=== PATIENT | male | born 1940 | race African-American/Black ===

== ENCOUNTER 2020-09-22 16:24 | Observation (INO) | payer OTHER, SELFPAY ==
--- NOTE | ~2020-09-22 | CT_ITS ---
EXAMINATION: CT HEAD WITHOUT CONTRAST CLINICAL INFORMATION: Weakness. COMPARISON: CT head from 05/29/2016. TECHNIQUE: Contiguous axial imaging was performed from the skull base to vertex without intravenous administration of contrast. This CT examination was performed using dose optimization techniques as appropriate, variously including the following: *Automated exposure control. *Adjustment of mA and/or kV according to patient size (this includes techniques or standardized protocols for targeted exams where dose is matched to indication/reason for exam; i.e. extremities or head). *Use of iterative reconstruction technique. DLP: 639 mGy-cm FINDINGS: There is no evidence of acute intracranial hemorrhage or edematous territorial infarction. Scattered hypoattenuation in the periventricular and deep white matter are consistent with mild to moderate microangiopathy. Chronic encephalomalacia of the medial left cerebellar hemisphere. Otherwise, the weiner-white matter differentiation is preserved. Proportional prominence of the ventricles and sulcal spaces. The third ventricle measures 0.9 cm in diameter, unchanged. No evidence for obstructive hydrocephalus. There is a 0.6 cm hyperattenuating nodular focus at the foramen magnum consistent with a colloid cyst, unchanged. No abnormal mass effect or midline shift. No extra-axial fluid collections. No acute soft tissue or osseous abnormalities. Chronic depression of the right lamina papyracea. Mild mucosal thickening of the paranasal sinuses. The mastoid air cells and middle ear cavities are clear. Bilateral lens extractions. CT/CT head/brain wo con IMPRESSION: 1. No evidence of acute intracranial hemorrhage or edematous territorial infarction. 2. Chronic encephalomalacia of the left cerebellar hemisphere. Mild to moderate underlying microangiopathy. 3. 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 No evidence of obstructive hydrocephalus.
--- NOTE | ~2020-09-22 | MR_ITS ---
MRI OF THE BRAIN WITHOUT IV CONTRAST INDICATION: Rule out CVA. COMPARISON: Head and neck CTA 09/22/2020 TECHNIQUE: Multiplanar multisequence MR imaging of the brain was obtained without IV contrast. FINDINGS: There is no hydrocephalus, extra-axial surface collection, or herniation. The major flow voids at the skull base are preserved. There is no acute infarct on diffusion-weighted imaging. There is no intracranial hemorrhage on the gradient recalled echo acquisition. The midline structures are normal. The cerebellar tonsils are normally positioned. Asymmetric right temporal lobe volume loss. There is a chronic infarct within the inferomedial left cerebellum. Chronic gliosis and encephalomalacia within the left dorsal cervicomedullary junction as well. There is moderate chronic microangiopathy. The craniocervical junction is normal. Osseous marrow signal intensity is homogenous. Chronic traumatic deformity of the right lamina papyracea with herniation of extraconal fat into the fracture defect. MR/MR head/brain wo con IMPRESSION: - No acute intracranial findings. No acute infarcts. - There is a chronic infarct within the inferomedial left cerebellum. Chronic gliosis and encephalomalacia within the left dorsal cervicomedullary junction as well. There is moderate chronic microangiopathy. - Asymmetric right temporal lobe volume loss. - Chronic traumatic deformity of the right lamina papyracea with herniation of extraconal fat into the fracture defect.
--- NOTE | ~2020-09-22 | XR_ITS ---
EXAMINATION: XR CHEST CLINICAL INFORMATION: Weakness COMPARISON: Chest x-ray 05/28/2016, 04/06/2015. TECHNIQUE: Frontal portable view of the chest was obtained. 4:33 PM FINDINGS: Diffuse chronic increased interstitial lung markings similar prior exam. No acute airspace disease. No focal consolidation. Cardiac and mediastinal contours are normal. No central pulmonary vascular congestion. XR/XR chest 1V IMPRESSION: Chronic interstitial lung disease. No acute abnormality of the chest.
--- NOTE | ~2020-09-22 | XR_ITS ---
EXAMINATION: XR ABDOMEN KUB CLINICAL INDICATION: Constipation COMPARISON: Multiple prior examinations including CT abdomen pelvis May 2016. TECHNIQUE: AP view of the abdomen. FINDINGS: There is a prominent amount of feces within the large bowel. However the bowel is not appear abnormally dilated. Gas pattern overall unremarkable. Postsurgical changes in the spine. Surgical clips and stent overlying the right inguinal proximal femoral region. XR/XR KUB IMPRESSION: Prominent feces within the large bowel but no bowel dilatation.
--- NOTE | ~2020-09-22 | CT_ITS ---
EXAMINATION: CTA OF THE HEAD/NECK CLINICAL INFORMATION: Slurred speech. Worsening lower extremity weakness. COMPARISON: Head CT from today. TECHNIQUE: A routine non contrast head CT was performed earlier in the evening. A 70 mL bolus of Omnipaque 350 was administered. Subsequent multidetector helical imaging was performed of the head and neck. Delayed post contrast imaging was also performed through the head. Multiplanar reformats and MIP were also obtained. Internal carotid artery stenoses are assessed in accordance with NASCET criteria unless otherwise indicated. This CT examination was performed using dose optimization techniques as appropriate, variously including the following: *Automated exposure control *Adjustment of mA and/or kV according to patient size (this includes techniques or standardized protocols for targeted exams where dose is matched to indication/reason for exam; i.e. extremities or head) *Use of iterative reconstruction technique DLP: 1477 mGy-cm. FINDINGS: CT HEAD: There is no evidence of acute intracranial hemorrhage or territorial infarction. No abnormal mass effect or midline shift is seen. Chronic encephalomalacia of the left cerebellar hemisphere. Thomas to white matter differentiation is otherwise well preserved. No extra-axial fluid collections are identified. No suspicious leptomeningeal or parenchymal enhancement on the post-contrast images. No hydrocephalus. Proportional prominence of the ventricles and sulcal spaces is consistent with mild volume loss. Patchy periventricular and deep white matter hypoattenuation is consistent with mild small vessel ischemic changes. Redemonstration of the colloid cyst. Chronic appearing depression of the right lamina papyracea. No acute osseous abnormality. Small mucus retention cyst in the left maxillary sinus. Mild opacification of the ethmoid air cells. The mastoid air cells are well aerated. CTA NECK: The aortic arch is of normal caliber and the origins of the great vessels are patent without evidence of significant stenosis. The cervical portion of the vertebral arteries are patent bilaterally. Calcification at the origin of the right vertebral artery does not result in flow-limiting stenosis. No luminal irregularities in the common carotid arteries and the carotid bifurcations are patent bilaterally. The cervical portion of the internal carotid arteries are of normal caliber. Atherosclerotic calcification at the origin of both internal carotid arteries without associated flow-limiting stenosis. The laryngeal structures and pharyngeal mucosal spaces are unremarkable. The oral cavity appears normal. The parotid and submandibular glands are normal. No pathologically enlarged lymph nodes. The thyroid gland is unremarkable. Moderate emphysema the lung apices. No pneumothorax. Spinal alignment is maintained. Mild cervical spondylosis is noted. CTA HEAD: The intradural portion of the vertebral arteries are of normal caliber. The basilar, superior cerebellar, and posterior communicating arteries are patent. The posterior, middle, and anterior cerebral arteries are of normal caliber without evidence of significant luminal irregularity. No definite intracranial aneurysms. CT/CT angio head neck IMPRESSION: 1. No acute vascular abnormality. No large vessel occlusion. Scattered areas of atherosclerotic calcification without flow-limiting stenosis. 2. No acute intracranial findings.
[2020-09-22 16:34] VITALS: BP 138/84; PULSE 62; RESP 18; TEMP 36.5; O2SAT 94; BMI 20.5
--- NOTE | 2020-09-22 16:34 | ED_ITS ---
HPI - Weakness General Chief complaint: Weakness Stated complaint: STROKE ALERT,GENERAL WEAKNESS,?SPEECH CHANGES Time Seen by Provider: 09/22/20 16:34 Source: patient and EMS Mode of arrival: EMS Limitations: other (poor historian) History of Present Illness HPI Narrative: 79 yo male with hx of cerebellar stroke, HTN, PVD, COPD, HTN, HPL here with onset of slurred speech and diff ambulating at 8am, no trauma, states he will fall over if he stands MD Complaint: generalized weakness Onset (ago): hour(s) (9 hours) Duration: constant Location: LLE and RLE Migration: none Severity: moderate Quality: dull Relieving factors: rest Exacerbating factors: movement Context: history of similar Associated symptoms: loss of appetite Related Data Home Medications Medication Instructions Recorded Confirmed amlodipine 1 tab PO QAM 09/22/20 09/22/20 aspirin 1 tab PO BEDTIME 09/22/20 09/22/20 atorvastatin 1 tab PO BEDTIME 09/22/20 09/22/20 azithromycin 250 mg PO DAILY 09/22/20 09/22/20 carbidopa-levodopa 1 tab PO TID 09/22/20 09/22/20 ferrous sulfate 325 mg PO TID 09/22/20 09/22/20 gabapentin 600 mg PO BID 09/22/20 09/22/20 latanoprost 1 drp OPHTHALMIC (EYE) BEDTIME 09/22/20 09/22/20 melatonin 3 mg PO BEDTIME 09/22/20 09/22/20 methotrexate sodium 6 tab PO TH@1000 09/22/20 09/22/20 omeprazole 20 mg PO DAILY 09/22/20 09/22/20 oxycodone-acetaminophen 1 tab PO BID PRN 09/22/20 09/22/20 primidone 50 mg PO BID@0900,1700 09/22/20 09/22/20 primidone 100 mg PO BEDTIME 09/22/20 09/22/20 tamsulosin 0.4 mg PO DAILY 09/22/20 09/22/20 trazodone 300 mg PO BEDTIME 09/22/20 09/22/20 Allergies Allergy/AdvReac Type Severity Reaction Status Date / Time No Known Allergies Allergy Unverified 02/20/20 15:11 [No Known Allergies*] Review of Systems Review of Systems: Constitutional : No Weight loss, No Fever, pos Chills, pos Fatigue, pos Malaise ENT/Mouth : No sore throat, No Rhinorrhea Eyes: No Eye Pain, No Swelling, No Redness Cardiovascular : No Chest Pain, No SOB, No Dyspnea on Exertion, No Orthopnea, No Edema, No Palpitations Respiratory : No Cough, No Sputum, No Wheezing Gastrointestinal : No Nausea, No Vomiting, No Diarrhea, No Constipation, No abdominal Pain, No Hematochezia, No Melena Genitourinary : No Dysuria, No Urinary Frequency, No Hematuria, Musculoskeletal : No joint pain, No Myalgias, No Joint Swelling Skin : No Skin Lesions, No rash Neuro : pos Weakness, No Numbness, No Dizziness, No Headache Psych : No Anxiety/Panic, No Depression Heme/Lymph: No Bruising, No Bleeding,No Lymphadenopathy Endocrine : No Polyuria, No Polydipsia All other systems reviewed and are negative FORMERLY [facility] Past Medical History Medical History CAD (coronary artery disease) Chronic anemia Chronic back pain Chronic hepatitis B Chronic low back pain COPD (chronic obstructive pulmonary disease) Elevated rheumatoid factor Elevated sed rate HTN (hypertension) Hyperlipemia Obstructive sleep apnea PVD (peripheral vascular disease) Renal lithiasis Tubular adenoma Vitamin B12 deficiency Social History Social History (Updated 09/22/20 @ 16:37 by Lidia Ferro DO) Smoking Status: Former smoker Use of substances other than those prescribed or required for medical reasons: No Advance Directives: No Advance Directives Information Provided: No Physical Exam Vital Signs: Vital Signs: Last Vital Signs Temp 97.7 F 09/22/20 16:34 Pulse 62 09/22/20 16:34 Resp 18 09/22/20 16:34 BP 138/84 09/22/20 16:34 Pulse Ox 94 09/22/20 16:34 Body Mass Index 20.5 Appearance: Alert. Oriented X3. No acute distress. Very soft speech Eyes: Pupils equal, round and reactive to light. ENT: Pharynx dry MM Neck: Normal inspection. Neck supple. CVS: Normal heart rate and rhythm. Pulses normal. Respiratory: No respiratory distress. Breath sounds normal. Abdomen: Soft and nontender. Skin: Skin warm and dry. Normal skin color. poor skin turgor. Extremities: No lower extremity edema. No calf ttp Neuro: Oriented X 3. No motor deficit. No sensory deficit. FLat affect, unable to ambulate, but no drift, denies visual loss, + slurred speech NIH Stroke Scale Internal: Initial- Upon Arrival Level of Consciousness: Alert Level of Consciousness Questions: Answers both questions correctly Level of Consciousness Commands: Performs both tasks correctly Best Gaze: Normal Visual: No visual loss Facial Palsy: Normal Motor Arm (Right): No drift Motor Arm (Left): No drift Motor Leg (Right): Drift Motor Leg (Left): Drift Limb Ataxia: Absent Sensory: Normal Best Language: No aphasia Dysarthia: Mild to moderate dysarthria Extinction and Inattention: No abnormality Score: 3 Course Course Course Narrative: + weakness, unknown source of lactic acidosis but suspect dehydration and not infection or severe sepsis given new dysarthria will workup for possible stroke and admit MDM - Weakness MDM Narrative Medical decision making narrative: 79 yo male with COPD, HTN, HPL, prior stroke not on AC therapy here with weakness slurred speech since 8am out of tPa window at this time will need labs, EKG, CT head, ambulation trial r/o infectious and metabolic workup vs stroke Lab Data Result diagrams: 09/22/20 17:41 09/22/20 17:41 Labs: Lab Results 09/22/20 09/22/20 09/22/20 Range/Units 16:36 17:41 17:41 WBC 5.5 (4.8-10.8) X10*3/uL RBC 4.02 L (4.60-5.80) X10*6/uL Hgb 11.9 L (14.0-18.0) g/dl Hct 36.8 L (42-52) % MCV 91.5 (80-98) fL MCH 29.6 (27.0-33.0) pg MCHC 32.3 (31.0-36.0) g/dl RDW 17.4 H (11.0-16.0) % Plt Count 256 (160-400) X10*3/uL MPV 9.6 (9.4-12.4) fL Immature Gran % (Auto) 0.2 (0.0-0.4) % Neut % (Auto) 71.4 (45-73) % Lymph % (Auto) 24.5 (20-40) % Davis % (Auto) 3.3 (2-11) % Eos % (Auto) 0.4 (0-4) % Baso % (Auto) 0.2 (0-2) % Lymph # (Auto) 1.4 (1.2-4.9) X10*3/uL Davis # (Auto) 0.2 (0.1-1.2) X10*3/uL Eos # (Auto) 0.0 (0.0-0.4) X10*3/uL Baso # (Auto) 0.0 (0.0-0.2) X10*3/uL Abs Immat Gran (auto) 0.01 (0.00-0.03) X10*3/uL Absolute Neuts (auto) 4.0 (2.0-8.3) X10*3/uL Absolute Nucleated RBC 0.000 (0.0-0.012) X10*3/uL Nucleated RBC % (auto) 0.0 (0.0-0.2) /100WBC PT (10.8-13.0) SEC INR (0.9-1.1) APTT (24.1-38.0) SEC VBG pH (7.32-7.43) VBG pCO2 mmHg VBG pO2 mmHg VBG HCO3 (22-26) mmol/L VBG O2 Saturation % VBG Base Excess mmol/L Sodium 139 (135-145) mmol/L Potassium 4.3 (3.3-5.1) mmol/L Chloride 102 (96-108) mmol/L Carbon Dioxide 29 (22-29) mmol/L Anion Gap 12 (12-20) BUN 21 H (9-16) mg/dL Creatinine 0.80 (0.5-1.4) mg/dL Estim Creat Clear Calc 76.8 Estimated GFR > 60 POC Glucose 129 H (60-115) mg/dL Random Glucose 114 (60-115) mg/dL Lactic Acid (0.5-2.0) mmol/L Calcium 9.4 (8.4-10.2) mg/dL Magnesium (1.6-2.6) mg/dL Total Bilirubin (0.0-1.0) mg/dL Direct Bilirubin (0.0-0.5) mg/dL AST (5-37) U/L ALT (0-40) U/L Alkaline Phosphatase (39-117) U/L Total Creatine Kinase 28 L (38-174) U/L Troponin I High Sens (<3.5-35.0) ng/L Total Protein (6.5-8.0) g/dL Albumin (3.5-5.0) g/dL Lipase 10 (8-78) U/L Urine Color Urine Appearance Urine pH (5.0-8.0) Ur Specific [place] (1.005-1.025) Urine Protein (NEG-TRACE) MG/DL Urine Glucose (UA) (NEG) MG/DL Urine Ketones (NEG) MG/DL Urine Blood (NEG) Urine Nitrite (NEG) Ur Leukocyte Esterase (NEG) Urine RBC (0) /HPF Urine WBC (0-4) /HPF Ur Squamous Epith Cells /LPF Ur Renal Epithelial Cell /LPF Urine Bacteria /LPF Urine Mucus /LPF Ethyl Alcohol mg/dL COVID-19 (ARGELIA) (Negative) COVID-19 Clin Com 09/22/20 09/22/20 09/22/20 Range/Units 17:41 17:41 17:41 WBC (4.8-10.8) X10*3/uL RBC (4.60-5.80) X10*6/uL Hgb (14.0-18.0) g/dl Hct (42-52) % MCV (80-98) fL MCH (27.0-33.0) pg MCHC (31.0-36.0) g/dl RDW (11.0-16.0) % Plt Count (160-400) X10*3/uL MPV (9.4-12.4) fL Immature Gran % (Auto) (0.0-0.4) % Neut % (Auto) (45-73) % Lymph % (Auto) (20-40) % Davis % (Auto) (2-11) % Eos % (Auto) (0-4) % Baso % (Auto) (0-2) % Lymph # (Auto) (1.2-4.9) X10*3/uL Davis # (Auto) (0.1-1.2) X10*3/uL Eos # (Auto) (0.0-0.4) X10*3/uL Baso # (Auto) (0.0-0.2) X10*3/uL Abs Immat Gran (auto) (0.00-0.03) X10*3/uL Absolute Neuts (auto) (2.0-8.3) X10*3/uL Absolute Nucleated RBC (0.0-0.012) X10*3/uL Nucleated RBC % (auto) (0.0-0.2) /100WBC PT 13.4 H (10.8-13.0) SEC INR 1.1 (0.9-1.1) APTT 32.3 (24.1-38.0) SEC VBG pH (7.32-7.43) VBG pCO2 mmHg VBG pO2 mmHg VBG HCO3 (22-26) mmol/L VBG O2 Saturation % VBG Base Excess mmol/L Sodium (135-145) mmol/L Potassium (3.3-5.1) mmol/L Chloride (96-108) mmol/L Carbon Dioxide (22-29) mmol/L Anion Gap (12-20) BUN (9-16) mg/dL Creatinine (0.5-1.4) mg/dL Estim Creat Clear Calc Estimated GFR POC Glucose (60-115) mg/dL Random Glucose (60-115) mg/dL Lactic Acid 2.2 H* (0.5-2.0) mmol/L Calcium (8.4-10.2) mg/dL Magnesium (1.6-2.6) mg/dL Total Bilirubin (0.0-1.0) mg/dL Direct Bilirubin (0.0-0.5) mg/dL AST (5-37) U/L ALT (0-40) U/L Alkaline Phosphatase (39-117) U/L Total Creatine Kinase (38-174) U/L Troponin I High Sens (<3.5-35.0) ng/L Total Protein (6.5-8.0) g/dL Albumin (3.5-5.0) g/dL Lipase (8-78) U/L Urine Color Urine Appearance Urine pH (5.0-8.0) Ur Specific [place] (1.005-1.025) Urine Protein (NEG-TRACE) MG/DL Urine Glucose (UA) (NEG) MG/DL Urine Ketones (NEG) MG/DL Urine Blood (NEG) Urine Nitrite (NEG) Ur Leukocyte Esterase (NEG) Urine RBC (0) /HPF Urine WBC (0-4) /HPF Ur Squamous Epith Cells /LPF Ur Renal Epithelial Cell /LPF Urine Bacteria /LPF Urine Mucus /LPF Ethyl Alcohol < 10 mg/dL COVID-19 (ARGELIA) (Negative) COVID-19 Clin Com 09/22/20 09/22/20 09/22/20 Range/Units 17:41 17:41 17:47 WBC (4.8-10.8) X10*3/uL RBC (4.60-5.80) X10*6/uL Hgb (14.0-18.0) g/dl Hct (42-52) % MCV (80-98) fL MCH (27.0-33.0) pg MCHC (31.0-36.0) g/dl RDW (11.0-16.0) % Plt Count (160-400) X10*3/uL MPV (9.4-12.4) fL Immature Gran % (Auto) (0.0-0.4) % Neut % (Auto) (45-73) % Lymph % (Auto) (20-40) % Davis % (Auto) (2-11) % Eos % (Auto) (0-4) % Baso % (Auto) (0-2) % Lymph # (Auto) (1.2-4.9) X10*3/uL Davis # (Auto) (0.1-1.2) X10*3/uL Eos # (Auto) (0.0-0.4) X10*3/uL Baso # (Auto) (0.0-0.2) X10*3/uL Abs Immat Gran (auto) (0.00-0.03) X10*3/uL Absolute Neuts (auto) (2.0-8.3) X10*3/uL Absolute Nucleated RBC (0.0-0.012) X10*3/uL Nucleated RBC % (auto) (0.0-0.2) /100WBC PT (10.8-13.0) SEC INR (0.9-1.1) APTT (24.1-38.0) SEC VBG pH 7.35 (7.32-7.43) VBG pCO2 52 mmHg VBG pO2 48 mmHg VBG HCO3 29 H (22-26) mmol/L VBG O2 Saturation 75.0 % VBG Base Excess 2.6 mmol/L Sodium (135-145) mmol/L Potassium (3.3-5.1) mmol/L Chloride (96-108) mmol/L Carbon Dioxide (22-29) mmol/L Anion Gap (12-20) BUN (9-16) mg/dL Creatinine (0.5-1.4) mg/dL Estim Creat Clear Calc Estimated GFR POC Glucose (60-115) mg/dL Random Glucose (60-115) mg/dL Lactic Acid (0.5-2.0) mmol/L Calcium (8.4-10.2) mg/dL Magnesium 2.2 (1.6-2.6) mg/dL Total Bilirubin 0.5 (0.0-1.0) mg/dL Direct Bilirubin 0.2 (0.0-0.5) mg/dL AST 14 (5-37) U/L ALT < 6 (0-40) U/L Alkaline Phosphatase 121 H (39-117) U/L Total Creatine Kinase (38-174) U/L Troponin I High Sens < 3.5 (<3.5-35.0) ng/L Total Protein 9.0 H (6.5-8.0) g/dL Albumin 3.9 (3.5-5.0) g/dL Lipase (8-78) U/L Urine Color Urine Appearance Urine pH (5.0-8.0) Ur Specific [place] (1.005-1.025) Urine Protein (NEG-TRACE) MG/DL Urine Glucose (UA) (NEG) MG/DL Urine Ketones (NEG) MG/DL Urine Blood (NEG) Urine Nitrite (NEG) Ur Leukocyte Esterase (NEG) Urine RBC (0) /HPF Urine WBC (0-4) /HPF Ur Squamous Epith Cells /LPF Ur Renal Epithelial Cell /LPF Urine Bacteria /LPF Urine Mucus /LPF Ethyl Alcohol mg/dL COVID-19 (ARGELIA) (Negative) COVID-19 Clin Com 09/22/20 09/22/20 Range/Units 17:53 20:51 WBC (4.8-10.8) X10*3/uL RBC (4.60-5.80) X10*6/uL Hgb (14.0-18.0) g/dl Hct (42-52) % MCV (80-98) fL MCH (27.0-33.0) pg MCHC (31.0-36.0) g/dl RDW (11.0-16.0) % Plt Count (160-400) X10*3/uL MPV (9.4-12.4) fL Immature Gran % (Auto) (0.0-0.4) % Neut % (Auto) (45-73) % Lymph % (Auto) (20-40) % Davis % (Auto) (2-11) % Eos % (Auto) (0-4) % Baso % (Auto) (0-2) % Lymph # (Auto) (1.2-4.9) X10*3/uL Davis # (Auto) (0.1-1.2) X10*3/uL Eos # (Auto) (0.0-0.4) X10*3/uL Baso # (Auto) (0.0-0.2) X10*3/uL Abs Immat Gran (auto) (0.00-0.03) X10*3/uL Absolute Neuts (auto) (2.0-8.3) X10*3/uL Absolute Nucleated RBC (0.0-0.012) X10*3/uL Nucleated RBC % (auto) (0.0-0.2) /100WBC PT (10.8-13.0) SEC INR (0.9-1.1) APTT (24.1-38.0) SEC VBG pH (7.32-7.43) VBG pCO2 mmHg VBG pO2 mmHg VBG HCO3 (22-26) mmol/L VBG O2 Saturation % VBG Base Excess mmol/L Sodium (135-145) mmol/L Potassium (3.3-5.1) mmol/L Chloride (96-108) mmol/L Carbon Dioxide (22-29) mmol/L Anion Gap (12-20) BUN (9-16) mg/dL Creatinine (0.5-1.4) mg/dL Estim Creat Clear Calc Estimated GFR POC Glucose (60-115) mg/dL Random Glucose (60-115) mg/dL Lactic Acid (0.5-2.0) mmol/L Calcium (8.4-10.2) mg/dL Magnesium (1.6-2.6) mg/dL Total Bilirubin (0.0-1.0) mg/dL Direct Bilirubin (0.0-0.5) mg/dL AST (5-37) U/L ALT (0-40) U/L Alkaline Phosphatase (39-117) U/L Total Creatine Kinase (38-174) U/L Troponin I High Sens (<3.5-35.0) ng/L Total Protein (6.5-8.0) g/dL Albumin (3.5-5.0) g/dL Lipase (8-78) U/L Urine Color YELLOW Urine Appearance HAZY Urine pH 5.5 (5.0-8.0) Ur Specific [place] >= 1.030 H (1.005-1.025) Urine Protein 1+ H (NEG-TRACE) MG/DL Urine Glucose (UA) NEG (NEG) MG/DL Urine Ketones NEG (NEG) MG/DL Urine Blood 2+ H (NEG) Urine Nitrite NEG (NEG) Ur Leukocyte Esterase NEG (NEG) Urine RBC 15-29 H (0) /HPF Urine WBC 0-2 (0-4) /HPF Ur Squamous Epith Cells TRACE /LPF Ur Renal Epithelial Cell TRACE /LPF Urine Bacteria 1+ /LPF Urine Mucus 3+ /LPF Ethyl Alcohol mg/dL COVID-19 (ARGELIA) Negative (Negative) COVID-19 Clin Com See Note ECG Data Attestation: I personally reviewed and interpreted this ECG as follows: ECG interpretation date: 09/22/20 ECG interpretation time: 17:12 Interpretation: Rate: 61 Rhythm: NSR with 1st degree AVB [place]: left Normal P waves. Normal LUPILLO. Normal QRS complex. ST T wave : inverted aVL, no DARIN inverted V4 qTC: normal prior studies: no acute ischemia The study has been interpreted contemporaneously by me. . Discharge Plan Discharge Clinical Impression: Weakness, Dysarthria, Acidosis, lactic Patient Disposition: Admitted As Inpatient Prescriptions: No Action latanoprost 0.005 % drops 1 drp ophthalmic (eye) BEDTIME RF: 0 atorvastatin 40 mg tablet 1 tab PO BEDTIME RF: 0 primidone 50 mg tablet 100 mg PO BEDTIME RF: 0 primidone 50 mg tablet 50 mg PO BID@0900,1700 RF: 0 gabapentin 600 mg tablet 600 mg PO BID RF: 0 azithromycin 250 mg tablet 250 mg PO DAILY RF: 0 melatonin 3 mg tablet 3 mg PO BEDTIME RF: 0 amlodipine 5 mg tablet 1 tab PO QAM RF: 0 aspirin 81 mg tablet,delayed release (DR/EC) 1 tab PO BEDTIME RF: 0 oxycodone-acetaminophen 5-325 mg tablet 1 tab PO BID PRN (Reason: Pain) RF: 0 methotrexate sodium 2.5 mg tablet 6 tab PO TH@1000 RF: 0 tamsulosin 0.4 mg capsule 0.4 mg PO DAILY RF: 0 trazodone 150 mg tablet 300 mg PO BEDTIME RF: 0 ferrous sulfate 325 mg (65 mg iron) tablet 325 mg PO TID RF: 0 omeprazole 20 mg capsule,delayed release(DR/EC) 20 mg PO DAILY RF: 0 carbidopa-levodopa 25-100 mg tablet 1 tab PO TID RF: 0
[2020-09-22 16:39] LABS: Glucose, Whole Blood 129 mg/dL (60-115)
--- NOTE | 2020-09-22 16:39 | ECG_ITS ---
Test Reason : WEAKNESS Blood Pressure : / mmHG Vent. Rate : 061 BPM Atrial Rate : 061 BPM P-R Int : 224 ms QRS Dur : 082 ms QT Int : 426 ms P-R-T Axes : 057 -40 072 degrees QTc Int : 428 ms Sinus rhythm with 1st degree A-V block Left axis deviation Nonspecific ST and T wave abnormality Abnormal ECG When compared with ECG of 28-MAY-2016 19:08, MD interval has increased Vent. rate has decreased BY [address] no longer depressed in Lateral leads Nonspecific T wave abnormality, worse in Lateral leads Referred By: Lidia Ferro Electronically Signed By:Jae Hurtado
[2020-09-22 17:56] LABS: MANUAL DIFF FLAG NO
[2020-09-22 17:57] LABS: Venous Blood Gas Refer to POC result
[2020-09-22 17:58] LABS: VBG Base Excess 2.6 mmol/L; VBG HCO3 29 mmol/L (22-26); VBG pCO2 52 mmHg; VBG pH 7.35 (7.32-7.43); VBG pO2 48 mmHg
[2020-09-22 18:06] LABS: INTERNATIONAL NORM RATIO 1.1 (0.9-1.1); Prothrombin Time 13.4 SEC (10.8-13.0)
[2020-09-22 18:09] LABS: Partial Thromboplastin Time 32.3 SEC (24.1-38.0)
[2020-09-22 18:15] LABS: Basophils Percent Auto 0.2 % (0-2); Eosinophils Percent Auto 0.4 % (0-4); Hematocrit 36.8 % (42-52); Hemoglobin 11.9 g/dl (14.0-18.0); Imm Gran Abs Auto 0.01 X10*3/uL (0.00-0.03); Imm Gran Pct Auto 0.2 % (0.0-0.4); Lymphocytes Absolute Auto 1.4 X10*3/uL (1.2-4.9); Lymphocytes Percent Auto 24.5 % (20-40); Mean Corpuscular HGB Conc 32.3 g/dl (31.0-36.0); Mean Corpuscular Hemoglobin 29.6 pg (27.0-33.0); Mean Corpuscular Volume 91.5 fL (80-98); Mean Platelet Volume 9.6 fL (9.4-12.4); Monocytes Absolute Auto 0.2 X10*3/uL (0.1-1.2); Monocytes Percent Auto 3.3 % (2-11); Neutrophils Percent Auto 71.4 % (45-73); Platelet Count 256 X10*3/uL (160-400); Red Blood Count 4.02 X10*6/uL (4.60-5.80); Red Cell Distribution Width 17.4 % (11.0-16.0); White Blood Count 5.5 X10*3/uL (4.8-10.8)
[2020-09-22 18:20] LABS: COVID-19 Test Negative (Negative); IDNOW Serial# 08D9AD1C
[2020-09-22 18:36] LABS: Ethanol < 10 mg/dL
[2020-09-22 18:40] LABS: Anion Gap 12 (12-20); Blood Urea Nitrogen 21 mg/dL (9-16); Calcium 9.4 mg/dL (8.4-10.2); Carbon Dioxide 29 mmol/L (22-29); Chloride 102 mmol/L (96-108); Creatinine Clr Calc Pharmacy 76.8; Estimated Glomerular Filt Rate > 60; Glucose Random 114 mg/dL (60-115); Lipase 10 U/L (8-78); Potassium 4.3 mmol/L (3.3-5.1); Sodium 139 mmol/L (135-145)
[2020-09-22 18:44] LABS: Troponin-I High Sensitivity < 3.5 ng/L (<3.5-35.0)
[2020-09-22 18:56] LABS: Alanine Aminotransferase < 6 U/L (0-40); Albumin Level 3.9 g/dL (3.5-5.0); Alkaline Phosphatase 121 U/L (39-117); Aspartate Amino Transferase 14 U/L (5-37); Bilirubin Direct 0.2 mg/dL (0.0-0.5); Bilirubin Total 0.5 mg/dL (0.0-1.0); Magnesium 2.2 mg/dL (1.6-2.6)
[2020-09-22 19:12] LABS: Lactic Acid 2.2 mmol/L (0.5-2.0)
[2020-09-22] MEDS: 0.9 % Sodium Chloride 500 ML IV (19:39)
[2020-09-22 19:54] LABS: Reflex Lactate? Lactic Acid Added
[2020-09-22 21:01] LABS: Glucose Urine UA NEG (NEG); Leukocyte Esterase Urine NEG (NEG); Nitrite Urine NEG (NEG); PH 5.5 (5.0-8.0); Specific Gravity - Urine >= 1.030 (1.005-1.025); Urine Blood 2+ (NEG); Urine Ketones NEG (NEG); Urine Protein 1+ MG/DL (NEG-TRACE)
[2020-09-22 21:06] LABS: Appearance Urine HAZY; Color Urine YELLOW
[2020-09-22 21:14] LABS: Bacteria Urine 1+ /LPF; Squamous Epithelial Cell Urine TRACE /LPF; WBC Urine 0-2 /HPF (0-4)
[2020-09-22 21:15] LABS: Mucus Urine 3+ /LPF; Renal Epithelial Cells Urine TRACE /LPF
[2020-09-22] MEDS: Aspirin Enteric Coated 81 MG TABLET.DR 162 MG PO (21:59)
[2020-09-22 22:01] VITALS: BP 140/83; PULSE 79; RESP 14; O2SAT 96
[2020-09-22 22:11] LABS: ~Lactic Acid-LAB USE ONLY 1.8 mmol/L (0.5-2.0)
[2020-09-22] MEDS: iohexoL 350 MG/ML 100 ML INFUS..BTL IV (22:41)
--- NOTE | 2020-09-22 23:03 | PM.IMHP ---
History of Present Illness Date of Service: 09/22/20 Chief Complaint: slurred speech, weakness Of CVA, CAD, chronic anemia, chronic hepatitis-B, COPD, HTN, HLD, YEIMY, PVD, who presents to the hospital with complaints of weakness, and slurred speech. Patient is a poor historian, he is not able to give me a straight answer, reports that he has weakness in his arms and has been having difficulty gripping anything. When asked emesis worse than his usual weakness given his history of CVA is unable to tell me, he gets frustrated when asked him this questions, I asked him if he has any other complaints denies, he denies any chest pain, no shortness of breath, numbness or tingling, no facial drooping, he reports that he does not feel like his tongue is heavy, he has no fever chills, no abdominal pain nausea or vomiting, no diarrhea constipation, no urinary symptoms and no lower extremity edema. Patient was noted to have slurred speech by ED physician, on my interview patient has no dysarthria. On arrival to the ED hemodynamically stable with no significant abnormal vitals Labs are significant for hemoglobin of WBC count of 5, hemoglobin of 10.5, hematocrit 33, PT of 13.4, sitting with a 4 in sodium of 137, potassium 4.2, BUN of 20, lactic acid of 2.2 that normalized after fluids, alk-phos of 121, CPK of 28, UA that is positive for blood as well as RBC, CT angio head and neck shows no acute vascular abnormality, no large vessel occlusion, scattered areas of atherosclerotic calcification without flow-limiting stenosis KUB shows prominent feces within the large bowel but no bowel dilatation CXR shows chronic interstitial lung disease Review of Systems Review of Systems: Yes all other systems are reviewed and are negative COUNT INCLUDES THE [facility] Medical History CAD (coronary artery disease) Chronic anemia Chronic back pain Chronic hepatitis B Chronic low back pain COPD (chronic obstructive pulmonary disease) Elevated rheumatoid factor Elevated sed rate HTN (hypertension) Hyperlipemia Obstructive sleep apnea PVD (peripheral vascular disease) Renal lithiasis Tubular adenoma Vitamin B12 deficiency Social History Smoking Status: Former smoker Use of substances other than those prescribed or required for medical reasons: No Advance Directives: No Advance Directives Information Provided: No Meds Allergies Allergy/AdvReac Type Severity Reaction Status Date / Time No Known Allergies Allergy Unverified 02/20/20 15:11 [No Known Allergies*] Active Medications: Current Medications Generic Name Dose Route Start Last Admin Trade Name Freq PRN Reason Stop Dose Admin Pharmacy Consult 1 each 09/22/20 16:37 Consult Rx Perform Med Rec MISCELLANE ONCE PRN Consult order Home Medications Medication Instructions Recorded Confirmed Last Taken Type amlodipine 1 tab PO QAM 09/22/20 09/22/20 Unknown History aspirin 1 tab PO BEDTIME 09/22/20 09/22/20 Unknown History atorvastatin 1 tab PO BEDTIME 09/22/20 09/22/20 Unknown History azithromycin 250 mg PO DAILY 09/22/20 09/22/20 Unknown History carbidopa-levodopa 1 tab PO TID 09/22/20 09/22/20 Unknown History ferrous sulfate 325 mg PO TID 09/22/20 09/22/20 Unknown History gabapentin 600 mg PO BID 09/22/20 09/22/20 Unknown History latanoprost 1 drp OPHTHALMIC (EYE) BEDTIME 09/22/20 09/22/20 Unknown History melatonin 3 mg PO BEDTIME 09/22/20 09/22/20 Unknown History methotrexate sodium 6 tab PO TH@1000 09/22/20 09/22/20 Unknown History omeprazole 20 mg PO DAILY 09/22/20 09/22/20 Unknown History oxycodone-acetaminophen 1 tab PO BID PRN 09/22/20 09/22/20 Unknown History primidone 50 mg PO BID@0900,1700 09/22/20 09/22/20 Unknown History primidone 100 mg PO BEDTIME 09/22/20 09/22/20 Unknown History tamsulosin 0.4 mg PO DAILY 09/22/20 09/22/20 Unknown History trazodone 300 mg PO BEDTIME 09/22/20 09/22/20 Unknown History Physical Exam Vital Signs and Narrative: Vital Signs: Last Vital Signs Temp 97.7 F 09/22/20 16:34 Pulse 79 09/22/20 22:01 Resp 14 09/22/20 22:01 BP 140/83 H 09/22/20 22:01 Pulse Ox 96 09/22/20 22:01 Body Mass Index 20.5 Const: General: cooperative and no acute distress Orientation/consciousness: patient oriented x3 Eyes: Other: nystagmus to the right when tracking General: appearance normal, both eyes and all related structures Resp: Effort & Inspection: normal respiratory effort and able to speak in complete sentences Cardio: Rate: regular rate Rhythm: regular rhythm GI: Palpation (GI): Soft to palpation Auscultation: normal bowel sounds Skin: General skin exam: no rashes or lesions noted Neuro: Other: strength is 5/5 in all extremity, has nystagmus to the right General: patient oriented x3 Cognition (Neuro): normal cognition Extrem: General: Yes normal to inspection and Yes no pedal edema Results Labs CBC and Chem 7: 09/23/20 04:28 09/23/20 04:27 Labs: Laboratory Results - last 24 hr 09/22/20 09/22/20 09/22/20 16:36 17:41 17:41 MCV 91.5 MCH 29.6 MCHC 32.3 RDW 17.4 H Plt Count 256 MPV 9.6 Immature Gran % (Auto) 0.2 Neut % (Auto) 71.4 Lymph % (Auto) 24.5 [place] % (Auto) 3.3 Eos % (Auto) 0.4 Baso % (Auto) 0.2 Lymph # (Auto) 1.4 [place] # (Auto) 0.2 Eos # (Auto) 0.0 Baso # (Auto) 0.0 Abs Immat Gran (auto) 0.01 Absolute Neuts (auto) 4.0 Absolute Nucleated RBC 0.000 Nucleated RBC % (auto) 0.0 PT INR APTT VBG pH VBG pCO2 VBG pO2 VBG HCO3 VBG O2 Saturation VBG Base Excess Anion Gap 12 Estim Creat Clear Calc 76.8 Estimated GFR > 60 POC Glucose 129 H Random Glucose 114 Lactic Acid Lactic Acid Fup @ 2Hr Calcium 9.4 Magnesium Total Bilirubin Direct Bilirubin AST ALT Alkaline Phosphatase Total Creatine Kinase 28 L Troponin I High Sens Total Protein Albumin Lipase 10 Urine Color Urine Appearance Urine pH Ur Specific [place] Urine Protein Urine Glucose (UA) Urine Ketones Urine Blood Urine Nitrite Ur Leukocyte Esterase Urine RBC Urine WBC Ur Squamous Epith Cells Ur Renal Epithelial Cell Urine Bacteria Urine Mucus Ethyl Alcohol COVID-19 (ARGELIA) COVID-19 Clin Com 09/22/20 09/22/20 09/22/20 17:41 17:41 17:41 MCV MCH MCHC RDW Plt Count MPV Immature Gran % (Auto) Neut % (Auto) Lymph % (Auto) [place] % (Auto) Eos % (Auto) Baso % (Auto) Lymph # (Auto) [place] # (Auto) Eos # (Auto) Baso # (Auto) Abs Immat Gran (auto) Absolute Neuts (auto) Absolute Nucleated RBC Nucleated RBC % (auto) PT 13.4 H INR 1.1 APTT 32.3 VBG pH VBG pCO2 VBG pO2 VBG HCO3 VBG O2 Saturation VBG Base Excess Anion Gap Estim Creat Clear Calc Estimated GFR POC Glucose Random Glucose Lactic Acid 2.2 H* Lactic Acid Fup @ 2Hr Calcium Magnesium Total Bilirubin Direct Bilirubin AST ALT Alkaline Phosphatase Total Creatine Kinase Troponin I High Sens Total Protein Albumin Lipase Urine Color Urine Appearance Urine pH Ur Specific [place] Urine Protein Urine Glucose (UA) Urine Ketones Urine Blood Urine Nitrite Ur Leukocyte Esterase Urine RBC Urine WBC Ur Squamous Epith Cells Ur Renal Epithelial Cell Urine Bacteria Urine Mucus Ethyl Alcohol < 10 COVID-19 (ARGELIA) COVID-19 SHAPE 09/22/20 09/22/20 09/22/20 17:41 17:41 17:47 MCV MCH MCHC RDW Plt Count MPV Immature Gran % (Auto) Neut % (Auto) Lymph % (Auto) [place] % (Auto) Eos % (Auto) Baso % (Auto) Lymph # (Auto) [place] # (Auto) Eos # (Auto) Baso # (Auto) Abs Immat Gran (auto) Absolute Neuts (auto) Absolute Nucleated RBC Nucleated RBC % (auto) PT INR APTT VBG pH 7.35 VBG pCO2 52 VBG pO2 48 VBG HCO3 29 H VBG O2 Saturation 75.0 VBG Base Excess 2.6 Anion Gap Estim Creat Clear Calc Estimated GFR POC Glucose Random Glucose Lactic Acid Lactic Acid Fup @ 2Hr Calcium Magnesium 2.2 Total Bilirubin 0.5 Direct Bilirubin 0.2 AST 14 ALT < 6 Alkaline Phosphatase 121 H Total Creatine Kinase Troponin I High Sens < 3.5 Total Protein 9.0 H Albumin 3.9 Lipase Urine Color Urine Appearance Urine pH Ur Specific [place] Urine Protein Urine Glucose (UA) Urine Ketones Urine Blood Urine Nitrite Ur Leukocyte Esterase Urine RBC Urine WBC Ur Squamous Epith Cells Ur Renal Epithelial Cell Urine Bacteria Urine Mucus Ethyl Alcohol COVID-19 (ARGELIA) COVID-[employer] 09/22/20 09/22/20 09/22/20 17:53 20:51 21:14 MCV MCH MCHC RDW Plt Count MPV Immature Gran % (Auto) Neut % (Auto) Lymph % (Auto) [place] % (Auto) Eos % (Auto) Baso % (Auto) Lymph # (Auto) [place] # (Auto) Eos # (Auto) Baso # (Auto) Abs Immat Gran (auto) Absolute Neuts (auto) Absolute Nucleated RBC Nucleated RBC % (auto) PT INR APTT VBG pH VBG pCO2 VBG pO2 VBG HCO3 VBG O2 Saturation VBG Base Excess Anion Gap Estim Creat Clear Calc Estimated GFR POC Glucose Random Glucose Lactic Acid Lactic Acid Fup @ 2Hr 1.8 Calcium Magnesium Total Bilirubin Direct Bilirubin AST ALT Alkaline Phosphatase Total Creatine Kinase Troponin I High Sens Total Protein Albumin Lipase Urine Color YELLOW Urine Appearance HAZY Urine pH 5.5 Ur Specific [place] >= 1.030 H Urine Protein 1+ H Urine Glucose (UA) NEG Urine Ketones NEG Urine Blood 2+ H Urine Nitrite NEG Ur Leukocyte Esterase NEG Urine RBC 15-29 H Urine WBC 0-2 Ur Squamous Epith Cells TRACE Ur Renal Epithelial Cell TRACE Urine Bacteria 1+ Urine Mucus 3+ Ethyl Alcohol COVID-19 (ARGELIA) Negative COVID-19 Clin Com See Note Imaging Radiologist's Impressions: Impressions Head CT 09/22/20 16:39 IMPRESSION: 1. No evidence of acute intracranial hemorrhage or edematous territorial infarction. 2. Chronic encephalomalacia of the left cerebellar hemisphere. Mild to moderate underlying microangiopathy. 3. 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 No evidence of obstructive hydrocephalus. Chest X-Ray 09/22/20 16:40 IMPRESSION: Chronic interstitial lung disease. No acute abnormality of the chest. KUB X-Ray 09/22/20 19:44 IMPRESSION: Prominent feces within the large bowel but no bowel dilatation. Assessment and Plan (1) Dysarthria: Status: Acute (2) Acidosis, lactic: Status: Acute (3) Hematuria: Status: Acute 79-year-old male with past medical history of CVA who presents to the hospital with weakness, noted to be dysarthric by ED physician, # dysarthria - CT angiogram negative for any new findings - with history of CVA, will admit for observation to rule out new stroke - will order MRI - continue statin - neurology consult # hematuria - no UTI - unclear etiology - consult Urology # lactic acidosis - unclear etiology - resolved with IV fluids # CAD - no chest pain - will hold aspirin in the setting of hematuria - continue metoprolol # GERD - continue PPI DVT ppx: SCDs
[2020-09-23] MEDS: 0.9 % Sodium Chloride Flush 3 ML SYRINGE IVFLUSH ×4 (02:03→23:20)
[2020-09-23] MEDS: Heparin Sodium,Porcine 5,000 UNIT/ML VIAL 5000 UNIT SUBCUT (02:14)
[2020-09-23 04:02] VITALS: BP 141/88; PULSE 77; RESP 14
--- NOTE | 2020-09-23 04:12 | PC.NURSE ---
pt is alert and oriented x3. eye contact and verbal response appropriate for setting. pt does not have slurred speech at this time, speaks in full sentences and is able to make needs known. PERRLA. neuro assessment intact, pt able to open and close both eyes and stick out tongue, able to squeeze nurses fingers bilaterally and move upper extremities bilaterally. lung sounds clear bilaterally, respirations even and unlabored. heart rate within normal limits. lower extremities have bilateral weakness but pt able to move both legs and use legs to lift up hips on bed. pt initially needed straight cath to collect urine sample but is now able to use bedside urinal without assistance. pt passed swallow eval and was able to swallow medications without issue. pt aware of plan of care for admission, no questions or concerns at this time. call hunt in reach.
--- NOTE | 2020-09-23 04:28 | PC.NURSE ---
phlebotomy at bedside drawing morning labs
[2020-09-23 05:01] LABS: MANUAL DIFF FLAG NO
[2020-09-23 05:09] LABS: Basophils Percent Auto 0.4 % (0-2); Eosinophils Absolute Auto 0.1 X10*3/uL (0.0-0.4); Hemoglobin 10.5 g/dl (14.0-18.0); Imm Gran Abs Auto 0.01 X10*3/uL (0.00-0.03); Imm Gran Pct Auto 0.2 % (0.0-0.4); Lymphocytes Absolute Auto 1.7 X10*3/uL (1.2-4.9); Lymphocytes Percent Auto 33.6 % (20-40); Mean Corpuscular HGB Conc 31.8 g/dl (31.0-36.0); Mean Corpuscular Hemoglobin 28.9 pg (27.0-33.0); Mean Corpuscular Volume 90.9 fL (80-98); Mean Platelet Volume 9.7 fL (9.4-12.4); Monocytes Absolute Auto 0.3 X10*3/uL (0.1-1.2); Monocytes Percent Auto 6.6 % (2-11); Neutrophils Absolute Auto 2.9 X10*3/uL (2.0-8.3); Neutrophils Percent Auto 58.2 % (45-73); Platelet Count 238 X10*3/uL (160-400); Red Blood Count 3.63 X10*6/uL (4.60-5.80); Red Cell Distribution Width 17.2 % (11.0-16.0)
[2020-09-23 05:49] LABS: Anion Gap 13 (12-20); Blood Urea Nitrogen 20 mg/dL (9-16); Calcium 8.6 mg/dL (8.4-10.2); Carbon Dioxide 24 mmol/L (22-29); Chloride 104 mmol/L (96-108); Creatinine Clr Calc Pharmacy 91.7; Estimated Glomerular Filt Rate > 60; Glucose Random 82 mg/dL (60-115); Potassium 4.2 mmol/L (3.3-5.1); Sodium 137 mmol/L (135-145)
[2020-09-23 07:14] VITALS: BP 140/77; PULSE 63; RESP 13; O2SAT 96
--- NOTE | 2020-09-23 09:28 | PC.NURSE ---
MRI screening form done, Patient currently in MRI
--- NOTE | 2020-09-23 10:14 | PC.NURSE ---
pt currently getting ct scan
--- NOTE | 2020-09-23 11:09 | MHC.CM.PN ---
Attempted to meet with patient in regards to discharge planning. Patient is currently sleeping. Spoke with patient's DIRECTOR [employer]ES/HCP, Jyotsna via telephone at [phone]. Patient lives alone, uses a walker/electric scooter for mobility and has [employer]OR [employer] hours through [employer]. PCP verified. HCP verified to be on file. Per Jyotsna, patient has been weak for a while . Will need physical therapy eval for home safety when medically stable. Patient has been to [facility] in the past. Jyotsna agreeble to referral to [facility], [place]. Jyotsna states patient will be resitent to go to rehab. But Lisbeth feel will be necessary in order for patient to be able to safely return home. Continue to monitor for d/c needs.
[2020-09-23] MEDS: Lactulose 20 GM/30 ML SOLUTION 10 GM PO (11:21)
[2020-09-23 11:22] VITALS: BP 152/80; PULSE 67
[2020-09-23] MEDS: Gabapentin 600 MG TABLET PO ×2 (11:22→21:09)
[2020-09-23] MEDS: amLODIPine Besylate 5 MG TABLET PO (11:22)
[2020-09-23] MEDS: Milk of Magnesia 30 ML ORAL.SUSP 15 ML PO ×2 (11:22→21:13)
[2020-09-23] MEDS: Azithromycin 250 MG TABLET PO (11:22)
[2020-09-23] MEDS: polyethylene glycoL 3350 17 GM POWD.PACK PO (11:23)
[2020-09-23] MEDS: Tamsulosin HCL 0.4 MG CAPSULE PO (11:23)
[2020-09-23] MEDS: Carbidopa/Levodopa 25/100 TABLET 1 TAB PO ×3 (11:23→21:11)
[2020-09-23] MEDS: Omeprazole 20 MG CAPSULE.DR PO (11:23)
[2020-09-23] MEDS: Primidone 50 MG TABLET PO ×2 (11:34→18:23)
--- NOTE | 2020-09-23 12:11 | PC.NURSE ---
PT ALERT AND ORENT AMB WITH PT LOST BALANCE A FEW TIMES PRE PT AND RECOMEND REHAB. PT DID TURN AND PIVOT TO WHEEL CHAIR WITH ASSIST. TOLERATING PO MRI RESULT PENDING. NEEDS BEING MET WAITING FOR BED ASSIGNMENT
--- NOTE | 2020-09-23 12:59 | P.CNNE_ITS ---
History of Present Illness Data of Consult Service Date: 09/23/20 Primary Care Provider: Will Smart MD 79 years old man with underlying coronary artery disease COPD and many missing teeth who was brought to hospital with lethargy and slurred speech. He said that his PC has sent him over and he was not sure why. He said that he has been unsteady and using a walker for years. He felt better and wanted to go back home. There was no clear witnessing of any convulsion or focal weakness. Review of Systems Review of Systems: No recent cold or flu-like illness trauma or seizure-like episode no breathing or swallowing difficulty other than difficulty with chewing because of lack of teeth. [facility] Past Medical History Medical History CAD (coronary artery disease) Chronic anemia Chronic back pain Chronic hepatitis B Chronic low back pain COPD (chronic obstructive pulmonary disease) Elevated rheumatoid factor Elevated sed rate HTN (hypertension) Hyperlipemia Obstructive sleep apnea PVD (peripheral vascular disease) Renal lithiasis Tubular adenoma Vitamin B12 deficiency Social History Social History Smoking Status: Former smoker service: No Current occupational status: retired Meds Allergies Allergy/AdvReac Type Severity Reaction Status Date / Time No Known Allergies Allergy Unverified 02/20/20 15:11 [No Known Allergies*] Active Medications: Current Medications Generic Name Dose Route Start Last Admin Trade Name Freq PRN Reason Stop Dose Admin Acetaminophen 650 mg 09/23/20 01:46 Acetaminophen 325 Mg Tablet PO Q6H PRN Pain, Mild (Pain Scale 1-3) Amlodipine Besylate 5 mg 09/23/20 09:00 09/23/20 11:22 Amlodipine Besylate 5 Mg Tablet PO 5 mg DAILY GADIEL Administration Protocol Aspirin 81 mg 09/23/20 21:00 Aspirin Enteric Coated 81 Mg Tablet. PO BEDTIME GADIEL Atorvastatin Calcium 40 mg 09/23/20 21:00 Atorvastatin Calcium 40 Mg Tablet PO BEDTIME GADIEL Azithromycin 250 mg 09/23/20 09:00 09/23/20 11:22 Azithromycin 250 Mg Tablet PO 250 mg DAILY GADIEL Administration Carbidopa/Levodopa 1 tab 09/23/20 09:00 09/23/20 11:23 Carbidopa/Levodopa 25/100 Tablet PO 1 tab TID GADIEL Administration Docusate Sodium 100 mg 09/23/20 01:46 Docusate Sodium 100 Mg Capsule PO DAILY PRN Constipation Gabapentin 600 mg 09/23/20 09:00 09/23/20 11:22 Gabapentin 600 Mg Tablet PO 600 mg BID GADIEL Administration Latanoprost 1 drop 09/23/20 21:00 Latanoprost 0.005 % Ophth Madeleine 2.5 Ml Drops EYE-BOTH BEDTIME GADIEL Magnesium Hydroxide 15 ml 09/23/20 09:00 09/23/20 11:22 Milk Of Magnesia 30 Ml Oral.Susp PO 15 ml BID GADIEL Administration Melatonin 3 mg 09/23/20 21:00 Melatonin 3 Mg Tablet PO BEDTIME GADIEL Methotrexate 15 mg 09/24/20 10:00 Methotrexate Sodium 2.5 Mg Tablet PO TH@1000 GADIEL Omeprazole 20 mg 09/23/20 09:00 09/23/20 11:23 Omeprazole 20 Mg Capsule.Dr PO 20 mg DAILY GADIEL Administration Ondansetron HCl 4 mg 09/23/20 01:46 Ondansetron Hcl 4 Mg/2 Ml Vial IVPUSH Q8H PRN Nausea and Vomiting Oxycodone HCl 5 mg 09/23/20 02:45 Oxycodone Hcl Immed Release 5 Mg Tablet PO BID PRN Pain, Moderate (Pain Scale 4-6 Pharmacy Consult 1 each 09/22/20 16:37 Consult Rx Perform Med Rec MISCELLANE ONCE PRN Consult order Polyethylene Glycol 17 gm 09/23/20 09:00 09/23/20 11:23 Polyethylene Glycol 3350 17 Gm Powd.Pack PO 17 gm DAILY GADIEL Administration Primidone 50 mg 09/23/20 09:00 09/23/20 11:34 Primidone 50 Mg Tablet PO 50 mg BID@0900,1700 GADIEL Administration Primidone 100 mg 09/23/20 21:00 Primidone 50 Mg Tablet PO BEDTIME GADIEL Sodium Chloride 3 ml 09/23/20 01:46 09/23/20 02:03 0.9 % Sodium Chloride Flush 3 Ml Syringe IVFLUSH 3 ml QSHIFT GADIEL Administration Tamsulosin HCl 0.4 mg 09/23/20 09:00 09/23/20 11:23 Tamsulosin Hcl 0.4 Mg Capsule PO 0.4 mg DAILY GADIEL Administration Trazodone HCl 300 mg 09/23/20 21:00 Trazodone Hcl 50 Mg Tablet PO BEDTIME GADIEL Home Medications Medication Instructions Recorded Confirmed Last Taken Type amlodipine 1 tab PO QAM 09/22/20 09/22/20 Unknown History aspirin 1 tab PO BEDTIME 09/22/20 09/22/20 Unknown History atorvastatin 1 tab PO BEDTIME 09/22/20 09/22/20 Unknown History azithromycin 250 mg PO DAILY 09/22/20 09/22/20 Unknown History carbidopa-levodopa 1 tab PO TID 09/22/20 09/22/20 Unknown History ferrous sulfate 325 mg PO TID 09/22/20 09/22/20 Unknown History gabapentin 600 mg PO BID 09/22/20 09/22/20 Unknown History latanoprost 1 drp OPHTHALMIC (EYE) BEDTIME 09/22/20 09/22/20 Unknown History melatonin 3 mg PO BEDTIME 09/22/20 09/22/20 Unknown History methotrexate sodium 6 tab PO TH@1000 09/22/20 09/22/20 Unknown History omeprazole 20 mg PO DAILY 09/22/20 09/22/20 Unknown History oxycodone-acetaminophen 1 tab PO BID PRN 09/22/20 09/22/20 Unknown History primidone 50 mg PO BID@0900,1700 09/22/20 09/22/20 Unknown History primidone 100 mg PO BEDTIME 09/22/20 09/22/20 Unknown History tamsulosin 0.4 mg PO DAILY 09/22/20 09/22/20 Unknown History trazodone 300 mg PO BEDTIME 09/22/20 09/22/20 Unknown History Physical Exam Vital Signs: Vital Signs: Last Vital Signs Temp 97.7 F 09/22/20 16:34 Pulse 67 09/23/20 11:22 Resp 13 09/23/20 07:14 BP 152/80 H 09/23/20 11:22 Pulse Ox 96 09/23/20 07:14 Body Mass Index 20.5 He was alert and awake with normal spontaneity of speech fluency comprehension and affect. Many teeth were missing. Visual cast are full to threat. Face was symmetrical. Hwifbl-[id number] testing was normal. Deep tendon reflexes were absent with flexor plantars. Moderate diffuse muscle atrophy was noted. Results Labs CBC & Chem 7: 09/23/20 04:28 09/23/20 04:27 Labs: Short CBC 09/22/20 09/23/20 Range/Units 17:41 04:28 WBC 5.5 5.0 (4.8-10.8) X10*3/uL Hgb 11.9 L 10.5 L (14.0-18.0) g/dl Hct 36.8 L 33.0 L (42-52) % Plt Count 256 238 (160-400) X10*3/uL BMP 09/22/20 09/23/20 17:41 04:27 Sodium 139 137 Potassium 4.3 4.2 Chloride 102 104 Carbon Dioxide 29 24 BUN 21 H 20 H Creatinine 0.80 0.67 Calcium 9.4 8.6 D Cardiac Enzymes 09/22/20 Range/Units 17:41 Total Creatine Kinase 28 L (38-174) U/L Liver Function 09/22/20 Range/Units 17:41 Total Bilirubin 0.5 (0.0-1.0) mg/dL Direct Bilirubin 0.2 (0.0-0.5) mg/dL AST 14 (5-37) U/L ALT < 6 (0-40) U/L Alkaline Phosphatase 121 H (39-117) U/L Albumin 3.9 (3.5-5.0) g/dL Urine 09/22/20 Range/Units 20:51 Urine Color YELLOW Urine Appearance HAZY Urine pH 5.5 (5.0-8.0) Ur Specific [place] >= 1.030 H (1.005-1.025) Urine Protein 1+ H (NEG-TRACE) MG/DL Urine Glucose (UA) NEG (NEG) MG/DL His CTA of brain and neck and MRI of brain were reviewed. No acute pathology was noted. [id number] chronic microvascular ischemic changes were noted. There was also an arachnoid cyst in posterior fossa. Assessment and Plan (1) Multifactorial gait disorder: Problem details: 79 years old man with difficulty walking for many years likely from combination of peripheral neuropathy and microvascular disease. There was no indication of any acute illness. As far as his speech was concerned it was okay other than slight dysphagia due to missing teeth. Mainstay of management is continue to use a walker and control vascular risk factors. Status: Acute (2) Cerebral microvascular disease: Status: Acute (3) Intracranial arachnoid cyst: Status: Acute (4) Peripheral neuropathy: Status: Acute
[2020-09-23] MEDS: Furosemide 20 MG/2 ML VIAL 10 MG IVPUSH (13:10)
--- NOTE | 2020-09-23 13:10 | MHC.CM.PN ---
Physical therapy eval completed. Short term rehab is recommended. Met with patient in regards to discharge planning. Patient was hoping to return home but understands Lorena and Jose feel it's safer for patient to go to [facility]. Waiting to hear from [facility] to see if they are able to offer a bed today. Continue to monitor for d/c needs.
--- NOTE | 2020-09-23 13:36 | PM.DS ---
DS: Providers Provider Date of Service: 10/04/20 <Charlene Uriarte MD - Last Filed: 10/04/20 16:45> 09/24/20 <Zachary Mann MD - Last Filed: 09/24/20 11:29> Date of admission: 09/23/20 01:35 <Charlene Uriarte MD - Last Filed: 10/04/20 16:45> Primary care physician: Will Smart MD <Charlene Uriarte MD - Last Filed: 10/04/20 16:45> Consults: 09/23/20 01:46 Consult to Neurology Routine Consulting Provider: [facility] Reason for consultation: slurred speech Has provider been notified: No <Charlene Uriarte MD - Last Filed: 10/04/20 16:45> DS: Diagnosis Discharge Diagnosis (1) Multifactorial gait disorder: (2) Cerebral microvascular disease: (3) Intracranial arachnoid cyst: (4) Peripheral neuropathy: DS: Medications Discharge Medications Home Medications: Home Medications Medication Instructions Recorded Confirmed amlodipine 1 tab PO QAM 09/22/20 09/22/20 aspirin 1 tab PO BEDTIME 09/22/20 09/22/20 atorvastatin 1 tab PO BEDTIME 09/22/20 09/22/20 azithromycin 250 mg PO DAILY 09/22/20 09/22/20 carbidopa-levodopa 1 tab PO TID 09/22/20 09/22/20 ferrous sulfate 325 mg PO TID 09/22/20 09/22/20 gabapentin 600 mg PO BID 09/22/20 09/22/20 latanoprost 1 drp OPHTHALMIC (EYE) BEDTIME 09/22/20 09/22/20 melatonin 3 mg PO BEDTIME 09/22/20 09/22/20 methotrexate sodium 6 tab PO TH@1000 09/22/20 09/22/20 omeprazole 20 mg PO DAILY 09/22/20 09/22/20 oxycodone-acetaminophen 1 tab PO BID PRN 09/22/20 09/22/20 primidone 50 mg PO BID@0900,1700 09/22/20 09/22/20 primidone 100 mg PO BEDTIME 09/22/20 09/22/20 tamsulosin 0.4 mg PO DAILY 09/22/20 09/22/20 trazodone 300 mg PO BEDTIME 09/22/20 09/22/20 <Charlene Uriarte MD - Last Filed: 10/04/20 16:45> DS: Summary Hospital Course Hospital Course: History of presenting illness 79-year-old gentleman with by this medical history of coronary artery disease, COPD of prior left cerebellar infarction was sent to [facility] as he was noted to have slurred speech, unsteady gait and lethargy by his [employer], in the emergency room all workup came back negative including a head CT scan, head and neck CTA showed no stenosis patient was admitted to [facility] for further treatment and evaluation. Patient was also noted to have lactic acidosis of 2.2 that improved with hydration, his urinalysis was positive for 2+ blood Past medical history CAD (coronary artery disease) Chronic anemia Chronic back pain Chronic hepatitis B Chronic low back pain COPD (chronic obstructive pulmonary disease) Elevated rheumatoid factor Elevated sed rate HTN (hypertension) Hyperlipemia Obstructive sleep apnea PVD (peripheral vascular disease) Renal lithiasis Tubular adenoma Vitamin B12 deficiency Hospital course Patient was admitted under observation, patient was noted to have normal speech , he had no new weakness or neuro deficit,brain MRI showed no acute intracranial finding, no acute infarct,it showed chronic infarction within the inferior medial left cerebellum, patient was evaluated by neurologist and felt that his symptoms of unsteady gait is due to neuropathy and microvascular disease he recommended better blood pressure and cholesterol control, patient evaluated by Physical therapy and they are recommending short-term rehab therefore patient will be discharged to rehab facility. Will continue patient on all of his home medication. Lactic acidosis resolved no source of infection or cause of lactic acidosis found Microscopic hematuria recommend outpatient follow-up with urology. <Charlene Uriarte MD - Last Filed: 10/04/20 16:45> Time Spent with Patient Time attestation: Total time spent providing and/or coordinating discharge services: <Charlene Uriarte MD - Last Filed: 10/04/20 16:45> Discharge coordination time: Greater than 30 minutes <Zachary Mann MD - Last Filed: 09/24/20 11:29> Quality: Stroke Pt Provided Written Stroke Discharge Instructions: Patient given written information <Charlene Uriarte MD - Last Filed: 10/04/20 16:45> Physical Exam Vital Signs: Vital Signs: Last Vital Signs Temp 97.7 F 09/22/20 16:34 Pulse 67 09/23/20 11:22 Resp 13 09/23/20 07:14 BP 152/80 H 09/23/20 11:22 Pulse Ox 96 09/23/20 07:14 Body Mass Index 20.5 <Charlene Uriarte MD - Last Filed: 10/04/20 16:45> General resting comfortably in no acute distress. Neck no JVD. CVS regular rate rhythm, Respiratory lungs clear to auscultation, no respiratory distress, Gastrointestinal abdomen soft, nontender, bowel sounds audible, nondistended Extremities no edema. Neuro nonfocal, patient moving all 4 extremity , speech clear. Skin no rash <Charlene Uriarte MD - Last Filed: 10/04/20 16:45> DS: Data Data Completed and Pending Labs on day of discharge: Laboratory Results - last 24 hr 09/22/20 09/22/20 09/22/20 16:36 17:41 17:41 WBC 5.5 RBC 4.02 L Hgb 11.9 L Hct 36.8 L MCV 91.5 MCH 29.6 MCHC 32.3 RDW 17.4 H Plt Count 256 MPV 9.6 Immature Gran % (Auto) 0.2 Neut % (Auto) 71.4 Lymph % (Auto) 24.5 [place] % (Auto) 3.3 Eos % (Auto) 0.4 Baso % (Auto) 0.2 Lymph # (Auto) 1.4 [place] # (Auto) 0.2 Eos # (Auto) 0.0 Baso # (Auto) 0.0 Abs Immat Gran (auto) 0.01 Absolute Neuts (auto) 4.0 Absolute Nucleated RBC 0.000 Nucleated RBC % (auto) 0.0 PT INR APTT VBG pH VBG pCO2 VBG pO2 VBG HCO3 VBG O2 Saturation VBG Base Excess Sodium 139 Potassium 4.3 Chloride 102 Carbon Dioxide 29 Anion Gap 12 BUN 21 H Creatinine 0.80 Estim Creat Clear Calc 76.8 Estimated GFR > 60 POC Glucose 129 H Random Glucose 114 Lactic Acid Lactic Acid Fup @ 2Hr Calcium 9.4 Magnesium Total Bilirubin Direct Bilirubin AST ALT Alkaline Phosphatase Total Creatine Kinase 28 L Troponin I High Sens Total Protein Albumin Lipase 10 Urine Color Urine Appearance Urine pH Ur Specific [place] Urine Protein Urine Glucose (UA) Urine Ketones Urine Blood Urine Nitrite Ur Leukocyte Esterase Urine RBC Urine WBC Ur Squamous Epith Cells Ur Renal Epithelial Cell Urine Bacteria Urine Mucus Ethyl Alcohol COVID-19 (ARGELIA) COVID-19 [employer] 09/22/20 09/22/20 09/22/20 17:41 17:41 17:41 WBC RBC Hgb Hct MCV MCH MCHC RDW Plt Count MPV Immature Gran % (Auto) Neut % (Auto) Lymph % (Auto) [place] % (Auto) Eos % (Auto) Baso % (Auto) Lymph # (Auto) [place] # (Auto) Eos # (Auto) Baso # (Auto) Abs Immat Gran (auto) Absolute Neuts (auto) Absolute Nucleated RBC Nucleated RBC % (auto) PT 13.4 H INR 1.1 APTT 32.3 VBG pH VBG pCO2 VBG pO2 VBG HCO3 VBG O2 Saturation VBG Base Excess Sodium Potassium Chloride Carbon Dioxide Anion Gap BUN Creatinine Estim Creat Clear Calc Estimated GFR POC Glucose Random Glucose Lactic Acid 2.2 H* Lactic Acid Fup @ 2Hr Calcium Magnesium Total Bilirubin Direct Bilirubin AST ALT Alkaline Phosphatase Total Creatine Kinase Troponin I High Sens Total Protein Albumin Lipase Urine Color Urine Appearance Urine pH Ur Specific [place] Urine Protein Urine Glucose (UA) Urine Ketones Urine Blood Urine Nitrite Ur Leukocyte Esterase Urine RBC Urine WBC Ur Squamous Epith Cells Ur Renal Epithelial Cell Urine Bacteria Urine Mucus Ethyl Alcohol < 10 COVID-19 (ARGELIA) COVID-19 [employer] 09/22/20 09/22/20 09/22/20 17:41 17:41 17:47 WBC RBC Hgb Hct MCV MCH MCHC RDW Plt Count MPV Immature Gran % (Auto) Neut % (Auto) Lymph % (Auto) [place] % (Auto) Eos % (Auto) Baso % (Auto) Lymph # (Auto) [place] # (Auto) Eos # (Auto) Baso # (Auto) Abs Immat Gran (auto) Absolute Neuts (auto) Absolute Nucleated RBC Nucleated RBC % (auto) PT INR APTT VBG pH 7.35 VBG pCO2 52 VBG pO2 48 VBG HCO3 29 H VBG O2 Saturation 75.0 VBG Base Excess 2.6 Sodium Potassium Chloride Carbon Dioxide Anion Gap BUN Creatinine Estim Creat Clear Calc Estimated GFR POC Glucose Random Glucose Lactic Acid Lactic Acid Fup @ 2Hr Calcium Magnesium 2.2 Total Bilirubin 0.5 Direct Bilirubin 0.2 AST 14 ALT < 6 Alkaline Phosphatase 121 H Total Creatine Kinase Troponin I High Sens < 3.5 Total Protein 9.0 H Albumin 3.9 Lipase Urine Color Urine Appearance Urine pH Ur Specific [place] Urine Protein Urine Glucose (UA) Urine Ketones Urine Blood Urine Nitrite Ur Leukocyte Esterase Urine RBC Urine WBC Ur Squamous Epith Cells Ur Renal Epithelial Cell Urine Bacteria Urine Mucus Ethyl Alcohol COVID-19 (ARGELIA) COVID-19 Clin Com 09/22/20 09/22/20 09/22/20 17:53 20:51 21:14 WBC RBC Hgb Hct MCV MCH MCHC RDW Plt Count MPV Immature Gran % (Auto) Neut % (Auto) Lymph % (Auto) [place] % (Auto) Eos % (Auto) Baso % (Auto) Lymph # (Auto) [place] # (Auto) Eos # (Auto) Baso # (Auto) Abs Immat Gran (auto) Absolute Neuts (auto) Absolute Nucleated RBC Nucleated RBC % (auto) PT INR APTT VBG pH VBG pCO2 VBG pO2 VBG HCO3 VBG O2 Saturation VBG Base Excess Sodium Potassium Chloride Carbon Dioxide Anion Gap BUN Creatinine Estim Creat Clear Calc Estimated GFR POC Glucose Random Glucose Lactic Acid Lactic Acid Fup @ 2Hr 1.8 Calcium Magnesium Total Bilirubin Direct Bilirubin AST ALT Alkaline Phosphatase Total Creatine Kinase Troponin I High Sens Total Protein Albumin Lipase Urine Color YELLOW Urine Appearance HAZY Urine pH 5.5 Ur Specific [place] >= 1.030 H Urine Protein 1+ H Urine Glucose (UA) NEG Urine Ketones NEG Urine Blood 2+ H Urine Nitrite NEG Ur Leukocyte Esterase NEG Urine RBC 15-29 H Urine WBC 0-2 Ur Squamous Epith Cells TRACE Ur Renal Epithelial Cell TRACE Urine Bacteria 1+ Urine Mucus 3+ Ethyl Alcohol COVID-19 (ARGELIA) Negative COVID-19 Clin Com See Note 09/23/20 09/23/20 04:27 04:28 WBC 5.0 RBC 3.63 L Hgb 10.5 L Hct 33.0 L MCV 90.9 MCH 28.9 MCHC 31.8 RDW 17.2 H Plt Count 238 MPV 9.7 Immature Gran % (Auto) 0.2 Neut % (Auto) 58.2 Lymph % (Auto) 33.6 [place] % (Auto) 6.6 Eos % (Auto) 1.0 Baso % (Auto) 0.4 Lymph # (Auto) 1.7 [place] # (Auto) 0.3 Eos # (Auto) 0.1 Baso # (Auto) 0.0 Abs Immat Gran (auto) 0.01 Absolute Neuts (auto) 2.9 Absolute Nucleated RBC 0.000 Nucleated RBC % (auto) 0.0 PT INR APTT VBG pH VBG pCO2 VBG pO2 VBG HCO3 VBG O2 Saturation VBG Base Excess Sodium 137 Potassium 4.2 Chloride 104 Carbon Dioxide 24 Anion Gap 13 BUN 20 H Creatinine 0.67 Estim Creat Clear Calc 91.7 Estimated GFR > 60 POC Glucose Random Glucose 82 Lactic Acid Lactic Acid Fup @ 2Hr Calcium 8.6 D Magnesium Total Bilirubin Direct Bilirubin AST ALT Alkaline Phosphatase Total Creatine Kinase Troponin I High Sens Total Protein Albumin Lipase Urine Color Urine Appearance Urine pH Ur Specific [place] Urine Protein Urine Glucose (UA) Urine Ketones Urine Blood Urine Nitrite Ur Leukocyte Esterase Urine RBC Urine WBC Ur Squamous Epith Cells Ur Renal Epithelial Cell Urine Bacteria Urine Mucus Ethyl Alcohol COVID-19 (ARGELIA) COVID-19 Clin Com <Charlene Uriarte MD - Last Filed: 10/04/20 16:45> Discharge Plan Discharge Patient Disposition: Xfer SNF <Charlene Uriarte MD - Last Filed: 10/04/20 16:45> Discharge Diagnosis: Unsteady gait Weakness Lactic acidosis Microscopic hematuria <Charlene Uriarte MD - Last Filed: 10/04/20 16:45> Unsteady gait Weakness Lactic acidosis Microscopic hematuria <Zachary Mann MD - Last Filed: 09/24/20 11:29> Referrals: [facility] [Outside] - 1 Week Will Smart MD [Primary Care Provider] - 1 Week <Charlene Uriarte MD - Last Filed: 10/04/20 16:45> Discharge Medications: New polyethylene glycol 3350 17 gram Powder In Packet 17 g PO DAILY Qty: 30 RF: 0 docusate sodium 100 mg Capsule 100 mg PO BIDWMEAL Qty: 60 RF: 0 Continued latanoprost 0.005 % drops 1 drp ophthalmic (eye) BEDTIME RF: 0 atorvastatin 40 mg tablet 1 tab PO BEDTIME RF: 0 primidone 50 mg tablet 100 mg PO BEDTIME RF: 0 primidone 50 mg tablet 50 mg PO BID@0900,1700 RF: 0 gabapentin 600 mg tablet 600 mg PO BID RF: 0 azithromycin 250 mg tablet 250 mg PO DAILY RF: 0 melatonin 3 mg tablet 3 mg PO BEDTIME RF: 0 amlodipine 5 mg tablet 1 tab PO QAM RF: 0 aspirin 81 mg tablet,delayed release (DR/EC) 1 tab PO BEDTIME RF: 0 oxycodone-acetaminophen 5-325 mg tablet 1 tab PO BID PRN (Reason: Pain) RF: 0 methotrexate sodium 2.5 mg tablet 6 tab PO TH@1000 RF: 0 tamsulosin 0.4 mg capsule 0.4 mg PO DAILY RF: 0 trazodone 150 mg tablet 300 mg PO BEDTIME RF: 0 ferrous sulfate 325 mg (65 mg iron) tablet 325 mg PO TID RF: 0 omeprazole 20 mg capsule,delayed release(DR/EC) 20 mg PO DAILY RF: 0 carbidopa-levodopa 25-100 mg tablet 1 tab PO TID RF: 0 <Charlene Uriarte MD - Last Filed: 10/04/20 16:45> Discharge Orders: Discharge Order (Routine); Ordered 09/24/20 Ordered By: Zachary Mann <Charlene Uriarte MD - Last Filed: 10/04/20 16:45> Diet: low fat, low cholesterol <Charlene Uriarte MD - Last Filed: 10/04/20 16:45> low fat, low cholesterol <Zachary Mann MD - Last Filed: 09/24/20 11:29> Activity on Discharge: As tolerated <Charlene Uriarte MD - Last Filed: 10/04/20 16:45> As tolerated <Zachary Mann MD - Last Filed: 09/24/20 11:29> Care Plan Goals: As above <Charlene Uriarte MD - Last Filed: 10/04/20 16:45> Health Concerns: Unsteady gait due to neuropathy and microvascular disease you are being transferred to rehab for gait training <Charlene Uriarte MD - Last Filed: 10/04/20 16:45> Plan of Treatment: Outpatient follow-up with primary care physician and Urology for microscopic hematuria. <hCarlene Uriarte MD - Last Filed: 10/04/20 16:45> Assessment: As per discharge summary. <Charlene Uriarte MD - Last Filed: 10/04/20 16:45> Discharge Date/Time: 09/24/20 14:34 <Charlene Uriarte MD - Last Filed: 10/04/20 16:45>
[2020-09-23 14:12] VITALS: BP 138/76; PULSE 71; RESP 16; O2SAT 97
--- NOTE | 2020-09-23 15:40 | HO.PM.IMPN ---
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 Respiratory no cough no sob. Gastrointestinal no nausea no vomiting, no abdominal pain,pos constipation Physical Exam Vital Signs: Vital Signs: Last Vital Signs Temp 97.7 F 09/22/20 16:34 Pulse 71 09/23/20 14:12 Resp 16 09/23/20 14:12 BP 138/76 09/23/20 14:12 Pulse Ox 97 09/23/20 14:12 Body Mass Index 20.5 General no acute distress. Neck is supple no JVD. CVS regular rate rhythm, Respiratory lungs clear to auscultation, no respiratory distress, no wheeze, no rhonchi. Gastrointestinal abdomen soft, nontender, bowel sounds audible, nondistended, no guarding , no rigidity. Extremities no edema. Neuro non focal, patient moving all 4 extremity speech clear. Skin no rash Objective Data Current Medications Generic Name Dose Route Start Last Admin Trade Name Freq PRN Reason Stop Dose Admin Acetaminophen 650 mg 09/23/20 01:46 Acetaminophen 325 Mg Tablet PO Q6H PRN Pain, Mild (Pain Scale 1-3) Amlodipine Besylate 5 mg 09/23/20 09:00 09/23/20 11:22 Amlodipine Besylate 5 Mg Tablet PO 5 mg DAILY GADIEL Administration Protocol Aspirin 81 mg 09/23/20 21:00 Aspirin Enteric Coated 81 Mg Tablet. PO BEDTIME GADIEL Atorvastatin Calcium 40 mg 09/23/20 21:00 Atorvastatin Calcium 40 Mg Tablet PO BEDTIME GADIEL Azithromycin 250 mg 09/23/20 09:00 09/23/20 11:22 Azithromycin 250 Mg Tablet PO 250 mg DAILY GADIEL Administration Carbidopa/Levodopa 1 tab 09/23/20 09:00 09/23/20 11:23 Carbidopa/Levodopa 25/100 Tablet PO 1 tab TID GADIEL Administration Docusate Sodium 100 mg 09/23/20 01:46 Docusate Sodium 100 Mg Capsule PO DAILY PRN Constipation Gabapentin 600 mg 09/23/20 09:00 09/23/20 11:22 Gabapentin 600 Mg Tablet PO 600 mg BID [facility] Administration Latanoprost 1 drop 09/23/20 21:00 Latanoprost 0.005 % Ophth Madeleine 2.5 Ml Drops EYE-BOTH BEDTIME [facility] Magnesium Hydroxide 15 ml 09/23/20 09:00 09/23/20 11:22 Milk Of Magnesia 30 Ml Oral.Susp PO 15 ml BID GADIEL Administration Melatonin 3 mg 09/23/20 21:00 Melatonin 3 Mg Tablet PO BEDTIME [facility] Methotrexate 15 mg 09/24/20 10:00 Methotrexate Sodium 2.5 Mg Tablet PO TH@1000 [facility] Omeprazole 20 mg 09/23/20 09:00 09/23/20 11:23 Omeprazole 20 Mg Capsule.Dr PO 20 mg DAILY GADIEL Administration Ondansetron HCl 4 mg 09/23/20 01:46 Ondansetron Hcl 4 Mg/2 Ml Vial IVPUSH Q8H PRN Nausea and Vomiting Oxycodone HCl 5 mg 09/23/20 02:45 Oxycodone Hcl Immed Release 5 Mg Tablet PO BID PRN Pain, Moderate (Pain Scale 4-6 Pharmacy Consult 1 each 09/22/20 16:37 Consult Rx Perform Med Rec MISCELLANE ONCE PRN Consult order Polyethylene Glycol 17 gm 09/23/20 09:00 09/23/20 11:23 Polyethylene Glycol 3350 17 Gm Powd.Pack PO 17 gm DAILY GADIEL Administration Primidone 50 mg 09/23/20 09:00 09/23/20 11:34 Primidone 50 Mg Tablet PO 50 mg BID@0900,1700 [facility] Administration Primidone 100 mg 09/23/20 21:00 Primidone 50 Mg Tablet PO BEDTIME [facility] Sodium Chloride 3 ml 09/23/20 01:46 09/23/20 02:03 0.9 % Sodium Chloride Flush 3 Ml Syringe IVFLUSH 3 ml QSHIFT [facility] Administration Tamsulosin HCl 0.4 mg 09/23/20 09:00 09/23/20 11:23 Tamsulosin Hcl 0.4 Mg Capsule PO 0.4 mg DAILY [facility] Administration Trazodone HCl 300 mg 09/23/20 21:00 Trazodone Hcl 50 Mg Tablet PO BEDTIME [facility] Labs CBC & Chem 7: 09/23/20 04:28 09/23/20 04:27 Assessment and Plan (1) Dysarthria: Status: Acute (2) Weakness: Status: Acute (3) Peripheral neuropathy: Status: Acute (4) Intracranial arachnoid cyst: Status: Acute (5) Cerebral microvascular disease: Status: Acute (6) Multifactorial gait disorder: Status: Acute (7) Hematuria: Status: Acute (8) Acidosis, lactic: Status: Acute Assessment and Plan: Weakness/slurred speech Patient was admitted under observation, patient was noted to have normal speech , he had no new weakness or neuro deficit,brain MRI showed no acute intracranial finding, no acute infarct, which showed chronic infarction within the inferior medial left cerebellum, patient was evaluated by neurologist Dr. Roberts, he felt that his symptoms of unsteady gait a due to neuropathy and microvascular disease he recommended better blood pressure and cholesterol control, obtained Physical therapy consult and they are recommending short-term rehab. Will recommend to take aspirin and Neurontin for peripheral neuropathy. Lactic acidosis resolved no source of infection or cause of lactic acidosis found Microscopic hematuria recommend outpatient follow-up with urology. Hyperlipidemia continue Lipitor Disposition to short-term rehab, perinatal social worker arranging for bed, patient is agreeable to go to rehab. DVT Prophylaxis compression therapy
--- NOTE | 2020-09-23 16:12 | MHC.CM.PN ---
[facility] will be able to offer a bed tomorrow, , 09/24. Dr Uriarte aware. Continue to monitor for d/c needs.
--- NOTE | 2020-09-23 19:12 | PC.NURSE ---
Report received. PT is sleeping bed. Respirations even and unlabored. Waiting for transport to rehab facility.
[2020-09-23] MEDS: Aspirin Enteric Coated 81 MG TABLET.DR PO (21:08)
[2020-09-23] MEDS: Atorvastatin Calcium 40 MG TABLET PO (21:09)
[2020-09-23] MEDS: Primidone 50 MG TABLET 100 MG PO (21:10)
[2020-09-23] MEDS: Melatonin 3 MG TABLET PO (21:10)
[2020-09-23] MEDS: traZODone HCL 50 MG TABLET 300 MG PO (21:11)
[2020-09-23 23:18] VITALS: BP 120/70; PULSE 54; RESP 18; TEMP 36.3; O2SAT 97
[2020-09-23 23:20] VITALS: BP 132/74; PULSE 62; RESP 18; TEMP 35.9; O2SAT 93
[2020-09-23] MEDS: Latanoprost 0.005 % Ophth Sol 2.5 ML DROPS 1 DROP EYE-BOTH (23:20)
[2020-09-24 04:00] VITALS: BP 121/69; PULSE 70; RESP 18; TEMP 36.4; O2SAT 99
[2020-09-24 07:17] VITALS: BP 143/55; PULSE 59; RESP 19; TEMP 36.9; O2SAT 94
[2020-09-24] MEDS: 0.9 % Sodium Chloride Flush 3 ML SYRINGE IVFLUSH (08:02)
[2020-09-24] MEDS: Omeprazole 20 MG CAPSULE.DR PO (08:02)
[2020-09-24] MEDS: Azithromycin 250 MG TABLET PO (08:02)
[2020-09-24] MEDS: Primidone 50 MG TABLET PO (08:02)
[2020-09-24] MEDS: amLODIPine Besylate 5 MG TABLET PO (08:02)
[2020-09-24] MEDS: Carbidopa/Levodopa 25/100 TABLET 1 TAB PO (08:02)
[2020-09-24] MEDS: Milk of Magnesia 30 ML ORAL.SUSP 15 ML PO (08:02)
[2020-09-24] MEDS: polyethylene glycoL 3350 17 GM POWD.PACK PO (08:02)
[2020-09-24] MEDS: Gabapentin 600 MG TABLET PO (08:02)
[2020-09-24] MEDS: Tamsulosin HCL 0.4 MG CAPSULE PO (08:02)
[2020-09-24] MEDS: metHOTREXate sodium 2.5 MG TABLET 15 MG PO (11:10)
[2020-09-24 11:13] VITALS: BP 141/68; PULSE 70; RESP 19; TEMP 36.8; O2SAT 94
--- NOTE | 2020-09-24 13:04 | MHC.CM.PN ---
Patient has been medically cleared for dc to SNF/[facility] today.Patient will dc to his first choice SNF- [facility] today at 2:30 PM, via [facility]. Patient and /Jyotsna @ [phone] are aware of and in agreement with the dc plan.
== END 2020-09-24 14:34 | disposition skilled nursing facility (03) ==
LOC: HO.ED 21:17 → HO.EDOVER 09-23 01:40 → HO.IMC 09-23 17:21
PROVIDERS: Admitting Provider Internal Medicine; Emergency Provider Emergency Medicine; PCP Internal Medicine; Visit Provider Family Medicine
DX: R47.1 Dysarthria and anarthria (principal); R53.1 Weakness; G62.9 Polyneuropathy, unspecified; G93.0 Cerebral cysts; I67.89 Other cerebrovascular disease; R26.89 Other abnormalities of gait and mobility; R31.9 Hematuria, unspecified; E87.2 Acidosis; I63.542 Cerebral infarction due to unspecified occlusion or stenosis of left cerebellar artery; R47.81 Slurred speech; R53.83 Other fatigue; I25.10 Atherosclerotic heart disease of native coronary artery without angina pectoris; K00.0 Anodontia; I44.0 Atrioventricular block, first degree; R94.31 Abnormal electrocardiogram [ECG] [EKG]; I10 Essential (primary) hypertension; I73.9 Peripheral vascular disease, unspecified; J44.9 Chronic obstructive pulmonary disease, unspecified; E78.5 Hyperlipidemia, unspecified; K59.00 Constipation, unspecified; Z20.822 Contact with and (suspected) exposure to COVID-19; Z87.891 Personal history of nicotine dependence; Z79.82 Long term (current) use of aspirin; Z79.899 Other long term (current) drug therapy
CPT/HCPCS: 36415; 51701; 70450; 70496; 70498; 70551; 71045; 74018; 80048; 80076; 80320; 81001; 81003; 82550; 82947; 83605; 83690; 83735; 84484; 85025; 85610; 85730; 87040; 87635; 93005; 96360; 96374; 96375; 97162; 99219; 99285; J1940; Q9967

== ENCOUNTER → 2020-11-06 09:55 | Outpatient (BNVA) | payer OTHER, SELFPAY | PROVIDERS: PCP Internal Medicine; Visit Provider Urology | DX: N40.1 Benign prostatic hyperplasia with lower urinary tract symptoms (principal); R35.1 Nocturia; N13.8 Other obstructive and reflux uropathy; R31.9 Hematuria, unspecified | CPT/HCPCS: 99202 ==

== ENCOUNTER 2021-02-01 07:42 | Emergency (ER) | payer OTHER, SELFPAY ==
--- NOTE | ~2021-02-01 | CT_ITS ---
EXAMINATION: CT HEAD WITHOUT CONTRAST CT CERVICAL SPINE WITHOUT CONTRAST CLINICAL INFORMATION: Head injury, fall. COMPARISON: CT head 09/22/2020; CT angiogram at 09/23/2020, MRI 09/22/2020 TECHNIQUE: Axial imaging. Sagittal coronal reconstructions of the head. Axial imaging of the cervical spine, sagittal coronal reconstructions. DLP: 396 mGy-cm FINDINGS: CT HEAD: There is no evidence of acute intracranial hemorrhage or edematous territorial infarction. No abnormal mass effect or midline shift is seen. Thomas to white matter differentiation is well preserved. No extra-axial fluid collections are identified. Chronic mild encephalomalacia of the medial left cerebellar lobe. Mild cerebral volume loss of the right temporal lobe. No hydrocephalus. Mild periventricular and deep white matter hypodensities suggestive of chronic microangiopathic ischemic changes. Redemonstrated is a 0.6 cm hyperattenuated nodular focus at the foramen magnum, consistent with a colloid cyst. No acute calvarial fracture. Redemonstrated is chronic deformity of the right lamina papyracea. The mastoid air cells and visualized portions of the paranasal sinuses are well aerated. CT CERVICAL SPINE: Posterior alignment is maintained. Craniocervical, atlantoaxial articulations are maintained. Vertebral body heights are maintained without evidence of acute fracture. No prevertebral soft tissue swelling. Multilevel moderate cervical spondylosis; this includes moderate C5-6 cervical spondylosis, with disc height loss, endplate osteophytes. No suspicious thyroid findings. No lymphadenopathy is identified in the cervical spine. Moderate emphysematous changes in the lung apices. CT/CT cervical spine wo con IMPRESSION: CT Head: 1. No CT evidence of acute intracranial pathology. 2. Chronic findings in the brain as detailed above. 3. 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 Cervical Spine: 1. No evidence of acute fracture or subluxation. 2. Moderate cervical spondylosis. Additional findings and details as above.
--- NOTE | ~2021-02-01 | XR_ITS ---
EXAMINATION: XR THORACIC SPINE XR LUMBAR SPINE CLINICAL INFORMATION: Fall, injury, pain. COMPARISON: X-ray lumbar spine 09/02/2008; CT abdomen and pelvis 04/08/2015 TECHNIQUE: Thoracic spine 3 views. Lumbar spine 3 views. FINDINGS: Thoracic Spine: Mild rightward curvature of the spine. The upper thoracic vertebral bodies/cervicothoracic junction is partially obscured by overlapping densities on the lateral projection. In the visualized thoracic spine, there is normal alignment. Mild kyphotic curvature. No acute compression deformities identified. There is multilevel moderate spondylosis in thoracic spine. Visualized lungs are clear. Lumbar Spine: Postsurgical changes and instrumented posterior spinal fusion hardware at L4-S1. There appear to be fractures of bilateral S1 pedicle screws. This is of indeterminate age. No acute vertebral body compression deformities seen. In the upper thoracic spine, the disc spaces are relatively maintained. SI joints are intact. No suspicious soft tissue calcification. XR/XR lumbar spine 2-3V IMPRESSION: Thoracic Spine: 1. Moderate thoracic spondylosis. 2. Upper thoracic vertebral bodies/cervicothoracic junction is partially obscured on the lateral projection limiting evaluation. 3. In the visualized thoracic spine, no acute osseous abnormality is seen. Lumbar Spine: Posterior spinal fusion hardware at L4-S1. There is a fracture of bilateral S1 pedicle screws, of indeterminate age, new from the prior CT 04/08/2015.
--- NOTE | ~2021-02-01 | XR_ITS ---
EXAMINATION: XR THORACIC SPINE XR LUMBAR SPINE CLINICAL INFORMATION: Fall, injury, pain. COMPARISON: X-ray lumbar spine 09/02/2008; CT abdomen and pelvis 04/08/2015 TECHNIQUE: Thoracic spine 3 views. Lumbar spine 3 views. FINDINGS: Thoracic Spine: Mild rightward curvature of the spine. The upper thoracic vertebral bodies/cervicothoracic junction is partially obscured by overlapping densities on the lateral projection. In the visualized thoracic spine, there is normal alignment. Mild kyphotic curvature. No acute compression deformities identified. There is multilevel moderate spondylosis in thoracic spine. Visualized lungs are clear. Lumbar Spine: Postsurgical changes and instrumented posterior spinal fusion hardware at L4-S1. There appear to be fractures of bilateral S1 pedicle screws. This is of indeterminate age. No acute vertebral body compression deformities seen. In the upper thoracic spine, the disc spaces are relatively maintained. SI joints are intact. No suspicious soft tissue calcification. XR/XR thoracic spine 3V IMPRESSION: Thoracic Spine: 1. Moderate thoracic spondylosis. 2. Upper thoracic vertebral bodies/cervicothoracic junction is partially obscured on the lateral projection limiting evaluation. 3. In the visualized thoracic spine, no acute osseous abnormality is seen. Lumbar Spine: Posterior spinal fusion hardware at L4-S1. There is a fracture of bilateral S1 pedicle screws, of indeterminate age, new from the prior CT 04/08/2015.
[2021-02-01 07:48] VITALS: BP 148/80; PULSE 66; RESP 16; TEMP 37.1; O2SAT 96; BMI 23.5
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
[2021-02-01] MEDS: oxyCODONE HCl Immed Release 5 MG TABLET PO (10:23)
--- NOTE | 2021-02-01 11:02 | PC.NURSE ---
Addendum entered by Soheila Portillo RN 02/01/21 14:27: [employer] name: Jyotsna Original Note: Pts [employer] phone number - Would like phone call when pt is ready to go home/on his way home
[2021-02-01 11:30] LABS: COVID-19 Test Negative (Negative); IDNOW Serial# 08D9AD1C
[2021-02-01 13:41] VITALS: BP 145/79; PULSE 56; RESP 16; O2SAT 97
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
== END 2021-02-01 15:09 | disposition home or self-care (01) ==
PROVIDERS: Emergency Provider Emergency Medicine; PCP Internal Medicine
DX: S32.10XA Unspecified fracture of sacrum, initial encounter for closed fracture (principal); S00.01XA Abrasion of scalp, initial encounter; G44.309 Post-traumatic headache, unspecified, not intractable; I25.10 Atherosclerotic heart disease of native coronary artery without angina pectoris; J44.9 Chronic obstructive pulmonary disease, unspecified; M54.5 Low back pain; M54.2 Cervicalgia; V03.19XA Pedestrian with other conveyance injured in collision with car, pick-up truck or van in traffic accident, initial encounter; Y93.9 Activity, unspecified; Y92.413 State road as the place of occurrence of the external cause; Y99.9 Unspecified external cause status; Z79.899 Other long term (current) drug therapy; Z79.811 Long term (current) use of aromatase inhibitors; F17.210 Nicotine dependence, cigarettes, uncomplicated; Z71.6 Tobacco abuse counseling; Z20.822 Contact with and (suspected) exposure to COVID-19
CPT/HCPCS: 36415; 70450; 72072; 72100; 72125; 87635; 97161; 99285

== ENCOUNTER 2021-03-03 11:05 | Outpatient (REF) | payer OTHER, SELFPAY ==
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
== END 2021-03-03 11:06 | disposition home or self-care (01) ==
LOC: HO.MRI 11:05
PROVIDERS: PCP Internal Medicine; Visit Provider Nurse Practitioner Family
DX: M54.5 Low back pain (principal); T84.498D Other mechanical complication of other internal orthopedic devices, implants and grafts, subsequent encounter
CPT/HCPCS: 72148

== ENCOUNTER 2021-05-24 12:38 | Outpatient (REF) | payer OTHER, SELFPAY ==
--- NOTE | ~2021-05-24 | US_ITS ---
EXAMINATION: US RETROPERITONEAL LIMITED (RENAL ONLY) CLINICAL INFORMATION: Hematuria, unspecified. COMPARISON: KUB dated 09/22/2020 and 01/22/2014. CT abdomen and pelvis without contrast dated 05/28/2016. Ultrasound abdomen limited dated 04/06/2015. Ultrasound abdomen complete dated 03/21/2015. TECHNIQUE: Real-time imaging of the kidneys. FINDINGS: RIGHT KIDNEY: 11.1 x 6.1 x 5.6 cm (SAG x AP x TRV). The kidney is normal in size and contour. Renal cortical thickness is normal. Renal cortical echogenicity may be increased. There is a 5 mm stone in the lower pole. No focal parenchymal lesions or hydronephrosis. LEFT KIDNEY: 10.7 x 5.3 x 5.1 cm (SAG x AP x TRV). The kidney is normal in size and contour. Renal cortical thickness is normal. Renal cortical echogenicity may be increased. There is question of a 7 mm stone in the lower pole. No focal parenchymal lesions or hydronephrosis. US/US renal BI IMPRESSION: Right renal stone and question left renal stone.
== END 2021-05-24 12:39 | disposition home or self-care (01) ==
LOC: HO.US 12:38
PROVIDERS: PCP Internal Medicine; Visit Provider Urology
DX: R31.9 Hematuria, unspecified (principal)
CPT/HCPCS: 76775

== ENCOUNTER → 2021-06-08 13:11 | Outpatient (BNVA) | payer OTHER, SELFPAY | PROVIDERS: PCP Internal Medicine; Visit Provider Urology | DX: N40.1 Benign prostatic hyperplasia with lower urinary tract symptoms (principal); N13.8 Other obstructive and reflux uropathy; R35.1 Nocturia | CPT/HCPCS: 99212 ==

== ENCOUNTER 2022-01-19 14:42 | Outpatient (REF) | payer OTHER, SELFPAY ==
--- NOTE | ~2022-01-19 | XR_ITS ---
EXAMINATION: XR RIBS, BILATERAL CLINICAL INFORMATION: Pleurodynia. COMPARISON: 09/22/2020 and studies dating back to 06/13/2014. TECHNIQUE: PA chest and 3 views of the bilateral ribs. FINDINGS: PA film of the chest again demonstrates chronic interstitial lung disease bilaterally. No pneumothorax or pleural effusion is seen. Heart normal size. No evidence of pulmonary edema. Overlying the left scapula on PA view there is a lucent region with peripheral sclerosis which may possibly represent a bone lesion of the left scapula however on oblique view it may lie within the lung and may represent a bulla. On a single view in the mid right chest there is the appearance of a 2.7 cm circumscribed density which could possibly be related to an old rib fracture however a lung lesion cannot be excluded. On a single view overlying the anterior aspect of the left 3rd rib and posterior aspects of the left 5th rib there is a 7 mm sclerotic density. There is a 5 mm calcific density seen overlying the region of the right kidney which may represent a renal calculus. XR/XR ribs BI min 4V w CXR1V IMPRESSION: Chronic interstitial lung disease. Question bone and lung lesions for which CT of the chest would be of help in further evaluation.
== END 2022-01-19 14:43 | disposition home or self-care (01) ==
LOC: HO.XRAY 14:42
PROVIDERS: Absent Provider Internal Medicine; PCP Internal Medicine; Visit Provider Nurse Practitioner Primary Care
DX: R07.81 Pleurodynia (principal)
CPT/HCPCS: 71111

== ENCOUNTER 2022-02-02 09:32 | Outpatient (REF) | payer OTHER, SELFPAY ==
--- NOTE | ~2022-02-02 | CT_ITS ---
EXAMINATION: CT CHEST WITHOUT CONTRAST CLINICAL INFORMATION: Bone and lung lesions on a chest x-ray. COMPARISON: Chest x-ray with right ribs 01/19/2022. CT chest 09/12/2014. TECHNIQUE: Multidetector volumetric CT imaging of the chest was done. Axial MIP volume rendering provided. Sagittal and coronal reformatted images were obtained. This CT examination was performed using dose optimization techniques as appropriate, variously including the following: *Automated exposure control *Adjustment of mA and/or kV according to patient size (this includes techniques or standardized protocols for targeted exams where dose is matched to indication/reason for exam; i.e. extremities or head) *Use of iterative reconstruction technique DLP: 115 mGy-cm FINDINGS: INTERNIST MEDICAL DOCTOR MD: The lungs are hyperinflated but clear. LUNGS: There is diffuse centrilobular and paraseptal emphysema with extensive reticular interstitial thickening throughout both lungs. There is a new parenchymal irregular opacity right upper lobe adjacent to major fissure measuring 1.7 x 1.6 cm on axial image 20/4 with punctate posterior calcification. On previous exam it measured 6 mm. There are several additional ill-defined opacities in both upper lobes: 4 mm nodule right middle lobe axial image 65/8 previously measured 2 mm on axial image 24/3, 6 mm opacity left upper lobe anteriorly image 29/4 not seen previously, a few punctate 1 mm nodules in the right middle lobe axial image 37/4, calcified subpleural nodule measuring 2 mm axial image 93/8. No consolidation noted. MEDIASTINUM: The thyroid lobes are symmetric and normal. The central trachea and the bronchi are widely patent. The heart size and the great vessels are normal caliber. There are small shotty lymph nodes in the pretracheal and precarinal space. There are trace coronary artery calcifications. No pericardial effusion seen. PLEURA: There is no pleural effusion. No pleural mass or thickening. AXILLA: No abnormal axillary lymph nodes or mass seen. UPPER ABDOMEN: Visualized liver, spleen, pancreas and bilateral adrenal glands unremarkable. OSSEOUS STRUCTURES: No aggressive lytic or sclerotic process seen. There is mild ventral spondylosis lower dorsal spine. CT/CT chest wo IV con IMPRESSION: Diffuse centrilobular and paraseptal emphysema with multiple ill-defined opacities with extensive reticular interstitial thickening and irregular opacities in both upper lobes. The largest opacity right upper lobe adjacent to major fissure is 1.7 cm. It has increased in size. Previously it measured 6 mm. There are other pulmonary nodules pleural-based right upper lobe which have slightly increased as well. I would recommend CT/PET exam for further evaluation. Reactive mediastinal lymph nodes.
== END 2022-02-02 09:33 | disposition home or self-care (01) ==
LOC: HO.CT 09:32
PROVIDERS: PCP Internal Medicine; Visit Provider Internal Medicine
DX: R93.89 Abnormal findings on diagnostic imaging of other specified body structures (principal); F17.200 Nicotine dependence, unspecified, uncomplicated
CPT/HCPCS: 71250

== ENCOUNTER → 2022-04-13 10:38 | Outpatient (BNVA) | payer OTHER, SELFPAY | PROVIDERS: PCP Internal Medicine; Visit Provider Hospitalist | DX: R91.1 Solitary pulmonary nodule (principal); J43.2 Centrilobular emphysema; F17.210 Nicotine dependence, cigarettes, uncomplicated | CPT/HCPCS: 99202 ==

== ENCOUNTER 2022-05-04 10:46 | Outpatient (REF) | payer OTHER, SELFPAY ==
--- NOTE | 2022-05-04 13:58 | PFT_ITS ---
FLOWS: FEV1 91% of predicted at 1.84 L. FVC 66% of predicted at 1.84 L. FEV1 to FVC ratio of 1.0. Positive bronchodilator response. LUNG VOLUMES: Total lung capacity 94% of predicted at 5.20 L. Residual volume 136% of predicted at 2.86 L. Slow vital capacity 58% of predicted at 2.34 L. Expiratory reserve volume 48% of predicted at 0.48 L. Diffusion capacity is moderately decreased, diffusion capacity corrects to normal after adjustment for alveolar ventilation. IMPRESSION: No obstructive or restrictive ventilatory defect. Positive bronchodilator response. Increased residual volume suggests air trapping. Decreased diffusion capacity suggests emphysema. MD AUTUMN Broderick/MODL / [id number]
== END 2022-05-04 10:47 | disposition home or self-care (01) ==
LOC: HO.RESP 10:46
PROVIDERS: PCP Internal Medicine; Visit Provider Hospitalist
DX: J43.2 Centrilobular emphysema (principal); F17.200 Nicotine dependence, unspecified, uncomplicated
CPT/HCPCS: 94060; 94727; 94729

== ENCOUNTER → 2022-06-16 11:02 | Outpatient (BNVA) | payer OTHER, SELFPAY | PROVIDERS: PCP Internal Medicine; Visit Provider Hospitalist | DX: Z01.811 Encounter for preprocedural respiratory examination (principal); J43.2 Centrilobular emphysema; R91.1 Solitary pulmonary nodule; F17.210 Nicotine dependence, cigarettes, uncomplicated | CPT/HCPCS: 99212 ==

== ENCOUNTER 2022-06-21 09:16 | Outpatient (REF) | payer OTHER, SELFPAY ==
--- NOTE | ~2022-06-21 | PE_ITS ---
EXAMINATION: NM FLUORINE-18 FDG PET/CT SCAN CLINICAL INDICATION: Initial treatment management. Evaluation of a dominant right upper lobe irregular opacity. PROCEDURE: 60 minutes following the intravenous administration of 13.9 mCi of fluorine 18 FDG, images from the base of the skull to the mid thighs were obtained using a combined PET/CT scanner with CT scan based attenuation correction. No intravenous contrast was administered. Transverse, coronal, sagittal, and volume reconstruction projections were obtained. The patient's blood glucose as determined by a finger stick was 86 mg/dL immediately prior to injection. This examination was performed using dose optimization techniques as appropriate, variously including the following: *Automated exposure control *Adjustment of mA and/or kV according to patient size (this includes techniques or standardized protocols for targeted exams where dose is matched to indication/reason for exam; i.e. extremities or head) *Use of iterative reconstruction technique DLP: 231 mGy-cm COMPARISON: CT chest 02/02/2022. FINDINGS: NECK AND VISUALIZED HEAD: Only part of the skull base was included within the field of view with significant misregistration limiting its evaluation. No FDG-avid cervical lymphadenopathy. Increase focal FDG uptake associated with periapical lucencies within right inferior premolars SUVmax 5.9 (). Otherwise, physiologic uptake in the soft tissues of the neck. THORAX: Lung: Evaluation of parenchymal details and pulmonary nodules is limited due to respiratory motion. Redemonstration of a 1.7 cm irregularly-shaped nodular-like opacity in the posteromedial right upper lobe with SUVmax 4.1. There is a background of extensive emphysematous changes with peripheral reticulation and traction bronchiectasis suggesting interstitial lung disease. There is mild fairly symmetric FDG uptake within the interstitial changes in the posterior lung bases. Several additional bilateral nodularities are too small to characterize by PET and should be followed with a chest CT, for instance a 4 mm nodule in the right upper lobe (102:532), a 5 mm nodule in the superior segments of the right lower lobe (102:518), 4 mm nodule in the right middle lobe (102:507) and a 6 mm nodule in the left upper lobe (102:518). Mediastinum: Normal heart size. No pericardial effusion. Coronary artery calcifications are present. No abnormal FDG uptake in the thyroid gland. There are several enlarged mediastinal lymph nodes with FDG uptake higher than the mediastinal blood pool, for instance a 1.2 cm short axis precarinal lymph node SUVmax 2.8 (66/267), a 0.8 cm short axis subcarinal lymph node SUVmax 2.6 (70/267) and a 1.1 cm short axis aortopulmonary window lymph node SUVmax 2.8 (62/267). There are focal areas of increased FDG activity in the hilar regions higher than the mediastinal blood pool, possibly representing hilar lymph nodes suboptimally defined in the absence of IV contrast, for instance SUVmax 2.7 on the left side (66/267). Pericardium/Pleura: No abnormal FDG uptake. Chest Wall/Axilla: No FDG-avid lymphadenopathy. No pleural effusion or pneumothorax. ABDOMEN AND PELVIS: Peritoneal Space: No abnormal FDG uptake. Liver, Gallbladder, Biliary Tree: No FDG-avid lesion. Normal appearance of the gallbladder. No biliary ductal dilatation. Pancreas: No abnormal FDG uptake. Spleen: No abnormal FDG activity. Adrenal Glands: No FDG-avid lesion. Kidneys and Ureters: Nonobstructive approximately 7 mm calculus in the mid right kidney. Nonobstructing 1 cm calculus in the left renal pelvis with additional couple of 3 mm calculi in the medial surface of the mid to lower left kidney. Evaluation of focal FDG-avid lesions is limited due to physiologic cortical uptake. Bladder: No intraluminal calculi or wall thickening. No perivesical fat stranding. Evaluation of focal FDG-avid lesions is limited due to physiologic excretory uptake. Gastrointestinal Tract: Varying degrees of physiologic activity throughout the GI tract. No suspicious focal FDG uptake. No findings to suspect acute colitis, diverticulitis or bowel obstruction. Abdominal Wall: No abnormal FDG uptake. Surgical clips noted in the right inguinal region. Lymphovascular Structures: No FDG-avid lymphadenopathy. Pelvic Viscera: Enlarged prostate. No abnormal FDG uptake. Bilateral hydroceles. MUSCULOSKELETAL: No aggressive appearing FDG-avid osseous lesions. Nonaggressive appearing fibroosseous lesion in the right posterior iliac bone (164/267), stable compared to prior CT from 2014. There are a few nonaggressive appearing sclerotic osseous lesions across the thoracolumbar spine favored to represent bone islands. Posterior fusion hardware at L4, L5 and S1 with interdisc spacer at L5-S1. No suspicious focal FDG uptake in the hardware to suspect failure. Asymmetric soft tissue uptake in the right antecubital fossa in keeping with injection site. Asymmetric uptake in the right wrist, SUVmax 5.4 (203:267), likely related with arthritis. VASCULAR: Abdominal aorta is of normal diameter. No abnormal FDG uptake. There scattered atherosclerotic disease. PET/PET CT fusion skull to thigh IMPRESSION: Redemonstration of a 1.7 cm irregularly-shaped nodular-like opacity in the posterior medial right upper lobe with SUVmax 4.1 suspicious for malignancy. Again noted, background of extensive interstitial lung disease and emphysema with several additional pulmonary nodules that are too small to characterize by PET, for which follow-up by diagnostic chest CTs is recommended. Mediastinal and hilar lymphadenopathy with SUV uptake above the mediastinum. No FDG-avid metastatic disease in the abdomen or pelvis. Focal FDG uptake associated with periapical lucencies in the right inferior mandible suggesting periodontal disease, recommend dental referral.
== END 2022-06-21 09:17 | disposition home or self-care (01) ==
LOC: HO.PET 09:16
PROVIDERS: PCP Internal Medicine; Visit Provider Internal Medicine
DX: Z13.89 Encounter for screening for other disorder (principal)

== ENCOUNTER → 2022-07-19 11:19 | Outpatient (BNVA) | payer OTHER, SELFPAY | PROVIDERS: PCP Internal Medicine; Visit Provider Hospitalist | DX: J43.2 Centrilobular emphysema (principal); R91.1 Solitary pulmonary nodule; F17.210 Nicotine dependence, cigarettes, uncomplicated; Z79.899 Other long term (current) drug therapy | CPT/HCPCS: 99212 ==

== ENCOUNTER 2022-07-26 07:09 | Day surgery (SDC) | payer OTHER, SELFPAY ==
[2022-07-26] VITALS (7 sets, daily range): BP systolic 114–131; BP diastolic 69–78; PULSE 65–80; RESP 16–18; TEMP 36.1–36.6; O2SAT 95–99; BMI 16.4
--- NOTE | 2022-07-26 07:23 | P.CONAN_ITS ---
HPI - Anesthesia Eval Consult details Narrative: EBUS PMFSH Active Problems Active Problems: All Active Problems (Updated 07/19/22 @ 20:16 by Jm Hernandez MD) Pre-op chest exam (Acute) Smoking (Acute) COPD (chronic obstructive pulmonary disease) (Acute) Pulmonary nodule 1 cm or greater in diameter (Acute) Nocturia more than twice per night (Acute) BPH w urinary obs/LUTS (Acute) Past Medical History Medical History (Updated 07/19/22 @ 20:16 by Jm Hernandez MD) CAD (coronary artery disease) Cerebral microvascular disease Chronic anemia Chronic back pain Chronic hepatitis B Chronic low back pain COPD (chronic obstructive pulmonary disease) COPD (chronic obstructive pulmonary disease) Dysarthria Elevated rheumatoid factor Elevated sed rate HTN (hypertension) Hyperlipemia Intracranial arachnoid cyst Multifactorial gait disorder Obstructive sleep apnea Peripheral neuropathy Pre-op chest exam Pulmonary nodule 1 cm or greater in diameter PVD (peripheral vascular disease) Renal lithiasis Smoking Tubular adenoma Vitamin B12 deficiency Weakness Family History Family history of problems with anesthesia: No Surgical History History of Problems with Anesthesia: No Social History Social History (Updated 04/13/22 @ 10:55 by LILIA Sterling) Household Members: None Housing: Apartment Do you presently have visiting nurse or other home services: Yes (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) Patient Tobacco Use Status: Current everyday Tobacco user Tobacco use type: Cigarette Cigarettes Per Day: 10 Years Smoked: 30+ Years Second Hand Smoke Exposure: No Advance Directives: No Advance Directives Information Provided: Yes Advance Directives Date on File: 09/23/20 service: No Current occupational status: retired Meds Allergies Allergy/AdvReac Type Severity Reaction Status Date / Time No Known Allergies Allergy Verified 07/19/22 11:28 [No Known Allergies*] Home Medications Medication Instructions Recorded Confirmed Last Taken Type amlodipine 5 mg tablet 1 tab PO QAM 09/22/20 09/22/20 Unknown History aspirin 81 mg tablet,delayed 1 tab PO BEDTIME 09/22/20 09/22/20 Unknown History release atorvastatin 40 mg tablet 1 tab PO BEDTIME 09/22/20 09/22/20 Unknown History ferrous sulfate 325 mg (65 mg 325 mg PO TID 09/22/20 09/22/20 Unknown History iron) tablet gabapentin 600 mg tablet 600 mg PO BID 09/22/20 09/22/20 Unknown History latanoprost 0.005 % eye drops 1 drp ophthalmic (eye) BEDTIME 09/22/20 09/22/20 Unknown History methotrexate sodium 2.5 mg tablet 6 tab PO TH@1000 09/22/20 09/22/20 Unknown History omeprazole 20 mg capsule,delayed 20 mg PO DAILY 09/22/20 09/22/20 Unknown History release oxycodone-acetaminophen 5 mg-325 1 tab PO BID PRN Pain 09/22/20 09/22/20 Unknown History mg tablet primidone 50 mg tablet 100 mg PO BEDTIME 09/22/20 09/22/20 Unknown History tamsulosin 0.4 mg capsule 0.4 mg PO DAILY 09/22/20 09/22/20 Unknown History clopidogrel 75 mg tablet 75 mg PO DAILY 11/06/20 Unknown History famotidine 20 mg tablet 20 mg PO BID 11/06/20 Unknown History lidocaine HCl 2 % mucosal solution ml PO 11/06/20 Unknown History amantadine HCl 100 mg tablet 100 mg PO 04/13/22 Unknown History bacitracin 500 unit/gram topical topical Q8H 04/13/22 Unknown History ointment benztropine 1 mg tablet 1 mg PO DAILY 04/13/22 Unknown History diphenhydramine HCl 25 mg capsule 25 mg PO BEDTIME 04/13/22 Unknown History (Banophen) folic acid 1 mg tablet 1 mg PO DAILY 04/13/22 Unknown History infliximab 100 mg intravenous IV 04/13/22 Unknown History solution (Remicade) lactulose 10 gram/15 mL oral ml PO 04/13/22 Unknown History solution multivitamin 1 tab PO QAM 04/13/22 Unknown History naloxone 4 mg/actuation nasal spray 0 spray intranasal 04/13/22 Unknown History tizanidine 2 mg tablet 2 mg PO Q8-12H PRN 04/13/22 Unknown History prednisone 10 mg tablet 10 mg PO DAILY 06/16/22 Unknown History trazodone 150 mg tablet 300 mg PO BEDTIME 06/16/22 Unknown History Exam Exam Date and Time: July 26, 2022722 Airway Mallampati Class: II TM Dist: <=3cm Neck ROM: Limited Heart: rrr Lungs: decreased bs Assessment and Plan Final Anesthetic Review Family History of Problems with Anesthesia: No History of Problems with Anesthesia: No NPO: Yes ASA Class: IV Patient Risk: High Procedure Risk: Intermediate Anesthetic Plan Anesthetic Plan: GA and Agree w/ Assess. and Plan Disposition: Standard PACU
--- NOTE | 2022-07-26 08:26 | MHC.SHP ---
Pre-Procedural Eval Section A Date of Service: 07/26/22 The patient is an INPATIENT: No Changes since office visit: No Cold of Flu in the past 2 weeks, No New Medical Problems, No Changes in Medication and No Patient answered all questions The History & Physical has been completed within 30 days and I have reviewed it.: Yes Section B Chief Complaint: Solitary pulmonary nodule Allergies: Allergies Allergy/AdvReac Type Severity Reaction Status Date / Time No Known Allergies Allergy Verified 07/19/22 11:28 [No Known Allergies*] Plan I have reviewed the history and physical and performed a pertinent physical examination on my patient. No changes have occurred unless specified. Time Spent With Patient Time: Total time managing care of this patient today ____ minutes.
--- NOTE | 2022-07-29 09:09 | P.BOP_ITS ---
Brief Operative Note Date of Service: 07/26/22 Pre-op diagnosis: Pulmonary nodules Post-op diagnosis: same Procedure: EBUS TBNA and bronchoscopy with transbronchial biopsies Surgeon: Jm Hernandez MD Anesthesia: GLMA Was an Drafter Electronic used for this Procedure?: No Estimated blood loss (mL): 0 Pathology: other (RUL transbronchial biopsies) Condition: stable Disposition: same day
--- NOTE | 2022-07-29 20:26 | OP_ITS ---
SURGEON: Jm Hernandez MD PREOPERATIVE DIAGNOSIS: Pulmonary nodule. POSTOPERATIVE DIAGNOSIS: Pulmonary nodule. PROCEDURE PERFORMED: Endobronchial ultrasound bronchoscopy with transbronchial needle aspiration to the mediastinum and hilum and bronchoscopy with transbronchial biopsies, washings and brushings. ESTIMATED BLOOD LOSS: COMPLICATIONS: ANESTHESIA: LMA. ASSISTANTS: SPECIMENS: MOLD CARRIER: None. DESCRIPTION OF PROCEDURE: After the patient was adequately sedated, the flexible digital bronchoscope and endobronchial ultrasound was inserted by LMA to level of the larynx. The vocal cords moved symmetrically to the midline. After instilling lidocaine, the bronchoscope was then passed to vocal cord to the level of the trachea. Using the ultrasound, small lymph nodes were appreciated, was appeared to be normal in appearance. Measuring between 5 to 8 mm in size could be appreciated in the left pretracheal, in addition to 5 to 8 mm lymph node. The patient did have some small lymph nodes also in the right hilum, still measuring 5 to 8 mm in size, but could not get them due to underlying vasculature. Using ultrasounds guidance, transbronchial needle aspirations were collected from 4R lymph node. Specimens were limited. Difficult to accessed. The ultrasound windows were small. Subsequent to that, samples were collected from station 7 and again samples were given to the on-site pathology, limited sampling. Awaiting for cell block. The endobronchial ultrasound was then replaced with regular bronchoscopy. The airways were evaluated up to the subsegmental level. The patient did have moderate mucous secretions throughout the suction. No endobronchial lesions or masses noted. The bronchoscope was navigated to the right upper lobe where a cytologic brushing was performed. Bronchial washings were also collected for cytology. Ultimately, using forceps transbronchial biopsies were collected from the right upper lobe apical segment and specimen sent in formalin to the pathologist. No significant chest pains or complications. The patient then was monitored closely for any bleeding. He did not need any epinephrine. Iced saline was used with good hemostasis. After no evidence of any active bleeding, the bronchoscope was then removed. Total endoscopic time was approximately 40 minutes. Patient tolerated the procedure well, vital signs were stable. He was able to go to the PACU. In the PACU, he dd not have the chest x-ray as ordered, although he did have it later on and it was without any acute disease. He felt well after the procedure. No apparent complications. INTERPRETATION: 1. EBUS with 2 transbronchial needle aspirations of station done. 2. Transbronchial biopsies of the right upper lobe. 3. Cytologic brushing of right upper lobe. 4. Bronchial washings from the right upper lobe. Jm Hernandez MD MR/MODL / [id number]
== END 2022-07-26 11:50 | disposition home or self-care (01) ==
PROVIDERS: PCP Internal Medicine; Visit Provider Hospitalist
PROC: (CPT 31628; principal; 2022-07-26 08:00)
DX: R91.1 Solitary pulmonary nodule (principal); J43.2 Centrilobular emphysema; F17.210 Nicotine dependence, cigarettes, uncomplicated; R63.4 Abnormal weight loss; R63.0 Anorexia; Z68.1 Body mass index [BMI] 19.9 or less, adult; R53.83 Other fatigue; R26.89 Other abnormalities of gait and mobility; Z91.81 History of falling; I73.9 Peripheral vascular disease, unspecified; I25.10 Atherosclerotic heart disease of native coronary artery without angina pectoris; I10 Essential (primary) hypertension; E78.5 Hyperlipidemia, unspecified; D64.89 Other specified anemias; G89.29 Other chronic pain; M54.50 Low back pain, unspecified; G47.33 Obstructive sleep apnea (adult) (pediatric); R70.0 Elevated erythrocyte sedimentation rate; Z79.899 Other long term (current) drug therapy
CPT/HCPCS: 31628; 31623; 31652; 88112; 88172; 88173; 88177; 88305; J0171; J1100; J2405

== ENCOUNTER 2022-07-28 15:18 | Outpatient (REF) | payer OTHER, SELFPAY ==
--- NOTE | ~2022-07-28 | XR_ITS ---
EXAMINATION: XR CHEST CLINICAL INFORMATION: Preprocedural examination. COMPARISON: CT chest dated 02/02/2022; chest radiograph dated 01/20/2022. TECHNIQUE: Frontal and lateral views of the chest were obtained. FINDINGS: The heart, great vessels, pulmonary vasculature mediastinum are stable. There is hyperinflation, with increased retrosternal lucency. There is stable mild bilateral increase in reticular markings. A large left upper lobe bleb is redemonstrated. No new infiltrate, effusion or pneumothorax is seen. There is no acute osseous abnormality. XR/XR chest 2V IMPRESSION: There are stable findings of chronic interstitial lung disease and emphysema. No superimposed infiltrate or congestive heart failure is seen.
[2022-07-28 15:34] VITALS: O2SAT 99
[2022-07-28 15:50] LABS: ABG Base Excess 0.3 mmol/L; ABG HCO3 23 mmol/L (22-26); ABG pCO2 32 mmHg (32-45); ABG pH 7.46 (7.35-7.45); ABG pO2 84 mmHg (83-108)
[2022-07-28 15:52] LABS: ABG Refer to POC result
== END 2022-07-28 15:19 | disposition home or self-care (01) ==
LOC: HO.XRAY 15:18
PROVIDERS: PCP Internal Medicine; Visit Provider Hospitalist
DX: Z01.811 Encounter for preprocedural respiratory examination (principal); R91.1 Solitary pulmonary nodule
CPT/HCPCS: 36600; 71046; 82803

== ENCOUNTER 2022-08-04 15:19 | Outpatient (REF) | payer OTHER, SELFPAY | END 2022-08-04 15:20 | disposition home or self-care (01) | LOC: HO.LNP 15:19 | PROVIDERS: PCP Internal Medicine; Referring Provider Emergency Medicine; Visit Provider Surgery | DX: L72.3 Sebaceous cyst (principal); Z79.899 Other long term (current) drug therapy | CPT/HCPCS: 10060; 87070; 87205; 99202 ==

== ENCOUNTER → 2022-08-05 10:53 | Outpatient (BNVA) | payer OTHER, SELFPAY | PROVIDERS: PCP Internal Medicine; Visit Provider Hospitalist | DX: Z48.01 Encounter for change or removal of surgical wound dressing (principal); L02.11 Cutaneous abscess of neck | CPT/HCPCS: 99202; 99211; 99212 ==

== ENCOUNTER 2022-09-30 13:17 | Outpatient (REF) | payer OTHER, SELFPAY ==
--- NOTE | ~2022-09-30 | US_ITS ---
EXAMINATION: US RETROPERITONEAL LIMITED (RENAL ONLY) CLINICAL INFORMATION: Persistent dysuria with history of renal stones. COMPARISON: Renal ultrasound 05/24/2021. TECHNIQUE: Real-time imaging of the kidneys. FINDINGS: RIGHT KIDNEY: 10.9 x 5.0 x 7.3 cm (SAG x AP x TRV). The kidney is normal in size, contour, and echogenicity. Renal cortical thickness is normal. No focal parenchymal lesions or hydronephrosis. 1.0 cm nonobstructing calculus in the lower pole. LEFT KIDNEY: 11.0 x 5.6 x 4.6 cm (SAG x AP x TRV). The kidney is normal in size, contour, and echogenicity. Renal cortical thickness is normal. No focal parenchymal lesions or hydronephrosis. 1.0 cm nonobstructing calculus in the lower pole. US/US renal BI IMPRESSION: Bilateral renal calculi without hydronephrosis.
== END 2022-09-30 13:18 | disposition home or self-care (01) ==
LOC: HO.US 13:17
PROVIDERS: PCP Internal Medicine; Visit Provider Registered Nurse
DX: R30.0 Dysuria (principal)
CPT/HCPCS: 76775

== ENCOUNTER → 2022-11-09 13:49 | Outpatient (BNVA) | payer OTHER, SELFPAY | PROVIDERS: PCP Internal Medicine; Visit Provider Urology | DX: R31.29 Other microscopic hematuria (principal); N40.1 Benign prostatic hyperplasia with lower urinary tract symptoms; R35.1 Nocturia | CPT/HCPCS: 51798; 99212 ==

== ENCOUNTER 2022-11-22 13:54 | Outpatient (REF) | payer OTHER, SELFPAY | END 2022-11-22 13:55 | disposition home or self-care (01) | LOC: HO.HHCX 13:54 | PROVIDERS: Visit Provider Internal Medicine | DX: R07.81 Pleurodynia (principal) | CPT/HCPCS: 71101 ==

== ENCOUNTER → 2022-11-30 12:37 | Outpatient (BNVA) | payer OTHER, SELFPAY | PROVIDERS: PCP Internal Medicine; Referring Provider Surgery; Visit Provider Surgery | DX: L72.3 Sebaceous cyst (principal) | CPT/HCPCS: 99212 ==

== ENCOUNTER 2022-12-16 11:00 | Outpatient (AMB) | payer OTHER, SELFPAY ==
[2022-12-16 11:27] VITALS: BP 146/74; PULSE 64; O2SAT 94; BMI 19.3
--- NOTE | 2022-12-16 11:27 | MHC.OFFVIS ---
Intake Vital Signs 12/16/22 11:27 Height 5 ft 7 in Weight 123 lb 7.342 oz BMI 19.3 BP 146/74 H Blood Pressure Location Lt brachial Position Sitting Pulse 64 Pulse Source Pulse Oximeter Pulse Oximetry (%) 94 Oxygen Delivery Method Room Air Intake Visit Reasons: Dr. Hernandez 12/21 eswl Intake Note: Patient here today for clearance for surgery scheduled on 12/21. Associate Account Executive Required: No Soccer Player: Soccer Player offered & declined Accompanied by: outreach nurse Allergies No Known Allergies [No Known Allergies*] Allergy (Verified 12/16/22 11:31) Medication List - Last Reconciled 12/16/22 by Sasha Suh LPN amantadine HCl 100 mg PO amlodipine 1 tab PO QAM aspirin 1 tab PO BEDTIME atorvastatin 1 tab PO BEDTIME bacitracin topical Q8H benztropine 1 mg PO DAILY carbidopa-levodopa 25-100 mg 1 tab PO TID clopidogrel 75 mg PO DAILY diphenhydramine HCl (Banophen) 25 mg PO BEDTIME docusate sodium 100 mg PO BIDWMEAL famotidine 20 mg PO BID ferrous sulfate 325 mg PO TID finasteride 5 mg PO DAILY 90 days [id number] 200-62.5-25 mcg (Trelegy Ellipta) 1 inh inhalation DAILY 30 days folic acid 1 mg PO DAILY gabapentin 600 mg PO BID infliximab (Remicade) IV latanoprost 0.005% 1 drp ophthalmic (eye) BEDTIME lidocaine HCl 2% mL PO melatonin 3 mg PO BEDTIME 30 days methotrexate sodium 6 tabs PO TH@1000 multivitamin 1 tab PO QAM nicotine 1 patch transdermal DAILY omeprazole 20 mg PO DAILY oxycodone-acetaminophen 5-325 mg 1 tab PO BID PRN prednisone 10 mg PO DAILY primidone 100 mg PO BEDTIME tamsulosin 0.4 mg PO DAILY trazodone [address] Hernandez 12/21 eswl HPI Details Jabari is a pleasant 82 year old male, current smoker with 30+ pack year history, with underlying history of COPD and emphysema. Today he presents for preoperative evaluation for lithrotripsy with Dr. Butterfield on 12/21. He reports good control of symptoms on Trelegy and has not had to use his albuterol. He reports some fatigue with moderate exertion but denies wheezing, cough or chest tightness. He denies any recent respiratory infections or hospitalizations. He last had a PFT in April 2022, report below. [facility] Medical History (Updated 12/16/22 @ 14:35 by Ivory Vincent NP) CAD (coronary artery disease) Cerebral microvascular disease Chronic anemia Chronic back pain Chronic hepatitis B COPD (chronic obstructive pulmonary disease) Dysarthria Elevated rheumatoid factor Elevated sed rate HTN (hypertension) Hyperlipemia Intracranial arachnoid cyst Multifactorial gait disorder Obstructive sleep apnea Peripheral neuropathy Pulmonary nodule 1 cm or greater in diameter PVD (peripheral vascular disease) Renal lithiasis Smoking Tubular adenoma Vitamin B12 deficiency Weakness Surgical History History of bronchoscopy History of cataract surgery History of colonoscopy History of cystoscopy History of endoscopy History of lithotripsy History of lumbar surgery History of repair of left rotator cuff Social History (Updated 12/16/22 @ 11:36 by Sasha Suh LPN) Household Members: None Housing: Apartment Do you presently have visiting nurse or other home services: Yes (pt has a outreach nurse) Patient Tobacco Use Status: Current everyday Tobacco user Tobacco use type: Cigarette Cigarettes Per Day: 2 Years Smoked: 30+ Years Second Hand Smoke Exposure: No Advance Directives Date on File: 09/23/20 service: No Current occupational status: retired Review of Systems Const Denies chills, Denies excessive sweating, Denies fever(s), Denies headache(s) and Denies night sweats Eyes Denies dry eyes, Denies irritation and Denies itchy eyes ENT Reports Normal hearing present, Denies headache(s), Denies nasal congestion, Denies nasal discharge, Denies post nasal drip and Denies sore throat Card Denies chest pain, Denies chest pain at rest, Denies chest pain with activity, Denies claudication, Denies leg edema, Denies orthopnea and Denies paroxysmal nocturnal dyspnea Resp Denies chest congestion, Denies cough, Denies excessive phlegm production, Denies pain on inspiration, Denies pain with cough, Denies stridor and Denies wheezing Musc Denies myalgias Neuro Reports Normal hearing present and Denies headache(s) Endo Denies excessive sweating Rolf/Lymph Denies lymphadenopathy Aller/Immun Denies itchy eyes, Denies seasonal rhinorrhea and Denies wheezing Physical Exam Vital Signs: Last Vital Signs Pulse 64 12/16/22 11:27 BP 146/74 H 12/16/22 11:27 Pulse Ox 94 12/16/22 11:27 Oxygen Delivery Method Room Air 12/16/22 11:27 BMI result Body Mass Index 19.3 Const General: cooperative, comfortable, no acute distress and alert Nutritional Appearance: thin Orientation/consciousness: patient oriented x3 Limitations: ambulation with walker HEENT Head: Yes normal to inspection, Yes normocephalic and Yes atraumatic Ears: hearing grossly normal bilaterally and external ears normal Eyes General: appearance normal, both eyes and all related structures Eyelids: Yes eyelids normal Sclerae: sclerae normal EOM: EOMs intact bilaterally Neck Neck: Yes normal visual inspection and Yes no lymphadenopathy Lymphatic: no lymphadenopathy noted Chest Chest palpation & inspection: normal inspection of the chest Resp Effort & Inspection: normal respiratory effort, able to speak in complete sentences, no audible wheezes, no cough, no stridor, not tachypneic, no tripod positioning and no use of accessory muscles Auscultation: clear to auscultation bilaterally Cardio Jugular venous distension: no JVD Rate: regular rate Rhythm: regular rhythm Skin Other: warm, dry General skin exam: no rashes or lesions noted Neuro General: patient oriented x3 Cranial nerves: Yes Normal hearing present Cognition (Neuro): normal cognition Gait exam (Neuro): Normal gait present Extrem Other: clubbing General: Yes normal to inspection and Yes no pedal edema Psych Appearance: grossly normal and well kempt Speech and movement: Normal speech and movement present and Clear speech present Affect: normal affect Attitude: cooperative Thought process: Normal thought process present Thought content: Normal thought content present Insight: Good insight present (Psych) Judgement: Good judgement present (Psych) Results Reviewed Results Reviewed: Assessment & Plan Assessment & Plan (1) COPD (chronic obstructive pulmonary disease): Code(s): J44.9 - Chronic obstructive pulmonary disease, unspecified Qualifiers: COPD type: emphysema Emphysema type: centrilobular Qualified Code(s): J43.2 - Centrilobular emphysema (2) Preop pulmonary/respiratory exam: Code(s): Z01.811 - Encounter for preprocedural respiratory examination Plan Jabari presents for preoperative pulmonary evaluation for proposed EWSL with Dr. Butterfield on 12/21/22. He is not on supplemental oxygen and reports optimal control of symptoms using Trelegy at baseline. He denies any recent respiratory infections and no wheezing appreciated on exam. Attempted 6MW but unable to perform as unable to get a consistent reading on pulse oximeter. Although FEV1/FEV 100%, flow volume loop more consistent with a restrictive pattern and has a decreased DLCO of 46. Secondary to patient's advanced COPD with moderate decrease in diffusion capacity he is at intermediate-risk for pulmonary perioperative complications. Coding Level of Care Code Est Pt Level 3 (76959) Diagnoses COPD (chronic obstructive pulmonary disease) J43.2 COPD type: emphysema Emphysema type: centrilobular Preop pulmonary/respiratory exam Z01.811
== END 2022-12-16 11:57 | disposition home or self-care (01) ==
PROVIDERS: PCP Internal Medicine; Visit Provider Nurse Practitioner Family
DX: J43.2 Centrilobular emphysema (principal); Z01.811 Encounter for preprocedural respiratory examination
CPT/HCPCS: 99213

== ENCOUNTER → 2022-12-16 11:00 | Outpatient (BNVA) | payer OTHER, SELFPAY | PROVIDERS: PCP Internal Medicine; Visit Provider Nurse Practitioner Family | DX: Z01.811 Encounter for preprocedural respiratory examination (principal); J43.2 Centrilobular emphysema | CPT/HCPCS: 99212 ==

== ENCOUNTER 2022-12-21 07:04 | Day surgery (SDC) | payer OTHER, SELFPAY ==
--- NOTE | 2022-12-20 10:17 | P.CONAN_ITS ---
HPI - Anesthesia Eval Consult details Narrative: 82yo M for Left ESWL Pulmo optimized: Secondary to patient's advanced COPD with moderate decrease in diffusion capacity and prior history of lung cancer status post XRT with recurrence he is at intermediate-risk for pulmonary perioperative complications. Plavix for PVD PMFSH Active Problems Active Problems: All Active Problems (Updated 12/16/22 @ 14:35 by Ivory Vincent NP) Preop pulmonary/respiratory exam (Acute) Renal lithiasis (Acute) Sebaceous cyst (Acute) Pre-op chest exam (Acute) Smoking (Acute) COPD (chronic obstructive pulmonary disease) (Acute) Pulmonary nodule 1 cm or greater in diameter (Acute) Nocturia more than twice per night (Acute) BPH w urinary obs/LUTS (Acute) Past Medical History Medical History (Updated 12/16/22 @ 14:35 by Ivory Vincent NP) CAD (coronary artery disease) Cerebral microvascular disease Chronic anemia Chronic back pain Chronic hepatitis B COPD (chronic obstructive pulmonary disease) Dysarthria Elevated rheumatoid factor Elevated sed rate HTN (hypertension) Hyperlipemia Intracranial arachnoid cyst Multifactorial gait disorder Obstructive sleep apnea Peripheral neuropathy Pulmonary nodule 1 cm or greater in diameter PVD (peripheral vascular disease) Renal lithiasis Smoking Tubular adenoma Vitamin B12 deficiency Weakness Family History Family history of problems with anesthesia: No Surgical History Surgical History History of bronchoscopy History of cataract surgery History of colonoscopy History of cystoscopy History of endoscopy History of lithotripsy History of lumbar surgery History of repair of left rotator cuff History of Problems with Anesthesia: No Social History Social History (Updated 12/16/22 @ 11:36 by Sasha Suh LPN) Household Members: None Housing: Apartment Do you presently have visiting nurse or other home services: Yes (pt has a manager document control) Patient Tobacco Use Status: Current everyday Tobacco user Tobacco use type: Cigarette Cigarettes Per Day: 2 Years Smoked: 30+ Years Second Hand Smoke Exposure: No Advance Directives Date on File: 09/23/20 service: No Current occupational status: retired Meds Allergies Allergy/AdvReac Type Severity Reaction Status Date / Time No Known Allergies Allergy Verified 12/16/22 11:31 [No Known Allergies*] Home Medications Medication Instructions Recorded Confirmed Last Taken Type amlodipine 5 mg tablet 1 tab PO QAM 09/22/20 12/16/22 Unknown History aspirin 81 mg tablet,delayed 1 tab PO BEDTIME 09/22/20 12/16/22 Unknown History release atorvastatin 40 mg tablet 1 tab PO BEDTIME 09/22/20 12/16/22 Unknown History ferrous sulfate 325 mg (65 mg 325 mg PO TID 09/22/20 12/19/22 Unknown History iron) tablet gabapentin 600 mg tablet 600 mg PO BID 09/22/20 12/19/22 Unknown History latanoprost 0.005 % eye drops 1 drp ophthalmic (eye) BEDTIME 09/22/20 12/19/22 Unknown History methotrexate sodium 2.5 mg tablet 6 tab PO TH@1000 09/22/20 12/19/22 Unknown History omeprazole 20 mg capsule,delayed 20 mg PO DAILY 09/22/20 12/19/22 Unknown History release oxycodone-acetaminophen 5 mg-325 1 tab PO BID PRN Pain 09/22/20 12/19/22 Unknown History mg tablet primidone 50 mg tablet 100 mg PO BEDTIME 09/22/20 12/19/22 Unknown History tamsulosin 0.4 mg capsule 0.4 mg PO DAILY 09/22/20 12/19/22 Unknown History clopidogrel 75 mg tablet 75 mg PO DAILY 11/06/20 12/19/22 Unknown History famotidine 20 mg tablet 20 mg PO BID 11/06/20 12/19/22 Unknown History lidocaine HCl 2 % mucosal solution ml PO 11/06/20 08/08/22 Unknown History amantadine HCl 100 mg tablet 100 mg PO 04/13/22 12/16/22 Unknown History bacitracin 500 unit/gram topical topical Q8H 04/13/22 12/16/22 Unknown History ointment benztropine 1 mg tablet 1 mg PO DAILY 04/13/22 12/19/22 Unknown History diphenhydramine HCl 25 mg capsule 25 mg PO BEDTIME 04/13/22 12/19/22 Unknown History (Banophen) folic acid 1 mg tablet 1 mg PO DAILY 04/13/22 12/16/22 Unknown History infliximab 100 mg intravenous IV 04/13/22 12/16/22 Unknown History solution (Remicade) multivitamin 1 tab PO QAM 04/13/22 12/19/22 Unknown History prednisone 10 mg tablet 10 mg PO DAILY 06/16/22 12/19/22 Unknown History trazodone 150 mg tablet 300 mg PO BEDTIME 06/16/22 12/19/22 Unknown History Exam Exam Date and Time: December 20, 2022 101 Assessment and Plan Assessment Anesthesia Assessment: Chart Reviewed Final Anesthetic Review Family History of Problems with Anesthesia: No History of Problems with Anesthesia: No
[2022-12-21] VITALS (7 sets, daily range): BP systolic 134–167; BP diastolic 67–94; PULSE 52–63; RESP 16–22; TEMP 36.1–36.6; O2SAT 96–100; BMI 19.1
--- NOTE | ~2022-12-21 | XR_ITS ---
EXAMINATION: XR ABDOMEN KUB CLINICAL INDICATION: Left kidney stone. COMPARISON: Renal ultrasound dated September 30, 2022. PET/CT dated June 21, 2022. The most recent prior available CT scan of the abdomen and pelvis is dated May 28, 2016. TECHNIQUE: AP view of the abdomen. XR/XR KUB FINDINGS/IMPRESSION: Overlying bowel contents limit evaluation for subtle urinary tract stone. A rounded left lower quadrant calcification may represent a phlebolith. No gross urinary tract stone is identified as such on this plain film examination. If more sensitive, specific, and reproducible evaluation for urinary tract stone is clinically desired, CT scan may be of use. Mild to moderate stool throughout the colon and rectal vault. There is no evidence of intestinal obstruction or free air. No soft tissue mass or organomegaly is seen. Bilateral transpedicular screws, rods, and laminectomy at L4-S1. Vascular calcification. Multiple right groin surgical clips. Partially imaged metallic vascular stent projecting over the proximal right thigh, possibly within the superficial femoral artery. Electronic device projects over the mid-upper abdomen. Incidentally visualized diffuse bilateral chronic interstitial prominence of the lungs. No effusion or focal infiltrate seen.
--- NOTE | 2022-12-21 07:54 | HO.ANESPROP2 ---
PENDING SALE TO [facility] Active Problems Active Problems: All Active Problems (Updated 12/16/22 @ 14:35 by Ivory Vincent NP) Preop pulmonary/respiratory exam (Acute) Renal lithiasis (Acute) Sebaceous cyst (Acute) Pre-op chest exam (Acute) Smoking (Acute) COPD (chronic obstructive pulmonary disease) (Acute) Pulmonary nodule 1 cm or greater in diameter (Acute) Nocturia more than twice per night (Acute) BPH w urinary obs/LUTS (Acute) Past Medical History Medical History CAD (coronary artery disease) Cerebral microvascular disease Chronic anemia Chronic back pain Chronic hepatitis B COPD (chronic obstructive pulmonary disease) Dysarthria Elevated rheumatoid factor Elevated sed rate HTN (hypertension) Hyperlipemia Intracranial arachnoid cyst Multifactorial gait disorder Obstructive sleep apnea Peripheral neuropathy Pulmonary nodule 1 cm or greater in diameter PVD (peripheral vascular disease) Renal lithiasis Smoking Tubular adenoma Vitamin B12 deficiency Weakness Functional capacity: independent ambulation Family History Family history of problems with anesthesia: No Surgical History Surgical History History of bronchoscopy History of cataract surgery History of colonoscopy History of cystoscopy History of endoscopy History of lithotripsy History of lumbar surgery History of repair of left rotator cuff History of Problems with Anesthesia: No Social History Social History Household Members: None Housing: Apartment Do you presently have visiting nurse or other home services: Yes (pt has a carpenter cradle and dolly) Patient Tobacco Use Status: Current everyday Tobacco user Tobacco use type: Cigarette Cigarettes Per Day: 2 Years Smoked: 30+ Years Second Hand Smoke Exposure: No Are you DNR?: No Advance Directives: No Advance Directives Information Provided: Yes Advance Directives Date on File: 09/23/20 service: No Current occupational status: retired Meds Allergies Allergy/AdvReac Type Severity Reaction Status Date / Time No Known Allergies Allergy Verified 12/16/22 11:31 [No Known Allergies*] Active Medications: Current Medications Albuterol Sulfate (Albuterol Sulfate (0.083%) 2.5 Mg/3 Ml Vial.Neb) 2.5 mg INHALE ONCE PRN PRN Reason: Shortness of Breath/Wheezing Lactated Ringer's (Lr) 1,000 mls @ 100 mls/hr IVCONT .Q10H GADIEL Lactated Ringer's (Lr) 1,000 mls @ 999 mls/hr IV .Q1H1M GADIEL Stop: 12/21/22 08:45 Home Medications Medication Instructions Recorded Confirmed Last Taken Type amlodipine 5 mg tablet 1 tab PO QAM 09/22/20 12/16/22 Unknown History aspirin 81 mg tablet,delayed 1 tab PO BEDTIME 09/22/20 12/16/22 12/12/22 History release atorvastatin 40 mg tablet 1 tab PO BEDTIME 09/22/20 12/16/22 Unknown History ferrous sulfate 325 mg (65 mg 325 mg PO TID 09/22/20 12/19/22 Unknown History iron) tablet gabapentin 600 mg tablet 600 mg PO BID 09/22/20 12/19/22 Unknown History latanoprost 0.005 % eye drops 1 drp ophthalmic (eye) BEDTIME 09/22/20 12/19/22 Unknown History methotrexate sodium 2.5 mg tablet 6 tab PO TH@1000 09/22/20 12/19/22 Unknown History omeprazole 20 mg capsule,delayed 20 mg PO DAILY 09/22/20 12/19/22 Unknown History release oxycodone-acetaminophen 5 mg-325 1 tab PO BID PRN Pain 09/22/20 12/19/22 Unknown History mg tablet primidone 50 mg tablet 100 mg PO BEDTIME 09/22/20 12/19/22 Unknown History tamsulosin 0.4 mg capsule 0.4 mg PO DAILY 09/22/20 12/19/22 Unknown History clopidogrel 75 mg tablet 75 mg PO DAILY 11/06/20 12/19/22 12/12/22 History famotidine 20 mg tablet 20 mg PO BID 11/06/20 12/19/22 Unknown History lidocaine HCl 2 % mucosal solution ml PO 11/06/20 08/08/22 Unknown History amantadine HCl 100 mg tablet 100 mg PO 04/13/22 12/16/22 Unknown History bacitracin 500 unit/gram topical topical Q8H 04/13/22 12/16/22 Unknown History ointment benztropine 1 mg tablet 1 mg PO DAILY 04/13/22 12/19/22 Unknown History diphenhydramine HCl 25 mg capsule 25 mg PO BEDTIME 04/13/22 12/19/22 Unknown History (Banophen) folic acid 1 mg tablet 1 mg PO DAILY 04/13/22 12/16/22 Unknown History infliximab 100 mg intravenous IV 04/13/22 12/16/22 Unknown History solution (Remicade) multivitamin 1 tab PO QAM 04/13/22 12/19/22 Unknown History prednisone 10 mg tablet 10 mg PO DAILY 06/16/22 12/19/22 Unknown History trazodone 150 mg tablet 300 mg PO BEDTIME 06/16/22 12/19/22 Unknown History Exam Exam Date and Time: December 21, 2022 0754 Height,Weight and Vital Signs: Height 5 ft 7 in Weight 55.338 kg Last Vital Signs Temp 97 F 12/21/22 07:31 Pulse 63 12/21/22 07:31 Resp 22 H 12/21/22 07:31 BP 142/67 H 12/21/22 07:31 Pulse Ox 96 12/21/22 07:31 O2 Del Method Room Air 12/21/22 07:31 Airway Mallampati Class: II TM Dist: >3cm Neck ROM: Full Denture: Upper and Lower Loose/Missing/Broken Teeth: Upper (pertials upper and lower) Heart: RRR Lungs: CTA Assessment and Plan Assessment Anesthesia Assessment: Anesthesia Plan Discussed Final Anesthetic Review Family History of Problems with Anesthesia: No History of Problems with Anesthesia: No NPO: Yes ASA Class: II and III Final Preanesthetic Review: Meds/Allgs Chart Reviewed and Consent Obtained/Reviewed Patient Risk: Intermediate Procedure Risk: Low Anesthetic Plan Anesthetic Plan: GA Disposition: Standard PACU
--- NOTE | 2022-12-21 08:28 | MHC.SHP ---
Pre-Procedural Eval Section A Date of Service: 12/21/22 The patient is an INPATIENT: No Changes since office visit: No Cold of Flu in the past 2 weeks, No New Medical Problems, No Changes in Medication and No Patient answered all questions The History & Physical has been completed within 30 days and I have reviewed it.: No Section B Chief Complaint: Calculus of kidney Details of Present Illness: left renal stone 10mm Relevant Social History: None Present Medications: see Short Stay Collaborative assessment Medical History: Significant History History of Previous Operations: No relevant previous surgery Allergies: Allergies Allergy/AdvReac Type Severity Reaction Status Date / Time No Known Allergies Allergy Verified 12/16/22 11:31 [No Known Allergies*] Review of Systems Sugical H&P ROS: Negative: Constitution, Cardiovascular, Respiratory, Neurological, Psychiatric, Hem-Onc, Allergic/Immunologic, Gastrointestinal, Genitourinary, Musculoskeletal, Integumentary, Endocrine and Eyes/Ears/Nose/Throat Exam Surgical H&P Exam: Normal: HEENT, Normal: Heart, Normal: Lungs, Normal: Extremities, Normal: Abdomen, Normal: Skin and Normal: Neurological Plan Diagnosis/Plan: Unchanged (left ESWL) I have reviewed the history and physical and performed a pertinent physical examination on my patient. No changes have occurred unless specified. Time Spent With Patient Time: Total time managing care of this patient today ____ minutes.
--- NOTE | 2022-12-21 10:28 | W.PM.OPN ---
Operative Note Operative Note Date of Service: 12/21/22 Narrative: PreOperative Diagnosis: Left Renal stones Post Operative Diagnosis: Left Renal stones Procedure: ESWL Surgeon: Dr Rey Hernandez Anesthesia: mac/sedation Indications for procedure: The patient understands ESWL may be a staged procedure and subsequent intervention may be required based on imaging after ESWL. Quoted stone clearance rates for a solitary procedure are in the 70-80% range based primarily on stone location. They also understand there is a risk of bleeding to the kidney, infection, damage to adjacent organs, and stone migration following the procedure. - Imaging left 10 mm Procedure: After informed consent was verified the patient was brought to the operating room and placed in a supine position. Anesthesia was performed per protocol. Safety pause time-out was performed. Imaging was displayed in the room and laterality confirmed. ESWL was performed. The 1st 500 shocks were performed at 60 hertz. These were performed with increasing power. Once maximum power was reached the rate was increased to 180 hertz. A total of 2500 shocks were given. Targeted imaging with ultrasound/fluoroscopy showed stone smudging suggestive of disintegration. The patient tolerated the procedure well and was transferred to the recovery area upon completion. Post procedure imaging will be organized. There was no evidence for flank discoloration.
[2022-12-21] MEDS: Phenazopyridine HCL 100 MG TABLET PO (11:25)
--- NOTE | 2022-12-21 14:00 | HO.POSTANES ---
Post Anesthesia Evaluation Post Anesthesia Evaluation Date of Service: 12/21/22 Vital Signs: Vital Signs Temp Pulse Resp BP Pulse Ox O2 Del Method O2 Flow Rate 12/21/22 11:32 52 16 154/86 H 100 Room Air 12/21/22 11:19 97.9 F 52 16 167/94 H 100 Room Air 12/21/22 11:05 56 16 159/84 H 100 Room Air 12/21/22 11:00 55 16 144/83 H 100 Room Air 12/21/22 10:55 58 16 134/82 100 Room Air 12/21/22 10:50 97 F 61 16 140/82 H 100 Simple Mask 6 12/21/22 07:31 97 F 63 22 H 142/67 H 96 Room Air Anesthesia: General LMA Mental Status: Awake Pain Control: Satisfactory Nausea/Vomiting: None Hydration: Adequate Anesthesia-Related Issues: No Anes. Related Issues
== END 2022-12-21 12:11 | disposition home or self-care (01) ==
PROVIDERS: PCP Internal Medicine; Visit Provider Urology
PROC: (CPT 50590; principal; 2022-12-21 08:50)
DX: N20.0 Calculus of kidney (principal); N40.1 Benign prostatic hyperplasia with lower urinary tract symptoms; N13.8 Other obstructive and reflux uropathy; R35.1 Nocturia; I10 Essential (primary) hypertension; J44.9 Chronic obstructive pulmonary disease, unspecified; Z79.82 Long term (current) use of aspirin; Z79.899 Other long term (current) drug therapy
CPT/HCPCS: 50590; 74018; J0131; J2250; J2370; J2371

== ENCOUNTER → 2022-12-21 07:04 | Outpatient (BNV) | payer OTHER, SELFPAY | PROVIDERS: PCP Internal Medicine; Visit Provider Urology | DX: N20.0 Calculus of kidney (principal) | CPT/HCPCS: 50590 ==

== ENCOUNTER 2022-12-28 13:42 | Outpatient (REF) | payer OTHER, SELFPAY ==
--- NOTE | ~2022-12-28 | CT_ITS ---
EXAMINATION: CT CHEST WITHOUT CONTRAST CLINICAL INFORMATION: Abnormal left scapula lesion. COMPARISON: CT chest 02/02/2022. TECHNIQUE: Multidetector volumetric CT imaging of the chest was done. Axial MIP volume rendering provided. Sagittal and coronal reformatted images were obtained. This CT examination was performed using dose optimization techniques as appropriate, variously including the following: *Automated exposure control *Adjustment of mA and/or kV according to patient size (this includes techniques or standardized protocols for targeted exams where dose is matched to indication/reason for exam; i.e. 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 LUNGS: There is paraseptal and centrilobular emphysema. There is a right upper lobe posterior segment fissural-based nodule measuring 1.6 x 1.5 cm axial image 16/4 and 17/4. It is unchanged in size from the previous exam. No additional nodule seen. There are prominent bilateral parenchyma subpleural interstitial thickening. Scattered small parenchymal opacities in both upper lobes are stable. There are 2 mm nodules right middle lobe better visualized on axial images 89/10. They are stable. No new nodule seen. Calcified nodule right lower lobe is stable. MEDIASTINUM: Thyroid lobes are symmetric and normal. The central trachea and the bronchi are widely patent. There are reactive mediastinal lymph nodes with the largest precarinal lymph node measuring 9 mm in short axis. It is similar to previous study from January 2022. CORONARY ARTERY CALCIFICATION: Moderate coronary artery calcification seen. PLEURA: There is no pleural effusion. No pleural mass or thickening. AXILLA: Small shotty lymph nodes are seen in bilateral axilla. UPPER ABDOMEN: Visualized liver, spleen, pancreas and bilateral adrenal glands unremarkable. 5 mm calculi seen in lower pole right kidney. OSSEOUS STRUCTURES: No aggressive lytic or sclerotic process seen. CT/CT chest wo IV con IMPRESSION: 1. Stable right upper lobe posterior segment fissural-based nodule. It measures 1.6 x 1.5 cm. 2. Centrilobular and paraseptal emphysema with chronic interstitial lung changes and scattered parenchymal opacities are stable. 3. Reactive mediastinal lymph nodes are stable. 4. Moderate coronary artery calcifications are stable. Fleischner guidelines were followed.
== END 2022-12-28 13:43 | disposition home or self-care (01) ==
LOC: HO.CT 13:42
PROVIDERS: PCP Internal Medicine; Visit Provider Internal Medicine
DX: R93.89 Abnormal findings on diagnostic imaging of other specified body structures (principal)
CPT/HCPCS: 71250

== ENCOUNTER 2023-01-27 13:45 | Outpatient (REF) | payer OTHER, SELFPAY ==
--- NOTE | ~2023-01-27 | US_ITS ---
EXAMINATION: US RETROPERITONEAL LIMITED (RENAL ONLY) CLINICAL INFORMATION: Benign prostatic hyperplasia with lower urinary tract symptoms. COMPARISON: X-ray [facility] 12/21/2022 and 09/22/2020. Renal ultrasound 09/30/2022 and 05/24/2021. CT abdomen and pelvis 05/28/2016. TECHNIQUE: Real-time imaging of the kidneys. FINDINGS: RIGHT KIDNEY: 10.9 x 4.3 x 5.7 cm (SAG x AP x TRV). The kidney is normal in size, contour, and echogenicity. Renal cortical thickness is normal. No focal parenchymal lesions or hydronephrosis. At the lower pole, a 7 mm shadowing, nonobstructing calculus is seen. LEFT KIDNEY: 10.0 x 5.8 x 5.1 cm (SAG x AP x TRV). The kidney is normal in size, contour, and echogenicity. Renal cortical thickness is normal. No focal parenchymal lesions or hydronephrosis. At the interpolar aspect, a 6 mm nonobstructing calculus is seen. At the lower pole, a 1.3 cm nonobstructing calculus is seen. US/US renal BI IMPRESSION: There are nonobstructing bilateral renal calculi. No hydronephrosis is seen.
== END 2023-01-27 13:46 | disposition home or self-care (01) ==
LOC: HO.US 13:45
PROVIDERS: Visit Provider Urology
DX: N40.1 Benign prostatic hyperplasia with lower urinary tract symptoms (principal); N13.8 Other obstructive and reflux uropathy
CPT/HCPCS: 76775

== ENCOUNTER 2023-02-01 11:28 | Outpatient (AMB) | payer MEDICARE, MEDICAID, SELFPAY ==
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
== END 2023-02-01 12:24 | disposition home or self-care (01) ==
PROVIDERS: PCP Internal Medicine; Visit Provider Urology
DX: N20.0 Calculus of kidney (principal)
CPT/HCPCS: 99024

== ENCOUNTER → 2023-02-01 11:28 | Outpatient (BNVA) | payer OTHER, SELFPAY | PROVIDERS: PCP Internal Medicine; Visit Provider Urology | DX: N20.0 Calculus of kidney (principal); N40.0 Benign prostatic hyperplasia without lower urinary tract symptoms; Z98.890 Other specified postprocedural states | CPT/HCPCS: 99212 ==

== ENCOUNTER 2023-06-26 17:43 | Outpatient (REF) | payer OTHER, SELFPAY | END 2023-06-26 17:44 | disposition home or self-care (01) | LOC: HO.HHCLNP 17:43 | PROVIDERS: Visit Provider Emergency Medicine | DX: R39.9 Unspecified symptoms and signs involving the genitourinary system (principal) | CPT/HCPCS: 87086; 87088; 87186 ==

== ENCOUNTER 2023-07-03 11:11 | Outpatient (REF) | payer MEDICAID, SELFPAY ==
[2023-07-03 13:10] LABS: MANUAL DIFF FLAG NO
[2023-07-03 13:17] LABS: Basophils Percent Auto 0.6 % (0-2); Eosinophils Absolute Auto 0.1 X10*3/uL (0.0-0.4); Eosinophils Percent Auto 1.5 % (0-4); Hematocrit 38.5 % (42.0-52.0); Hemoglobin 12.5 g/dl (14.0-18.0); Imm Gran Abs Auto 0.01 X10*3/uL (0.00-0.03); Imm Gran Pct Auto 0.1 % (0.0-0.4); Lymphocytes Absolute Auto 3.1 X10*3/uL (1.2-4.9); Lymphocytes Percent Auto 42.6 % (20-40); Mean Corpuscular HGB Conc 32.5 g/dl (31.0-36.0); Mean Corpuscular Hemoglobin 29.7 pg (27.0-33.0); Mean Corpuscular Volume 91.4 fL (80.0-98.0); Mean Platelet Volume 10.4 fL (9.4-12.4); Monocytes Absolute Auto 0.4 X10*3/uL (0.1-1.2); Monocytes Percent Auto 6.1 % (2-11); Neutrophils Absolute Auto 3.6 x10*3/uL (2.0-8.3); Neutrophils Percent Auto 49.1 % (45-73); Platelet Count 275 X10*3/uL (160-400); Red Blood Count 4.21 X10*6/uL (4.60-5.80); Red Cell Distribution Width 16.5 % (11.0-16.0); White Blood Count 7.3 X10*3/uL (4.8-10.8)
[2023-07-03 14:01] LABS: Anion Gap 15 (12-20); Blood Urea Nitrogen 11 mg/dL (9-16); Calcium 10.1 mg/dL (8.4-10.2); Carbon Dioxide 25 mmol/L (22-29); Chloride 103 mmol/L (96-108); Estimated Glomerular Filt Rate > 60; Glucose Random 92 mg/dL (60-115); Potassium 4.2 mmol/L (3.3-5.1); Sodium 139 mmol/L (135-145)
== END 2023-07-03 11:12 | disposition home or self-care (01) ==
LOC: HO.HHCL 11:11
PROVIDERS: Visit Provider Emergency Medicine
DX: N30.00 Acute cystitis without hematuria (principal)
CPT/HCPCS: 36415; 80048; 85025

== ENCOUNTER 2023-10-06 18:01 | Outpatient (REF) | payer OTHER, SELFPAY | END 2023-10-06 18:02 | disposition home or self-care (01) | LOC: HO.HHCLNP 18:01 | PROVIDERS: Visit Provider Internal Medicine | DX: R39.9 Unspecified symptoms and signs involving the genitourinary system (principal) | CPT/HCPCS: 87086; 87088; 87186 ==

== ENCOUNTER 2023-12-22 08:16 | Outpatient (REF) | payer OTHER, SELFPAY ==
[2023-12-22 16:52] LABS: Cholesterol 135 mg/dL (<200); HDL Cholesterol 33 mg/dL (>40); LDL Cholesterol Calculated 87 mg/dL (<100); Triglycerides 77 mg/dL (<150)
== END 2023-12-22 08:17 | disposition home or self-care (01) ==
LOC: HO.HHCL 08:16
PROVIDERS: Visit Provider Internal Medicine
DX: E78.2 Mixed hyperlipidemia (principal)
CPT/HCPCS: 36415; 80061

== ENCOUNTER 2023-12-26 16:12 | Outpatient (REF) | payer OTHER, SELFPAY | END 2023-12-26 16:13 | disposition home or self-care (01) | LOC: HO.HHCLNP 16:12 | PROVIDERS: Visit Provider General Practice | DX: R30.0 Dysuria (principal) | CPT/HCPCS: 87086; 87088; 87186 ==

== ENCOUNTER 2024-05-14 14:43 | Outpatient (REF) | payer OTHER, SELFPAY ==
[2024-05-15 08:09] LABS: HBS Num1 8.33 mIU/mL (0-7.99); Hepatitis B Surface Antigen Negative (Negative); ~HepC Num1 0.13 S/CO (0.00-0.79); ~Hepatitis C Antibody Nonreactive (Nonreactive)
[2024-05-15 09:47] LABS: HBS Num2 7.61 mIU/mL (0-7.99); HBS Num3 7.98 mIU/mL (0-7.99); ~Hepatitis B Surface Antibody NONREACTIVE (Nonreactive)
[2024-05-15 09:48] LABS: HBc Num2 7.32 S/CO; HBc Num3 7.87 S/CO; Hepatitis B Core Antibody Reactive (Nonreactive)
--- OUTSIDE RECORDS SUMMARY | 2024-05-15 22:11 | XMS_ITS | Data Portability ---
Author Organization [facility], Main Office Address [address] [facility], [address] [place] [address] Care Team Providers Care [facility] Assistant Name Role Phone JAZZ HASTINGS - 3RD FLOOR OTHER EVANS PERRIN Primary Care Provider Assessment Encounter Date Assessment Date Assessment LastModified by Organization Details LastModified Time 09/25/2020 09/25/2020 09/25/20 WBC 4.7, Hgb 11, Hct 33.9, Plt 211, Na 131, K 4.3, BUN 17, Hemmer Chainstitch 0.72, diane 8.3, tot prot 8.3, alb 2.9, tot bili 0.4, AST 19, ALT 16, alk phos 114 [email or web address] Not available 09/25/2020 12:31:57 09/28/2020 09/28/2020 09/25/20 WBC 4.7, Hgb 11, Hct 33.9, Plt 211, Na 131, K 4.3, BUN 17, Hemmer Chainstitch 0.72, diane 8.3, tot prot 8.3, alb 2.9, tot bili 0.4, AST 19, ALT 16, alk phos 114 [email or web address] Not available 09/28/2020 14:16:09 Plan of Treatment Reminders Order Date Submit Date Provider Last Modified By Organization Details Last Modified Time Details Appointments None record ed. Lab None record ed. Referral None record ed. Procedures None record ed. Surgeries None record ed. Imaging None record ed. Medication Orders None record ed. Patient Targets Encounter Date Encounter Id Patient Goals Patient Target Last Modified By Organization Details Last Modified Time patient is concerned about possible need to transition to LTCcontinue PT OT eval and treat [email or web address] Not available 06/08/2016 11:45:28 Patient InstructionsNo instructions recorded. Reason for Referral None Reported. Problems Name Problem SNOMED Code Status Onset Date Resolution Date Notes Provider Name and Address Organization Details Recorded Time Abnormal gait 64663571 Active 2020 SUSAN STEIN [address], [address], [place], [address], [facility] 13:43:55 History of cerebrovasc ular accident 078928377 Active 2020 SUSAN STEIN [address], [address], [place], [address], [facility] 18:30:18 Gastroesoph ageal reflux disease without esophagitis 160760388 Active 2020 SUSAN STEIN [address], [address], [place], [address], [facility] 18:32:34 Coronary arterioscle rosis 51637811 Active 2020 SUSAN STEIN [address], [address], [place], [address], [facility] 18:33:28 Anemia 009404181 Active 2020 SUSAN STEIN [address], [address], [place], [address], [facility] 18:33:43 Blood in urine 21718655 Active 2020 SUSAN STEIN [address], [address], [place], [address], [facility] 18:35:24 Constipatio n 79240937 Active 2020 SUSAN STEIN [address], [address], [place], [address], [facility] 18:37:06 Chronic insomnia 361005494 Active 2020 SUSAN STEIN [address], [address], [place], [address], [facility] 18:40:24 Benign prostatic hyperplasia 880079737 Active 2020 TORREY STEINP [address] [facility], [address], [place], [address], [facility] [place] [employer] [facility] 1 18:43:50 Rhabdomyoly sis 400278795 Active 2015 Daly solis, [facility] [employer] [facility] 6 10:11:43 Cerebrovasc ular accident 039824187 Active 2015 Daly Bui null, [facility] 6 10:11:48 Acute injury of kidney 9439053560006 4108 Active 2015 Daly Ames null, [facility] 6 10:12:01 Chronic obstructive pulmonary disease 61954558 Active 2015 Daly Ames null, [facility] 6 10:12:07 Mixed hyperlipide loco 548999623 Active 2015 Daly Bui null, [facility] [employer] [facility] 6 10:12:13 Essential hypertensio n 58135067 Active 2015 Daly Ames null, [facility] [employer] [facility] 6 10:12:19 Rheumatoid arthritis 87479284 Active 2015 Daly Bui null, [facility] 6 10:12:32 Chronic pain 62421055 Active 2015 Daly Bui null, [facility] [employer] [facility] 6 10:12:39 Neuropathy 651091369 Active 2015 Daly Bui null, [facility] [employer] [facility] 6 10:26:35 Tremor 32432917 Active 2016 Juana Mcdonough null, [facility] [employer] [facility] 7 12:23:32 Problem Notes None recorded. Medical Equipment None Reported. Allergies No known drug allergies Medications Not known to be on any medication Vitals Date Recorded Body temperature Heart rate Respiratory rate Oxygen saturation Oxygen saturation in Arterial blood by Pulse oximetry Systolic blood pressure Diastolic blood pressure Provider Name and Address Organization Details Last Updated DateTime 1 97.7 [degF] 67 /min 18 /min 96 % 96 % 134 mm[Hg] 68 mm[Hg] SUSAN STEIN [address] [facility], [address], [place], [address], [facility] 18:21:00 Date Recorded Body height Body mass index (BMI) Body weight Oxygen saturation Oxygen saturation in Arterial blood by Pulse oximetry Body temperature Heart rate Respiratory rate Systolic blood pressure Diastolic blood pressure Provider Name and Address Organization Details Last Updated DateTime 170.18 cm 19.3 kg/m2 02664.8 6 g 94 % 94 % 97.9 [degF] 78 /min 18 /min 124 mm[Hg] 68 mm[Hg] Stefanie Nelson MD [address] [facility], [address], [place], [address], [facility] 13:27:16 Date Recorded Body height Systolic blood pressure Diastolic blood pressure Provider Name and Address Organization Details Last Updated DateTime 09/29/2020 170.18 cm 124 mm[Hg] 68 mm[Hg] Markus Yi MD [address] [facility], [address], [place], [address], [facility] 09/29/2020 13:11:53 Social History Question Answer Notes LastModified by Organizat ion Details LastModified Time Tobacco Smoking Status Current Every Day Smoker just 1-2 cigs/day Stefanie Nelson MD [address] [facility], [address], [place], [address], [facility] 09/28/2020 15:00:49 Do You Have An Advance Directive? Yes FULL CODE-NO DIALYSIS-use Nutrition And Hydration Information not available 09/25/2020 What Is Your Level Of Alcohol Consumption? None Information not available 09/25/2020 How Much Tobacco Do You Chew? None Information not available 09/25/2020 Do You Or Have You Ever Used E-cigarettes Or Vape? Never Used Electronic Cigarettes Information not available 09/25/2020 Do You Have A Medical Power Of Community Relations Coordinator? Yes Hcp On File Information not available 09/25/2020 What Was The Date Of Your Most Recent Tobacco Screening? 09/28/2020 Information not available 09/28/2020 Do You Or Have You Ever Used Smokeless Tobacco? Never Used Smokeless Tobacco Information not available 09/25/2020 How Much Tobacco Do You Smoke? 1 PPW Information not available 09/28/2020 On What Date Was Tobacco Cessation Counseling Provided? 09/28/2020 Knows He Should Quit, But It's too Hard llevheim Information not available 09/28/2020 How Many Years Have You Smoked Tobacco? 40 Information not available 09/25/2020 Sex: Male Functional Status None recorded. Mental Status None recorded. Family History Nothing Reported Notes:n/c Medical History No medical history recorded. Past Encounters Encounter ID Performer Location Encounter Start Date Encounter Closed Date Diagnosis/Indication Diagnosis SNOMED-CT Code Diagnosis ICD10 Code [id number] [address]aly Bui [address] [address] 06/04/2016 10:00:35 06/10/2016 11:24:13 Rhabdomyolysis 046283491 M62.82 Cerebrovas cular accident 305472897 I63.342 Acute inju ry of kidney 0504451392 3151236 N17.8 Chronic ob structive pulmonary disease 68315497 J41.1 Mixed hyperlipidemia 267 724483 E78.2 Essential hypertension 45599733 I10 Chronic pain 55234921 G8 9.29 Vertigo 354583413 R42 Rheumatoid arthritis 698 06529 M06.89 [id number] Juana Zhengjanedionisio [address] [address] 06/06/2016 12:14:01 06/06/2016 12:43:57 Tremor 86922153 G25.2 Neuropathy 125798012 G65 .1 [id number] Markus Yi MD [address] [address] 06/08/2016 11:20:31 06/10/2016 11:51:58 Rhabdomyolysis 475663693 M62.82 Cerebrovas cular accident 521507955 I63.342 Acute inju ry of kidney 2684923026 5839212 N17.8 Chronic ob structive pulmonary disease 23390025 J41.1 Mixed hyperlipidemia 267 610450 E78.2 Essential hypertension 65203587 I10 Chronic pain 08855944 G8 9.29 Vertigo 708367346 R42 Rheumatoid arthritis 698 52033 M06.89 [id number] USSAN STEIN [facility] [address] [address] 09/25/2020 12:26:20 09/29/2020 08:22:25 Abnormal gait 30696377 R26.89 History of cerebrovascular accident 870402329 Z86.73 Neuropathy 749961937 G63 Rheumatoid arthritis 698 91341 M06.89 Mixed hyperlipidemia 267 668591 E78.2 Essential hypertension 16044999 I10 Chronic ob structive pulmonary disease 21881039 J41.8 Chronic pain 13857078 G8 9.29 Gastroesop hageal reflux disease without esophagitis 276088349 K21.9 Coronary arteriosclerosis 74897179 I25.10 Anemia 817121684 D50.8 Tremor 18907909 G25.2 Blood in urine 74920763 R31.29 Lactic acidosis 22324169 E87.2 Constipation 91841652 K5 9.09 Chronic insomnia 6650540 04 F51.04 Benign pro static hyperplasia 151898102 N40.0 [id number] Stefanie Nelson MD [facility] [address] [address] 09/28/2020 13:23:25 09/30/2020 13:29:25 Abnormal gait 47776811 R26.89 Blood in urine 92281265 R31.29 Constipation 16810213 K5 9.09 History of cerebrovascular accident 614173771 Z86.73 Rheumatoid arthritis 698 93311 M06.89 Mixed hyperlipidemia 267 536705 E78.2 Essential hypertension 47322802 I10 Chronic ob structive pulmonary disease 12063068 J41.8 Gastroesop hageal reflux disease without esophagitis 628506310 K21.9 Coronary arteriosclerosis 29487181 I25.10 Anemia 779284423 D50.8 Tremor 58199387 G25.2 Chronic insomnia 4110433 04 F51.04 Benign pro static hyperplasia 081130704 N40.0 Chronic back pain 951150 002 M54.5 [id number] Markus Yi MD [facility] [address] [address] 09/29/2020 13:06:18 10/01/2020 11:59:12 Abnormal gait 44863522 R26.89 Blood in urine 63553219 R31.29 History of cerebrovascular accident 765441768 Z86.73 Chronic back pain 830581 002 M54.5 Rheumatoid arthritis 698 85761 M06.89 Mixed hyperlipidemia 267 490714 E78.2 Essential hypertension 34001232 I10 Gastroesop hageal reflux disease without esophagitis 079122251 K21.9 Coronary arteriosclerosis 34953503 I25.10 Anemia 563134649 D50.8 Tremor 02819867 G25.2 Chronic insomnia 3662458 04 F51.04 Benign pro static hyperplasia 083974033 N40.0 Health Concerns Section Related Observation LastModified by Organization Detai ls LastModified Time None Recorded Concern Status LastModified by Organization Details LastModified Time None Recorded Advance Directives Directive Y: FULL CODE-NO DIALYSIS-use nutrition and hydration Payers Encounter Date Sequence Insurance Name Policy Number Policy Khanna Covered Member ID Khanna Member ID Guarantor Name 06/06/2016 1 [employer] - DOS PRIOR TO 2022 - DUAL ELIGIBLE (MEDICARE REPLACEMENT/ADV ANTAGE - HMO) Jabari Galloway [id number] Jabari Galloway 06/06/2016 2 [place] [facility] Jabari Galloway [id number] Jabari Galloway 06/08/2016 1 [employer] - DOS PRIOR TO 2022 - DUAL ELIGIBLE (MEDICARE REPLACEMENT/ADV ANTAGE - HMO) Jabari Galloway [id number] Jabari Galloway 06/08/2016 2 [place] [facility] Jabari Galloway [id number] Jabari Galloway 09/25/2020 1 [employer] - DOS PRIOR TO 2022 - DUAL ELIGIBLE (MEDICARE REPLACEMENT/ADV ANTAGE - HMO) Jabari Galloway [id number] Jabari Galloway 09/25/2020 2 [place] [facility] Jabari Galloway [id number] Jabari Galloway 09/28/2020 1 [employer] - DOS PRIOR TO 2022 - DUAL ELIGIBLE (MEDICARE REPLACEMENT/ADV ANTAGE - HMO) Jabari Galloway [id number] Jabari Galloway 09/28/2020 2 [place] [facility] Jabari Galloway [id number] Jabari Galloway 09/29/2020 1 [employer] - DOS PRIOR TO 2022 - DUAL ELIGIBLE (MEDICARE REPLACEMENT/ADV ANTAGE - HMO) Jabari Galloway [id number] Jabari Galloway 09/29/2020 2 [place] [facility] Jabari Galloway [id number] Jabari Galloway Notes Date Note Type Note Provider Name and Address Organization Details Recorded Time 06/06/2016 text/html 75-year-old male being seen for acute rounding visit at the request of nursing due to tremors of the left hand. Juana solis, [facility] 06/06/2016 12:39:38 06/08/2016 text/html Patient is a 75 yo admit from hospital after being found on floor having fallen out of wheelchair. 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 Patient was eval by nephrology and neurology during hospitalization. Patient was frequently c/o dizzyness in hospital started on meclizine. methotrexate was held on admit and restarted at [facility] d/c. PMH htn, RA, hld, and copd. Tremor since CVA Markus Yi MD [address] [place] [address], [address], [place], [address], [facility] 06/08/2016 11:46:35 09/25/2020 text/html A 79 year old ne le being seen for a initial intake note. Patient was sent to [facility] er when his ALTERATION WORKER noted slurred speech, unsteady gait and lethargy. Work up was negative such as CT of head/neck. He was found to have lactic acidosis of 2.2 that improved with hydration but no notable cause. He was noted to have microscopic hematuria that needs to be followed up by urology. Neurology was consulted for below exams and recommended better control of blood pressure and cholesterol. He was evaluated by therapy and sent here for short term rehab. 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 with no evidence of obstructive hydrocephalus.Chest x-ray revealed chronic interstitial lung disease with no acute abnormality of the chest.KUB revealed prominent feces within the large bowel but no bowel dilatation.Head/neck CTA revealed no acute vascular abnormality, no large vessel occlusion, scattered areas of atherosclerotic calcification without flow-limiting stenosis and no acute intracranial findings.Brain MRI revealed no acute intracranial findings, no acute infarcts, there is chronic infarct within the inferomedial left cerebellum, chronic gliosis and encephalomalacia within the left dorsal cervicomedullary junction as well, moderate chronic microangiopathy, asymmetric right temporal lobe volume loss and chronic traumatic deformity of the right lamina papyracea with herniation of extraconal fat into the fracture defect. Medical history of CVA, anemia, BPH, insomnia, COPD, chronic pain, constipation, HTN, GERD, hyperlipidemia, neuropathy, RA and tremor. PCP is SUSAN Regan MD [address] [facility], [address], [place], [address], [facility] 09/25/2020 19:13:22 09/28/2020 text/html This is a 79 yo man who is here for rehab after and acute hospitalization for slurred speech, unsteady gait and lethargy. He was sent to the [facility] ED on 09/23 after his ALTERATION WORKER noted the above sxs. Eval in hospital showed no acute changes. He did have some microscopic hematuria and needs uro f/u for this. His head CT and MRI showed multiple chronic changes, but nothing acute. Neuro recommended better BP control and monitoring of chol. Labs were at baseline. KUB showed moderate stool in colon, but no obstruction. STR was recommended and he was transferred here on 09/24.Since here he has been doing well with rehab, he has daily ALTERATION WORKER at home and hopes for d/c on 09/30. Of note he is on chronic oxycodone and gabapentin for back pain.Seen walking in the [place] with PT, walking well and quickly using walker, with no assist.He says he feels like he is back to baseline, remembers day he went to hospital, he could understand what ALTERATION WORKER was saying, but she said she couldn't understand him. He couldn't tell that speech was slurred.His PMH includes HTN, hx of CVA-inferomedial left cerebellum, anemia, BPH, insomnia, COPD, hx of tubular adenoma, chronic back pain, YEIMY, PVD, constipation, GERD, HLD, neuropathy, RA and tremor. Stefanie Nelson MD [address] [facility], [address], [place], [address], [facility] 09/28/2020 15:16:59 09/29/2020 text/html Patient is a 79 yo male seen in preparation for discharge initially admit from hospital after presenting with slurred speech, unsteady gait and lethargy. He was sent to the [facility] ED on 09/23 after his ALTERATION WORKER noted the above sxs. Eval in hospital showed no acute changes. He did have some microscopic hematuria and needs uro f/u for this. His head CT and MRI showed multiple chronic changes, but nothing acute. Neuro recommended better BP control and monitoring of chol. Labs were at baseline. KUB showed moderate stool in colon, but no obstruction. STR was recommended and he was transferred here on 09/24.Since here he has been doing well with rehab, he has daily ALTERATION WORKER at home and hopes for d/c on 09/30. Of note he is on chronic oxycodone and gabapentin for back pain.Now independent ambulation with walker, cleared for discharge with services in place to f/u with PCP Markus Yi MD [address] [place] [address], [address], [place], [address], [facility] 09/29/2020 13:19:01
--- OUTSIDE RECORDS SUMMARY | 2024-05-15 22:11 | XMS_ITS | Continuity of Care Document ---
Author Organization [facility] Address [address] [place] [id number] Care Team Providers Care Order Builder Loader Name Role Phone Berry SARAVIA, Will Banerjee Primary Care Physi [facility] [place] [facility] [place]/24 [facility] [address] [place] [id number] Attending Physician: Ayleen Arcos NP Admitting Physician: Josselyn BARRIENTOS, Ayleen Fontana Referring Physician: Will Smart MD Encounter Type: Office Visit Allergies, Adverse Reactions, Alerts No Known Allergies Immunizations Given and Recorded Vaccine Date Status Refusal Reason pneumococcal 23-valent vaccine 01/25/13 Given Medications aspirin 81 mg oral tablet 1 tablet = 81 mg, By Mouth, Daily, 0 Refills, Maintenance, 12/08/10 2:13:16 PM EDT Start Date: 12/08/10 Status: Ordered Repeat number: 1 carbidopa-levodopa 25 mg-100 mg oral tablet 1 tablet, By Mouth, 3 times a day, # 270 tablet, 0 Refills, Maintenance, 01/30/20 10:12:00 AM EDT, Tablet Start Date: 01/30/20 Status: Ordered Quantity: 270.0 Unit: tablet Repeat number: 1 CBC w/ diff CBC w/ diff, See Instructions, # 1 each, Refills 0, Tot. Refills 0, Maintenance, Please send to PCP: Will Smart MD, 02/26/20 1:57:00 PM EDT, Supply Start Date: 02/26/20 Status: Ordered Quantity: 1.0 Unit: each Repeat number: 1 cyanocobalamin (vit B-12) ER 1,000 mcg tablet,extended release TAKE 1 TABLET BY MOUTH EVERY MORNING Start Date: 02/25/20 Status: Ordered Repeat number: 1 ferrous sulfate 325 mg oral enteric coated tablet 325 mg, By Mouth, 3 times a day, # 90 tablet, Refills 0, Tot. Refills 0, Maintenance, 02/26/20 1:33:00 PM EDT, Route to Pharmacy Electronically, [facility], 170, cm, 02/26/20 11:15:00 EDT, Height, 68.5, kg, 02/24/20 20:39:00 EDT, Dry Weight Start Date: 02/26/20 Stop Date: 03/27/20 Status: Ordered Quantity: 90.0 Unit: tablet Repeat number: 1 flat bottomed post op surgical shoe flat bottomed post op surgical shoe, See Instructions, # 1 each, Refills 0, Tot. Refills 0, Maintenance, dx; recurrent L5 toe wound, 04/30/24 11:53:00 AM EST, Supply Start Date: 04/30/24 Status: Ordered Quantity: 1.0 Unit: each Repeat number: 1 Flovent Diskus Inhalation, 2 times a day, 0 Refills, Maintenance, 07/11/16 3:46:49 PM EST Start Date: 07/11/16 Status: Ordered Repeat number: 1 Folic Acid Daily, 0 Refills, Maintenance, 01/25/13 11:26:31 AM EDT Start Date: 01/25/13 Status: Ordered Repeat number: 1 gabapentin 300 mg oral capsule 600 mg, 2, capsule, By Mouth, 3 times a day, Refills 0, Maintenance, 03/10/16 8:56:15 AM EDT Start Date: 03/10/16 Status: Ordered Repeat number: 1 latanoprost 0.005% ophthalmic solution 1 drops, Eyes, Both, Daily at bedtime, # 3 mL, 0 Refills, Maintenance, 02/25/20 6:44:00 PM EDT, Ophth Solution Start Date: 02/25/20 Status: Ordered Quantity: 3.0 Unit: mL Repeat number: 1 Lipitor 20 mg oral tablet 1 tablet = 20 mg, By Mouth, Daily, # 30 tablet, 0 Refills, Maintenance, Tablet Start Date: 03/10/16 Status: Ordered Quantity: 30.0 Unit: tablet Repeat number: 1 Melatonin 3 mg oral tablet 1 tablet = 3 mg, By Mouth, Daily at bedtime, PRN for insomnia, # 60 tablet, 0 Refills, Maintenance,02/25/20 6:44:00 PM EDT, Tablet Start Date: 02/25/20 Status: Ordered Quantity: 60.0 Unit: tablet Repeat number: 1 methotrexate 2.5 mg oral tablet 1 tablet = 2.5 mg, By Mouth, Every week, # 8 tablet, 0 Refills, Maintenance, 03/10/16 8:53:42 AM EDT, Tablet Start Date: 03/10/16 Status: Ordered Quantity: 8.0 Unit: tablet Repeat number: 1 Nicotrol Inhaler 10 mg inhalation device 0 Refills, Maintenance, 06/23/22 12:21:00 PM EST, Partial fill upon patient request if the prescription is for a schedule II opioid drug. Start Date: 06/23/22 Status: Ordered Repeat number: 1 Norvasc 5 mg oral tablet 5 mg, 1, tablet, By Mouth, Daily, # 30 tablet, Refills 0, Maintenance, 03/10/16 8:54:30 AM EDT Start Date: 03/10/16 Status: Ordered Quantity: 30.0 Unit: tablet Repeat number: 1 omeprazole 20 mg oral enteric coated capsule 1 capsule = 20 mg, By Mouth, Daily, # 30 capsule, 0 Refills, Maintenance, 02/25/20 6:37:00 PM EDT, EC Capsule Start Date: 02/25/20 Status: Ordered Quantity: 30.0 Unit: capsule Repeat number: 1 oxyCODONE 5 mg oral tablet 5 mg, 1, tablet, By Mouth, Every 6 hours, PRN, Refills 0, Tot. Refills 0, Maintenance, for pain, 10/11/18 10:58:16 AM EDT Start Date: 10/11/18 Status: Ordered Repeat number: 1 Plavix 75 mg oral tablet 75 mg, 1, tablet, By Mouth, Daily, # 90 tablet, Refills 3, Tot. Refills 3, Maintenance, 02/14/24 4:50:00 PM EDT, Route to Pharmacy Electronically, [facility], Partial fill upon patient request if the prescription is for a schedule II opioid drug., 170, cm, 07/06/23 15:44:00 EST, Height Start Date: 02/14/24 Status: Ordered Quantity: 90.0 Unit: tablet Repeat number: 4 prednisone 5 mg oral tablet 1 tablet = 5 mg, By Mouth, Daily, 0 Refills, Maintenance, 09/04/13 2:28:31 PM EDT Start Date: 09/04/13 Status: Ordered Repeat number: 1 primidone 50 mg oral tablet 50 mg, 1, tablet, By Mouth, 2 times a day, Refills 0, Maintenance, 01/02/18 10:31:25 AM EDT Start Date: 01/02/18 Status: Ordered Repeat number: 1 Remicade IVPB See Instructions, Maintenance, every 3 months, 10/11/18 5:27:19 PM EDT Start Date: 10/11/18 Status: Ordered Repeat number: 1 Tamsulosin 0.4 mg, By Mouth, Daily, Refills 0, Maintenance, 01/30/20 10:13:00 AM EDT Start Date: 01/30/20 Status: Ordered Repeat number: 1 traZODone 150 mg oral tablet 1 tablet = 150 mg, By Mouth, Daily at bedtime, # 30 tablet, 0 Refills, Maintenance, 03/10/16 8:55:04AM EDT, Tablet Start Date: 03/10/16 Status: Ordered Quantity: 30.0 Unit: tablet Repeat number: 1 Trelegy Ellipta 200 mcg-62.5 mcg-25 mcg/inh inhalation powder 0 Refills, Maintenance, 06/23/22 12:21:00 PM EST, Partial fill upon patient request if the prescription is for a schedule II opioid drug. Start Date: 06/23/22 Status: Ordered Repeat number: 1 Problem List Condition Confirmation Course Effective Dates Status H ealth Status Informant CAD - Coronary artery disease Confirmed Active CVA (cerebral vascular accident) Confirmed Active COPD Confirmed Active Foot pain Confirmed Active Hypertension Confirmed Active Nephrolithiasis Confirmed Active PVD (peripheral vascular disease) Confirmed Active RA (rheumatoid arthritis) Confirmed Active Vital Signs Most recent to oldest [Reference Range]: 1 Height 170 cm (04/30/24 11:28 AM) Weight 57.61 kg (04/30/24 11:28 AM) Oxygen Saturation [94-100 %] 95 % (04/30/24 11:28 AM) Pulse Rate [55-90 bpm] 70 bpm (04/30/24 11:28 AM) Body Mass Index [18.5-24.99 kg/m2] 19.93 kg/m2 (04/30/24 11:28 AM) Blood Pressure [90-138/55-84 mm Hg] 108/ 60mm Hg (04/30/24 11:28 AM) Mode of Delivery (Oxygen) Room air (04/30/24 11:28 AM) Blood pressure sites Arm, left (04/30/24 11:28 AM) Weight Obtained Via Patient/family state d (04/30/24 11:28 AM) Social History Social History Type Response Smoking Status Former smoker entered on: 07/06/16 Sex Sex Representation Male (finding) Note * Ayleen Proctor: PERFORM Event Display: Patient Education/Instruction Authored Date: [id number] Ambulatory [place] [address] Name: LIBBY SANTOS : 1940?? Visit: 04/30/2024 11:12?? Ambulatory Visit Instructions ?? Your Care Team Primary Care Provider Berry SARAVIA, Will Banerjee? This Visit Provider Ayleen Arcos NP Your Diagnosis PAD (peripheral artery disease) Vitals Signs Pulse Rate: 70 bpm Height: 170 cm Systolic Blood Pressure: 108 mm Hg Weight: 57.61 kg Diastolic Blood Pressure: 60 mm Hg Body Mass Index: 19.93 kg/m2 Oxygen Saturation: 95 % Body surface area: 1.65 Medications The list below reflects the information in our records and provided by you today along with any changes made during this visit. Please continue your medications until treatment is completed or stopped by your provider. If this is different from the information you have or there are other questions,please contact the prescribing provider. What How Much When Instructions New Miscellaneous Rx (flat bottomed post op surgical shoe) See instructions dx; recurrent L5 toe wound ?? Printed Prescription Unchanged Amlodipine (Norvasc 5 mg oral tablet) 1 tab(s) Oral Daily Unchanged Aspirin (aspirin 81 mg oral tablet) 1 tab(s) Oral Daily Unchanged Atorvastatin (Lipitor 20 mg oral tablet) 1 tab(s) Oral Daily Unchanged Carbidopa-Levodopa (carbidopa-levodopa 25 mg-100 mg oral tablet) 1 tab(s) Oral 3 times a day Unchanged Clopidogrel (Plavix 75 mg oral tablet) 1 tab(s) Oral Daily Unchanged Ferrous Sulfate (ferrous sulfate 325 mg oral enteric coated tablet) 325 Milligram Oral 3 times a day Duration: 30 Days Unchanged Fluticasone (Flovent Diskus) Inhalation Twice a day Unchanged fluticasone/ umeclidinium/ vilanterol (Trelegy Ellipta 200 mcg-62.5 mcg-25 mcg/ inh inhalation powder) Unchanged Folic Acid Daily Unchanged Gabapentin (gabapentin 300 mg oral capsule) 2 capsule Oral 3 times a day Unchanged Infliximab (Remicade IVPB) See Instructions every 3 months ?? Unchanged Latanoprost Ophthalmic (latanoprost 0.005% ophthalmic solution) 1 Drops Both eyes Daily at Bedtime Unchanged Melatonin (Melatonin 3 mg oral tablet) 1 tab(s) Oral Daily at Bedtime as needed for for insomnia Unchanged Methotrexate (methotrexate 2.5 mg oral tablet) 1 tab(s) Oral Every week Unchanged Miscellaneous Rx (CBC w/ diff) See instructions Please send to PCP: Will Smart MD ?? Unchanged Miscellaneous Rx (cyanocobalamin (vit B-12) ER 1,000 mcg tablet,extended release) TAKE 1 TABLET BY MOUTH EVERY MORNING ?? Unchanged Nicotine (Nicotrol Inhaler 10 mg inhalation device) Unchanged Omeprazole (omeprazole 20 mg oral enteric coated capsule) 1 capsule Oral Daily Unchanged Oxycodone (oxyCODONE 5 mg oral tablet) 1 tab(s) Oral Every 6 hours as needed for for pain Unchanged PredniSONE (prednisone 5 mg oral tablet) 1 tab(s) Oral Daily Unchanged Primidone (primidone 50 mg oral tablet) 1 tab(s) Oral Twice a day Unchanged Tamsulosin 0.4 Milligram Oral Daily Unchanged Trazodone (traZODone 150 mg oral tablet) 1 tab(s) Oral Daily at Bedtime Medications and Immunizations Administered Medications Given During Visit No medications given during this visit.?? Allergies (NKA means No Known Allergies) NKA Common Emergency Awareness Tips IS IT A STROKE? Act FAST and Check for these signs: FACE Does the face look uneven? ARM Does one arm drift down? SPEECH Does their speech sound strange? TIME Call at any sign of stroke ?? Heart Attack Signs Chest discomfort: Most heart attacks involve discomfort in the center of the chest and lasts more than a few minutes, or goes away and comes back. It can feel like uncomfortable pressure, squeezing, fullness or pain. Discomfort in upper body: Symptoms can include pain or discomfort in one or both arms, back, neck, jaw or stomach. Shortness of breath: With or without discomfort. Other signs: Breaking out in a cold sweat, nausea, or lightheaded. Remember, MINUTES DO MATTER. If you experience any of these heart attack warning signs, call to get immediate medical attention! ?? Smoking can increase your chances of developing chronic health problems and can cause harmful effects to other family members in your house. If you smoke, you are strongly encouraged to quit. Please call [facility] at [phone] or [phone] ([phone]) or log in to [email or web address] for referrals to smoking cessation programs. ?? The National Suicide Prevention Hotline is available 26/12 if you or someone you know needs to find a reason to keep living. By calling 0-573-687-Matrimony.com (5666) you'll be connected to a skilled, trained counselor at a crisis center in your area. [facility] You can view and manage your care through the patient portal or by using a health care ramy of your choosing. [employer] is a website that allows you to securely view your medical information including your hospital discharge summary, office visit summaries, medications and follow-up visits. You can also request appointments, renew medications, and request access to your medical information using a health care ramy of your choosing, or just ask a question. You can enroll at [email or web address] or register during your next office visit. [facility], in keeping with [facility] guidance, no longer requires face masks for staff, patientsor visitors in most situations. Similiar to time spent indoors at other locations, there is the chance that you were exposed to repiratory viruses during your time with us (such as flu or COVID-19). If you develop symptoms concerning for a viral respiratory infection, please seek testing (and treatment if indicated) from your medical provider or home test kit. ?? Disclaimer: The information provided is of a general nature and is intended to be used in conjunction with the recommendations and advice of your health care practitioner. Every effort has been made to ensure that the information provided is accurate and complete at the time it is provided to you however, as your needs change, or, as new information becomes available, different or additional instructions may be required. ?? If you have questions, please consult with your primary care provider or pharmacist, as appropriate. This information is not intended to serve as substitution for assessment and evaluation by a qualified health care provider. If you do not have a primary care provider, you may find a [facility] provider by calling [facility] at [phone]. Patient Care team information Care Team Personnel Name: Berry SARAVIA, Will Banerjee Position: [facility] Outreach Member Role: PCP Address: [address] [place] [address] Telecom: Name: Shanel Díaz RN Position: [facility] RN Member Role: Primary Care Nurse Care Team Related Persons Name: OPAL MICHEL Insurance Providers Guarantor name: LIBBY GRAHAM Health Plan Information #: 2 Payer: MEDICARE PART B OUTPT Member Number: [id number] Policy Number: NA Group Number: NA Health Plan Information #: 1 Payer: ABRAHAN FRANCY ALO Member Number: [id number] Policy Number: NA Group Number: NA
[2024-05-22 02:19] LABS: Hepatitis B Core Antibody IgM BORDERLINE (NON-REACTIVE)
== END 2024-05-14 14:44 | disposition home or self-care (01) ==
LOC: HO.HHCL 14:43
PROVIDERS: Visit Provider Internal Medicine
DX: I10 Essential (primary) hypertension (principal)
CPT/HCPCS: 36415; 86704; 86705; 86706; 86803; 87340

== ENCOUNTER 2024-05-15 12:33 | Outpatient (REF) | payer OTHER, SELFPAY | END 2024-05-15 12:34 | disposition home or self-care (01) | LOC: HO.HHCLNP 12:33 | PROVIDERS: Visit Provider Internal Medicine | DX: Z13.89 Encounter for screening for other disorder (principal) | CPT/HCPCS: 87086 ==

== ENCOUNTER 2024-05-15 12:42 | Outpatient (REF) | payer OTHER, SELFPAY ==
[2024-05-15 13:36] LABS: Appearance Urine Cloudy; Color Urine Dark Yellow; Glucose Urine UA Negative (Negative); Leukocyte Esterase Urine Large (3+) (Negative); Nitrite Urine Negative (Negative); UMIC TRIGGER UACC YES; Urine Blood Large (3+) (Negative); Urine Ketones Trace mg/dL (Negative); Urine Protein 100 (2+) mg/dL (Neg-Trace)
[2024-05-15 13:39] LABS: Bacteria Urine 4+ (None Seen); Hyaline Casts Urine 0-2 /LPF (0-2); Squamous Epithelial Cell Urine 0-2 /HPF (0-2); UACC Culture Trigger YES; WBC Urine >50 /HPF (0-5)
== END 2024-05-15 12:43 | disposition home or self-care (01) ==
LOC: HO.HHCL 12:42
PROVIDERS: Visit Provider Internal Medicine
DX: R39.9 Unspecified symptoms and signs involving the genitourinary system (principal)
CPT/HCPCS: 81001; 87086; 87088; 87186

== ENCOUNTER 2024-06-21 14:03 | Outpatient (REF) | payer OTHER, SELFPAY ==
--- NOTE | ~2024-06-21 | CT_ITS ---
EXAMINATION: CT CHEST WITHOUT CONTRAST CLINICAL INFORMATION: Pulmonary nodule COMPARISON: None available. TECHNIQUE: Multidetector volumetric CT imaging of the chest was done. Axial MIP volume rendering provided. Sagittal and coronal reformatted images were obtained. This CT examination was performed using dose optimization techniques as appropriate, variously including the following: *Automated exposure control *Adjustment of mA and/or kV according to patient size (this includes techniques or standardized protocols for targeted exams where dose is matched to indication/reason for exam; i.e. extremities or head) *Use of iterative reconstruction technique DLP: 96 mGy centimeter. FINDINGS: Inadequate evaluation of the mediastinal structures due to lack of IV contrast. There is a 27 x 22 x 32 mm spiculated attenuation in the peripheral right upper lobe likely posterior segment abutting the pleura. There is extensive honeycombing in a circumferential fashion both upper and lower lung lobes. Multiple saccular bronchiectasis. Nodular attenuation center within the lumen of the airways extending from the trachea to the left and right mainstem bronchi. No pleural effusion. No pneumothorax. Lymphadenopathy, mediastinum. No gross pericardial effusion. No aneurysm in the thoracic aorta. Calcified plaques in the thoracic aorta wall and the coronary arteries. Multilevel spondylosis without acute fracture or listhesis. Osteopenia versus osteoporosis. No gross lytic or blastic lesions. Dystrophic calcification in the left renal pelvis. Calcified plaques in the abdominal aorta wall and the included mesenteric arteries. The superior mesenteric artery diameter is 1.[address]/CT chest wo IV con IMPRESSION: Slightly larger spiculated pulmonary nodule likely posterior segment right upper lung lobe with associated lymphadenopathy. Malignancy should be considered. Endobronchial nodules versus secretions in the upper airways. Coronary artery disease and atherosclerosis disease. Chronic interstitial lung disease. 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 Fleischner guidelines were followed. Electronically signed by: Celso Quiroz MD 06/21/2024 03:15 PM EST
== END 2024-06-21 14:04 | disposition home or self-care (01) ==
LOC: HO.CT 14:03
PROVIDERS: PCP General Practice; Visit Provider General Practice
DX: R07.81 Pleurodynia (principal); R91.1 Solitary pulmonary nodule
CPT/HCPCS: 71250

== ENCOUNTER → 2024-06-21 14:05 | Outpatient (BNV) | payer OTHER, SELFPAY | PROVIDERS: PCP General Practice; Visit Provider Radiology Diagnostic Radiology | DX: R07.81 Pleurodynia (principal) | CPT/HCPCS: 71250 ==

== ENCOUNTER 2024-07-11 17:19 | Emergency (ER) | payer OTHER, SELFPAY ==
--- NOTE | ~2024-07-11 | CT_ITS ---
CLINICAL HISTORY: left flank pain CT abdomen and pelvis without contrast Comparison: None Findings: Mild opacities concerning for pneumonitis in the lung bases superimposed on chronic lung disease. Mild cardiomegaly. Right-sided nephrolithiasis measure up to 8 mm. Left-sided nephrolithiasis measuring up to 7 mm in the lower pole of the left kidney. Index stone measures 9 mm in the left renal pelvis with mild left-sided hydronephrosis. Phleboliths are in the pelvis. Mild wall thickening of the urinary bladder is nonspecific. Prostate gland measures 4.7 cm transverse. Biliary ductal dilatation is left lobe predominant in this noncontrast study and nonspecific. Imaged CBD measures 9 mm diameter. No dense choledocholithiasis confirmed by CT. Cholelithiasis measures 1.1 cm in the distended gallbladder. Mild adrenal hyperplasia, left larger than right. Pancreas and spleen are unremarkable for noncontrast study. Calcified and noncalcified plaque including the aorta and its branches in this noncontrast study. Small mesenteric lymph nodes are likely reactive. No small bowel obstruction. Severe stool burden is present, including in the cecum and including distally. The appendix is not definitively seen. Vascular calcifications in mastoid stents with prior procedure changes partially imaged including right femoral region right groin. Bilateral pedicle screws in L4, L5, and S1. Intervertebral disc spacer of the lumbosacral junction. Mild vertebral height losses appear old chronic. 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 IMPRESSION: 1. 9 mm stone in the left renal pelvis with mild left-sided hydronephrosis. 2. Bilateral subcentimeter nephrolithiasis. 3. Cholelithiasis with nonspecific by biliary ductal dilatation. This document has been electronically signed by: Colby Patiño MD on 07/11/2024 19:55:29
[2024-07-11 17:24] VITALS: BP 135/76; PULSE 78; O2SAT 93
[2024-07-11 17:40] VITALS: BP 93/70; PULSE 85; RESP 20; TEMP 36.2; O2SAT 91; BMI 18.0
[2024-07-11 17:42] VITALS: BP 93/70; PULSE 85; RESP 20; TEMP 36.2; O2SAT 91
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
[2024-07-11] MEDS: oxyCODONE HCl Immed Release 5 MG TABLET PO (18:21)
[2024-07-11] MEDS: Ketorolac Tromethamine 30 MG/ML VIAL IVPUSH (19:38)
[2024-07-11 19:43] VITALS: BP 150/70; PULSE 71; RESP 18; TEMP 36.9; O2SAT 100
[2024-07-11 21:30] LABS: Appearance Urine Cloudy; Color Urine DK YELLOW; Glucose Urine UA Negative (Negative); Leukocyte Esterase Urine Large (3+) (Negative); Nitrite Urine Negative (Negative); Specific Gravity - Urine >= 1.030 (1.005-1.025); UMIC TRIGGER UACC YES; Urine Blood Large (3+) (Negative); Urine Ketones Negative (Negative); Urine Protein 100 (2+) mg/dL (Neg-Trace)
[2024-07-11 21:40] LABS: Squamous Epithelial Cell Urine 0-2 /HPF (0-2); UACC Culture Trigger YES; WBC Clumps Urine Present; WBC Urine >50 /HPF (0-5)
[2024-07-11 21:41] LABS: Bacteria Urine 4+ (None Seen); Calcium Oxalate Crystals Urine Present; Hyaline Casts Urine 0-2 /LPF (0-2)
[2024-07-11 22:05] VITALS: BP 169/89; PULSE 74; RESP 16; TEMP 36.3; O2SAT 98
[2024-07-11 22:24] LABS: MANUAL DIFF FLAG NO
[2024-07-11 22:30] LABS: Basophils Percent Auto 0.3 % (0-2); Eosinophils Percent Auto 0.2 % (0-4); Hemoglobin 13.8 g/dl (14.0-18.0); Imm Gran Abs Auto 0.03 X10*3/uL (0.00-0.03); Imm Gran Pct Auto 0.3 % (0.0-0.4); Lymphocytes Absolute Auto 2.5 X10*3/uL (1.2-4.9); Lymphocytes Percent Auto 23.4 % (20-40); Mean Corpuscular HGB Conc 33.7 g/dl (31.0-36.0); Mean Corpuscular Hemoglobin 30.8 pg (27.0-33.0); Mean Corpuscular Volume 91.5 fL (80.0-98.0); Mean Platelet Volume 10.2 fL (9.4-12.4); Monocytes Absolute Auto 0.4 X10*3/uL (0.1-1.2); Monocytes Percent Auto 3.7 % (2-11); Neutrophils Absolute Auto 7.7 x10*3/uL (2.0-8.3); Neutrophils Percent Auto 72.1 % (45-73); Platelet Count 266 X10*3/uL (160-400); Red Blood Count 4.48 X10*6/uL (4.60-5.80); Red Cell Distribution Width 15.2 % (11.0-16.0); White Blood Count 10.6 X10*3/uL (4.8-10.8)
[2024-07-12] MEDS: cefEPime HCl/D5W 2 GM/50 ML PIGGYBACK IV (01:05)
[2024-07-12 01:11] VITALS: BP 181/91; PULSE 85; RESP 16; TEMP 36.8; O2SAT 97
[2024-07-12 01:25] VITALS: BP 181/91; PULSE 85; RESP 16; TEMP 36.8; O2SAT 97
[2024-07-12 13:16] LABS: Anion Gap 17 (12-20); Carbon Dioxide 24 mmol/L (22-29); Chloride 101 mmol/L (96-108); Potassium 3.7 mmol/L (3.3-5.1)
[2024-07-12 13:17] LABS: Alanine Aminotransferase 35 U/L (0-40); Albumin Level 4.1 g/dL (3.5-5.0); Alkaline Phosphatase 139 U/L (39-117); Aspartate Amino Transferase 67 U/L (5-37); Bilirubin Direct 0.4 mg/dL (0.0-0.5); Bilirubin Total 0.6 mg/dL (0.0-1.0); Blood Urea Nitrogen 21 mg/dL (9-16); Estimated Glomerular Filt Rate > 60; Glucose Random 178 mg/dL (60-115); Total Protein 10.4 g/dL (6.5-8.0)
[2024-07-12 13:20] LABS: Sodium 138 mmol/L (135-145)
== END 2024-07-12 02:15 | disposition home or self-care (01) ==
PROVIDERS: Emergency Provider Emergency Medicine; PCP Internal Medicine
DX: N39.0 Urinary tract infection, site not specified (principal); R10.2 Pelvic and perineal pain; R11.0 Nausea; F17.210 Nicotine dependence, cigarettes, uncomplicated; Z79.899 Other long term (current) drug therapy
CPT/HCPCS: 36415; 74176; 80048; 80076; 81001; 85025; 87086; 87088; 87186; 96365; 96375; 99284; 99285; J0692; J1885

== ENCOUNTER → 2024-07-11 18:10 | Outpatient (BNV) | payer OTHER, SELFPAY | PROVIDERS: Emergency Provider Emergency Medicine; PCP Internal Medicine; Visit Provider Radiology Neuroradiology | DX: N13.2 Hydronephrosis with renal and ureteral calculous obstruction (principal); K80.50 Calculus of bile duct without cholangitis or cholecystitis without obstruction | CPT/HCPCS: 74176 ==

== ENCOUNTER 2024-07-18 14:32 | Outpatient (AMB) | payer OTHER, SELFPAY ==
--- NOTE | 2024-07-18 14:56 | A.OFFVIS_ITS ---
Vital Signs 07/18/24 14:57 Height 5 ft 7 in Weight 130 lb BMI 20.4 BP 127/67 Blood Pressure Location Rt brachial Position Sitting Pulse 65 Pulse Source Doppler Pulse Oximetry (%) 95 Oxygen Delivery Method Room Air Intake Visit Reasons: Abnormal CT scan Allergies No Known Allergies [No Known Allergies*] Allergy (Verified 07/11/24 17:41) HPI Comments Details: The patient is a 83-year-old gentleman who is an active smoker with known history of COPD and emphysema who apparently has been having decreased appetite and weight loss He has also been more fatigued and tired. He also suffers from difficulty with his balance at risk for falls. He had a CT scan of the chest sometime in January 2022 which demonstrated a concerning ill-defined nodular density in the right upper lobe area. When compared to a CT scan that he had several years back they appear to be a small entity that significantly increased in size. Based on the fact that there appears to be a progressive nodular density it is concerning that this is a malignant process. The patient also had extensive emphysematous changes and bullous disease on his CT scan. At this point the patient needs to have a PET scan done to further evaluate this concerning nodular density and see if there is any metastatic disease ordered involvement elsewhere for potential biopsy. The patient will be high risk for any biopsy of his lung in view of his extensive mphysema so therefore the PET scan be helpful an increase in the yield of any biopsy performed. 08/05/2022 the patient is here for a pulmonary follow-up visit. Since we last spoke the patient did undergo bronchoscopy. We did try sampling the lymph nodes of the mediastinum although very limited sampling available. His lymph node did appear to be normal in appearance. In addition to that transbronchial biopsies demonstrated abnormal lung tissue concerning for malignancy. Therefore, in view of the benign appearing mediastinum and a solitary PET avid nodule now with evidence tumor cells the best option will be to resect. He did undergo pulmonary function studies which are reassuring although a decreased DLCO. He did have an ABG demonstrating normal pCO2 and normal PO2. The patient is not on oxygen. He still smokes cigarettes. Explained to him that we need to quit smoking long to move for with any aggressive intervention. The patient is agreeable to this. They are also agreeable to see the thoracic surgeon. Therefore I will make a referral to the thoracic surgeon to see about considering some type of lung resection that he can tolerate. With the nodular densities located in area with significant emphysema so therefore lung resection were also provide lung volume reduction surgery and may actually help his breathing some. 07/18/2024 the patient is here for a pulmonary follow-up visit. The patient is here after prolonged.. Apparently we had seen him for pulmonary nodule concerning for cancer. Bronchoscopy demonstrated CellCept were concerning for malignancy. He was referred to thoracic surgery for a lung resection. However, the patient has 2nd thoughts and he never had the surgery. Patient now has a repeat CT scan more than a year later. It appears that the right upper lobe nodular densities growing. Denies any discomfort in that area he does have some discomfort to the left thorax which I do not believe is related. He does not have any disease of the ribs or of the pleura or the parenchyma. Appears to be more reproducible. He has had injuries in the past and this is likely residual from those injuries. We did talk about the different options. At this point will need a official diagnosis so therefore will going to request a CT-guided biopsy of that area of if he could be done safely. Also will need PFTs to see what his lung capacity is specially with his emphysema and pulmonary fibrosis. Once we have that information that we can give him options as far as treatments. 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 Weakness Obstructive sleep apnea PVD (peripheral vascular disease) Hyperlipemia Tubular adenoma Chronic hepatitis B Elevated rheumatoid factor Elevated sed rate Chronic anemia Renal lithiasis Chronic back pain Vitamin B12 deficiency HTN (hypertension) CAD (coronary artery disease) Surgical History History of bronchoscopy History of endoscopy History of lithotripsy History of cystoscopy History of colonoscopy History of repair of left rotator cuff History of lumbar surgery History of cataract surgery Social History Household Members: None Housing: Apartment Do you presently have visiting nurse or other home services: Yes (pt has a community support specialist) Patient Tobacco Use Status: Current everyday Tobacco user Tobacco use type: Cigarette Cigarettes Per Day: 2 Years Smoked: 30+ Years Second Hand Smoke Exposure: No Advance Directives Date on File: 09/23/20 service: No Current occupational status: retired Review of Systems Const Reports fatigue, Reports frequent falls, Denies night sweats, Reports poor appetite, Reports weakness and Reports weight loss Eyes Denies change in vision ENT Denies change in voice and Reports disequilibrium Card Denies chest pain and Reports dyspnea on exertion Resp Reports cough and Reports dyspnea on exertion GI Reports early satiety Musc Reports abnormal gait and Reports muscle weakness Skin/Breast Denies rash Neuro Reports abnormal gait, Reports frequent falls, Reports disequilibrium and Reports weakness Endo Reports fatigue Rolf/Lymph Denies easy bleeding, Denies easy bruising and Denies lymphadenopathy Physical Exam Vital Signs: Last Vital Signs Pulse 65 07/18/24 14:57 BP 127/67 07/18/24 14:57 Pulse Ox 95 07/18/24 14:57 Oxygen Delivery Method Room Air 07/18/24 14:57 BMI result Body Mass Index 20.4 Const General: comfortable Nutritional Appearance: thin HEENT Head: Yes normal to inspection Eyes General: appearance normal, both eyes and all related structures Neck Neck: Yes supple Chest Chest palpation & inspection: normal inspection of the chest Resp Effort & Inspection: normal respiratory effort Auscultation: no rales and diminished lung sounds Cardio Rate: regular rate Rhythm: regular rhythm Heart sounds: S1 normal heart sound present and S2 normal heart sound present GI Palpation (GI): Soft to palpation Auscultation: normal bowel sounds Skin General skin exam: no rashes or lesions noted Extrem General: Yes clubbing, No cyanosis and No edema Results Reviewed Results Reviewed: personally reviewed CT chest 2023 and 2022 [facility] interval worsening RUL pulmonary nodule Assessment & Plan Assessment & Plan (1) Pulmonary nodule 1 cm or greater in diameter: Comment: RUL nodule, increasing in size+PET, Code(s): R91.1 - Solitary pulmonary nodule Category: Medical (2) COPD (chronic obstructive pulmonary disease): Code(s): J44.9 - Chronic obstructive pulmonary disease, unspecified Category: Medical Qualifiers: COPD type: emphysema Emphysema type: centrilobular Qualified Code(s): J43.2 - Centrilobular emphysema (3) Smoking: Code(s): F17.200 - Nicotine dependence, unspecified, uncomplicated Category: Social Hx (4) Post herpetic neuralgia: Code(s): B02.29 - Other postherpetic nervous system involvement Category: Medical (5) Pulmonary nodule: Code(s): R91.1 - Solitary pulmonary nodule Category: Medical (6) Lung cancer: Code(s): C34.90 - Malignant neoplasm of unspecified part of unspecified bronchus or lung Category: Medical Qualifiers: Laterality: right Lung location: upper lobe of lung Qualified Code(s): C34.11 - Malignant neoplasm of upper lobe, right bronchus or lung Plan CT guided biopsy RUL nodule PFTs Tobacco cessation continue Trelegy 200mcg daily nebulizer Duoneb BID as needed F/U 2 months Orders: Orders CT biopsy lung RT Today R91.1 - Solitary pulmonary nodule PFT pulmonary function test Today C34.90 - Malignant neoplasm of unspecified part of unspecified bronchus or lung Medications: New baclofen 10 mg PO TID 90 tabs 3RF lidocaine 5% (Lidoderm) leave on most painful area for up to 12 hrs 1 patch topical DAILY 30 ea 4RF 30 days B02.29 - Other postherpetic nervous system involvement Coding Level of Care Code Est Pt Level 5 (71499) Complex EM visit Add On G2211 Diagnoses Pulmonary nodule 1 cm or greater in diameter R91.1 Centrilobular emphysema J43.2 COPD type: emphysema Emphysema type: centrilobular Smoking F17.200 Post herpetic neuralgia B02.29 Pulmonary nodule R91.1 Malignant neoplasm of upper lobe of right lung C34.11 Laterality: right Lung location: upper lobe of lung Time Spent (min) 50
[2024-07-18 14:57] VITALS: BP 127/67; PULSE 65; O2SAT 95; BMI 20.4
--- OUTSIDE RECORDS SUMMARY | 2024-07-18 14:59 | XMS_ITS | Encounter Summary ---
Author Organization [employer] Address [address] [facility] [address] [place] [address] Care Team Providers Care Deli Clerk Name Role Phone Will Cole MD Primary Care Provide r Reason for Referral * Consultation (Urgent) - Authorized Specialty Diagnoses / Procedures Referred By Contac t Referred To Contact Pulmonary Disease Diagnoses Pulmonary nodule 1 cm or greater in diameter Chronic obstructive pulmonary disease, unspecified COPD type (CMS/HCC) Abimbola Felipe MD [address] [place] [address] Phone: tel: fax: [facility] [address] [place], [place] Phone: tel: fax: Referral ID Status Reason Start Date Expiration Date Visits Requested Visits Authorized [id number] Authorized Specialty Services Required 07/03/2024 07/03/2025 1 1 Reason for Visit * Reason Onset Date Comments Results 06/28/2024 CT Results 06/28/2024 CT lungs Encounter Details Date Type Department Care Team ([facility] st Contact Info) Description 06/28/2024 Telephone [facility] [address] [place], [place] [phone] Will Cole MD [address] [place], [place] [phone] Results; CT Results (CT lungs) Social History Tobacco Use Types Packs/Day Years Used Date Smoking Tobacco: Every Day Cigarettes Passive Smoke Exposure: Current Smokeless Tobacco: Never Alcohol Use Standard Drinks/Week Comments Not Currently 0 (1 standard drink = 0.6 oz pur e alcohol) Depression Answer Date Recorded Patient Health Questionnaire-9 Score 0 01/09/2024 Patient Health Questionnaire-9 Score 0 01/09/2024 Last PHQ-9: Questionnaire Data Not on file 0 01/09/2024 Housing Stability Answer Date Recorded What is your housing situation today? I have edgar woodward 03/21/[address] you li ve. Do you have problems with any of the following? None of the above 03/21/2023 Food Insecurity Answer Date Recorded Within the past 12 months, y ou worried that your food would run out before you got money to buy more: Never True 03/21/2023 Within the past 12 months,th e food you bought just didn't last and you didn't have enough money to get more: Never True Transportation Answer Date Recorded In the past 12 months, has l ack of transportation kept you from medical appts, meetings, work or from getting things needed for daily living? No 03/21/2023 Utilities Answer Date Recorded In the past 12 months, has t he electric, gas, oil or water company threatened to shut off services in your home? No 03/21/2023 Depression Answer Date Recorded Patient Health Questionnaire-2 Score 0 01/09/2024 Sex and Gender Information Value Date Recorded Sex Assigned at Male 09/25/2023 10:19 AM EDT Legal Sex Male 10:16 AM EDT Gender Identity Male 04/04/2022 10:16 AM EDT Sexual Orientation Straight 04/04/2022 10 :16 AM EDT documented as of this encounter Miscellaneous Notes * Telephone Encounter - Abimbola Felipe MD - 07/03/2024 11:[address] results with patient and Jyotsna Hardy. Agree to pulmonology consult for chronic lung disease and spiculated attenuation. CT results 06/21/24: There is a 27 x 22 x 32 mm spiculated attenuation in the peripheral right upper lobe likely posterior segment abutting the pleura. There is extensive honeycombing in a circumferential fashion both upper and lower lung lobes. Multiple saccular bronchiectasis. Nodular attenuation center within the lumen of the airways extending from the trachea to the left and right mainstem bronchi. No pleural effusion. No pneumothorax. Lymphadenopathy, mediastinum. No gross pericardial effusion. No aneurysm in the thoracic aorta. Calcified plaques in the thoracic aorta wall and the coronary arteries. Multilevel spondylosis without acute fracture or listhesis. Osteopenia versus osteoporosis. No gross lytic or blastic lesions. Dystrophic calcification in the left renal pelvis. Calcified plaques in the abdominal aorta wall and the included mesenteric arteries. The superior mesenteric artery diameter is 1.[address]/CT chest wo IV con IMPRESSION: Slightly larger spiculated pulmonary nodule likely posterior segment right upper lung lobe with associated lymphadenopathy. Malignancy should be considered. Endobronchial nodules versus secretions in the upper airways. Coronary artery disease and atherosclerosis disease. Chronic interstitial lung disease. 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 * Telephone Encounter - Alfredo Alas - 07/01/2024 1:42 PM EST Tc from CUSTOMER SERVICE SALES ASSOCIATE returning call in regards pt results [phone] * Telephone Encounter - Sung Cuello - 06/28/2024 10:25 AM EST TC from pt requesting call back regarding Results. Type of results: Ct Scan Date when done: 06/21 [place] [facility] [place] pt medical leader at [phone] documented in this encounter Plan of Treatment Upcoming Encounters Date Type Department Care Team (Late st Contact Info) Description 08/27/2024 9:45 AM EDT Office Visit [facility] [address] [place] [address] [phone] Scheduled Referrals Name Type Priority Associated Diagnoses Orde r Schedule Referral to Pulmonology Outpatient Referral Urgent Pulmonary nodule 1 cm or greater in diameter Chronic obstructive pulmonary disease, unspecified COPD type (CMS/HCC) Expected: 07/03/2024 (Approximate), Expires: 07/03/2025 documented as of this encounter Visit Diagnoses Diagnosis Chronic obstructive pulmonary disease, unspecified COPD type (CMS/HCC)- Primary Pulmonary nodule 1 cm or greater in diameter documented in this encounter Additional Health Concerns Assessment Noted Time PHQ-9 Depression Total Score: 0 01/09/20 24 2:03 PM EDT documented as of this encounter Care Teams Deli Clerk Relationship Specialty Start Date End Date Will Cole MD [address] [place] [address] PCP - General Internal Medicine 01/14/14 documented as of this encounter
--- OUTSIDE RECORDS SUMMARY | 2024-07-18 14:59 | XMS_ITS | Encounter Summary ---
Author Organization [employer] Address [address] [facility] 7[address] [place] [address] Care Team Providers Care Lot Technician Name Role Phone Will Cole MD Primary Care Provide r Reason for Visit * Reason Comments Med Refill Encounter Details Date Type Department Care Team ([facility] st Contact Info) Description 06/20/2024 Refill [facility] [address] [place], [place] [phone] Will Cole MD [address] [place] [address] Social History Tobacco Use Types Packs/Day Years [...] enough money to get more: Never True 10/ Transportation Answer Date Recorded In the past [...] AM EDT documented as of this encounter Plan of Treatment Upcoming Encounters Date Type Department Care Team (Late st Contact Info) Description 08/27/2024 9:45 AM EDT Office Visit [facility] [address] [place] [address] documented as of this encounter Visit Diagnoses Not on filedocumented in this encounter Additional Health Concerns Assessment Noted Time PHQ-9 Depression Total Score: 0 01/09/20 24 2:03 PM EDT documented as of this encounter Care Teams Lot Technician Relationship Specialty Start Date End Date Will Cole MD [address] [place] [address] PCP - General Internal Medicine 01/14/14 documented as of this encounter
--- OUTSIDE RECORDS SUMMARY | 2024-07-18 14:59 | XMS_ITS | Encounter Summary ---
Author Organization [employer] Address [address] [facility] [address] [place] [address] Care Team Providers Care Grid Maker Name Role Phone Will Cole MD Primary Care Provide r Encounter Details Date Type Department Care Team (Late st Contact Info) Description 12/29/2023 Orders Only [facility] MED[facility] [address] [place], [place] [phone] Abimbola Felipe MD [address] [place], [place] [phone] Social History Tobacco Use Types Packs/Day Years Used Date Smoking Tobacco: Every Day Cigarettes Passive Smoke Exposure: Current Smokeless Tobacco: Never Alcohol Use Standard Drinks/Week Comments Not Currently 0 (1 standard drink = 0.6 oz pur e alcohol) Depression Answer Date Recorded Patient Health Questionnaire-9 Score 0 09/19/2023 Patient Health Questionnaire-9 Score 0 09/19/2023 Last PHQ-9: Questionnaire Data Not on file 0 09/19/2023 Housing Stability Answer Date Recorded What is [...] Date Recorded Patient Health Questionnaire-2 Score 0 09/19/2023 Sex and Gender Information Value Date Recorded Sex Assigned at Male 09/25/2023 10:19 AM EDT Legal Sex Male 10:16 AM EDT Gender Identity Male 04/04/2022 10:16 AM EDT Sexual Orientation Straight 04/04/2022 10 :16 AM EDT documented as of this encounter Plan of Treatment Upcoming Encounters Date Type Department Care Team (Late st Contact Info) Description 08/27/2024 9:45 AM EDT Office Visit [facility] MED[facility] [address] [place] [address] documented as of this encounter Visit Diagnoses Not on filedocumented in this encounter Additional Health Concerns Assessment Noted Time PHQ-9 Depression Total Score: 0 09/19/19 24 11:37 AM EDT documented as of this encounter Care Teams Grid Maker Relationship Specialty Start Date End Date Will Cole MD [address] [place] [address] PCP - General Internal Medicine 01/14/14 documented as of this encounter
--- OUTSIDE RECORDS SUMMARY | 2024-07-18 14:59 | XMS_ITS | Encounter Summary ---
Author Organization [employer] Address [address] [facility] 7[address] [place] [address] Care Team Providers Care Real Estate Transaction Coordinator Name Role Phone Will Cole MD Primary Care Provide r Reason for Visit * Reason Onset Date Comments Durable Medical Equipment 03/20/2024 Encounter Details Date Type Department Care Team ([facility] st Contact Info) Description 03/20/2024 Telephone [facility] [address] [place], [place] [phone] Will Cole MD [address] [place], [place] [phone] Durable Medical Equipment Social History Tobacco Use Types Packs/Day Years [...] encounter Miscellaneous Notes * Telephone Encounter - Pili Cardenas LPN - 03/21/2024 10:24 AM EDT Please review message below and advise. If wished to continue to DME pt will need Documentation to support this request, Patient has an upcoming appointment 05/14/24. Tc from Jyotsna requesting a recliner as soon as possible stating pt does have one that they received years ago but the chair is broken and pt is at risk of falling due to the state of the chair. She would like script sent to [facility]. If any questions you can contact Jyotsna/pt at [phone]. * Telephone Encounter - Harvey Hernandez - 03/20/2024 11:25 AM EDT Tc from [employer] requesting a recliner as soon as possible stating pt does have one that they received years ago but the chair is broken and pt is at risk of falling due to the state of the chair. She would like script sent to [facility]. If any questions you can contact Jyotsna/pt at [phone]. documented in this encounter Plan of Treatment Upcoming Encounters Date Type Department Care Team (Late st Contact Info) Description 08/27/2024 9:45 AM EDT Office Visit [facility] [address] [place] [address] documented as of this encounter Visit Diagnoses Not on filedocumented in this encounter Additional Health Concerns Assessment Noted Time PHQ-9 Depression Total Score: 0 01/09/20 24 2:03 PM EDT documented as of this encounter Care Teams Real Estate Transaction Coordinator Relationship Specialty Start Date End Date Will Cole MD [address] [place] [address] PCP - General Internal Medicine 01/14/14 documented as of this encounter
--- OUTSIDE RECORDS SUMMARY | 2024-07-18 14:59 | XMS_ITS | Encounter Summary ---
Author Organization [employer] Address [address] [facility] [address] [place] [address] Care Team Providers Care Offset Lithographic Press Operator Name Role Phone Will Cole MD Primary Care Provide r Reason for Visit * Reason Comments Med Refill Encounter Details Date Type Department Care Team ([facility] st Contact Info) Description 07/03/2024 Refill [facility] [address] [place], [place] [phone] Will Cole MD [address] [place] [address] Rib pain; Severe pain; Drug-induced constipation Social History Tobacco Use Types Packs/Day Years [...] is your housing situation today? I have edgarmartina woodward 03/21/[address] you [...] encounter Miscellaneous Notes * Telephone Encounter - Melissa Fernando RN - 07/04/2024 9:55 AM EST TC to pt, called both #s in pt's chart, no answer. Lvm 2 for pt to c/b and schedule pain group visit. TC to pt's PHOTOENGRAVING ETCHER, PHOTOENGRAVING ETCHER stated she is not with pt right now and does not have access to his schedule. Will attempt to call again. documented in this encounter Plan of Treatment Upcoming Encounters Date Type Department Care Team (Late st Contact Info) Description 08/27/2024 9:45 AM EDT Office Visit [facility] [address] [place] [address] documented as of this encounter Visit Diagnoses Diagnosis Rib pain Unspecified chest pain Severe pain Drug-induced constipation Other constipation documented in this encounter Additional Health Concerns Assessment Noted Time PHQ-9 Depression Total Score: 0 01/09/20 24 2:03 PM EDT documented as of this encounter Care Teams Offset Lithographic Press Operator Relationship Specialty Start Date End Date Will Cole MD [address] [place] [address] PCP - General Internal Medicine 01/14/14 documented as of this encounter
--- OUTSIDE RECORDS SUMMARY | 2024-07-18 14:59 | XMS_ITS | Encounter Summary ---
Author Organization [employer] Address [address] [facility] 7t [place] [address] Care Team Providers Care Student Recruiter Name Role Phone Will Cole MD Primary Care Provide r Encounter Details Date Type Department Care Team (Late st Contact Info) Description 07/11/2024 Orders Only GENERIC EXTERNAL DATA DEPARTMENT Provider, Generic External Data Social History Tobacco Use Types Packs/Day Years [...] Description 08/27/2024 9:45 AM EDT Office Visit [facility] [address] [place] [address] documented as of this encounter Procedures Procedure Name Priority Date/Time Associated Diagnosis Comments CULTURE, URINE, ROUTINE Routine 07/11/2024 10:[address] ABDOMEN PELVIS WO CONTRAST Routine 07/11/2024 7:55 PM EST URINALYSIS, COMPLETE, WITH REFLEX TO CULTURE Routine 07/11/2024 6:38 PM EST CBC WITH AUTO DIFFERENTIAL Routine 07/11/2024 6:35 PM EST documented in this encounter Results * Culture, Urine, Routine (07/11/2024 10:04 PM EST) Urine Urine specimen obtained by clean catch procedure / Unknown 07/11/2024 10:04 PM EST 07/11/2024 10:04 PM EST Comment:[facility] - 07/15/2024 8:16 AM EST Escherichia coli Quant > 100,000 cfu/mL Enterococcus species Quant > 100,000 cfu/mL Escherichia coli: Ampicillin >=32(R) Escherichia coli: Cefazolin (Urine) 4(S) Escherichia coli: Cefepime <=0.12(S) Escherichia coli: Ceftriaxone <=0.25(S) Escherichia coli: Ciprofloxacin >=4(R) Escherichia coli: Gentamicin <=1(S) Escherichia coli: Nitrofurantoin <=16(S) Escherichia coli: Trimethoprim/Sulfamethoxazole <=20(S) Enterococcus species: Ampicillin <=2(S) Enterococcus species: Levofloxacin 1(S) Enterococcus species: Nitrofurantoin <=16(S) Enterococcus species: Tetracycline <=1(S) Enterococcus species: Vancomycin 1(S) Specimen Source: Urine clean catch us Generic External Data Provider LAB MICROBIOLOGY - GENERAL ORDERABLES Final Result Performing Organization Address [facility]/State/[facility] Co de Phone Number [facility] [address] [place] [address] [phone] * CT Abdomen Pelvis w/o Contrast (07/11/2024 7:55 PM EST) Anatomical Region Laterality Modality Body, Pelvis, Abdomen Computed T omography 07/11/2024 7:55 PM EST Narrative 07/11/2024 9:32 PM EST ? [facility] ?[address] ?[place] [address] ? CT Scan Report ? Signed ? Patient: Jabari Galloway ?MR#: [id number] ? : 1940 ?Acct:[id number] ? Age/Sex: 83 / M ?ADM Date: 07/11/24 ? Loc: HO.ED ? Attending Dr: ? Ordering Physician: Ivory Gomez MD ?? Date of Service: 07/11/24 ?? Procedure(s): CT abdomen pelvis wo IV con ?? Accession Number(s): [id number] ? cc: Will Smart MD; Ivory Gomez MD ? Report Number: ?? [id number]: Total DLP = ??352.00 mGy-cm ? CLINICAL HISTORY: left flank pain ? CT abdomen and pelvis without contrast ? Comparison: None ? Findings: ?? Mild opacities concerning for pneumonitis in the lung bases superimposed ?? on chronic lung disease. Mild cardiomegaly. ?? Right-sided nephrolithiasis measure up to 8 mm. Left-sided nephrolithiasis ?? measuring up to 7 mm in the lower pole of the left kidney. Index stone ?? measures 9 mm in the left renal pelvis with mild left-sided ?? hydronephrosis. Phleboliths are in the pelvis. Mild wall thickening of the ?? urinary bladder is nonspecific. Prostate gland measures 4.7 cm transverse. ?? Biliary ductal dilatation is left lobe predominant in this noncontrast ?? study and nonspecific. Imaged CBD measures 9 mm diameter. No dense ?? choledocholithiasis confirmed by CT. Cholelithiasis measures 1.1 cm in the ?? distended gallbladder. Mild adrenal hyperplasia, left larger than right. ?? Pancreas and spleen are unremarkable for noncontrast study. ?? Calcified and noncalcified plaque including the aorta and its branches in ?? this noncontrast study. Small mesenteric lymph nodes are likely reactive. ?? No small bowel obstruction. Severe stool burden is present, including in ?? the cecum and including distally. The appendix is not definitively seen. ?? Vascular calcifications in mastoid stents with prior procedure changes ?? partially imaged including right femoral region right groin. Bilateral ?? pedicle screws in L4, L5, and S1. Intervertebral disc spacer of the ?? lumbosacral junction. Mild vertebral height losses appear old chronic. ?? 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 facet arthropathy of the spine. ? IMPRESSION: ?? 1. 9 mm stone in the left renal pelvis with mild left-sided ?? hydronephrosis. ? 2. Bilateral subcentimeter nephrolithiasis. ?? 3. Cholelithiasis with nonspecific by biliary ductal dilatation. ? This document has been electronically signed by: Colby Patiño MD on ?? 07/11/2024 19:55:29 ? Dictated By: ?Colby Patiño MD ? Signed By: ?<Electronically signed by Colby Patiño MD in OV> ? 07/11/242 ? DD/ 54 ? TD/TT: 07/11/241954 ? Manager Support: ? Procedure Note Luba Georges - 07/11/[address] [address] [address] Scan Report Signed Patient: Shannon Galloway#: [id number] : 1Acct:[id number] Age/Sex: 83 / MADM Date: 07/11/24 Loc: HO.ED Attending Dr: Ordering Physician: Ivory Gomez MD Date of Service: 07/11/24 Procedure(s): CT abdomen pelvis wo IV con Accession Number(s): [id number] cc: Will Smart MD; Ivory Gomez MD Report Number: [id number]: Total DLP = 352.00 mGy-cm CLINICAL HISTORY: left flank pain CT abdomen and pelvis without contrast Comparison: None Findings: Mild opacities concerning for pneumonitis in the lung bases superimposed on chronic lung disease. Mild cardiomegaly. Right-sided nephrolithiasis measure up to 8 mm. Left-sided nephrolithiasis measuring up to 7 mm in the lower pole of the left kidney. Index stone measures 9 mm in the left renal pelvis with mild left-sided hydronephrosis. Phleboliths are in the pelvis. Mild wall thickening of the urinary bladder is nonspecific. Prostate gland measures 4.7 cm transverse. Biliary ductal dilatation is left lobe predominant in this noncontrast study and nonspecific. Imaged CBD measures 9 mm diameter. No dense choledocholithiasis confirmed by CT. Cholelithiasis measures 1.1 cm in the distended gallbladder. Mild adrenal hyperplasia, left larger than right. Pancreas and spleen are unremarkable for noncontrast study. Calcified and noncalcified plaque including the aorta and its branches in this noncontrast study. Small mesenteric lymph nodes are likely reactive. No small bowel obstruction. Severe stool burden is present, including in the cecum and including distally. The appendix is not definitively seen. Vascular calcifications in mastoid stents with prior procedure changes partially imaged including right femoral region right groin. Bilateral pedicle screws in L4, L5, and S1. Intervertebral disc spacer of the lumbosacral junction. Mild vertebral height losses appear old chronic. 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 IMPRESSION: 1. 9 mm stone in the left renal pelvis with mild left-sided hydronephrosis. 2. Bilateral subcentimeter nephrolithiasis. 3. Cholelithiasis with nonspecific by biliary ductal dilatation. This document has been electronically signed by: Colby Patiño MD on 07/11/2024 19:55:29 Dictated By: Colby Patiño MD Signed By: <Electronically signed by Colby Patiño MD in OV> 07/11/242131 DD/ 54 TD/TT: 07/11/241954 Manager Support: [facility] External Provider IMG CT PROCEDURES Edited Result - Final * (ABNORMAL) Urinalysis, Complete, with Reflex to Culture (07/11/2024 6:38 PM EST) Color Urine DK YELLOW [facility] Appearance Urine Cloudy [facility] PH 6.0 5.0 - 9.0 [facility] Glucose Urine UA Negative Negative mg/dL [facility] Urine Blood Large (3+)(A) Negative [facility] Specific [place] - Urine >=1.030(H) 1.005 - 1.025 [facility] Urine Protein 100 (2+)(A) Neg-Trace mg/dL [facility] Urine Ketones Negative Negative mg/dL [facility] Nitrite Urine Negative Negative [facility] Leukocyte Esterase Urine Large (3+)(A) Negative [facility] RBC Urine 11-20(A) 0 - 2 /HPF [facility] Urine WBC >50 0 - 5 /HPF [facility] WBC CLUMPS, UR Present [facility] Urine Squamous Epithelial Cell 0-2 0 - 2 /HPF [facility] CALCIUM OXALATE CRYSTAL, UR Present [facility] Urine Bacteria 4+ None Seen [facility] Hyaline Casts, Urine 0-2 0 - 2 /LPF [facility] 07/11/2024 6:38 PM EST 07/11/2024 9:15 PM EST Narrative [facility] - 07/11/2024 9:41 PM EST Urine, Clean Catch us Generic External Data Provider LAB URINE ORDERAB LES Final Result [facility] [address] [place] [phone] * (ABNORMAL) CBC auto differential (07/11/2024 6:35 PM EST) White Blood Count 10.6 4.8 - 10.8 X10*3/uL [facility] Red Blood Count 4.48(L) 4.60 - 5.80 X10*6/uL [facility] Hemoglobin 13.8(L) 14.0 - 18.0 g/dl [facility] Hematocrit 41.0(L) 42.0 - 52.0 % [facility] Mean Corpuscular Volume 91.5 80.0 - 98.0 fL [facility] Mean Corpuscular Hemoglobin 30.8 27.0 - 33.0 pg [facility] Mean Corpuscular HGB Conc 33.7 31.0 - 36.0 g/dl [facility] Red Cell Distribution Width 15.2 11.0 - 16.0 % [facility] Platelet Count 266 160 - 400 X10*3/uL [facility] Mean Platelet Volume 10.2 9.4 - 12.4 fL [facility] Neutrophils Percent Auto 72.1 45 - 73 % [facility] Imm Gran Pct Auto 0.3 0.0 - 0.4 % [facility] Lymphocytes Percent Auto 23.4 20 - 40 % [facility] Monocytes Percent Auto 3.7 2 - 11 % [facility] Eosinophils Percent Auto 0.2 0 - 4 % [facility] Basophils Percent Auto 0.3 0 - 2 % [facility] NRBC Pct Auto 0.0 0.0 - 0.2 /100WBC [facility] Neutrophils Absolute Auto 7.7 2.0 - 8.3 x10*3/uL [facility] Imm Gran Abs Auto 0.03 0.00 - 0.03 X10*3/uL [facility] Lymphocytes Absolute Auto 2.5 1.2 - 4.9 X10*3/uL [facility] Monocytes Absolute Auto 0.4 0.1 - 1.2 X10*3/uL [facility] Eosinophils Absolute Auto 0.0 0.0 - 0.4 X10*3/uL [facility] Basophils Absolute Auto 0.0 0.0 - 0.2 X10*3/uL [facility] NRBC Abs Auto 0.000 0.0 - 0.012 X10*3/uL [facility] 07/11/2024 6:35 PM EST 07/11/2024 10:23 PM EST us Generic External Data Provider LAB BLOOD ORDERAB LES Final Result [facility] [address] [place] [phone] [phone] documented in this encounter Visit Diagnoses Not on filedocumented in this encounter Additional Health Concerns Assessment Noted Time PHQ-9 Depression Total Score: 0 01/09/20 24 2:03 PM EDT documented as of this encounter Care Teams Student Recruiter Relationship Specialty Start Date End Date Will Cole MD [address] [place] [phone] PCP - General Internal Medicine 01/14/14 documented as of this encounter
--- OUTSIDE RECORDS SUMMARY | 2024-07-18 14:59 | XMS_ITS | Encounter Summary ---
Author Organization [employer] Address [address] [facility] [place] [address] Care Team Providers Care Interventional Physician Name Role Phone Will Cole MD Primary Care Provide r Encounter Details Date Type Department Care Team ([facility] st Contact Info) Description 07/10/2024 Telephone [facility] MED & PEDS [address] [place], [place] [phone] Melissa Fernando RN [address] [place] [address] Social History Tobacco Use Types Packs/Day Years [...] Telephone Encounter - Melissa Fernando RN - 07/10/2024 10:41 AM EST Pt's ANTONI, Jyotsna yoon Chronic pain group visit scheduled for 08/27/24 @9:30am. documented in this encounter Plan of Treatment Upcoming Encounters Date Type Department Care Team (Late st Contact Info) Description 08/27/2024 9:45 AM EDT Office Visit [facility] [address] [place] [address] documented as of this encounter Visit Diagnoses Not on filedocumented in this encounter Additional Health Concerns Assessment Noted Time PHQ-9 Depression Total Score: 0 01/09/20 24 2:03 PM EDT documented as of this encounter Care Teams Interventional Physician Relationship Specialty Start Date End Date Will Cole MD [address] [place] [phone] PCP - General Internal Medicine 01/14/14 documented as of this encounter
--- OUTSIDE RECORDS SUMMARY | 2024-07-18 14:59 | XMS_ITS | Encounter Summary ---
Author Organization [employer] Address [address] [facility] 7t [place] [address] Care Team Providers Care Maintenance Worker Municipal Name Role Phone Will Cole MD Primary Care Provide r Reason for Visit * Reason Onset Date Comments team physician 07/05/2024 Encounter Details Date Type Department Care Team ([facility] Contact Info) Description 07/05/2024 Telephone [facility] MED & PEDS [address] [place] [address] Melissa Fernando, RN [address] [place] [address] team physician Social History Tobacco Use Types Packs/Day Years [...] Telephone Encounter - Melissa Fernando RN - 07/05/2024 11:03 AM EST TC to pt x2, called both #s on file, no answer. Lvm for pt to c/b and schedule chronic group visit appt. documented in this encounter Plan of Treatment Upcoming Encounters Date Type Department Care Team (Late st Contact Info) Description 08/27/2024 9:45 AM EDT Office Visit [facility] [address] [place] [address] documented as of this encounter Visit Diagnoses Not on filedocumented in this encounter Additional Health Concerns Assessment Noted Time PHQ-9 Depression Total Score: 0 01/09/20 24 2:03 PM EDT documented as of this encounter Care Teams Maintenance Worker Municipal Relationship Specialty Start Date End Date Will Cole MD [address] [place] [address] PCP - General Internal Medicine 01/14/14 documented as of this encounter
--- OUTSIDE RECORDS SUMMARY | 2024-07-18 14:59 | XMS_ITS | Encounter Summary ---
Author Organization [employer] Address [address] [facility] 7t [place] [address] Care Team Providers Care Collar Tailor Name Role Phone Will Cole MD Primary Care Provide r Reason for Visit * Reason Onset Date Comments Durable Medical Equipment 05/12/2022 Requesting a call back 05/12/2022 CT scan 05/12/2022 Encounter Details Date Type Department Care Team ([facility] st Contact Info) Description 05/12/2022 Telephone [facility] [address] [place], [place] [phone] Will Cole MD [address] [place], [place] [phone] Durable Medical Equipment; Requesting a call back ; CT scan Social History Tobacco Use Types Packs/Day Years Used Date Smoking Tobacco: Never Assessed Sex and Gender Information Value Date Recorded Sex Assigned at Male 09/25/2023 10:19 AM EDT Legal Sex Male 10:16 AM EDT Gender Identity Male 04/04/2022 10:16 AM EDT Sexual Orientation Straight 04/04/2022 10 :16 AM EDT documented as of this encounter Miscellaneous Notes * Telephone Encounter - Nikkie Avila RN - 06/02/2022 11:12 AM EST Telephone call to PET office in regards to pt appt and documents being sent correctly. Office stated all information was sent and pt will be getting a call to schedule appt. Call placed to Sarmad and Isaias to update, we do not have a date yet but Sarmad will follow up to see when pt's appt is. * Telephone Encounter - Leana Modi RN - 06/01/2022 3:18 PM EST T/C placed to [facility] to make sure pt's PET scan is all set and scheduled. Got busy signal. Will retask to green nurses for third attempt. * Telephone Encounter - Leana Modi RN - 06/01/2022 10:16 AM EST T/C placed to [facility] to make sure pt's PET scan is all set and scheduled. Got busy signal. Will retask to green nurses for second attempt. * Telephone Encounter - Leana Modi RN - 05/26/2022 10:55 AM EST Per Dx specialist, refaxed updated order and insurance approval, should be all set to schedule. T/C placed to Sarmad to update. No answer, left v/m informing order was faxed and they should call pt to schedule. * Telephone Encounter - Leana Modi RN - 05/26/2022 9:57 AM EST Any update on PET scan? Needs completed RADHA. Thanks! * Telephone Encounter - Leana Modi RN - 05/25/2022 3:26 PM EST Incoming T/C from Sarmad at [facility] returning my calls at my direct line. Explained below situation to her. Informed we are actively working on it and that I will call her back and update her. She provided direct number [phone]. * Telephone Encounter - Leana Modi RN - 05/25/2022 12:02 PM EST T/C placed to [facility] again. They stated they did receive PET Scan order but back in March they called our office and told us they need a new Dx code in order to schedule. They spoke Ron who told them she would work on it, it was faxed over but order was still incorrect. They never notified us. Stated they spoke to me yesterday but I did not speak to them, I left a V/M. Spoke to Job nurse manager strategy & account who stated will send message to Dx specialist to work on it RADHA. T/C placed to Sarmad at [facility] to update/ discuss. They stated she is unavailable and sent bette message. Provided my direct ext for call back. * Telephone Encounter - Leana Modi RN - 05/24/2022 2:18 PM EST Reviewed pt's [employer] chart. Per Dx specialist, PET scan order was faxed to [facility] and they would call pt to schedule. T/C placed to [facility] to see if it was ever scheduled as we never received results. No answer, left detailed V/M. Phone number in below messages is inaccurate. T/C placed to [facility]. They attempted to connectme to Sarmad but she was unavailable. Had them send her a message letting her know that we sent the order to [facility] and that we never received results. Also informed I working on getting in contact with them but so far they have no answered my call. Will retask to benjie portillo to attempt another call for results. * Telephone Encounter - Treasure Ugalde - 05/24/2022 9:31 AM EST Tc from sarmad from [facility] requesting a call would like to know if pt ever got scheduled for PET scan with concurrent CT scan, order was done on 03/10/22 and printed on 03/15/22 please call [phone]. Dewer attempted to get a hold of a nurse, Unable to, call dropped. * Telephone Encounter - Claudia Hernandez - 05/20/2022 9:56 AM EST Tc from sarmad from [facility] requesting a call would like to know if pt ever got scheduled for PET scan with concurrent CT scan, order was done on 03/10/22 and printed on 03/15/22 please call [phone]. * Telephone Encounter - Natanael Ceja - 05/19/2022 9:27 AM EST Tc from Sarmad with [facility] requesting a call back from a nurse to discuss order ( PET scan with concurrent ct scan skill base to mid-thigh. Please contact Sarmad at [phone] * Telephone Encounter - Will Hardy MD - 05/12/2022 4:01 PM EST Please write script ( discuss case with RN to include appropriate diagnosis ) and I will then sign. * Telephone Encounter - Jaycee Taylor - 05/12/2022 1:55 PM EST Tc from [facility] Jyotsna requesting a power chair . States would prefer [facility] , which [facility] informs they have already faxed a request. Please call to clarify. documented in this encounter Plan of Treatment Upcoming Encounters Date Type Department Care Team (Late st Contact Info) Description 08/27/2024 9:45 AM EDT Office Visit [facility] [address] [place] [address] documented as of this encounter Visit Diagnoses Not on filedocumented in this encounter Care Teams Collar Tailor Relationship Specialty Start Date End Date Will Cole MD [address] [place] [address] PCP - General Internal Medicine 01/14/14 documented as of this encounter
--- OUTSIDE RECORDS SUMMARY | 2024-07-18 14:59 | XMS_ITS | Encounter Summary ---
Author Organization [employer] Address [address] [facility] 7t [place] [address] Care Team Providers Care Creche Attendant Name Role Phone Will Cole MD Primary Care Provide r Encounter Details Date Type Department Care Team ([facility] st Contact Info) Description 05/15/2024 Orders Only [facility] [address] [place], [place] [phone] Kecia Smith MD [address] [place], [place] [phone] Social History Tobacco Use Types Packs/Day Years [...] Description 08/27/2024 9:45 AM EDT Office Visit [facility] [address] [place] [phone] documented as of this encounter Procedures Procedure Name Priority Date/Time Associated Diagnosis Comments CULTURE, URINE, ROUTINE Routine 05/15/2024 12:00 PM EST documented in this encounter Results * Culture, Urine, Routine (05/15/2024 12:00 PM EST) Urine Urine specimen obtained by clean catch procedure / Unknown 05/15/2024 12:00 PM EST 05/15/2024 3:19 PM EST Comment:[facility] Narrative [facility] - 05/18/2024 8:03 AM EST Escherichia coli Quant > 100,000 cfu/mL Escherichia coli: Ampicillin >=32(R) Escherichia coli: Cefepime <=0.12(S) Escherichia coli: Ceftriaxone <=0.25(S) Escherichia coli: Ciprofloxacin >=4(R) Escherichia coli: Gentamicin <=1(S) Escherichia coli: Nitrofurantoin <=16(S) Escherichia coli: Trimethoprim/Sulfamethoxazole <=20(S) Specimen Source: Urine clean catch us Kecia Camejo MD LAB MICROBIOLOGY - GE NERAL ORDERABLES Final Result [facility] [address] [place] [phone] documented in this encounter Visit Diagnoses Not on filedocumented in this encounter Additional Health Concerns Assessment Noted Time PHQ-9 Depression Total Score: 0 01/09/20 24 2:03 PM EDT documented as of this encounter Care Teams Creche Attendant Relationship Specialty Start Date End Date Will Cole MD [address] [facility] [address] PCP - General Internal Medicine 01/14/14 documented as of this encounter
--- OUTSIDE RECORDS SUMMARY | 2024-07-18 14:59 | XMS_ITS | Encounter Summary ---
Author Organization [employer] Address [address] [facility] 7t [place] [address] Care Team Providers Care Museum Assistant Name Role Phone Will Cole MD Primary Care Provide r Reason for Visit * Reason Comments Med Refill Encounter Details Date Type Department Care Team ([facility] Contact Info) Description 03/29/2023 Refill [facility] [address] [place], [place] [phone] Name, MD Kevin [address] [place] [address] Social History Tobacco Use Types Packs/Day Years Used Date Smoking Tobacco: Every Day Cigarettes Passive Smoke Exposure: Never Smokeless Tobacco: Never Alcohol Use Standard Drinks/Week Comments Not Currently 0 (1 standard drink = 0.6 oz pur e alcohol) Depression Answer Date Recorded Patient Health Questionnaire-9 Score 11 10/06/2022 Housing Stability Answer Date Recorded What is [...] Answer Date Recorded Patient Health Questionnaire-2 Score 2 10/06/2022 Sex and Gender Information Value Date Recorded Sex Assigned at Male 09/25/2023 10:19 AM EDT Legal Sex Male 10:16 AM EDT Gender Identity Male 04/04/2022 10:16 AM EDT Sexual Orientation Straight 04/04/2022 10 :16 AM EDT documented as of this encounter Plan of Treatment Upcoming Encounters Date Type Department Care Team (Late st Contact Info) Description 08/27/2024 9:45 AM EDT Office Visit [facility] [address] [place] [address] documented as of this encounter Visit Diagnoses Not on filedocumented in this encounter Additional Health Concerns Assessment Noted Time PHQ-9 Depression Total Score: 11 023 10:42 AM EDT documented as of this encounter Care Teams Museum Assistant Relationship Specialty Start Date End Date Will Cole MD [address] [place] [address] PCP - General Internal Medicine 01/14/14 documented as of this encounter
--- OUTSIDE RECORDS SUMMARY | 2024-07-18 14:59 | XMS_ITS | Encounter Summary ---
Author Organization [employer] Address 75 [facility] 7t [place] [address] Care Team Providers Care Chief Executive Officer Name Role Phone Will Cole MD Primary Care Provide r Reason for Visit * Reason Comments Med Refill Encounter Details Date Type Department Care Team ([facility] st Contact Info) Description 08/29/2022 Refill [facility] MEDICINE [address] [place], [place] [phone] Will Cole MD [address] [place], [place] [phone] Severe pain Social History Tobacco Use Types Packs/Day Years Used Date Smoking Tobacco: Every Day Cigarettes Smokeless Tobacco: Never Alcohol Use Standard Drinks/Week Comments Not Currently 0 (1 standard drink = 0.6 oz pur e alcohol) Sex and Gender Information Value Date Recorded Sex Assigned at Male 09/25/2023 10:19 AM EDT Legal Sex Male 10:16 AM EDT Gender Identity Male 04/04/2022 10:16 AM EDT Sexual Orientation Straight 04/04/2022 10 :16 AM EDT COVID-19 Exposure Response Date Recorded In the last 10 days, have yo u been in contact with someone who was confirmed or suspected to have Coronavirus/COVID-19? No / Unsure 08/22/2022 2:07 PM EDT documented as of this encounter Miscellaneous Notes * Telephone Encounter - Nikkie Avila RN - 08/29/2022 10:00 AM EDT T/C placed to pt re message below. No answer, left V/M. Pt to call prn. * Telephone Encounter - Nikkie Avila RN - 08/29/2022 10:00 AM EDT ----- Message from EL Buitrago sent at 08/26/2022 5:22 PM EDT ----- Please call pt for status check re: urinary sx. Culture came back inconclusive. Hopefully the macrobid was effective. documented in this encounter Plan of Treatment Upcoming Encounters Date Type Department Care Team (Late st Contact Info) Description 08/27/2024 9:45 AM EDT Office Visit [facility] MEDICINE [address] [place] [address] documented as of this encounter Visit Diagnoses Diagnosis Severe pain documented in this encounter Care Teams Chief Executive Officer Relationship Specialty Start Date End Date Will Cole MD [address] [place] [address] PCP - General Internal Medicine 01/14/14 documented as of this encounter
--- OUTSIDE RECORDS SUMMARY | 2024-07-18 14:59 | XMS_ITS | Encounter Summary ---
Author Organization [employer] Address [address] [facility] 7t [place] [address] Care Team Providers Care Splitting Machine Feeder Name Role Phone Will Cole MD Primary Care Provide r Encounter Details Date Type Department Care Team (Late st Contact Info) Description 06/16/2022 Orders Only [facility] MEDICINE [address] [place] [phone] Ximena Cameron LPN Social History Tobacco Use Types Packs/Day Years [...] suspected to have Coronavirus/COVID-19? No / Unsure 06/14/2022 1:27 PM EST documented as of this encounter Plan of Treatment Upcoming Encounters Date Type Department Care Team (Late st Contact Info) Description 08/27/2024 9:45 AM EDT Office Visit [address] [phone] documented as of this encounter Procedures Procedure Name Priority Date/Time Associated Diagnosis Comments PET/CT BONE SKULL BASE TO MID THIGH Routine 06/21/2022 11:30 AM EST documented in this encounter Results * PET/CT Bone Skull Base to Mid Thigh (06/21/2022 11:30 AM EST) Anatomical Region Laterality Modality Body Computed Tomogra phy 06/21/2022 11:3 0 AM EST Narrative 06/23/2022 11:44 AM EST ? [facility] ?[address] ?[place], [place] [address] ? PET Report ? Signed ? Patient: Jabari Galloway ?MR#: [id number] ? : 1940 ?Acct:[id number] ? Age/Sex: 81 / M ?ADM Date: 06/21/22 ? Loc: HO.PET ? Attending Dr: Will Smart MD ? Ordering Physician: Will Smart MD ?? Date of Service: 06/21/22 ?? Procedure(s): PET CT fusion skull to thigh ?? Accession Number(s): [id number] ? cc: Will Smart MD ? EXAMINATION: ?? NM FLUORINE-18 FDG PET/CT SCAN ? CLINICAL INDICATION: ?? Initial treatment management. Evaluation of a dominant right upper lobe ?? irregular opacity. ? PROCEDURE: ?? 60 minutes following the intravenous administration of 13.9 mCi of ?? fluorine 18 FDG, images from the base of the skull to the mid thighs ?? were obtained using a combined PET/CT scanner with CT scan based ?? attenuation correction. No intravenous contrast was administered. ?? Transverse, coronal, sagittal, and volume reconstruction projections ?? were obtained. The patient's blood glucose as determined by a finger ?? stick was 86 mg/dL immediately prior to injection. ? This examination was performed using dose optimization techniques as ?? appropriate, variously including the following: ?? *Automated exposure control ?? *Adjustment of mA and/or kV according to patient size (this includes ?? techniques or standardized protocols for targeted exams where dose is ?? matched to indication/reason for exam; i.e. extremities or head) ?? *Use of iterative reconstruction technique ? DLP: ?? 231 mGy-cm ? COMPARISON: ?? CT chest 02/02/2022. ? FINDINGS: ? NECK AND VISUALIZED HEAD: ?? Only part of the skull base was included within the field of view with ?? significant misregistration limiting its evaluation. No FDG-avid ?? cervical lymphadenopathy. Increase focal FDG uptake associated with ?? periapical lucencies within right inferior premolars SUVmax 5.9 ?? (). Otherwise, physiologic uptake in the soft tissues of the ?? neck. ? THORAX: ?? Lung: Evaluation of parenchymal details and pulmonary nodules is ?? limited due to respiratory motion. Redemonstration of a 1.7 cm ?? irregularly-shaped nodular-like opacity in the posteromedial right ?? upper lobe with SUVmax 4.1. There is a background of extensive ?? emphysematous changes with peripheral reticulation and traction ?? bronchiectasis suggesting interstitial lung disease. There is mild ?? fairly symmetric FDG uptake within the interstitial changes in the ?? posterior lung bases. ? Several additional bilateral nodularities are too small to characterize ?? by PET and should be followed with a chest CT, for instance a 4 mm ?? nodule in the right upper lobe (102:532), a 5 mm nodule in the superior ?? segments of the right lower lobe (102:518), 4 mm nodule in the right ?? middle lobe (102:507) and a 6 mm nodule in the left upper lobe ?? (102:518). ? Mediastinum: Normal heart size. No pericardial effusion. Coronary ?? artery calcifications are present. No abnormal FDG uptake in the ?? thyroid gland. ? There are several enlarged mediastinal lymph nodes with FDG uptake ?? higher than the mediastinal blood pool, for instance a 1.2 cm short ?? axis precarinal lymph node SUVmax 2.8 (66/267), a 0.8 cm short axis ?? subcarinal lymph node SUVmax 2.6 (70/267) and a 1.1 cm short axis ?? aortopulmonary window lymph node SUVmax 2.8 (62/267). ? There are focal areas of increased FDG activity in the hilar regions ?? higher than the mediastinal blood pool, possibly representing hilar ?? lymph nodes suboptimally defined in the absence of IV contrast, for ?? instance SUVmax 2.7 on the left side (66/267). ? Pericardium/Pleura: No abnormal FDG uptake. ? Chest Wall/Axilla: No FDG-avid lymphadenopathy. No pleural effusion or ?? pneumothorax. ? ABDOMEN AND PELVIS: ?? Peritoneal Space: No abnormal FDG uptake. ? Liver, Gallbladder, Biliary Tree: No FDG-avid lesion. Normal appearance ?? of the gallbladder. No biliary ductal dilatation. ? Pancreas: No abnormal FDG uptake. ? Spleen: No abnormal FDG activity. ? Adrenal Glands: No FDG-avid lesion. ? Kidneys and Ureters: Nonobstructive approximately 7 mm calculus in the ?? mid right kidney. Nonobstructing 1 cm calculus in the left renal pelvis ?? with additional couple of 3 mm calculi in the medial surface of the mid ?? to lower left kidney. Evaluation of focal FDG-avid lesions is limited ?? due to physiologic cortical uptake. ? Bladder: No intraluminal calculi or wall thickening. No perivesical fat ?? stranding. Evaluation of focal FDG-avid lesions is limited due to ?? physiologic excretory uptake. ? Gastrointestinal Tract: Varying degrees of physiologic activity ?? throughout the GI tract. No suspicious focal FDG uptake. No findings to ?? suspect acute colitis, diverticulitis or bowel obstruction. ? Abdominal Wall: No abnormal FDG uptake. Surgical clips noted in the ?? right inguinal region. ? Lymphovascular Structures: No FDG-avid lymphadenopathy. ? Pelvic Viscera: Enlarged prostate. No abnormal FDG uptake. Bilateral ?? hydroceles. ? MUSCULOSKELETAL: No aggressive appearing FDG-avid osseous lesions. ? Nonaggressive appearing fibroosseous lesion in the right posterior ?? iliac bone (164/267), stable compared to prior CT from 2014. There are ?? a few nonaggressive appearing sclerotic osseous lesions across the ?? thoracolumbar spine favored to represent bone islands. ? Posterior fusion hardware at L4, L5 and S1 with interdisc spacer at ?? L5-S1. No suspicious focal FDG uptake in the hardware to suspect ?? failure. ? Asymmetric soft tissue uptake in the right antecubital fossa in keeping ?? with injection site. ? Asymmetric uptake in the right wrist, SUVmax 5.4 (203:267), likely ?? related with arthritis. ? VASCULAR: Abdominal aorta is of normal diameter. No abnormal FDG ?? uptake. There scattered atherosclerotic disease. ? PET/PET CT fusion skull to thigh ?? IMPRESSION: ?? Redemonstration of a 1.7 cm irregularly-shaped nodular-like opacity in ?? the posterior medial right upper lobe with SUVmax 4.1 suspicious for ?? malignancy. ? Again noted, background of extensive interstitial lung disease and ?? emphysema with several additional pulmonary nodules that are too small ?? to characterize by PET, for which follow-up by diagnostic chest CTs is ?? recommended. ? Mediastinal and hilar lymphadenopathy with SUV uptake above the ?? mediastinum. ? No FDG-avid metastatic disease in the abdomen or pelvis. ? Focal FDG uptake associated with periapical lucencies in the right ?? inferior mandible suggesting periodontal disease, recommend dental ?? referral. ? Dictated By: ?Bob,Rosi ? Signed By: ?<Electronically signed by Rosi ??Dager in OV> ? 06/23/22 1141 ? DD/ 1130 ? TD/TT: ? Freight Unloader: ? Procedure Note Luba Georges - 07/11/2022 [place] [address] PET Report Signed Patient: Shannon Galloway#: [id number] : 1Acct:[id number] Age/Sex: 81 / MADM Date: 06/21/22 Loc: HO.PET Attending Dr: Will Smart MD Ordering Physician: Will Smart MD Date of Service: 06/21/22 Procedure(s): PET CT fusion skull to thigh Accession Number(s): [id number] cc: Will Smart MD EXAMINATION: NM FLUORINE-18 FDG PET/CT SCAN CLINICAL INDICATION: Initial treatment management. Evaluation of a dominant right upper lobe irregular opacity. PROCEDURE: 60 minutes following the intravenous administration of 13.9 mCi of fluorine 18 FDG, images from the base of the skull to the mid thighs were obtained using a combined PET/CT scanner with CT scan based attenuation correction. No intravenous contrast was administered. Transverse, coronal, sagittal, and volume reconstruction projections were obtained. The patient's blood glucose as determined by a finger stick was 86 mg/dL immediately prior to injection. This examination was performed using dose optimization techniques as appropriate, variously including the following: *Automated exposure control *Adjustment of mA and/or kV according to patient size (this includes techniques or standardized protocols for targeted exams where dose is matched to indication/reason for exam; i.e. extremities or head) *Use of iterative reconstruction technique DLP: 231 mGy-cm COMPARISON: CT chest 02/02/2022. FINDINGS: NECK AND VISUALIZED HEAD: Only part of the skull base was included within the field of view with significant misregistration limiting its evaluation. No FDG-avid cervical lymphadenopathy. Increase focal FDG uptake associated with periapical lucencies within right inferior premolars SUVmax 5.9 (31/267). Otherwise, physiologic uptake in the soft tissues of the neck. THORAX: Lung: Evaluation of parenchymal details and pulmonary nodules is limited due to respiratory motion. Redemonstration of a 1.7 cm irregularly-shaped nodular-like opacity in the posteromedial right upper lobe with SUVmax 4.1. There is a background of extensive emphysematous changes with peripheral reticulation and traction bronchiectasis suggesting interstitial lung disease. There is mild fairly symmetric FDG uptake within the interstitial changes in the posterior lung bases. Several additional bilateral nodularities are too small to characterize by PET and should be followed with a chest CT, for instance a 4 mm nodule in the right upper lobe (102:532), a 5 mm nodule in the superior segments of the right lower lobe (102:518), 4 mm nodule in the right middle lobe (102:507) and a 6 mm nodule in the left upper lobe (102:518). Mediastinum: Normal heart size. No pericardial effusion. Coronary artery calcifications are present. No abnormal FDG uptake in the thyroid gland. There are several enlarged mediastinal lymph nodes with FDG uptake higher than the mediastinal blood pool, for instance a 1.2 cm short axis precarinal lymph node SUVmax 2.8 (66/267), a 0.8 cm short axis subcarinal lymph node SUVmax 2.6 (70/267) and a 1.1 cm short axis aortopulmonary window lymph node SUVmax 2.8 (62/267). There are focal areas of increased FDG activity in the hilar regions higher than the mediastinal blood pool, possibly representing hilar lymph nodes suboptimally defined in the absence of IV contrast, for instance SUVmax 2.7 on the left side (66/267). Pericardium/Pleura: No abnormal FDG uptake. Chest Wall/Axilla: No FDG-avid lymphadenopathy. No pleural effusion or pneumothorax. ABDOMEN AND PELVIS: Peritoneal Space: No abnormal FDG uptake. Liver, Gallbladder, Biliary Tree: No FDG-avid lesion. Normal appearance of the gallbladder. No biliary ductal dilatation. Pancreas: No abnormal FDG uptake. Spleen: No abnormal FDG activity. Adrenal Glands: No FDG-avid lesion. Kidneys and Ureters: Nonobstructive approximately 7 mm calculus in the mid right kidney. Nonobstructing 1 cm calculus in the left renal pelvis with additional couple of 3 mm calculi in the medial surface of the mid to lower left kidney. Evaluation of focal FDG-avid lesions is limited due to physiologic cortical uptake. Bladder: No intraluminal calculi or wall thickening. No perivesical fat stranding. Evaluation of focal FDG-avid lesions is limited due to physiologic excretory uptake. Gastrointestinal Tract: Varying degrees of physiologic activity throughout the GI tract. No suspicious focal FDG uptake. No findings to suspect acute colitis, diverticulitis or bowel obstruction. Abdominal Wall: No abnormal FDG uptake. Surgical clips noted in the right inguinal region. Lymphovascular Structures: No FDG-avid lymphadenopathy. Pelvic Viscera: Enlarged prostate. No abnormal FDG uptake. Bilateral hydroceles. MUSCULOSKELETAL: No aggressive appearing FDG-avid osseous lesions. Nonaggressive appearing fibroosseous lesion in the right posterior iliac bone (164/267), stable compared to prior CT from 2014. There are a few nonaggressive appearing sclerotic osseous lesions across the thoracolumbar spine favored to represent bone islands. Posterior fusion hardware at L4, L5 and S1 with interdisc spacer at L5-S1. No suspicious focal FDG uptake in the hardware to suspect failure. Asymmetric soft tissue uptake in the right antecubital fossa in keeping with injection site. Asymmetric uptake in the right wrist, SUVmax 5.4 (203:267), likely related with arthritis. VASCULAR: Abdominal aorta is of normal diameter. No abnormal FDG uptake. There scattered atherosclerotic disease. PET/PET CT fusion skull to thigh IMPRESSION: Redemonstration of a 1.7 cm irregularly-shaped nodular-like opacity in the posterior medial right upper lobe with SUVmax 4.1 suspicious for malignancy. Again noted, background of extensive interstitial lung disease and emphysema with several additional pulmonary nodules that are too small to characterize by PET, for which follow-up by diagnostic chest CTs is recommended. Mediastinal and hilar lymphadenopathy with SUV uptake above the mediastinum. No FDG-avid metastatic disease in the abdomen or pelvis. Focal FDG uptake associated with periapical lucencies in the right inferior mandible suggesting periodontal disease, recommend dental referral. Dictated By: Rosi Rojas Signed By: <Electronically signed by Rosi Rojas in OV> 06/23/22 1141 DD/ 1130 TD/TT: Freight Unloader: [facility] External Provider IMG CT PROCEDURES Edited Result - Final documented in this encounter Visit Diagnoses Not on filedocumented in this encounter Care Teams Splitting Machine Feeder Relationship Specialty Start Date End Date Will Cole MD [address] [place] [id number] PCP - General Internal Medicine 01/14/14 documented as of this encounter
--- OUTSIDE RECORDS SUMMARY | 2024-07-18 14:59 | XMS_ITS | Encounter Summary ---
Author Organization [employer] Address 75 [facility] 7t [place] [address] Care Team Providers Care Plate Straightener Name Role Phone Will Cole MD Primary Care Provide r Reason for Visit * Reason Onset Date Comments Referral 04/15/2024 Encounter Details Date Type Department Care Team ([facility] st Contact Info) Description 04/15/2024 Telephone [facility] MEDICINE [address] [place], [place] [phone] Will Cole MD [address] [place], [place] [phone] Referral Social History Tobacco Use Types Packs/Day Years [...] encounter Miscellaneous Notes * Telephone Encounter - Sung Cuello - 04/15/2024 2:31 PM EST Tc from [facility] with [facility] Regarding the referral sent out 04/11. She states that they don't do Reclining Chairs. documented in this encounter Plan of Treatment Upcoming Encounters Date Type Department Care Team (Late st Contact Info) Description 08/27/2024 9:45 AM EDT Office Visit [facility] MEDICINE [address] [place] [address] documented as of this encounter Visit Diagnoses Not on filedocumented in this encounter Additional Health Concerns Assessment Noted Time PHQ-9 Depression Total Score: 0 01/09/20 24 2:03 PM EDT documented as of this encounter Care Teams Plate Straightener Relationship Specialty Start Date End Date Will Cole MD [address] [place] [address] PCP - General Internal Medicine 01/14/14 documented as of this encounter
--- OUTSIDE RECORDS SUMMARY | 2024-07-18 14:59 | XMS_ITS | Encounter Summary ---
Author Organization [employer] Address [address] [facility] [address] 7t [place] [address] Care Team Providers Care Yeast Maker Name Role Phone Will Cole MD Primary Care Provide r Encounter Details Date Type Department Care Team (Latest Contact Info) Description 07/10/2024 Travel Social History Tobacco Use Types Packs/Day Years [...] 9:45 AM EDT Office Visit [facility] MEDICINE [address] [place] [address] documented as of this encounter Visit Diagnoses Not on filedocumented in this encounter Additional Health Concerns Assessment Noted Time PHQ-9 Depression Total Score: 0 01/09/20 24 2:03 PM EDT documented as of this encounter Care Teams Yeast Maker Relationship Specialty Start Date End Date Will Cole MD [address] [place] [address] PCP - General Internal Medicine 01/14/14 documented as of this encounter
--- OUTSIDE RECORDS SUMMARY | 2024-07-18 14:59 | XMS_ITS | Encounter Summary ---
Author Organization [employer] Address 75 [facility] 7t [place] [address] Care Team Providers Care Distillery Manager Name Role Phone Will Cole MD Primary Care Provide r Reason for Visit * Reason Comments Med Refill Encounter Details Date Type Department Care Team ([facility] st Contact Info) Description 03/13/2023 Refill [facility] MED & PEDS [address] [place], [place] [phone] Will Cole MD [address] [place] [address] Severe pain Social History Tobacco Use Types [...] housing situation today? I have edgar woodward 03/13/[address] you li ve. Do you have problems with any of the following? None of the above 03/13/2023 Food Insecurity Answer Date Recorded Within the past 12 months, y ou worried that your food would run out before you got money to buy more: Never True 03/13/2023 Within the past 12 months,th e food you bought just didn't last and you didn't have enough money to get more: Never True 02/2023 Transportation Answer Date Recorded In the past 12 months, has l ack of transportation kept you from medical appts, meetings, work or from getting things needed for daily living? No 03/13/2023 Utilities Answer Date Recorded In the past 12 months, has t he electric, gas, oil or water company threatened to shut off services in your home? No 03/13/2023 Depression Answer Date Recorded Patient Health Questionnaire-2 [...] Visit [facility] MEDICINE [address] [place] [address] documented as of this encounter Visit Diagnoses Diagnosis Severe pain documented in this encounter Additional Health Concerns Assessment Noted Time PHQ-9 Depression Total Score: 11 023 10:42 AM EDT documented as of this encounter Care Teams Distillery Manager Relationship Specialty Start Date End Date Will Cole MD [address] [place] [address] PCP - General Internal Medicine 01/14/14 documented as of this encounter
--- OUTSIDE RECORDS SUMMARY | 2024-07-18 14:59 | XMS_ITS | Encounter Summary ---
Author Organization [employer] Address 75 [facility] 7t [place] [address] Care Team Providers Care Screen Printing Loader Unloader Name Role Phone Will Cole MD Primary Care Provide r Reason for Visit * Reason Onset Date Comments Med Refill 04/08/2024 Encounter Details Date Type Department Care Team (Late st Contact Info) Description 04/08/2024 Refill [facility] MED & PEDS [address] [place], [place] [phone] Will Cole MD [address] [place] [address] Rib pain; Severe pain Social History Tobacco Use Types [...] encounter Miscellaneous Notes * Telephone Encounter - EL Buitrago - 04/09/2024 4:14 PM EST Duplicate request, Pcp already sent * Telephone Encounter - Vivek Hardy - 04/08/2024 3:26 PM EST Tc from pt requesting med refill on medication oxyCODONE-acetaminophen (Percocet) 5-325 MG tablet . Pcp documented in this encounter Plan of Treatment Upcoming Encounters Date Type Department Care Team (Late st Contact Info) Description 08/27/2024 9:45 AM EDT Office Visit [facility] MEDICINE [address] [place] [address] documented as of this encounter Visit Diagnoses Diagnosis Rib pain Unspecified chest pain Severe pain documented in this encounter Additional Health Concerns Assessment Noted Time PHQ-9 Depression Total Score: 0 01/09/20 24 2:03 PM EDT documented as of this encounter Care Teams Screen Printing Loader Unloader Relationship Specialty Start Date End Date Will Cole MD [address] [place] [address] PCP - General Internal Medicine 8/12/14 documented as of this encounter
--- OUTSIDE RECORDS SUMMARY | 2024-07-18 14:59 | XMS_ITS | Encounter Summary ---
Author Organization [employer] Address [address] [facility] 7[address] [place] [address] Care Team Providers Care Mat Man Name Role Phone Will Cole MD Primary Care Provide r Reason for Visit * Reason Comments Med Refill Encounter Details Date Type Department Care Team ([facility] st Contact Info) Description 04/11/2023 Refill [facility] [address] [place], [place] [phone] Will Cole MD [address] [place] [address] Severe pain Social History Tobacco Use Types [...] Description 08/27/2024 9:45 AM EDT Office Visit [facility] MEDICINE [address] [place] [address] documented as of this encounter Visit Diagnoses Diagnosis Severe pain documented in this encounter Additional Health Concerns Assessment Noted Time PHQ-9 Depression Total Score: 11 023 10:42 AM EDT documented as of this encounter Care Teams Mat Man Relationship Specialty Start Date End Date Will Cole MD [address] [place] [address] PCP - General Internal Medicine 01/14/14 documented as of this encounter
--- OUTSIDE RECORDS SUMMARY | 2024-07-18 14:59 | XMS_ITS | Encounter Summary ---
Author Organization [employer] Address [address] [facility] 7[address] [place] [address] Care Team Providers Care Bookkeeping Manager Name Role Phone Will Cole MD Primary Care Provide r Encounter Details Date Type Department Care Team (Latest Contact Info) Description 04/02/2021 Abstract [facility] CONVERSIONS Dental, Provider, DDS Social History Tobacco Use Types Packs/Day Years [...] Upcoming Encounters Date Type Department Care Team ( st Contact Info) Description 08/27/2024 9:45 AM EDT Office Visit [facility] MEDICINE [address] [place] [address] documented as of this encounter Visit Diagnoses Not on filedocumented in this encounter Care Teams Bookkeeping Manager Relationship Specialty Start Date End Date Will Cole MD [address] [place] [address] PCP - General Internal Medicine 01/14/14 documented as of this encounter
--- OUTSIDE RECORDS SUMMARY | 2024-07-18 14:59 | XMS_ITS | Encounter Summary ---
Author Organization [employer] Address [address] [facility] 7t [place] [address] Care Team Providers Care Administrative Supervisor Name Role Phone Will Cole MD Primary Care Provide r Reason for Visit * Reason Comments Med Refill Encounter Details Date Type Department Care Team ([facility] st Contact Info) Description 07/11/2024 Refill [facility] MEDICINE [address] [place], [place] [phone] Will Cole MD [address] [place], [place] [phone] Essential hypertension Social History Tobacco Use Types Packs/Day Years [...] Description 08/27/2024 9:45 AM EDT Office Visit [facility] MEDICINE [address] [place] [address] documented as of this encounter Visit Diagnoses Diagnosis Essential hypertension Unspecified essential hypertension documented in this encounter Additional Health Concerns Assessment Noted Time PHQ-9 Depression Total Score: 0 01/09/20 24 2:03 PM EDT documented as of this encounter Care Teams Administrative Supervisor Relationship Specialty Start Date End Date Will Cole MD [address] [place] [address] PCP - General Internal Medicine 01/14/14 documented as of this encounter
--- OUTSIDE RECORDS SUMMARY | 2024-07-18 14:59 | XMS_ITS | Encounter Summary ---
Author Organization [employer] Address [address] [facility] [address]t [place] [address] Care Team Providers Care Rehab Trainer Name Role Phone Will Cole MD Primary Care Provide r Encounter Details Date Type Department Care Team (Latest Contact Info) Description 10/15/2018 Abstract [facility] CONVERSIONS Dental, Provider, DDS Social [...] Description 08/27/2024 9:45 AM EDT Office Visit [facility] MEDICINE [address] [place] [address] documented as of this encounter Visit Diagnoses Not on filedocumented in this encounter Care Teams Rehab Trainer Relationship Specialty Start Date End Date Will Cole MD [address] [place] [address] PCP - General Internal Medicine 01/14/14 documented as of this encounter
--- OUTSIDE RECORDS SUMMARY | 2024-07-18 14:59 | XMS_ITS | Encounter Summary ---
Author Organization [employer] Address [address] [facility] 7t [place] [address] Care Team Providers Care Shank Carrier Name Role Phone Will Cole MD Primary Care Provide r Encounter Details Date Type Department Care Team (Late st Contact Info) Description 07/26/2022 Orders Only [facility] [address] [place] [phone] Ximena Cameron LPN Social History Tobacco Use [...] 9:45 AM EDT Office Visit [facility] [address] [place] [phone] documented as of this encounter Procedures Procedure Name Priority Date/Time Associated Diagnosis Comments CELL BLOCK Routine 07/26/2022 9:31 AM EST CELL BLOCK Routine 07/26/2022 9:31 AM EST HEMATOXYLIN AND EOSIN STAIN Routine 07/26/2022 9:31 AM EST documented in this encounter Results * Cell Block (07/26/2022 9:31 AM EST) 07/26/2022 9:31 AM EST 07/27/2022 9:00 AM EST Narrative [facility] - 07/30/2022 1:42 PM EST ----- ------- Name: Jabari Galloway ?Age/Sex: 81/M ? : 1940 Unit#: [id number] ?? Attend Dr: Jm Hernandez MD ?Re07/26/22 ?Status: DEP SDC ? Location: HO.SSS ?Disch: ? ----- ------- SPEC : [id number] ? RECD: 07/27/22 ? STATUS: ??SOUT ? REQ NUM: [id number] ? ROSEMARY: 07/26/22-930 ? SUBM DR: Jm Hernandez MD ? ENTERED: ??07/27/22-1507 ?SP TYPE: Cytology ? OTHR DR: Will Smart MD ?? ORDERED: ??Cell Block/2, Fine Ndl Asp/2, VICKIE/2, FNAIA/2 ? Diagnosis ?? A. ??Lymph node, station 4L, fine needle aspiration biopsy (cytology and cell block): ??No ?? evidence of lymph node sampling. ? Comment: ??Examination of monolayer preparation, direct smear, and cell block slides show ?? benign bronchial epithelial cells, mucus, alveolar macrophages, and acute inflammatory ?? cells. ? B. ??Lymph node, station 7, fine needle aspiration biopsy (cytology and cell block): ??No ?? evidence of lymph node sampling. ? Comment: ??Examination of monolayer preparation, direct smear, and cell block slides show ?? abundant blood with few benign bronchial epithelial cells, and fragments of cartilage. ?Clinical History Solitary pulmonary nodule ? Material Received ?? A: Station 4L ?? B: Station 7 ? Gross Description Part A: Four Aspirate smears, 26 cc of Cytolyt with bloody fluid, cell block, and ThinPrep from two passes performed by Dr. Hernandez. A slide from each of the first two passes are immediately stained and reported as: Pass 1: Bronchials Pass 2: Bronchials Dr. Portillo 07/27/22 Part B: Four Aspirate smears, 26 cc of Cytolyt with fluid, cell block, and ThinPrep from two passes performed by Dr. Hernandez. A slide from each of the first two passes are immediately stained and reported as: Pass 1: Rare bronchs Pass 2: Blood and rare bronchs Dr. Portillo 07/27/22 ? CONTINUED ON NEXT PAGE ----- ------- Name: Jabari Galloway ?Age/Sex: 81/M ? : 1940 Unit#: [id number] ?? Attend Dr: Jm Hernandez MD ?Re07/26/22 ?Status: DEP SDC ? Location: HO.SSS ?Disch: ? ----- ------- SPEC : [id number] ? RECD: 07/27/22-899 ? STATUS: ??SOUT ? REQ NUM: [id number] ? ROSEMARY: 07/26/22-930 ? SUBM DR: Jm Hernandez MD ? ENTERED: ??07/27/22-1506 ?SP TYPE: Cytology ? OTHR DR: Will Smart MD ?? ORDERED: ??Cell Block/2, Fine Ndl Asp/2, VICKIE/2, FNAIA/2 ? Copies To: ?? Will Smart MD ?? [address] [facility] ?? [place] [address] ?? [phone] ?? Jm Hernandez MD ?? [address] [facility] ?? [place] [address] ?? [phone] ----- ------- Signed (signature on file) Adele Leavitt 07/30/22 1342 ? ----- ------- ? END OF REPORT ? [facility] External Provider LAB CYT OLOGY ORDERABLES Final Result [facility] [address] [facility] [place] [address] [phone] * Cell Block (07/26/2022 9:31 AM EST) 07/26/2022 9:31 AM EST 07/27/2022 9:00 AM EST Narrative [facility] - 07/28/2022 4:37 PM EST ----- ------- Name: Jabari Galloway ?Age/Sex: 81/M ? : 1940 Unit#: [id number] ?? Attend Dr: Jm Hernandez MD ?Re07/26/22 ?Status: DEP SDC ? Location: HO.SSS ?Disch: ? ----- ------- SPEC : [id number] ? RECD: 07/27/22-899 ? STATUS: ??SOUT ? REQ NUM: [id number] ? ROSEMARY: 07/26/22-930 ? SUBM DR: Jm Hernandez MD ? ENTERED: ??07/27/22-1501 ?SP TYPE: Cytology ? OTHR DR: Will Smart MD ?? ORDERED: ??Cell Block/2, Cyto-enhanced/2 ? Diagnosis ?? A. Lung, right upper lobe, bronchial washing (cytology and cell block): ??Negative for ?? malignant cells. ? Comment: ??Examination of a monolayer preparation and cell block slides show benign ?? bronchial epithelial cells, alveolar macrophages blood, mucus, scattered inflammatory ?? cells, and few benign squamous cells. ? B. ??Lung, right upper lobe, bronchial brushing (cytology and cell block): ??Negative for ?? malignant cells. ? Comment: ??Examination of a monolayer preparation and cell block slides shows benign ?? bronchial epithelial cells mucus, occasional inflammatory cells, and scant blood. ? Note: ??See also concurrent transbronchial biopsy report, [id number]. ?Clinical History Solitary pulmonary nodule ? Material Received ?? A: RUL washings ?? B: RUL brushings ? Gross Description A: 17 cc reddish fluid. ??Thin prep and cell block made. B: Received in [place]. ??Thin prep and cell block made. Copies To: ?? Will Smart MD ?? [address] ?? [place] ?? [phone] ?? Jm Hernandez MD ?? [address] [place] [address] DR ?? [place] [address] ?? [phone] ? CONTINUED ON NEXT PAGE ----- ------- Name: Jabari Galloway ?Age/Sex: 81/M ? : 1940 Unit#: [id number] ?? Attend Dr: Jm Hernandez MD ?Re07/26/22 ?Status: DEP SDC ? Location: HO.SSS ?Disch: ? ----- ------- SPEC : [id number] ? RECD: 07/27/22 ? STATUS: ??SOUT ? REQ NUM: [id number] ? ROSEMARY: 07/26/22 ? SUBM DR: Jm Hernandez MD ? ENTERED: ??07/27/22 ?SP TYPE: Cytology ? OTHR DR: Will Smart MD ?? ORDERED: ??Cell Block/2, Cyto-enhanced/2 ? ----- ------- Signed (signature on file) Adele Leavitt 07/28/22 1637 ? ----- ------- ? END OF REPORT ? [facility] External Provider LAB [facility] S[facility] ESCOTO Final Result [facility] [address] [place] [phone] * Hematoxylin and Eosin Stain (07/26/2022 9:31 AM EST) 07/26/2022 9:31 AM EST 07/26/2022 12:00 PM EST Narrative [facility] - 07/28/2022 6:47 AM EST ----- ------- Name: Jabari Galloway ?Age/Sex: 81/M ? : 1940 Unit#: [id number] ?? Attend Dr: Jm Hernandez MD ?Re07/26/22 ?Status: DEP SDC ? Location: HO.SSS ?Disch: ? ----- ------- SPEC : [id number] ?RECD: 07/26/22-1200 ? STATUS: ??SOUT ? REQ NUM: [id number] ? ROSEMARY: 07/26/22-930 ? SUBM DR: Jm Hernandez MD ? ENTERED: ??07/26/22-1230 ?SP TYPE: Surgical ? OTHR DR: Will Smart MD ?? ORDERED: ??HE Stain/2, Gross Micro L4 ? Diagnosis ?? Lung, right upper lobe nodule, biopsy: ?- Fragment of lung tissue with confluent mucinous epithelium. ?- Separate fragment of benign bronchoalveolar tissue. ? COMMENT: ??The confluent mucinous epithelium is worrisome for a neoplastic process (e.g. ?? atypical adenomatous hyperplasia). ?Clinical History Solitary pulmonary nodule ?Microscopic Description Microscopic sections reviewed. ? Material Received ?? RUL bx's ? Gross Description Received in formalin are multiple son-red needle cores of soft tissue, measuring 1-4, totally submitted in cassettes 1-2. ??(ANGELA) This case was reviewed intradepartmentally. Copies To: ?? Will Smart MD ?? [address] ?? [place] [address] ?? [phone] ?? Jm Hernandez MD ?? [address] [facility] ?? [place] [address] ?? [phone] ----- ------- Signed (signature on file) Richard Portillo MD 07/28/22 0647 ? ----- ------- ? END OF REPORT ? [facility] External Provider LAB BLO OD ORDERABLES Final Result [facility] [address] [place] [phone] [phone] documented in this encounter Visit Diagnoses Not on filedocumented in this encounter Care Teams Shank Carrier Relationship Specialty Start Date End Date Will Cole MD [address] [place] [phone] PCP - General Internal Medicine 01/14/14 documented as of this encounter
--- OUTSIDE RECORDS SUMMARY | 2024-07-18 14:59 | XMS_ITS | Data Portability ---
Author Organization [facility], Main Office Address [address], [address] [place] [address] Care Team Providers Care Medical Aides Teacher Name Role Phone JAZZ HASTINGS - 3RD FLOOR OTHER EVANS PERRIN Primary Care Provider Assessment Encounter Date Assessment Date Assessment LastModified by Organization Details LastModified Time 09/25/2020 09/25/2020 09/25/20 WBC 4.7, Hgb 11, Hct 33.9, Plt 211, Na 131, K 4.3, BUN 17, Production Metal Sprayer 0.72, diane 8.3, tot prot 8.3, alb 2.9, tot bili 0.4, AST 19, ALT 16, alk phos 114 [email or web address] Not available 09/25/2020 12:31:57 09/28/2020 09/28/2020 09/25/20 WBC 4.7, Hgb 11, Hct 33.9, Plt 211, Na 131, K 4.3, BUN 17, Production Metal Sprayer 0.72, diane 8.3, tot prot 8.3, alb [...] Address Organization Details Recorded Time Abnormal gait 51376494 Active 2020 SUSAN STEIN [address], [address], [place], [address], [email or web address] 13:43:55 History of cerebrovasc ular accident 752815462 Active 2020 SUSAN STEIN [address], [address], [place], [address], [email or web address] 18:30:18 Gastroesoph ageal reflux disease without esophagitis 757235682 Active 2020 SUSAN STEIN [address], [address], [place], [address], [email or web address] 18:32:34 Coronary arterioscle rosis 77452749 Active 2020 SUSAN STEIN [address], [address], [place], [address], [email or web address] 18:33:28 Anemia 360099278 Active 2020 SUSAN STEIN [address], [address], [place], [address], [email or web address] 18:33:43 Blood in urine 25332119 Active 2020 SUSAN STEIN [address], [address], [place], [address], [email or web address] 18:35:24 Constipatio n 19199850 Active 2020 SUSAN STEIN [address], [address], [place], [address], [email or web address] 18:37:06 Chronic insomnia 881813110 Active 2020 SUSAN STEIN [address], [address], [place], [address], [email or web address] 18:40:24 Benign prostatic hyperplasia 315712124 Active [address] [facility] [facility], [address], [place], [address], [facility] 1 18:43:50 Rhabdomyoly sis 114664109 Active 2015 Daly solis, [facility] 6 10:11:43 Cerebrovasc ular accident 803710122 Active 2015 Daly Bui null, [facility] 6 10:11:48 Acute injury of kidney 2970821290282 4108 Active 2015 Daly Ames null, [facility] 6 10:12:01 Chronic obstructive pulmonary disease 63603767 Active 2015 Daly Ames null, [facility] 6 10:12:07 Mixed hyperlipide loco 921956048 Active 2015 Daly Bui null, [facility] 6 10:12:13 Essential hypertensio n 86573417 Active 2015 Daly Ames null, [facility] 6 10:12:19 Rheumatoid arthritis 95866125 Active 2015 Daly Bui null, [facility] 6 10:12:32 Chronic pain 38974256 Active 2015 Daly Bui null, [facility] 6 10:12:39 Neuropathy 354852346 Active 2015 Daly Bui null, [facility] 6 10:26:35 Tremor 14371241 Active 2016 Juana Mcdonough null, [facility] 7 12:23:32 Problem Notes None recorded. [...] 134 mm[Hg] 68 mm[Hg] SUSAN STEIN [address] [facility] [facility], [address], [place], [address], [email or web address] 18:21:00 Date Recorded Body height Body mass index (BMI) Body weight Oxygen saturation Oxygen saturation in Arterial blood by Pulse oximetry Body temperature Heart rate Respiratory rate Systolic blood pressure Diastolic blood pressure Provider Name and Address Organization Details Last Updated DateTime 170.18 cm 19.3 kg/m2 90057.8 6 g 94 % 94 % 97.9 [degF] 78 /min 18 /min 124 mm[Hg] 68 mm[Hg] Stefanie Nelson MD [address] [facility] [facility], [address], [place], [address], [email or web address] 13:27:16 Date Recorded Body height Systolic blood pressure Diastolic blood pressure Provider Name and Address Organization Details Last Updated DateTime 09/29/2020 170.18 cm 124 mm[Hg] 68 mm[Hg] Markus Yi MD [address] [facility] [facility], [address], [place], [address], [email or web address] 09/29/2020 13:11:53 Social History Question Answer Notes LastModified by Organizat ion Details LastModified Time Tobacco Smoking Status Current Every Day Smoker just 1-2 cigs/day Stefanie Nelson MD [address], [address], [place], [address], [email or web address] 09/28/2020 15:00:49 Do You Have An [...] Do You Have A Medical Power Of J2Ee Java Developer? Yes Hcp On File Information not available [...] He Should Quit, But It's too Hard Information not available 09/28/2020 How Many Years Have You Smoked Tobacco? 40 Information not available 09/25/2020 Sex: Male Functional Status None recorded. Mental Status None recorded. Family History Nothing Reported Notes:n/c Medical History No medical history recorded. Past Encounters Encounter ID Performer Location Encounter Start Date Encounter Closed Date Diagnosis/Indication Diagnosis SNOMED-CT Code Diagnosis ICD10 Code Diagnosis Note [id number] [address] [address] 06/04/2016 10:00:35 06/10/2016 11:24:13 Rhabdomyolysis 640114430 M62.82 Patient with fall out of wheelchair , found laying on floor for unknown period of time, patient presented c/o severe back pain and other assorted aches and pains, initial CK 25,000+, treated with IV fluids with improvemen t, CK 18,892 on d/c, follow CPK and BMP twice weekly until normalized , PT/OT to maximize function Cerebrovas cular accident 435971360 I63.342 Presented with fall, screening head CT revealed acute cerebellar infarct, no deficits noted, f/u neuro Dr Roberts, ASA and statin, bp control, follow diet recs, CERTIFIED ORTHOTIC FITTER eval prn, PT/OT to maximize function Acute inju ry of kidney 2152235380 2818657 N17.8 Cr on admission 2.74, improved with IV fluids, Cr on d/c 0.6, monitor renal function as rhabdomyol ysis resolves Chronic ob structive pulmonary disease 47744367 J41.1 Stable, proair inhaler prn Mixed hyperlipidemia 267 373826 E78.2 On statin Essential hypertension 40964656 I10 Amlodipine 5 mg, monitor bp and labs Chronic pain 88519875 G8 9.29 Oxycodone for pain, monitor Vertigo 491907837 R42 With dizziness in hospital, patient reports dizziness has not improved, cont. meclizine 12.5 mg prn, if fails to improve consider ENT consult, monitor Rheumatoid arthritis 698 60574 M06.89 Methotrexa te qweekly, prednisone 5 mg, monitor sxs [id number] Juana Mcdonough [facility] [address] [address] 06/06/2016 12:14:01 06/06/2016 12:43:57 Tremor 05160435 G25.2 Neurology consult as scheduled. OT evaluation for weighted eating utensils Neuropathy 774980747 G65 .1 Neurology consult. [id number] Markus Yi MD [address] [address] 06/08/2016 11:20:31 06/10/2016 11:51:58 Rhabdomyolysis 960047208 M62.82 Patient with fall out of wheelchair , found laying on floor for unknown period of time, patient presented c/o severe back pain and other assorted aches and pains, initial CK 25,000+, treated with IV fluids with improvemen t, CK 18,892 on d/c, follow CPK and BMP twice weekly until normalized , PT/OT to maximize function Cerebrovas cular accident 298489807 I63.342 Acute cerebellar infarct seen on CT head. f/u neuro Dr Roberts for CVA and tremorASA and statin, bp controlSLP eval prnPT/OT to maximize function Acute inju ry of kidney 8209261504 2695271 N17.8 Cr on admission 2.74, improved with IV fluids, Cr on d/c 0.6, monitor renal function as rhabdomyol ysis resolves Chronic ob structive pulmonary disease 09151631 J41.1 Stable, proair inhaler prn Mixed hyperlipidemia 267 529496 E78.2 On statin Essential hypertension 76560251 I10 Norvasc 5 mgmonitor bp and labs Chronic pain 61211729 G8 9.29 Oxycodone for pain, monitor Vertigo 706620694 R42 With dizziness in hospital, patient reports dizziness has not improved, cont. meclizine 12.5 mg prn, if fails to improve consider ENT consult, monitor Rheumatoid arthritis 698 32387 M06.89 Methotrexa te qweekly, prednisone 5 mg, monitor sxs [id number] MARKIE KOLOSKI, TRACTOR ENGINE ASSEMBLER [facility] [address] [place] [address] 09/25/2020 12:26:20 09/29/2020 08:22:25 Abnormal gait 47303893 R26.89 PT/OT eval and treat reminders to ask for help utilize walker monitor for safety History of cerebrovascular accident 595250278 Z86.73 ASA 81 mg qd atorvastat in 40 mg qd monitor follow with neurology as needed Neuropathy 750964495 G63 neurontin 600 mg bid discussed risk vs benefit of neurontin with pt monitor Rheumatoid arthritis 698 69885 M06.89 methotrexa te 2.5 mg 6 tabs q week monitor Mixed hyperlipidemia 267 942638 E78.2 atorvastat in 40 mg qd monitor labs Essential hypertension 26407265 I10 ASA 81 mg qd norvasc at home but not discharged on any monitor b/p and labs Chronic ob structive pulmonary disease 78220224 J41.8 carries diagnosis not on medication monitor respirator y status Chronic pain 29929530 G8 9.29 oxycodone/ apap 5-325 mg bid prn monitor pain Gastroesop hageal reflux disease without esophagitis 020182998 K21.9 omeprazole 20 mg qd monitor for symptoms Coronary arteriosclerosis 16552098 I25.10 ASA 81 mg qd atorvastat in 40 mg qd monitor Anemia 389035728 D50.8 ferrous sulfate 325 mg tid monitor labs Tremor 26659600 G25.2 primadone 50 mg bid and 100 mg q hs carbidopa- levodopa 25-100 mg tid monitor Blood in urine 19671706 R31.29 monitor urine follow up with urology Lactic acidosis 67519845 E87.2 unknown cause resolved with fluids monitor Constipation 95321894 K5 9.09 miralax 17 gms qd colace 100 mg bid monitor bowels Chronic insomnia 5592843 04 F51.04 melatonin 3 mg q hs trazodone 300 mg q hs discussed risk vs benefit of trazodone with pt monitor sleep Benign pro static hyperplasia 455493060 N40.0 tamsulosin 0.4 mg qd monitor for symptoms [id number] Stefanie Nelson MD [facility] [address] [address] 09/28/2020 13:23:25 09/30/2020 13:29:25 Abnormal gait 60705220 R26.89 Doing great with PT per PT. Continue PT/OT for strengthen ing, balance, gait training, safety and function, her and then hopefully at home also for awhile. Encouraged to use walker consistent ly. Monitor for safety Blood in urine 07958005 R31.29 Incidental finding. F/U with urology as outpt. Constipation 91568611 K5 9.09 Continue miralax 17 gms qd and colace 100 mg BID. Monitor bowel function. History of cerebrovascular accident 708435592 Z86.73 Stable at baseline. Continue ASA 81 mg qd and atorvastat in 40 mg qd Monitor for change in sxs. Rheumatoid arthritis 698 25474 M06.89 Continue methotrexa te 15 mg q week And pain meds as above. F/U with rheum as planned. Mixed hyperlipidemia 267 119100 E78.2 Continue atorvastat in 40 mg qd Monitor labs as outpt. Essential hypertension 21300965 I10 BP in good control since here. Continue amlodipine 5 mg qd. Monitor BP and labs Chronic ob structive pulmonary disease 03243487 J41.8 carries diagnosis not on medication monitor respirator y status Gastroesop hageal reflux disease without esophagitis 607424959 K21.9 No current sxs. Continue omeprazole 20 mg qd Monitor for sxs Coronary arteriosclerosis 35050629 I25.10 Continue ASA 81 mg qd and atorvastat in 40 mg qd Monitor for sxs. Anemia 915460478 D50.8 Continue ferrous sulfate 325 mg TID. Monitor labs Tremor 48383106 G25.2 Unclear if dx is Parkinson' s Continue primidone 50 mg bid and 100 mg qhs and carbidopa- levodopa 25-100 mg TID. Monitor F/U with neuro as planned Chronic insomnia 3111742 04 F51.04 Continue melatonin 3 mg qhs and trazodone 300 mg qhs Monitor sleep patterns. Benign pro static hyperplasia 943317022 N40.0 No current sxs. Continue tamsulosin 0.4 mg qd Monitor for sxs Chronic back pain 989028 002 M54.5 Checked meds in [facility]. COnfirmed chronic use, rxed by PCP. Continue oxycodone/ apap 5-325 mg BID prn (uses BID scheduled) and gabapentin 600 mg BID. Monitor pain control. [id number] Markus Yi MD [address] [address] 09/29/2020 13:06:18 10/01/2020 11:59:12 Abnormal gait 63718717 R26.89 improved with therapy now independen t with walker Blood in urine 19660687 R31.29 recent episode of F/U with urology as outpt. History of cerebrovascular accident 444416670 Z86.73 Stable at baseline. Continue ASA 81 mg qd and atorvastat in 40 mg qd Monitor for change in sxs. Chronic back pain 473319 002 M54.5 Checked meds in [facility]. COnfirmed chronic use, rxed by PCP. Continue oxycodone/ apap 5-325 mg BID prn (uses BID scheduled) and gabapentin 600 mg BID. Monitor pain control. Rheumatoid arthritis 698 46404 M06.89 Continue methotrexa te 15 mg q week And pain meds as above. F/U with rheum as planned. Mixed hyperlipidemia 267 791266 E78.2 Continue atorvastat in 40 mg qd Monitor labs as outpt. Essential hypertension 22493777 I10 BP in good control since here. Continue amlodipine 5 mg qd. Monitor BP and labs Gastroesop hageal reflux disease without esophagitis 642554168 K21.9 Continue omeprazole 20 mg qd Monitor for sxs Coronary arteriosclerosis 27194012 I25.10 Continue ASA 81 mg qd and atorvastat in 40 mg qd Monitor for sxs. Anemia 159893221 D50.8 Continue ferrous sulfate 325 mg TID. Monitor labs Tremor 68464305 G25.2 Unclear if dx is Parkinson' s Continue primidone 50 mg bid and 100 mg qhs and carbidopa- levodopa 25-100 mg TID. Monitor F/U with neuro as planned Chronic insomnia 5857426 04 F51.04 Continue melatonin 3 mg qhs and trazodone 300 mg qhs Monitor sleep patterns. Benign pro static hyperplasia 007469497 N40.0 Continue tamsulosin 0.4 mg qd Monitor for sxs Health Concerns Section Related Observation LastModified by Organization Detai ls LastModified Time None Recorded Concern Status LastModified by Organization Details LastModified Time None Recorded Advance Directives Directive Y: FULL CODE-NO DIALYSIS-use nutrition and hydration Payers Encounter Date Sequence Insurance Name Policy Number Policy Khanna Covered Member ID Khanna Member ID Guarantor Name 06/06/2016 1 [facility] - DOS PRIOR TO 2022 - DUAL ELIGIBLE (MEDICARE REPLACEMENT/ADV ANTAGE - HMO) Jabari Nilesh [id number] Jabari Nilesh 06/06/2016 2 [place] Jabari Galloway [id number] Jabari Galloway 06/08/2016 1 [facility] - DOS PRIOR TO 2022 - DUAL ELIGIBLE (MEDICARE REPLACEMENT/ADV ANTAGE - HMO) Jabari Nilesh [id number] Jabari Galloway 06/08/2016 2 [place] Jabari Nilesh [id number] Jabari Galloway 09/25/2020 1 [facility] - DOS PRIOR TO 2022 - DUAL ELIGIBLE (MEDICARE REPLACEMENT/ADV ANTAGE - HMO) Jabari Galloway [id number] Jabari Galloway 09/25/2020 2 [place] Jabari Galloway [id number] Jabari Galloway 09/28/2020 1 [facility] C[facility] [employer] - DOS PRIOR TO 2022 - DUAL ELIGIBLE (MEDICARE REPLACEMENT/ADV ANTAGE - HMO) Jabari Nilesh [id number] Jabari Galloway 09/28/2020 2 [place] Jabari Nilesh [id number] Jabari Galloway 09/29/2020 1 [facility] CARE [employer] - DOS PRIOR TO 2022 - DUAL ELIGIBLE (MEDICARE REPLACEMENT/ADV ANTAGE - HMO) Jabari Nilesh [id number] Jabari Galloway 09/29/2020 2 [place] Jabari Nilesh [id number] Jabari Nilesh Notes Date Note Type Note Provider Name and Address Organization Details Recorded Time 06/06/2016 text/html 75-year-old male being seen for acute rounding visit at the request of nursing due to tremors of the left hand. Juana solis [place] [facility] 06/06/2016 12:39:38 06/08/2016 text/html Patient is a 75 yo admit from hospital after being found on floor having fallen out of wheelchair. 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 Patient was eval by nephrology and neurology during hospitalization. Patient was frequently c/o dizzyness in hospital started on meclizine. methotrexate was held on admit and restarted at hosp d/c. H htn, RA, hld, and copd. Tremor since CVA Markus Yi MD [address] [facility], [address], [place], [address], [facility] [email or web address] 06/08/2016 11:46:35 09/25/2020 text/html A 79 year old nafisa le being seen for a initial intake note. Patient was sent to [facility] er when his MIGRATORY FARM HAND noted slurred speech, unsteady gait and lethargy. [...] hyperlipidemia, neuropathy, RA and tremor. PCP is Evans ROUSE, SUSAN [address] [facility] [facility], [address], [place], [address], [email or web address] 09/25/2020 19:13:22 09/28/2020 text/html This is a 79 yo man who is here for rehab after and acute hospitalization for slurred speech, unsteady gait and lethargy. He was sent to the [facility] ED on 09/23 after his MIGRATORY FARM HAND noted the above sxs. Eval in hospital [...] doing well with rehab, he has daily MIGRATORY FARM HAND at home and hopes for d/c on 09/30. Of note he is on chronic oxycodone and gabapentin for back pain.Seen walking in the [place] with PT, walking well and quickly using walker, with no assist.He says he feels like he is back to baseline, remembers day he went to hospital, he could understand what MIGRATORY FARM HAND was saying, but she said she couldn't understand him. He couldn't tell that speech was slurred.His PMH includes HTN, hx of CVA-inferomedial left cerebellum, anemia, BPH, insomnia, COPD, hx of tubular adenoma, chronic back pain, YEIMY, PVD, constipation, GERD, HLD, neuropathy, RA and tremor. Stefanie Nelson MD [address] [place] [address], [address], [place], [address], [facility] [email or web address] 09/28/2020 15:16:59 09/29/2020 text/html Patient is a 79 yo male seen in preparation for discharge initially admit from hospital after presenting with slurred speech, unsteady gait and lethargy. He was sent to the [facility] ED on 09/23 after his M[employer]RATORY FARM HAND noted the above sxs. Eval in hospital [...] doing well with rehab, he has daily M[employer] at home and hopes for d/c on 09/30. Of note he is on chronic oxycodone and gabapentin for back pain.Now independent ambulation with walker, cleared for discharge with services in place to f/u with PCP Markus Yi MD [address] [place] [address], [address], [place], [address], [facility] 09/29/2020 13:19:01
--- OUTSIDE RECORDS SUMMARY | 2024-07-18 14:59 | XMS_ITS | Clinical Summary ---
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 Name Role Phone Will Cole MD Primary Care Provide r Allergies No known active allergies Medications Banophen 25 MG capsuleIndicati ons:Rash TAKE 1 CAPSULE BY MOUTH AT BEDTIME NEEDED FOR SLEEP 30 capsule Active bacitracin 500 UNIT/GM ointment APPLY TOPICALLY TO AFFECTED AREA(S) EVERY 8 HOURS DIRECTED Active carbidopa-levod opa (Sinemet) 25-100 MG tablet TAKE 1 TABLET BY MOUTH THREE TIMES DAILY 023 Active finasteride (Proscar) 5 MG tablet TAKE 1 TABLET BY MOUTH EVERY MORNING Active folic acid (Folvite) 1 MG tablet TAKE 1 TABLET BY MOUTH EVERY MORNING Active ipratropium-alb uterol (Duo-Neb) 0.5-2.5 mg/3 mL nebulizer solution INHALE 1 AMPULE USING A NEBULIZER TWICE DAILY Active melatonin 3 MG tablet TAKE 1 TABLET BY MOUTH AT BEDTIME 023 Active methotrexate 2.5 MG tablet TAKE 8 TABLETS BY MOUTH EVERY MONDAY MORNING 023 Active naloxone (Narcan) 4 mg/0.1 mL nasal spray spray 0.1 milliliter by intranasal route in 1 nostril may repeat dose every 2-3 minutes as needed alternating nostrils with each dose 022 Active predniSONE (Deltasone) 10 MG tablet Take 10 mg by mouth in the morning. 023 Active clopidogrel (Plavix) 75 MG tablet Take 75 mg by mouth. 023 Active predniSONE (Deltasone) 5 MG tablet Take 5 mg by mouth in the morning. 024 Active naproxen (Naprosyn) 500 MG tabletIndicatio ns:Rib pain Take 1 tablet (500 mg) by mouth with breakfast and with evening meal. 20 tablet 024 2024 Active Diclofenac Sodium 1 % gelIndications: Chronic midline low back pain without sciatica Apply affected area BID 100 g 3 024 Active atorvastatin (Lipitor) 40 MG tablet TAKE 1 TABLET BY MOUTH EVERY DAY AT BEDTIME 90 tablet 1 024 Active Aspirin Low Dose 81 MG EC tablet TAKE 1 TABLET BY MOUTH AT BEDTIME 90 tablet 1 024 Active tamsulosin (Flomax) 0.4 MG 24 hr capsule TAKE 1 CAPSULE BY MOUTH EVERY MORNING (30 DAYS BEFORE BREAKFAST) 90 capsule 1 024 Active traZODone (Desyrel) 150 MG tablet TAKE 2 TABLETS BY MOUTH EVERY DAY AT BEDTIME 60 tablet 6 025 Active Multiple Vitamin (Multivitamin) tabletIndicatio ns:Gastroesopha geal reflux disease without esophagitis TAKE 1 TABLET BY MOUTH EVERY MORNING WITH FOOD 90 tablet 3 025 Active famotidine (Pepcid) 20 MG tabletIndicatio ns:Gastroesopha geal reflux disease without esophagitis TAKE 1 TABLET BY MOUTH TWICE DAILY IN THE MORNING AND IN THE EVENING 180 tablet 1 025 Active lactulose (Chronulac) 10 GM/15ML solution TAKE 15 ML BY MOUTH TWICE DAILY NEEDED FOR CONSTIPATION 900 mL 025 Active gabapentin (Neurontin) 800 MG tablet TAKE 1 TABLET BY MOUTH TWICE DAILY IN THE MORNING AND AT BEDTIME 024 Active oxyCODONE-aceta minophen (Percocet) 5-325 MG tabletIndicatio ns:Rib pain,Severe pain TAKE 1 TABLET BY MOUTH EVERY TWELVE HOURS NEEDED FOR SEVERE PAIN 56 tablet 025 Active docusate sodium (Colace) 100 MG capsuleIndicati ons:Drug-induce d constipation TAKE 1 CAPSULE BY MOUTH TWICE DAILY IN THE MORNING AND IN THE EVENING 180 capsule 025 Active amLODIPine (Norvasc) 5 MG tabletIndicatio ns:Essential hypertension TAKE 1 TABLET BY MOUTH EVERY MORNING 90 tablet 025 Active amantadine (Symmetrel) 100 MG tablet TAKE 1 TABLET BY MOUTH TWICE DAILY IN THE MORNING AND IN THE EVENING 023 2024 Discontinued(M ed list cleanup (will not trigger notification to Pharmacy)) clopidogrel (Plavix) 75 MG tablet TAKE 1 TABLET BY MOUTH EVERY MORNING 022 2024 Discontinued(M ed list cleanup (will not trigger notification to Pharmacy)) gabapentin (Neurontin) 600 MG tablet TAKE 1 TABLET BY MOUTH TWICE DAILY IN THE MORNING AND AT BEDTIME 023 2024 Discontinued(M ed list cleanup (will not trigger notification to Pharmacy)) Nicotrol 10 MG inhaler INHALE 1 CARTRIDGE BY MOUTH EVERY 2-4 HOURS NEEDED FOR NICOTINE CRAVINGS 023 2024 Discontinued(M ed list cleanup (will not trigger notification to Pharmacy)) lactulose (Chronulac) 10 GM/15ML solution TAKE 15 ML BY MOUTH TWICE DAILY NEEDED FOR CONSTIPATION 900 mL 023 2024 Discontinued docusate sodium (Colace) 100 MG capsuleIndicati ons:Drug-induce d constipation TAKE 1 CAPSULE BY MOUTH TWICE DAILY IN THE MORNING AND IN THE EVENING 180 capsule 024 2024 Discontinued amLODIPine (Norvasc) 5 MG tabletIndicatio ns:Essential hypertension TAKE 1 TABLET BY MOUTH EVERY MORNING 90 tablet 024 2024 Discontinued oxyCODONE-aceta minophen (Percocet) 5-325 MG tabletIndicatio ns:Rib pain,Severe pain Take 1 tablet by mouth every 12 (twelve) hours if needed for severe pain. 56 tablet 025 2024 Discontinued Active Problems Problem Noted Date Diagnosed Date Acute cystitis without hematuria 05/15/2024 Body mass index (BMI) 20.0-20.9, adult Assessment & Plan (05/14/2024 4:06 PM EST): Will benefit from Boost or ensure 1 can tid to prevent further weight loss Acute otitis media 04/17/2024 UTI symptoms 04/17/2024 Assessment & Plan (04/17/2024 2:49 PM EST): Drink plenty of water I will prescribed Augmentin it will cover both UTI and otitis (patient can not do macrobid) Chronic, continuous use of opioids 02/27/2024 Overview (02/27/2024): Dx: rib pain, RA Tier 2, utox/pill counts every 3 months Rx: Percocet 5/325mg 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 [employer]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 Agreement last signed: 09/27/23 Routine physical examination 10/10/2023 Assessment & Plan (10/10/2023 10:50 AM EDT): Pt is deconditioned, will refer to Physical Therapy Physical deconditioning 10/10/2023 Assessment & Plan (10/10/2023 10:40 AM EDT): Will refer to Physical therapy Acute cystitis with hematuria 10/10/2023 Assessment & Plan (10/10/2023 10:53 AM EDT): Diagnosed 5/3 treated with Augmentin Ucx sensitive Pt asymptomatic today COPD (chronic obstructive pulmonary disease) 06/2022 Protein-calorie malnutrition, unspecified severi ty 01/03/2023 Assessment & Plan (09/19/2023 11:57 AM EDT): Pt drinking Boost Assessment & Plan (01/03/2023 1:55 PM EDT): Pt drinking Boost Rib pain 11/22/2022 Assessment & Plan (05/14/2024 2:38 PM EST): Pt here for a follow up with previous c/o left sided rib cage pain, in the absence of any injury. On exam pt was very tender to palpation over his left mid rib cage area. No redness, No swelling, No palpable masses Plain films of his ribs were done 11/22/2022 and showed: Chronic lung disease. Potential left scapular lesion. Chest CT recommended. Chest CT, patient finally had it done IMPRESSION: 1. Stable right upper lobe posterior segment fissural-based nodule. It measures 1.6 x 1.5 cm. 2. Centrilobular and paraseptal emphysema with chronic interstitial lung changes and scattered parenchymal opacities are stable. 3. Reactive mediastinal lymph nodes are stable. 4. Moderate coronary artery calcifications are stable. Given persistence of symptoms, a repeat CT chest was ordered but patient cancelled/ no showed. Will contact his ELECTROMECHANICAL EQUIPMENT TESTER to find out if this can be rescheduled at his convenience Assessment & Plan (03/26/2024 2:30 PM EDT): Pt here for management of chronic pain in back, L rib (possibly associated lung malignancy). - actively smoking, declines cessation - continue Percocet 5/325mg twice a day - pill count and utox as expected 09/27/23 and 10/31/23 and 12/26/23 - pill count as expected today, unable to urinate so could not perform utox - regularly on 2-3 month screening cycle for utox/pill counts. - continue chronic pain group in one month Additional history of L rib: Pt here for a follow up with previous c/o left sided rib cage pain, in the absence of any injury. On exam pt is exquisitely tender to palpation over his left mid rib cage area without redness or swelling Plain films of his ribs were done 11/22/2022 and showed: Chronic lung disease. Potential left scapular lesion. Chest CT showed right upper lobe posterior segment fissural based 1.6 x 1.5cm nodule. Bronchoscopy showed likely lung cancer, pt denies further treatment with lung resection --due to increasing pain, CT chest ordered to rule out advancing malignancy or metastasis. Results are not available yet Assessment & Plan (02/27/2024 1:53 PM EDT): Pt here for management of chronic pain in back, L rib (possibly associated lung malignancy). - actively smoking, declines cessation - continue Percocet 5/325mg twice a day - pill count and utox as expected 09/27/23 and 10/31/23 and 12/26/23 - pill count as expected today, unable to urinate so could not perform utox - regularly on 2-3 month screening cycle for utox/pill counts. - continue chronic pain group in one month Additional history of L rib: Pt here for a follow up with previous c/o left sided rib cage pain, in the absence of any injury. On exam pt is exquisitely tender to palpation over his left mid rib cage area without redness or swelling Plain films of his ribs were done 11/22/2022 and showed: Chronic lung disease. Potential left scapular lesion. Chest CT showed right upper lobe posterior segment fissural based 1.6 x 1.5cm nodule. Bronchoscopy showed likely lung cancer, pt denies further treatment with lung resection --due to increasing pain, will re-image with CT to rule out advancing malignancy or metastasis. I will call him when the results are released to me Assessment & Plan (01/30/2024 2:11 PM EDT): Pt here for management of chronic pain in back, L rib (possibly associated lung malignancy). He was down today due to pain - actively smoking, declines cessation - continue Percocet 5/325mg twice a day - pill counts and utox as expected 09/27/23 and 10/31/23 and 12/26/23 and 01/30/24 he is regularly on 2-3 month screening cycle for utox/pill counts. - continue chronic pain group in one month Additional history of L rib: Pt here for a follow up with previous c/o left sided rib cage pain, in the absence of any injury. On exam pt is exquisitely tender to palpation over his left mid rib cage area without redness or swelling Plain films of his ribs were done 11/22/2022 and showed: Chronic lung disease. Potential left scapular lesion. Chest CT showed right upper lobe posterior segment fissural based 1.6 x 1.5cm nodule. Bronchoscopy showed likely lung cancer, pt denies further treatment with lung resection --due to increasing pain, will re-image with CT to rule out advancing malignancy or metastasis Assessment & Plan (12/26/2023 8:39 PM EDT): Pt here for management of chronic pain in back, R rib (possibly associated malignancy here). He was in good spirits at today's session because it is almost his birthday. He appreciates his ELECTROMECHANICAL EQUIPMENT TESTER's involvement in his life for the past 15 years. - actively smoking, declines cessation - continue Percocet 5/325mg twice a day - pill counts and utox as expected 09/27/23 and 10/31/23 and 12/26/23 he is regularly on 2-3 month screening cycle for utox/pill counts. - continue chronic pain group in one month Additional history of R rib: Pt here for a follow up with previous c/o left sided rib cage pain, in the absence of any injury. On exam pt tender to palpation over his left mid rib cage area without redness or swelling Plain films of his ribs were done 11/22/2022 and showed: Chronic lung disease. Potential left scapular lesion. Chest CT showed right upper lobe posterior segment fissural based 1.6 x 1.5cm nodule. Bronchoscopy showed likely lung cancer, pt denies further treatment with lung resection Assessment & Plan (11/28/2023 2:14 PM EDT): Pt here for management of chronic pain in back, R rib (possibly associated malignancy here). He was in good spirits at today's session because it is almost his birthday. He appreciates his ELECTROMECHANICAL EQUIPMENT TESTER's involvement in his life for the past 15 years. - actively smoking, declines cessation - continue Percocet 5/325mg twice a day - pill counts and utox as expected 09/27/23 and 10/31/23 and 11/27/24 he is regularly on 2-3 month screening cycle for utox/pill counts. He could not urinate today, so we will screen his urine at the next visit - continue chronic pain group in one month Additional history of R rib: Pt here for a follow up with previous c/o left sided rib cage pain, in the absence of any injury. On exam pt tender to palpation over his left mid rib cage area without redness or swelling Plain films of his ribs were done 11/22/2022 and showed: Chronic lung disease. Potential left scapular lesion. Chest CT showed right upper lobe posterior segment fissural based 1.6 x 1.5cm nodule. Bronchoscopy showed likely lung cancer, pt denies further treatment with lung resection Assessment & Plan (11/01/2023 10:12 AM EDT): Pt here for management of chronic pain in back, R rib (possibly associated malignancy here). He was in good spirits at today's session because it is almost his birthday. He appreciates his ELECTROMECHANICAL EQUIPMENT TESTER's involvement in his life for the past 15 years. - actively smoking, declines cessation - continue Percocet 5/325mg twice a day - urine and pill counts as expected at last visit 09/27/23 and he is regularly on 2-3 month screening cycle for utox/pill - continue chronic pain group in one month Additional history of R rib: Pt here for a follow up with previous c/o left sided rib cage pain, in the absence of any injury. On exam pt tender to palpation over his left mid rib cage area without redness or swelling Plain films of his ribs were done 11/22/2022 and showed: Chronic lung disease. Potential left scapular lesion. Chest CT showed right upper lobe posterior segment fissural based 1.6 x 1.5cm nodule. Bronchoscopy showed likely lung cancer, pt denies further treatment with lung resection Assessment & Plan (10/06/2023 3:27 PM EDT): Naproxen 500mg Q 12 hrs just if really needed, f/u with PCP Assessment & Plan (09/26/2023 1:25 PM EDT): Pt here for management of chronic pain in back, R rib (possibly associated malignancy here). He was in good spirits at today's session because it is almost his birthday. He appreciates his ELECTROMECHANICAL EQUIPMENT TESTER's involvement in his life for the past 15 years. - actively smoking, declines cessation - continue Percocet 5/325mg twice a day - urine and pill counts as expected - continue chronic pain group in one month Additional history of R rib: Pt here for a follow up with previous c/o left sided rib cage pain, in the absence of any injury. On exam pt tender to palpation over his left mid rib cage area without redness or swelling Plain films of his ribs were done 11/22/2022 and showed: Chronic lung disease. Potential left scapular lesion. Chest CT showed right upper lobe posterior segment fissural based 1.6 x 1.5cm nodule. Bronchoscopy showed likely lung cancer, pt denies further treatment with lung resection Assessment & Plan (09/19/2023 11:49 AM EDT): Pt here for a follow up with previous c/o left sided rib cage pain, in the absence of any injury. On exam pt was very tender to palpation over his left mid rib cage area. No redness, No swelling, No palpable masses Plain films of his ribs were done 11/22/2022 and showed: Chronic lung disease. Potential left scapular lesion. Chest CT recommended. Chest CT, patient finally had it done IMPRESSION: 1. Stable right upper lobe posterior segment fissural-based nodule. It measures 1.6 x 1.5 cm. 2. Centrilobular and paraseptal emphysema with chronic interstitial lung changes and scattered parenchymal opacities are stable. 3. Reactive mediastinal lymph nodes are stable. 4. Moderate coronary artery calcifications are stable. Fleischner guidelines were followed. Assessment & Plan (08/29/2023 11:48 AM EDT): Pt here for management of chronic pain in back, R rib (possibly some malignancy here) - actively smoking, declines cessation - continue Percocet 5/325mg twice a day - urine and pill counts as expected - continue chronic pain group in one month Additional history of R rib: Pt here for a follow up with previous c/o left sided rib cage pain, in the absence of any injury. On exam pt tender to palpation over his left mid rib cage area without redness or swelling Plain films of his ribs were done 11/22/2022 and showed: Chronic lung disease. Potential left scapular lesion. Chest CT showed right upper lobe posterior segment fissural based 1.6 x 1.5cm nodule. Bronchoscopy showed likely lung cancer, pt denies further treatment with lung resection Assessment & Plan (08/01/2023 1:53 PM EST): Pt here for management of chronic pain in back, R rib (possibly some malignancy here) - actively smoking, declines cessation - continue Percocet 5/325mg twice a day - urine and pill counts as expected - continue chronic pain group in one month Additional history of R rib: Pt here for a follow up with previous c/o left sided rib cage pain, in the absence of any injury. On exam pt tender to palpation over his left mid rib cage area without redness or swelling Plain films of his ribs were done 11/22/2022 and showed: Chronic lung disease. Potential left scapular lesion. Chest CT showed right upper lobe posterior segment fissural based 1.6 x 1.5cm nodule. Bronchoscopy showed likely lung cancer, pt denies further treatment with lung resection Assessment & Plan (06/27/2023 5:47 PM EST): Pt here for a follow up with previous c/o left sided rib cage pain, in the absence of any injury. On exam pt tender to palpation over his left mid rib cage area without redness or swelling Plain films of his ribs were done 11/22/2022 and showed: Chronic lung disease. Potential left scapular lesion. Chest CT showed right upper lobe posterior segment fissural based 1.6 x 1.5cm nodule. Bronchoscopy showed likely lung cancer, pt denies further treatment with lung resection - actively smoking, declines cessation - continue Percocet 5/325mg twice a day - urine and pill counts as expected - continue chronic pain group in one month Assessment & Plan (01/03/2023 3:48 PM EDT): Pt here for a follow up with previous c/o left sided rib cage pain, in the absence of any injury. On exam pt was very tender to palpation over his left mid rib cage area. No redness, No swelling, No palpable masses Plain films of his ribs were done 11/22/2022 and showed: Chronic lung disease. Potential left scapular lesion. Chest CT recommended. We ordered a Chest CT, patient finally had it done Report is still pending, we contacted the Radiology department to obtain a wet read but apparently they had no radiologist to read it. Will contact them again Assessment & Plan (11/23/2022 5:47 PM EDT): Pt with c/o left sided rib cage pain x 1 week, in the absence of any injury. On exam pt is very tender to palpation over his left mid rib cage area. No redness, No swelling, No palpable masses Plan: Plain films of his ribs Pain control Follow up with me after testing Chronic anemia 10/05/2022 Assessment & Plan (10/10/2023 10:44 AM EDT): Here for a f/u Pt with chronic anemia and guaiac positive stool in the past Pt had a Colonoscopy in 2013 that was neg aside from hemorrhoids Patient was referred to Gastroenterology. Lucy Krishnamurthy. He was seen on 09/25/2014 and underwent an EGD that showed: antral gastritis with distortion of the antral pyloric area No biopsies were taken because pt desaturated. He was last seen 04/20/2015 Continue FeSO4 325 mg tid Use senna + docusate prn constipation Last Hgb up to 812.5 06/2023 Assessment & Plan (10/05/2022 4:54 PM EDT): Here for a f/u Pt with chronic anemia and guaiac positive stool in the past Pt had a Colonoscopy in 2013 that was neg aside from hemorrhoids Patient was referred to Gastroenterology. Lucy Krishnamurthy. He was seen on 09/25/2014 and underwent an EGD that showed: antral gastritis with distortion of the antral pyloric area No biopsies were taken because pt desaturated. He was last seen 04/20/2015 Continue FeSO4 325 mg tid Use senna + docusate prn constipation Plan: Patient was referred to Hematology Last Hgb up to 8.2 03/09/2020 [facility] health care 10/05/2022 Assessment & Plan (10/10/2023 10:46 AM EDT): Pneumovax: 08/12/2014 Tdap: 03/29/2012 Zoster: 03/31/2015 Colonoscopy with tubular adenomas '06, repeat 01/03/11 at [facility] [place] normal; repeat 07/15/13 was normal. Assessment & Plan (10/05/2022 5:09 PM EDT): Pneumovax: 08/12/2014 Tdap: 03/29/2012 Zoster: 03/31/2015 Colonoscopy with tubular adenomas '06, repeat 01/03/11 at [facility] [place] normal; repeat 07/15/13 was normal. 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 while in the Hospital pt was seen by Neurology , PT and Speech therapy. 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 while in the Hospital pt was seen by Neurology , PT and Speech therapy. 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 while in the Hospital pt was seen by Neurology , PT and Speech therapy. Pt has a persistent tremor of his left upper extremity Centrilobular emphysema 06/23/2022 Assessment & Plan (09/19/2023 11:58 AM EDT): Here for a follow up Chest CT showed: Diffuse centrilobular and paraseptal emphysema with multiple ill-defined opacities with extensive reticular interstitial thickening and irregular opacities in both upper lobes. The largest opacity right upper lobe adjacent to major fissure is 1.7 cm. It has increased in size. Previously it measured 6 mm. There are other pulmonary nodules pleural-based right upper lobe which have slightly increased as well. I would recommend CT/PET exam for further evaluation. Reactive mediastinal lymph nodes. PET CT 06/21/2022 showed: Redemonstration of a 1.7 cm irregularly-shaped nodular-like [...] in the right inferior mandible suggesting periodontal disease He was last seen by his Drama Therapist Dr Cummings in August 2022 He mentioned pt underwent bronchoscopy. His lymph node did appear to be normal in appearance. In addition to that transbronchial biopsies demonstrated abnormal lung tissue concerning for malignancy. Therefore, in view of the benign appearing mediastinum and a solitary PET avid nodule now with evidence tumor cells he stated that the best option would be to resect. pulmonary function studies were reassuring although a decreased DLCO. ABG demonstrating normal pCO2 and normal PO2. The patient is not on oxygen. He still smokes cigarettes. Explained to him that we need to quit smoking long to move for with any aggressive intervention. Pts ELECTROMECHANICAL EQUIPMENT TESTER tells me he refuses to use the [id number] patches and does not like to use his inhalers either, also he is no longer following with Dr cummings Assessment & Plan (10/06/2022 10:51 AM EDT): Here for a follow up Chest CT showed: Diffuse centrilobular and paraseptal emphysema with multiple ill-defined opacities with extensive reticular interstitial thickening and irregular opacities in both upper lobes. The largest opacity right upper lobe adjacent to major fissure is 1.7 cm. It has increased in size. Previously it measured 6 mm. There are other pulmonary nodules pleural-based right upper lobe which have slightly increased as well. I would recommend CT/PET exam for further evaluation. Reactive mediastinal lymph nodes. PET CT 06/21/2022 showed: Redemonstration of a 1.7 cm irregularly-shaped nodular-like [...] in the right inferior mandible suggesting periodontal disease He was last seen by his Drama Therapist Dr Cummings in August 2022 He mentioned pt underwent bronchoscopy. His lymph node did appear to be normal in appearance. In addition to that transbronchial biopsies demonstrated abnormal lung tissue concerning for malignancy. Therefore, in view of the benign appearing mediastinum and a solitary PET avid nodule now with evidence tumor cells he stated that the best option would be to resect. pulmonary function studies were reassuring although a decreased DLCO. ABG demonstrating normal pCO2 and normal PO2. The patient is not on oxygen. He still smokes cigarettes. Explained to him that we need to quit smoking long to move for with any aggressive intervention. The patient is agreeable to this. He was referred to thoracic surgeon about considering some type of lung resection that he can tolerate. With the nodular densities located in area with significant emphysema so therefore lung resection were also provide lung volume reduction surgery and may actually help his breathing some. Arteriosclerosis of coronary artery 06/20/2022 Assessment & Plan (10/10/2023 10:43 AM EDT): Denies any chest pain Patient to continue ASA, Atorvastatin unfortunately he continues to smoke. Not interested in quitting at the moment Assessment & Plan (10/06/2022 12:54 PM EDT): Continue ASA, Atorvastatin unfortunately he continues to smoke. Not interested in quitting at the moment, will make an appointment with Active Directory Engineer if he decides to proceed Nephrolithiasis 06/20/2022 Assessment & Plan (11/22/2022 1:20 PM EDT): Pt recently seen by Dr. Hernandez with bilateral kidney stones causing him pain. He recommended ESWL. This will be done, pt awaiting for an appointment Assessment & Plan (10/05/2022 5:06 PM EDT): Hx of this Tremor 09/26/2017 Assessment & Plan (10/05/2022 4:52 PM EDT): Under the care of Neurology, last seen 02/16/2022 On benztropine 1mg BID stopped carbidopa-levodopa and primidone Benign prostatic hyperplasia 02/23/2017 Assessment & Plan (10/05/2022 4:53 PM EDT): Pt feels good He initiated finasteride as recommended by urology, Last seen by Dr Hernandez 06/08/2021 Essential hypertension 03/26/2015 Assessment & Plan (05/14/2024 2:31 PM EST): Pt is here for a follow up BP Controlled currently he is on Amlodipine 5 mg po daily, no longer on Lisinopril Most recent electrolytes, Bun and Creatinine done on: 07/03/2023 were wnl. patient advised to adhere to a low sodium diet, encouraged about medication compliance. Assessment & Plan (01/09/2024 2:09 PM EDT): Controlled currently he is on Amlodipine 5 mg po daily, no longer on Lisinopril Most recent electrolytes, Bun and Creatinine done on: 07/03/2023 were wnl. patient advised to adhere to a low sodium diet, encouraged about medication compliance. Assessment & Plan (10/10/2023 10:30 AM EDT): Controlled currently he is on Amlodipine 5 mg po daily, no longer on Lisinopril Most recent electrolytes, Bun and Creatinine done on: 07/03/2023 were wnl. patient advised to adhere to a low sodium diet, encouraged about medication compliance. Assessment & Plan (11/22/2022 1:14 PM EDT): Controlled currently he is on Amlodipine 5 mg po daily, no longer on Lisinopril Most recent electrolytes, Bun and Creatinine done on: 09/22/2020 were wnl. Will repeat patient advised to adhere to a low sodium diet, encouraged about medication compliance. Assessment & Plan (10/06/2022 12:54 PM EDT): Controlled currently he is on Amlodipine 5 mg po daily, no longer on Lisinopril Most recent electrolytes, Bun and Creatinine done on: 09/22/2020 were wnl. Will repeat patient advised to adhere to a low sodium diet, encouraged about medication compliance. Peripheral vascular disease 03/04/2013 Assessment & Plan (10/10/2023 10:43 AM EDT): Here for a f/u He is S/p fem-pop bypass to help with previous Hx of osteomyelitis in the right foot, s/p toe amputations. 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 Last seen at [facility] 07/2023 recommended conservative approach and 6 month follow up Assessment & Plan (09/19/2023 11:45 AM EDT): Here for a f/u He is S/p fem-pop bypass to help with previous Hx of osteomyelitis in the right foot, s/p toe amputations. 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 Last seen at [facility] V[facility] surgery 07/2023 recommended conservative approach and 6 month follow up Assessment & Plan (10/05/2022 5:03 PM EDT): Here for a f/u He is S/p fem-pop bypass to help with previous Hx of osteomyelitis in the right foot, s/p toe amputations. 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 Congenital pelviureteric junction obstruction Chronic low back pain 01/27/2012 Assessment & Plan (10/05/2022 5:05 PM EDT): Pt here with chronic low back pain with previous extensive workup (see 03/04/13 note). Currently on Percocet, He is now out of his wheel chair and states that he will walk with his four-foot cane if he has his ELECTROMECHANICAL EQUIPMENT TESTER with him. Pt wanted to see Dr. Centeno again given his worsening back pain. Pt was referred but did not go to appointment. Repeat MRI 07/17/2015 showed; Chronic postoperative changes of decompressive laminectomies at L4 and L5 with a posterior spinal hardware fusion construct comprised of transpedicular screws extending from L4-S1. There is no canal stenosis. At L3-L4 there is symmetric subarticular zone narrowing related to multifactorial degenerative changes causing subtle medial displacement of the traversing L4 nerve roots. Mild symmetric compression of both L3 foraminal nerve roots at this level. Mild to moderate mass effect on the foraminal nerve root segments at L4-L5 and L5-S1 Currently not complaining Cobalamin deficiency 01/27/2012 Hyperlipidemia 01/27/2012 Assessment & Plan (01/09/2024 2:09 PM EDT): Patient with elevated lipids. Most recent lipid profile from: Lab Results Component Value Date TRIG 77 12/22/2023 CHOL 135 12/22/2023 LDLCHOLCAL 87 12/22/2023 HDL 33 (L) 12/22/2023 Currently on a regimen of: Atorvastatin 40mg po qhs. advised to try to adhere to a low cholesterol diet, counseled and educated about diet and exercise, Patient encouraged to come up with a personal goal for weight loss. Assessment & Plan (10/10/2023 10:46 AM EDT): Patient with elevated lipids. Most recent lipid profile from: 2019 shows a total cholesterol of: 133 triglycerides of: 85 HDL of: 31 and LDL of: 82 Currently on a regimen of: Atorvastatin 40mg po qhs. advised to try to adhere to a low cholesterol diet, counseled and educated about diet and exercise, Patient encouraged to come up with a personal goal for weight loss. Assessment & Plan (11/22/2022 1:15 PM EDT): Patient with elevated lipids. Most recent lipid profile from: 10/08/2018 shows a total cholesterol of: 123 triglycerides of: 70 HDL of: 31 and LDL of: 78 Currently on a regimen of: Atorvastatin 40mg po qhs. advised to try to adhere to a low cholesterol diet, counseled and educated about diet and exercise, Patient encouraged to come up with a personal goal for weight loss. Assessment & Plan (10/05/2022 5:04 PM EDT): Patient with elevated lipids. Most recent lipid profile from: 10/08/2018 shows a total cholesterol of: 123 triglycerides of: 70 HDL of: 31 and LDL of: 78 Currently on a regimen of: Atorvastatin 40mg po qhs. advised to try to adhere to a low cholesterol diet, counseled and educated about diet and exercise, Patient encouraged to come up with a personal goal for weight loss. Pulmonary nodule 1 cm or greater in diameter Assessment & Plan (09/19/2023 11:52 AM EDT): Most recent PET CT 06/21/2022 showed: Redemonstration of a 1.7 cm irregularly-shaped nodular-like [...] in the right inferior mandible suggesting periodontal disease He was last seen by his Drama Therapist Dr Cummings in August 2022 He mentioned pt underwent bronchoscopy. His lymph node did appear to be normal in appearance. In addition to that transbronchial biopsies demonstrated abnormal lung tissue concerning for malignancy. Therefore, in view of the benign appearing mediastinum and a solitary PET avid nodule now with evidence tumor cells he stated that the best option would be to resect. pulmonary function studies were reassuring although a decreased DLCO. ABG demonstrating normal pCO2 and normal PO2. The patient is not on oxygen. He still smokes cigarettes. Explained to him that we need to quit smoking long to move for with any aggressive intervention. He was referred to thoracic surgeon about considering some type of lung resection that he can tolerate. With the nodular densities located in area with significant emphysema so therefore lung resection were also provide lung volume reduction surgery and may actually help his breathing some. Pt was seen by Dr Shanice Morrison on 08/05/2022 He discussed with him diagnosis, staging, and treatment of lung cancer. He also discussed options of biopsy and possible radiation vs surgical resection. Either way he recommended to see a account development manager . He mentioned in the note that patient and his family wanted to take some time to discuss and decide how to move forward. Previous visit His ELECTROMECHANICAL EQUIPMENT TESTER told me that the appointment with Active Directory Engineer was cancelled since he was not convinced he wanted to proceed with Dr morrison recommendation. Today once again we discussed this, he still seems reluctant. He is still smoking and has not used the nicotine patches he was prescribed or the plastic cigarettes. Today again I had a conversation with him and his ELECTROMECHANICAL EQUIPMENT TESTER if he decides to go ahead with it he would ask his ELECTROMECHANICAL EQUIPMENT TESTER to contact the account development manager for an appointment and schedule a follow up with Dr Choe. Today in very clear terms he told me he dcid not want to pursue any type of surgical intervention. He verbalizes understanding that by doing this he is putting himself at risk of not treating a malignancy in its early stages and even . Assessment & Plan (01/03/2023 1:58 PM EDT): Most recent PET CT 06/21/2022 showed: Redemonstration of a 1.7 cm irregularly-shaped nodular-like [...] in the right inferior mandible suggesting periodontal disease He was last seen by his Drama Therapist Dr Cummings in August 2022 He mentioned pt underwent bronchoscopy. His lymph node did appear to be normal in appearance. In addition to that transbronchial biopsies demonstrated abnormal lung tissue concerning for malignancy. Therefore, in view of the benign appearing mediastinum and a solitary PET avid nodule now with evidence tumor cells he stated that the best option would be to resect. pulmonary function studies were reassuring although a decreased DLCO. ABG demonstrating normal pCO2 and normal PO2. The patient is not on oxygen. He still smokes cigarettes. Explained to him that we need to quit smoking long to move for with any aggressive intervention. He was referred to thoracic surgeon about considering some type of lung resection that he can tolerate. With the nodular densities located in area with significant emphysema so therefore lung resection were also provide lung volume reduction surgery and may actually help his breathing some. Pt was seen by Dr Shanice Morrison on 08/05/2022 He discussed with him diagnosis, staging, and treatment of lung cancer. He also discussed options of biopsy and possible radiation vs surgical resection. Either way he recommended to see a account development manager . He mentioned in the note that patient and his family wanted to take some time to discuss and decide how to move forward. Previous visit His ELECTROMECHANICAL EQUIPMENT TESTER told me that the appointment with Active Directory Engineer was cancelled since he was not convinced he wanted to proceed with Dr morrison recommendation. Today once again we discussed this, he still seems reluctant. He is still smoking and has not used the nicotine patches he was prescribed or the plastic cigarettes. Today again I had a conversation with him and his ELECTROMECHANICAL EQUIPMENT TESTER if he decides to go ahead with it he would ask his ELECTROMECHANICAL EQUIPMENT TESTER to contact the account development manager for an appointment and schedule a follow up with Dr Choe. Today in very clear terms he told me he dcid not want to pursue any type of surgical intervention. He verbalizes understanding that by doing this he is putting himself at risk of not treating a malignancy in its early stages and even . Assessment & Plan (11/23/2022 5:45 PM EDT): Most recent PET CT 06/21/2022 showed: Redemonstration of a 1.7 cm irregularly-shaped nodular-like [...] in the right inferior mandible suggesting periodontal disease He was last seen by his Drama Therapist Dr Cummings in August 2022 He mentioned pt underwent bronchoscopy. His lymph node did appear to be normal in appearance. In addition to that transbronchial biopsies demonstrated abnormal lung tissue concerning for malignancy. Therefore, in view of the benign appearing mediastinum and a solitary PET avid nodule now with evidence tumor cells he stated that the best option would be to resect. pulmonary function studies were reassuring although a decreased DLCO. ABG demonstrating normal pCO2 and normal PO2. The patient is not on oxygen. He still smokes cigarettes. Explained to him that we need to quit smoking long to move for with any aggressive intervention. He was referred to thoracic surgeon about considering some type of lung resection that he can tolerate. With the nodular densities located in area with significant emphysema so therefore lung resection were also provide lung volume reduction surgery and may actually help his breathing some. Pt was seen by Dr Shanice Morrison on 08/05/2022 He discussed with him diagnosis, staging, and treatment of lung cancer. He also discussed options of biopsy and possible radiation vs surgical resection. Either way he recommended to see a account development manager . He mentioned in the note that patient and his family wanted to take some time to discuss and decide how to move forward. Previous visit His ELECTROMECHANICAL EQUIPMENT TESTER told me that the appointment with Active Directory Engineer was cancelled since he was not convinced he wanted to proceed with Dr morrison recommendation. Today once again we discussed this, he still seems reluctant. He is still smoking and has not used the nicotine patches he was prescribed or the plastic cigarettes. Once again today I had a conversation with him and his ELECTROMECHANICAL EQUIPMENT TESTER if he decides to go ahead with it he would ask his ELECTROMECHANICAL EQUIPMENT TESTER to contact the account development manager for an appointment and schedule a follow up with Dr Choe. Assessment & Plan (10/06/2022 12:43 PM EDT): PET CT 06/21/2022 showed: Redemonstration of a 1.7 cm irregularly-shaped nodular-like [...] in the right inferior mandible suggesting periodontal disease He was last seen by his Drama Therapist Dr Cummings in August 2022 He mentioned pt underwent bronchoscopy. His lymph node did appear to be normal in appearance. In addition to that transbronchial biopsies demonstrated abnormal lung tissue concerning for malignancy. Therefore, in view of the benign appearing mediastinum and a solitary PET avid nodule now with evidence tumor cells he stated that the best option would be to resect. pulmonary function studies were reassuring although a decreased DLCO. ABG demonstrating normal pCO2 and normal PO2. The patient is not on oxygen. He still smokes cigarettes. Explained to him that we need to quit smoking long to move for with any aggressive intervention. The patient is agreeable to this. He was referred to thoracic surgeon about considering some type of lung resection that he can tolerate. With the nodular densities located in area with significant emphysema so therefore lung resection were also provide lung volume reduction surgery and may actually help his breathing some. Pt was seen by Dr Shanice Morrison on 08/05/2022 He discussed with him diagnosis, staging, and treatment of lung cancer. He also discussed options of biopsy and possible radiation vs surgical resection. Either way he recommended to see a account development manager . He mentioned in the note that patient and his family wanted to take some time to discuss and decide how to move forward. His ELECTROMECHANICAL EQUIPMENT TESTER told me that the appointment with Active Directory Engineer was cancelled since he was not convinced he wanted to proceed with Dr morrison recommendation. Today we discussed again, and he seems on the fence. He is still smoking and has not used the nicotine patches he was prescribed or the plastic cigarettes. I had a very detailed conversation with him and his ELECTROMECHANICAL EQUIPMENT TESTER today and he stated he would think about it and if he decides to go ahead with it he would ask his ELECTROMECHANICAL EQUIPMENT TESTER to contact the account development manager for an appointment and schedule a follow up with Dr Choe I have asked him to come in and see me in 1 month , he is agreable Rheumatoid arthritis involvi ng multiple sites with positive rheumatoid factor 01/27/2012 Assessment & Plan (03/28/2024 3:11 PM EDT): Under the care of Dr. Piter Maldonado. Last office visit 06/07/2023 On Remicade, Methotrexate and Gabapentin Has a f/u with him Assessment & Plan (09/19/2023 11:43 AM EDT): Under the care of Dr. Piter Maldonado. Last office visit 06/07/2023 On Remicade, Methotrexate and Gabapentin Has a f/u with him Assessment & Plan (10/05/2022 5:04 PM EDT): Under the care of Dr. Piter Maldonado. Last office visit 02/10/2022 Has a f/u with them Smoker 01/27/2012 Assessment & Plan (10/05/2022 5:09 PM EDT): Not interested in quitting Chronic type B viral hepatitis 01/27/2012 Insomnia 11/16/2011 Assessment & Plan (01/09/2024 2:15 PM EDT): Pt here for a f/u Used to get good results with Ambien 10 mg po q pm. Insurance no longer pays for it. Switched to Rozerem, with no good results he is currently on Trazodone 300 mg po qhs and Melatonin Good sleep hygiene habits discussed. Uses Benadryl 25 mg po qhs prn insomnia Assessment & Plan (10/10/2023 10:40 AM EDT): Pt here for a f/u Used to get good results with Ambien 10 mg po q pm. Insurance no longer pays for it. Switched to Rozerem, with no good results he is currently on Trazodone 300 mg po qhs and Melatonin Good sleep hygiene habits discussed. Uses Benadryl 25 mg po qhs prn insomnia Assessment & Plan (10/06/2022 10:46 AM EDT): Pt here for a f/u Used to get good results with Ambien 10 mg po q pm. Insurance no longer pays for it. Switched to Rozerem, with no good results he is currently on Trazodone 300 mg po qhs and Melatonin Good sleep hygiene habits discussed. pt still having problems with insomnia so Despite this he continue to c/o inability to fall asleep or remain asleep. Uses Benadryl 25 mg po qhs prn insomnia Obstructive sleep apnea syndrome 11/16/2011 Assessment & Plan (10/10/2023 10:41 AM EDT): He is no longer using CPAP machine per his report He promised to try it again Assessment & Plan (10/06/2022 10:46 AM EDT): using CPAP machine per his report Tubular adenoma 04/28/2006 Resolved Problems Problem Noted Date Diagnosed Date Resolved Date Pure hypercholesterolemia 03/26/2015 Encounters Date Type Department Care Team Description 07/11/2024 Orders Only GENERIC EXTERNAL DATA DEPARTMENT Provider, Generic External Data 07/11/2024 Refill [facility] [address] [place] [id number] Will Cole MD Essential hypertension 07/10/2024 Telephone [facility] [address] [place] [address] Melissa Fernando, ONEL 07/10/2024 Travel 07/05/2024 Telephone [facility] [address] [place] [address] Melissa Fernando, RN political advisor 07/03/2024 Refill [facility] [address] [place] [address] Will Cole MD Rib pain; Severe pain; Drug-induced constipation 06/28/2024 Telephone [facility] [address] [place] [id number] Will Cole MD Results; CT Results (CT lungs) 06/20/2024 Refill [facility] [address] [place] [address] Will Cole MD 06/13/2024 Refill [facility] [address] [place] [address] Will Cole MD Gastroesophageal reflux disease without esophagitis 06/07/2024 Refill [facility] [address] [place] [phone] Will Cole MD Gastroesophageal reflux disease without esophagitis 06/06/2024 Refill [facility] [address] [place] [address] Melissa Fernando RN Rib pain; Severe pain 06/06/2024 Telephone [facility] [address] [place] [address] Will Cole MD 05/15/2024 6:40 PM EST Office Visit [facility] [address] [place] [phone] Isiah Melendez MD Acute cystitis without hematuria (Primary Dx); UTI symptoms 05/15/2024 Telephone [facility] [address] [place] [phone] Yue Berman, ONEL 05/15/2024 Orders Only [facility] [address], [place] [address] Kecia Smith MD 05/15/2024 Orders Only [facility] [address], [place] [address] Kecia Smith MD Urinary tract infection with hematuria, site unspecified (Primary Dx) 05/15/2024 Orders Only [facility] [address], [place] [address] Kecia Smith MD 05/15/2024 Telephone [facility] [address], [place] [address] Will Cole MD Referral 05/15/2024 Refill [facility] [address] [facility] [place], [place] [address] Will Cole MD 05/14/2024 2:15 PM EST Office Visit [facility] [address], [place] [address] Will Cole MD Essential hypertension (Primary Dx); Rib pain; Body mass index (BMI) 20.0-20.9, adult 05/14/2024 Orders Only [facility] [address], [place] [address] Will Cole MD 05/14/2024 Telephone [facility] [address], [place] [address] Will Cole MD Referral 05/14/2024 Travel 05/10/2024 Telephone [facility] [address], [place] [address] Will Cole MD Durable Medical Equipment 05/09/2024 Telephone [facility] [address], [place] [address] Will Cole MD Durable Medical Equipment 05/09/2024 Telephone [facility] [address], [place] [address] Will Cole MD Durable Medical Equipment 05/08/2024 Refill [facility] [address] [place] [address] Will Cole MD Rib pain; Severe pain 05/07/2024 Telephone [facility] [address], [place] [phone] Will Cole MD Durable Medical Equipment 05/01/2024 Patient Outreach [facility] [address] [place] [address] Will Cole MD Pre-visit Planning (Pre-visit planning - LVM ) 04/17/2024 2:00 PM EST Office Visit [facility] [address] [place] [address] Kecia Smith MD UTI symptoms (Primary Dx); Acute otitis media, unspecified otitis media type from Last 3 Months Immunizations Name Administration Dates Next Due Hep A, Adult 08/12/2010 INFLUENZA INJECTABLE QUADRIV ALANT CCIIV4 MDCK Multi-dose vial 03/29/2019 Influenza High-dose Quadriva lent Preservative Free 03/24/2021,03/09/2020 Influenza injectable quadriv alent IIV4 with preservative 03/28/2016 Influenza injectable quadriv alent preservative free 03/23/2015 Influenza, High Dose Seasona l, Preservative Free 03/14/2018,02/23/2017 Influenza, IIV3, injectable 04/24/2014, 1 Influenza, Split (incl. francisca fied surface antigen) 03/04/2013,06/22/2012 Pneumococcal Conjugate PCV 13 05/10/2016 Pneumococcal Polysaccharide PPSV23 03/21/2015,,01/25/2013 RSV Bivalent 07/02/2024 TD (adult), 2 Lf tetanus tox oid, preservative free, adsorbed 09/03/2001 Tdap 01/31/2023,03/29/2012 Zoster, Recombinant 04/04/2023,01/31/2023 Zoster, live 03/31/2015 Social History Tobacco Use Types Packs/Day Years Used Date Smoking Tobacco: Every Day Cigarettes Passive Smoke Exposure: Current Smokeless Tobacco: Never Tobacco Cessation:Ready to Q uit: Not Asked; Counseling Given: Not Answered Alcohol Use Standard Drinks/Week Comments Not Currently [...] Orientation Straight 04/04/2022 10 :16 AM EDT Last Filed Vital Signs Vital Sign Reading Time Taken Comments Blood Pressure 131/77 05/15/2024 6:15 PM EST aut omatic Pulse 86 05/15/2024 6:15 PM EST Temperature 36.4 ??C (97.5 ??F) 05/15/2024 6:15 PM ES T Respiratory Rate 20 05/15/2024 6:15 PM EST Oxygen Saturation 94% 05/15/2024 6:15 PM EST Inhaled Oxygen Concentration - - Weight 61 kg (134 lb 8 oz) 05/15/2024 6:15 PM ES T Height 167.6 cm (5' 6 ) 05/15/2024 6:15 PM EST Body Mass Index 21.71 05/15/2024 6:15 PM EST Plan of Treatment Upcoming Encounters Date Type Department Care Team (Late st Contact Info) Description 08/27/2024 9:45 AM EDT Office Visit [facility] [address] [place] [phone] Health Maintenance Due Date Last Done Comments Hepatitis B Vaccines (1 of 3 - Risk 3-dose series) 2000 Hepatitis A Vaccines (2 of 2 - Risk 2-dose series) 02/12/2011 08/12/2010 COVID-19 Vaccine ( season) 2024 08/03/2021, 09/02/2020, 08/05/2020 Influenza Vaccine (#1) 2024 , 03/09/2020, 03/29/2019, Additional history exists SDOH Screening 09/18/2024 09/19/2023 Depression Screening 01/08/2025 01/09/2024, 01/09/20 Alcohol/Substance Use Screening 05/14/2025 05/14/2024 Tobacco Screening 05/15/2025 05/15/2024 Lipid Panel 12/21/2028 12/22/2023, 04/10/2020 DTaP/Tdap/Td Vaccines (3 - Td or Tdap) 01/31/2033 01/31/2023, 03/29/2012, 09/03/2001 Pneumococcal Vaccine: 50+ Years Completed 05/10/2016, 03/21/2015, 08/12/2014, Additional history exists Zoster Vaccines Completed 04/04/2023, 01/04, 03/31/2015 RSV Patients and Patients Aged 60 years or older Completed 07/02/2024 HIB Vaccines Aged Out No longer eligi ble based on patient's age to complete this topic HPV Vaccines Aged Out No longer eligi ble based on patient's age to complete this topic IPV Vaccines Aged Out No longer eligi ble based on patient's age to complete this topic Meningococcal Vaccine Aged Out No brianna davey eligible based on patient's age to complete this topic RSV under 20 months Aged Out No longe r eligible based on patient's age to complete this topic Rotavirus Vaccines Aged Out No longer eligible based on patient's age to complete this topic Procedures Procedure Name Priority Date/Time Associated Diagnosis Comments CULTURE, URINE, ROUTINE Routine 07/11/2024 10:[address] ABDOMEN PELVIS WO CONTRAST Routine 07/11/2024 7:55 PM EST URINALYSIS, COMPLETE, WITH REFLEX TO CULTURE Routine 07/11/2024 6:38 PM EST CBC WITH AUTO DIFFERENTIAL Routine 07/11/2024 6:[address] CHEST WO CONTRAST Urgent 06/21/2024 2:45 PM EST Pulmonary nodule 1 cm or greater in diameter Rib pain Severe pain URINALYSIS, COMPLETE, WITH REFLEX TO CULTURE Routine 05/15/2024 12:00 PM EST CULTURE, URINE, ROUTINE Routine 05/15/2024 12:00 PM EST HEPATITIS B CORE ANTIBODY (IGM) Routine 05/14/2024 2:45 PM EST HEPATITIS B CORE AB TOTAL Routine 05/14/2024 2:45 PM EST Essential hypertension HEPATITIS B SURFACE ANTIBODY, QUALITATIVE Routine 05/14/2024 2:45 PM EST Essential hypertension HEPATITIS B SURFACE ANTIGEN, EIA Routine 05/14/2024 2:45 PM EST Essential hypertension HEPATITIS C AB W/REFL TO HCV RNA, QN, PCR Routine 05/14/2024 2:45 PM EST Essential hypertension LIPID PANEL, STANDARD Routine 12/22/2023 8:24 AM EDT Mixed hyperlipidemia from Last 3 Months or Most Recently Relevant to Health Maintenance Results * Culture, Urine, Routine (07/11/2024 10:04 PM EST) Only the most recent of2 resultswithin the time period is included. Urine Urine specimen obtained by clean catch procedure / Unknown 07/11/2024 10:04 PM EST 07/11/2024 10:04 PM EST Comment:UACC Narrative [facility] - 07/15/2024 8:16 AM EST Escherichia [...] GENERAL ORDERABLES Final Result Performing Organization Address City/State/[facility] Co de Phone Number [facility] [address] [place] [address] [phone] * CT Abdomen Pelvis w/o Contrast (07/11/2024 7:55 PM EST) Anatomical Region Laterality Modality Body, Pelvis, Abdomen Computed T omography 07/11/2024 7:55 PM EST Narrative 07/11/2024 9:32 PM EST ? [facility] ?[address] ?[place] [address] ? CT Scan Report ? Signed ? Patient: Nilesh,Jabari ?MR#: [id number] ? : 1940 ?Acct:[id number] ? Age/Sex: 83 / M ?ADM Date: 02/06/25 ? Loc: HO.ED ? Attending Dr: ? Ordering Physician: Ivory Gomez MD ?? Date of Service: 07/11/24 ?? Procedure(s): CT abdomen pelvis wo IV con ?? Accession Number(s): [id number] ? cc: Will Smart MD; Ivory Gomez MD ? Report Number: ?? [id number]: Total DLP = ??352.00 mGy-cm ? CLINICAL [...] by Colby Patiño MD in OV> ? 07/11/242131 ? DD/ 54 ? TD/TT: 07/11/241954 ? Diamond Driller: ? Procedure Note Donotuseinterpreter, Image - 07/11/[address] [address] [address] Scan Report Signed Patient: Shannon Galloway#: [id number] : 1Acct:[id number] Age/Sex: 83 / MADM Date: 07/11/24 Loc: HO.ED Attending Dr: Ordering Physician: Ivory Gomez MD Date of Service: 07/11/24 Procedure(s): CT abdomen pelvis wo IV con Accession Number(s): [id number] cc: Will Smart MD; Ivory Gomez MD Report Number: [id number]: Total DLP = 352.00 mGy-cm CLINICAL HISTORY: [...] in OV> 07/11/242131 DD/ 54 TD/TT: 07/11/241954 Diamond Driller: [facility] External Provider IMG CT PROCEDURES Edited Result - Final * (ABNORMAL) Urinalysis, Complete, with Reflex to Culture (07/11/2024 6:38 PM EST) Only the most recent of2 resultswithin the time period is included. Color Urine DK YELLOW [facility] Appearance Urine Cloudy [facility] PH 6.0 5.0 - 9.0 [facility] Glucose Urine UA Negative Negative mg/dL [facility] Urine Blood Large (3+)(A) Negative [facility] Specific [place] - Urine >=1.030(H) 1.005 - 1.025 [facility] Urine Protein 100 (2+)(A) Neg-Trace mg/dL [facility] Urine Ketones Negative Negative mg/dL [facility] Nitrite Urine Negative Negative [facility] Leukocyte Esterase Urine Large (3+)(A) Negative [facility] RBC Urine 11-20(A) 0 - 2 /HPF [facility] Urine WBC >50 0 - 5 /HPF [facility] WBC CLUMPS, UR Present [facility] Urine Squamous Epithelial Cell 0-2 0 - 2 /HPF [facility] CALCIUM OXALATE CRYSTAL, UR Present [facility] Urine Bacteria 4+ None Seen [facility] Hyaline Casts, Urine 0-2 0 - 2 /LPF [facility] 07/11/2024 6:38 PM EST 07/11/2024 9:15 PM EST Narrative [facility] - 07/11/2024 9:41 PM EST Urine, Clean Catch us Generic External Data Provider LAB URINE ORDERAB LES Final Result [facility] [address] [place] [address] [phone] * (ABNORMAL) CBC auto differential (07/11/2024 6:35 PM EST) White Blood Count 10.6 4.8 - 10.8 X10*3/uL [facility] Red Blood Count 4.48(L) 4.60 - 5.80 X10*6/uL [facility] Hemoglobin 13.8(L) 14.0 - 18.0 g/dl [facility] Hematocrit 41.0(L) 42.0 - 52.0 % [facility] Mean Corpuscular Volume 91.5 80.0 - 98.0 fL [facility] Mean Corpuscular Hemoglobin 30.8 27.0 - 33.0 pg [facility] Mean Corpuscular HGB Conc 33.7 31.0 - 36.0 g/dl [facility] Red Cell Distribution Width 15.2 11.0 - 16.0 % [facility] Platelet Count 266 160 - 400 X10*3/uL [facility] Mean Platelet Volume 10.2 9.4 - 12.4 fL [facility] Neutrophils Percent Auto 72.1 45 - 73 % [facility] Imm Gran Pct Auto 0.3 0.0 - 0.4 % [facility] Lymphocytes Percent Auto 23.4 20 - 40 % [facility] Monocytes Percent Auto 3.7 2 - 11 % [facility] Eosinophils Percent Auto 0.2 0 - 4 % [facility] Basophils Percent Auto 0.3 0 - 2 % [facility] NRBC Pct Auto 0.0 0.0 - 0.2 /100WBC [facility] Neutrophils Absolute Auto 7.7 2.0 - 8.3 x10*3/uL [facility] Imm Gran Abs Auto 0.03 0.00 - 0.03 X10*3/uL [facility] Lymphocytes Absolute Auto 2.5 1.2 - 4.9 X10*3/uL [facility] Monocytes Absolute Auto 0.4 0.1 - 1.2 X10*3/uL [facility] Eosinophils Absolute Auto 0.0 0.0 - 0.4 X10*3/uL [facility] Basophils Absolute Auto 0.0 0.0 - 0.2 X10*3/uL [facility] NRBC Abs Auto 0.000 0.0 - 0.012 X10*3/uL [facility] 07/11/2024 6:35 PM EST 07/11/2024 10:23 PM EST us Generic External Data Provider LAB BLOOD ORDERAB LES Final Result Performing Organization Address City/State/[facility] Co de Phone Number [facility] [address] [place] [address] [phone] * CT Chest w/o Contrast (06/21/2024 2:45 PM EST) Anatomical Region Laterality Modality Body, Chest Computed Tomogra phy 06/21/2024 2:45 PM EST Narrative 06/21/2024 3:18 PM EST ? [facility] ?[address] ?[place] [address] ? CT Scan Report ? Signed ? Patient: Nilesh,Jabari ?MR#: [id number] ? : 1940 ?Acct:[id number] ? Age/Sex: 83 / M ?ADM Date: 01/17/25 ? Loc: HO.CT ? Attending Dr: Abimbola Felipe MD ? Ordering Physician: Abimbola Felipe ?? Date of Service: 06/21/24 ?? Procedure(s): CT chest wo IV con ?? Accession Number(s): [id number] ? cc: Abimbola Felipe ? Report Number: ?? [id number]: Total DLP = ?? 96.00 mGy-cm ?? EXAMINATION: ?? CT CHEST WITHOUT CONTRAST ? CLINICAL INFORMATION: ?? Pulmonary nodule ? COMPARISON: ?? None available. ? TECHNIQUE: ?? Multidetector volumetric CT imaging of the chest was done. Axial MIP ?? volume rendering provided. Sagittal and coronal reformatted images were ?? obtained. ? This CT examination was performed using dose optimization techniques as ?? appropriate, variously including the following: ?? *Automated exposure control ?? *Adjustment of mA and/or kV according to patient size (this includes ?? techniques or standardized protocols for targeted exams where dose is ?? matched to indication/reason for exam; i.e. extremities or head) ?? *Use of iterative reconstruction technique ? DLP: 96 mGy centimeter. ? FINDINGS: ?? Inadequate evaluation of the mediastinal structures due to lack of IV ?? contrast. ? There is a 27 x 22 x 32 mm spiculated attenuation in the peripheral ?? right upper lobe likely posterior segment abutting the pleura. ?? There is extensive honeycombing in a circumferential fashion both upper ?? and lower lung lobes. ?? Multiple saccular bronchiectasis. ?? Nodular attenuation center within the lumen of the airways extending ?? from the trachea to the left and right mainstem bronchi. ?? No pleural effusion. ?? No pneumothorax. ?? Lymphadenopathy, mediastinum. ?? No gross pericardial effusion. ?? No aneurysm in the thoracic aorta. ?? Calcified plaques in the thoracic aorta wall and the coronary arteries. ?? Multilevel spondylosis without acute fracture or listhesis. Osteopenia ?? versus osteoporosis. ?? No gross lytic or blastic lesions. ?? Dystrophic calcification in the left renal pelvis. ?? Calcified plaques in the abdominal aorta wall and the included ?? mesenteric arteries. ?? The superior mesenteric artery diameter is 1.2 cm. ? CT/CT chest wo IV con ?? IMPRESSION: ?? Slightly larger spiculated pulmonary nodule likely posterior segment ?? right upper lung lobe with associated lymphadenopathy. Malignancy ?? should be considered. ?? Endobronchial nodules versus secretions in the upper airways. ?? Coronary artery disease and atherosclerosis disease. ?? Chronic interstitial lung disease. ?? 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 ? Fleischner guidelines were followed. ? Electronically signed by: ??Celso Quiroz MD ??06/21/2024 03:15 PM ?? EST RP ? Dictated By: ?Celso Chinchilla MD ? Signed By: ?<Electronically signed by Celso Fernandes MD in OV> ? 06/21/24 1515 ? DD/ 1445 ? TD/TT: 06/21/24 1500 ? Diamond Driller: ? Procedure Note Donotuseinterpreter, Image - 06/21/[address] [address] [address] Scan Report Signed Patient: Shannon Galloway#: [id number] : 1Acct:[id number] Age/Sex: 83 / MADM Date: 06/21/24 Loc: HO.CT Attending Dr: Abimbola Felipe MD Ordering Physician: Abimbola Felipe Date of Service: 06/21/24 Procedure(s): CT chest wo IV con Accession Number(s): [id number] cc: Abimbola Felipe Report Number: [id number]: Total DLP = 96.00 mGy-cm EXAMINATION: CT CHEST WITHOUT CONTRAST CLINICAL INFORMATION: Pulmonary nodule COMPARISON: None available. TECHNIQUE: Multidetector volumetric CT imaging of the chest was done. Axial MIP volume rendering provided. Sagittal and coronal reformatted images were obtained. This CT examination was performed using dose optimization techniques as appropriate, variously including the following: *Automated exposure control *Adjustment of mA and/or kV according to patient size (this includes techniques or standardized protocols for targeted exams where dose is matched to indication/reason for exam; i.e. extremities or head) *Use of iterative reconstruction technique DLP: 96 mGy centimeter. FINDINGS: Inadequate evaluation of the mediastinal structures due to lack of IV contrast. There is a 27 x 22 x [...] Prominent 1.2 cm diameter, superior mesenteric artery. Fleischner guidelines were followed. Electronically signed by: Celso Quiroz MD 06/21/2024 03:15 PM EST Dictated By: Celso Chinchilla MD Signed By: <Electronically signed by Celso Fernandes MDin OV> 06/21/24 1515 DD/ 1445 TD/TT: 06/21/24 1500 Diamond Driller: Abimbola Felipe MD IMG CT PROCEDURES Edited Resul t - Final * Hepatitis C Antibody with Reflex to HCV, RNA, Quantitative, Real-Time PCR (05/14/2024 2:45 PM EST) Pathologist [facility] Hepatitis C Antibody Nonreactive Nonreactive [facility] Comment:Antibodies to HCV no t detected; does not exclude early acuteHCV infection. Blood Venous blood specimen / Unknown 05/14/2024 2:45 PM EST 05/14/2024 4:00 PM EST us Will Hardy MD LAB BLOOD ORDERABLES Final Result [facility] [address] [place] [phone] * (ABNORMAL) Hepatitis B Core??Antibody (IgM) (05/14/2024 2:45 PM EST) Hepatitis B Core Antibody IgM BORDERLINE (A) NON-REACT RAQUEL [facility] Comment:Verified by repeat a nalysis.For additional information, please refer [email or web address]/faq/KWB480(This link is being provided for informational/educational purposes only.)THIS TEST WAS PERFORMED AT:[facility] [place] [phone] JANG MD 05/14/2024 2:45 PM EST 05/14/2024 4:00 PM EST Will Hardy MD LAB BLOOD ORDERABLES Final Result Performing Organization Address [facility]/ZIP Co de Phone Number [facility] [address] [place] [phone] * Hepatitis B surface antigen, EIA (05/14/2024 2:45 PM EST) Hepatitis B Surface Ag Negative Negative [facility] Blood Venous blood specimen / Unknown 05/14/2024 2:45 PM EST 05/14/2024 4:00 PM EST Result [facility] Will Hardy MD LAB BLOOD ORDERABLES Final Result Performing Organization Address [facility] Co de Phone Number [facility] [address] [place] [phone] * Hepatitis B Core Antibody, Total (05/14/2024 2:45 PM EST) Hepatitis B Core Antibody Reactive Nonreactive [facility] Comment:Presumptive evidence of anti-HBc. Blood Venous blood specimen / Unknown 05/14/2024 2:45 PM EST 05/14/2024 4:00 PM EST Will Hardy MD LAB BLOOD ORDERABLES Final Result Performing Organization Address [facility] Co de Phone Number [facility] [address] [place] [phone] * Hepatitis B Surface Antibody, Qualitative (05/14/2024 2:45 PM EST) ~Hepatitis B Surface Antibody NONREACTIVE Nonreactive [facility] Comment:Nonreactive: < 8.00 mIU/mL Blood Venous blood specimen / Unknown 05/14/2024 2:45 PM EST 05/14/2024 4:00 PM EST Will Hardy MD LAB BLOOD ORDERABLES Final Result Performing Organization Address City/[facility]/ZIP Co de Phone Number [facility] [address] [place] [phone] * (ABNORMAL) Lipid Panel, Standard (12/22/2023 8:24 AM EDT) Triglycerides 77 <150 mg/dL [facility] Comment:Desirable Triglyceri de: less than 150 mg/dLBorderline High Triglyceride 150-199 mg/dLHigh Triglyceride: 200-499 mg/dLVery High Triglyceride: greater than or equal to 5OO mg/dL Cholesterol 135 <200 mg/dL [facility] Comment:Desirable Cholestero l: less than 200 mg/dLBorderline High Cholesterol: 200-239 mg/dLHigh Cholesterol: greater than 239 mg/dL LDL Cholesterol Calculated 87 <100 mg/dL [facility] Comment:Desirable LDL: less than 100 mg/dLNear Optimal/Above Optimal LDL: 110- 129 mg/dLBorderline High LDL: 130-159 mg/dLHigh LDL: 160-189 mg/dLVery High LDL: greater than or equal to 190 mg/dL HDL Cholesterol 33(L) >40 mg/dL [facility] Comment:Desirable HDL: great er than 40 mg/dL Note: This HDL assay may give artificially low results in patients with liver disease. Blood Venous blood specimen / Unknown 12/22/2023 8:24 AM EDT 12/22/2023 1:01 PM EDT Will Hardy MD LAB BLOOD ORDERABLES Final Result [facility] [address] [place], [place] [phone] from Last 3 Months or Most Recently Relevant to Health Maintenance Insurance [facility] H[facility]-SNP Care Teams Swimming Pool Attendant Relationship Specialty Start Date End Date Will Cole MD [address] [place] [address] PCP - General Internal Medicine 01/14/14
== END 2024-07-18 15:31 | disposition home or self-care (01) ==
PROVIDERS: PCP Internal Medicine; Visit Provider Hospitalist
DX: R91.1 Solitary pulmonary nodule (principal); J43.2 Centrilobular emphysema; F17.210 Nicotine dependence, cigarettes, uncomplicated; B02.29 Other postherpetic nervous system involvement
CPT/HCPCS: 99215; G2211

== ENCOUNTER → 2024-07-18 14:56 | Outpatient (BNVA) | payer OTHER, SELFPAY | PROVIDERS: PCP Internal Medicine; Visit Provider Hospitalist | DX: R91.1 Solitary pulmonary nodule (principal); J43.2 Centrilobular emphysema; B02.29 Other postherpetic nervous system involvement; C34.11 Malignant neoplasm of upper lobe, right bronchus or lung; F17.210 Nicotine dependence, cigarettes, uncomplicated | CPT/HCPCS: 99212 ==

== ENCOUNTER 2024-08-05 18:33 | Outpatient (REF) | payer OTHER, SELFPAY ==
--- OUTSIDE RECORDS SUMMARY | 2024-08-05 19:29 | XMS_ITS | Encounter Summary ---
Author Organization [employer] Address [address] [place] [address] Care Team Providers Care Mild Disabilities Teacher Name Role Phone Will Cole MD Primary Care Provide r Reason for Visit * Reason Comments Med Refill Encounter Details Date Type Department Care Team ([facility] Contact Info) Description 03/29/2023 Refill [facility] [address], [place] [phone] Name, MD Kevin [address] [place] [address] Social History Tobacco Use Types Packs/Day Years [...] Description 08/27/2024 9:45 AM EDT Office Visit [facility] [address] [place] [phone] 10/10/2024 2:30 PM EDT Office Visit [facility] [address] [place] [phone] Will Cole MD [address] [place] [phone] documented as of this encounter Visit Diagnoses Not on filedocumented in this encounter Additional Health Concerns Assessment Noted Time PHQ-9 Depression Total Score: 11 023 10:42 AM EDT documented as of this encounter Care Teams Mild Disabilities Teacher Relationship Specialty Start Date End Date Will Cole MD [address] [place] [phone] PCP - General Internal Medicine 01/14/14 documented as of this encounter
--- OUTSIDE RECORDS SUMMARY | 2024-08-05 19:29 | XMS_ITS | Encounter Summary ---
Author Organization [employer] Address [address] [facility] [address] [place] [address] Care Team Providers Care Superintendent Measurement Name Role Phone Will Cole MD Primary Care Provide r Reason for Visit * Reason Comments Med Refill Encounter Details Date Type Department Care Team ([facility] st Contact Info) Description 03/13/2023 Refill [facility] [address] [place], [place] [phone] Will Cole MD [address] [place] [address] Severe pain Social History Tobacco Use Types [...] Description 08/27/2024 9:45 AM EDT Office Visit [facility] [address] [place] [phone] 10/10/2024 2:30 PM EDT Office Visit [address] [phone] Will Cole MD [address] [place] [phone] documented as of this encounter Visit Diagnoses Diagnosis Severe pain documented in this encounter Additional Health Concerns Assessment Noted Time PHQ-9 Depression Total Score: 11 023 10:42 AM EDT documented as of this encounter Care Teams Superintendent Measurement Relationship Specialty Start Date End Date Will Cole MD [address] [place] [phone] PCP - General Internal Medicine 01/14/14 documented as of this encounter
--- OUTSIDE RECORDS SUMMARY | 2024-08-05 19:29 | XMS_ITS | Encounter Summary ---
Author Organization [employer] Address [address] [facility] 7t [place] [address] Care Team Providers Care Physical Ther Name Role Phone Will Cole MD Primary Care Provide r Encounter Details Date Type Department Care Team (Late st Contact Info) Description 07/26/2022 Orders Only [facility] [address] [place] [address] Ximena Cameron LPN Social History Tobacco Use [...] Description 08/27/2024 9:45 AM EDT Office Visit [address] [address] 10/10/2024 2:30 PM EDT Office Visit [address] [address] Will Cole MD [address] [place] [address] documented as of this encounter Procedures Procedure Name Priority Date/Time Associated Diagnosis Comments CELL BLOCK Routine 07/26/2022 9:31 AM EST CELL BLOCK Routine 07/26/2022 9:31 AM EST HEMATOXYLIN AND EOSIN STAIN Routine 07/26/2022 9:31 AM EST documented in this encounter Results * Cell Block (07/26/2022 9:31 AM EST) 07/26/2022 9:31 AM EST 07/27/2022 9:00 AM EST [facility] LABS - 07/30/2022 1:42 PM EST ----- ------- Name: Jabari Galloway ?Age/Sex: 81/M ? : 1940 Unit#: [id number] ?? Attend Dr: Jm Hernandez MD ?Re07/26/22 ?Status: DEP SDC ? Location: HO.SSS ?Disch: ? ----- ------- SPEC : [id number] ? RECD: 07/27/22-899 ? STATUS: ??SOUT ? REQ NUM: [id number] ? ROSEMARY: 07/26/22-31 ? SUBM DR: Jm Hernandez MD ? [...] Galloway ?Age/Sex: 81/M ? : 1940 Unit#: [id number] ?? Attend Dr: Jm Hernandez MD ?Re07/26/22 ?Status: DEP SDC ? Location: HO.SSS ?Disch: ? ----- ------- SPEC : [id number] ? RECD: 07/27/22-899 ? STATUS: ??SOUT ? REQ NUM: [id number] ? ROSEMARY: 07/26/22-930 ? SUBM DR: Jm Hernandez MD ? ENTERED: ??07/27/22-1507 ?SP TYPE: Cytology ? OTHR DR: Will Smart MD ?? ORDERED: ??Cell Block/2, Fine Ndl Asp/2, VICKIE/2, FNAIA/2 ? Copies To: ?? Will Smart MD ?? [address] ?? [place] [address] ?? [phone] ?? Jm Hernandez MD ?? [address] [place] [address] ?? [place] [address] ?? [phone] ----- ------- Signed (signature on file) Adele Leavitt 07/30/22 1342 ? ----- ------- ? END OF REPORT ? [facility] External Provider LAB CYT OLOGY ORDERABLES Final Result [facility] [address] [place] [phone] * Cell Block (07/26/2022 9:31 AM EST) 07/26/2022 9:31 AM EST 07/27/2022 9:00 AM EST [facility] LABS - 07/28/2022 4:37 PM EST ----- ------- Name: Jabari Galloway ?Age/Sex: 81/M ? : 1940 Unit#: [id number] ?? Attend Dr: Jm Hernandez MD ?Re07/26/22 ?Status: DEP SDC ? Location: HO.SSS ?Disch: ? ----- ------- SPEC : [id number] ? RECD: 07/27/22-899 ? STATUS: ??SOUT ? REQ NUM: [id number] ? ROSEMARY: 07/26/22-930 ? SUBM DR: Jm Hernandez MD ? ENTERED: ??07/27/22-1502 ?SP TYPE: Cytology ? OTHR DR: Will [...] Note: ??See also concurrent transbronchial biopsy report, [id number]. ?Clinical History Solitary pulmonary nodule ? Material Received ?? A: RUL washings ?? B: RUL brushings ? Gross Description A: 17 cc reddish fluid. ??Thin prep and cell block made. B: Received in [place]. ??Thin prep and cell block made. Copies To: ?? Will Smart MD ?? [address] ?? [place] [address] ?? [phone] ?? Jm Hernandez MD ?? [address] [place] [address] DR ?? [place] [address] ?? [phone] ? CONTINUED ON NEXT PAGE ----- ------- Name: Jabari Galloway ?Age/Sex: 81/M ? : 1940 Unit#: [id number] ?? Attend Dr: Jm Hernandez MD ?Re07/26/22 ?Status: DEP SDC ? Location: HO.SSS ?Disch: ? ----- ------- SPEC : [id number] ? RECD: 07/27/22 ? STATUS: ??SOUT ? REQ NUM: [id number] ? ROSEMARY: 07/26/22 ? SUBM DR: Jm Hernandez MD ? ENTERED: ??07/27/22-1501 ?SP TYPE: Cytology ? OTHR DR: Will Smart MD ?? ORDERED: ??Cell Block/2, Cyto-enhanced/2 ? ----- ------- Signed (signature on file) Adele Dagmar 07/28/221636 ? ----- ------- ? END OF REPORT ? [facility] External Provider LAB CYT OLOGY ORDERABLES Final Result [facility] [address] [place] [address] [phone] * Hematoxylin and Eosin Stain (07/26/2022 9:31 AM EST) 07/26/2022 9:3 1 AM EST 07/26/2022 12:00 PM EST Narrative [facility] - 07/28/2022 6:47 AM EST ----- ------- Name: Jabari Galloway ?Age/Sex: 81/M ? : 1940 Unit#: [id number] ?? Attend Dr: Jm Hernandez MD ?Re07/26/22 ?Status: DEP SDC ? Location: HO.SSS ?Disch: ? ----- ------- SPEC : [id number] ?RECD: 07/26/22-1200 ? STATUS: ??SOUT ? REQ NUM: [id number] ? ROSEMARY: 07/26/22-930 ? SUBM DR: Jm Hernandez MD ? ENTERED: ??07/26/22-123 ?SP TYPE: Surgical ? OTHR DR: Will [...] ?? [address] ?? [place] [address] ?? [phone] ?? Jm Hernandez MD ?? [address] [place] [address] ?? [place] [address] ?? [phone] ----- ------- Signed (signature on file) Richard Portillo MD 07/28/22 0647 ? ----- ------- ? END OF REPORT ? [facility] External Provider LAB BLO OD ORDERABLES Final Result [facility] [address] [place] [address] [phone] documented in this encounter Visit Diagnoses Not on filedocumented in this encounter Care Teams Physical Ther Relationship Specialty Start Date End Date Will Cole MD [address] [place] [phone] PCP - General Internal Medicine 01/14/14 documented as of this encounter
--- OUTSIDE RECORDS SUMMARY | 2024-08-05 19:29 | XMS_ITS | Encounter Summary ---
Author Organization [employer] Address [address] [facility] 7t [place] [address] Care Team Providers Care Reliability Specialist Name Role Phone Will Cole MD Primary Care Provide r Reason for Visit * Reason Comments Med Refill Encounter Details Date Type Department Care Team ([facility] st Contact Info) Description 07/11/2024 Refill [facility] [address] [place], [place] [phone] Will Cole MD [address] [place], [place] [phone] Essential hypertension Social History Tobacco Use Types [...] Description 08/27/2024 9:45 AM EDT Office Visit [address] [address] 10/10/2024 2:30 PM EDT Office Visit [address] [address] Will Cole MD [address] [place] [address] documented as of this encounter Visit Diagnoses Diagnosis Essential hypertension Unspecified essential hypertension documented in this encounter Additional Health Concerns Assessment Noted Time PHQ-9 Depression Total Score: 0 01/09/20 24 2:03 PM EDT documented as of this encounter Care Teams Reliability Specialist Relationship Specialty Start Date End Date Will Cole MD [address] [place] [address] PCP - General Internal Medicine 01/14/14 documented as of this encounter
--- OUTSIDE RECORDS SUMMARY | 2024-08-05 19:29 | XMS_ITS | Encounter Summary ---
Author Organization [employer] Address [address] [facility] 7t [place] [address] Care Team Providers Care Switch Coupler Name Role Phone Will Cole MD Primary Care Provide r Reason for Visit * Reason Comments Med Refill Encounter Details Date Type Department Care Team ([facility] st Contact Info) Description 08/29/2022 Refill [facility] [address] [place], [place] [phone] Will Cole MD [address] [place], [place] [phone] Severe pain Social History Tobacco Use Types [...] Description 08/27/2024 9:45 AM EDT Office Visit [address] [address] 10/10/2024 2:30 PM EDT Office Visit [address] [address] Will Cole MD [address] [place] [address] documented as of this encounter Visit Diagnoses Diagnosis Severe pain documented in this encounter Care Teams Switch Coupler Relationship Specialty Start Date End Date Will Cole MD [address] [place] [phone] PCP - General Internal Medicine 01/14/14 documented as of this encounter
--- OUTSIDE RECORDS SUMMARY | 2024-08-05 19:29 | XMS_ITS | Encounter Summary ---
Author Organization [employer] Address [address] [facility] [address] 7t [place] [address] Care Team Providers Care National Park Ranger Name Role Phone Will Cole MD Primary [...] Description 08/27/2024 9:45 AM EDT Office Visit [facility] [address] [place] [address] 10/10/2024 2:30 PM EDT Office Visit [address] [address] Will Cole MD [address] [place] [address] documented as of this encounter Visit Diagnoses Not on filedocumented in this encounter Additional Health Concerns Assessment Noted Time PHQ-9 Depression Total Score: 0 01/09/20 24 2:03 PM EDT documented as of this encounter Care Teams National Park Ranger Relationship Specialty Start Date End Date Will Cole MD [address] [place] [address] PCP - General Internal Medicine 01/14/14 documented as of this encounter
--- OUTSIDE RECORDS SUMMARY | 2024-08-05 19:29 | XMS_ITS | Encounter Summary ---
Author Organization [employer] Address [address] [facility] 7t [place] [address] Care Team Providers Care Bedspread Folder Name Role Phone Will Cole MD Primary Care Provide r Encounter Details Date Type Department Care Team ([facility] st Contact Info) Description 07/10/2024 Telephone [facility] MED & PEDS [address] [place] [address] Melissa Fernando RN [address] [place] [address] Social History Tobacco Use Types Packs/Day Years [...] Description 08/27/2024 9:45 AM EDT Office Visit [facility] MED[facility]INE [address] [place] [address] 10/10/2024 2:30 PM EDT Office Visit [facility] [address] [place] [address] Will Cole MD [address] [place] [address] documented as of this encounter Visit Diagnoses Not on filedocumented in this encounter Additional Health Concerns Assessment Noted Time PHQ-9 Depression Total Score: 0 01/09/20 24 2:03 PM EDT documented as of this encounter Care Teams Bedspread Folder Relationship Specialty Start Date End Date Will Cole MD [address] [place] [phone] PCP - General Internal Medicine 01/14/14 documented as of this encounter
--- OUTSIDE RECORDS SUMMARY | 2024-08-05 19:29 | XMS_ITS | Encounter Summary ---
Author Organization [employer] Address [address] [facility] 7t [place] [address] Care Team Providers Care Dean Name Role Phone Will Cole MD Primary Care Provide r Reason for Visit * Reason Comments Med Refill Encounter Details Date Type Department Care Team ([facility] st Contact Info) Description 04/11/2023 Refill [facility] MED & PEDS [address] [place], [place] [phone] Will Cole MD [address] [place] [address] Severe pain Social History Tobacco Use Types [...] Office Visit [facility] MEDICINE [address] [place] [address] 10/10/2024 2:30 PM EDT Office Visit [address] [address] Will Cole MD [address] [place] [address] documented as of this encounter Visit Diagnoses Diagnosis Severe pain documented in this encounter Additional Health Concerns Assessment Noted Time PHQ-9 Depression Total Score: 11 023 10:42 AM EDT documented as of this encounter Care Teams Dean Relationship Specialty Start Date End Date Will Cole MD [address] [place] [phone] PCP - General Internal Medicine 01/14/14 documented as of this encounter
--- OUTSIDE RECORDS SUMMARY | 2024-08-05 19:29 | XMS_ITS | Encounter Summary ---
Author Organization [employer] Address [address] [facility] 7t [place] [address] Care Team Providers Care Head Irrigator Name Role Phone Will Cole MD Primary [...] Description 08/27/2024 9:45 AM EDT Office Visit [facility] [address] [place] [address] 10/10/2024 2:30 PM EDT Office Visit [facility] [address] [place] [address] Will Cole MD [address] [place] [address] documented as of this encounter Procedures Procedure [...] 10:04 PM EST 07/11/2024 10:04 PM EST Comment:[facility] LABS - 07/15/2024 8:16 AM EST [...] GENERAL ORDERABLES Final Result Performing Organization Address City/State/[facility] Co de Phone Number [facility] [address] [place] [phone] * CT Abdomen Pelvis w/o Contrast (07/11/2024 7:55 PM EST) Anatomical Region Laterality Modality Body, Pelvis, Abdomen Computed T omography 07/11/2024 7:55 PM EST Narrative 07/11/2024 9:32 PM EST ? [facility] ?[address] [place] [address] ?[place] [address] ? CT Scan Report ? Signed ? Patient: Jabari Galloway ?MR#: [id number] ? : 1940 ?Acct:[id number] ? Age/Sex: 83 / M ?ADM Date: 07/11/24 ? Loc: HO.ED ? Attending Dr: ? Ordering Physician: Ivory Gomez MD ?? Date of Service: 07/11/24 ?? Procedure(s): CT abdomen pelvis wo IV con ?? Accession Number(s): [id number] ? cc: Will Smart MD; Ivory Gomez MD ? Report Number: ?? [id number]: Total DLP = ??352.00 mGy-cm ? CLINICAL [...] ? DD/ 54 ? TD/TT: 07/11/241954 ? [employer]: ? Procedure Note Luba Georges - 07/11/2024 [place] [phone] [place] [address] CT Scan Report Signed Patient: Jabari Galloway#: [id number] : 1Acct:[id number] Age/Sex: 83 / MADM Date: 07/11/24 Loc: HO.ED Attending Dr: Ordering Physician: Ivory Gomez MD Date of Service: 07/11/24 Procedure(s): CT abdomen pelvis wo IV con Accession Number(s): [id number] cc: Will Smart MD; Ivory Gomez MD Report Number: [id number]: Total DLP = 352.00 mGy-cm CLINICAL HISTORY: [...] in OV> 07/11/242131 DD/ 54 TD/TT: 07/11/241954 [employer]: us [facility] External Provider IMG CT PROCEDURES Edited Result - Final * (ABNORMAL) Urinalysis, Complete, with Reflex to Culture (07/11/2024 6:38 PM EST) Color Urine DK YELLOW [facility] Appearance Urine Cloudy [facility] PH 6.0 5.0 - 9.0 [facility] Glucose Urine UA Negative Negative mg/dL [facility] Urine Blood Large (3+)(A) Negative [facility] Specific [place] - Urine >=1.030(H) 1.005 - 1.025 [facility] Urine Protein 100 (2+)(A) Neg-Trace mg/dL [facility] Urine Ketones Negative Negative mg/dL [facility] Nitrite Urine Negative Negative [facility] Leukocyte Esterase Urine Large (3+)(A) Negative [facility] RBC Urine 11-20(A) 0 - 2 /HPF [facility] Urine WBC >50 0 - 5 /HPF [facility] WBC CLUMPS, UR Present [facility] Urine Squamous Epithelial Cell 0-2 0 - 2 /HPF [facility] CALCIUM OXALATE CRYSTAL, UR Present [facility] Urine Bacteria 4+ None Seen [facility] Hyaline Casts, Urine 0-2 0 - 2 /LPF [facility] 07/11/2024 6:38 PM EST 07/11/2024 9:15 PM EST Narrative [facility] - 07/11/2024 9:41 PM EST Urine, Clean Catch [employer] External Data Provider LAB URINE ORDERAB LES Final Result [facility] [address] [place] [address] [phone] * (ABNORMAL) CBC auto differential (07/11/2024 6:35 PM EST) White Blood Count 10.6 4.8 - 10.8 X10*3/uL [facility] Red Blood Count 4.48(L) 4.60 - 5.80 X10*6/uL [facility] Hemoglobin 13.8(L) 14.0 - 18.0 g/dl [facility] Hematocrit 41.0(L) 42.0 - 52.0 % [facility] Mean Corpuscular Volume 91.5 80.0 - 98.0 fL [facility] Mean Corpuscular Hemoglobin 30.8 27.0 - 33.0 pg [facility] Mean Corpuscular HGB Conc 33.7 31.0 - 36.0 g/dl [facility] Red Cell Distribution Width 15.2 11.0 - 16.0 % [facility] Platelet Count 266 160 - 400 X10*3/uL [facility] Mean Platelet Volume 10.2 9.4 - 12.4 fL [facility] Neutrophils Percent Auto 72.1 45 - 73 % [facility] Imm Gran Pct Auto 0.3 0.0 - 0.4 % [facility] Lymphocytes Percent Auto 23.4 20 - 40 % [facility] Monocytes Percent Auto 3.7 2 - 11 % [facility] Eosinophils Percent Auto 0.2 0 - 4 % [facility] Basophils Percent Auto 0.3 0 - 2 % [facility] NRBC Pct Auto 0.0 0.0 - 0.2 /100WBC [facility] Neutrophils Absolute Auto 7.7 2.0 - 8.3 x10*3/uL [facility] Imm Gran Abs Auto 0.03 0.00 - 0.03 X10*3/uL [facility] Lymphocytes Absolute Auto 2.5 1.2 - 4.9 X10*3/uL [facility] Monocytes Absolute Auto 0.4 0.1 - 1.2 X10*3/uL [facility] Eosinophils Absolute Auto 0.0 0.0 - 0.4 X10*3/uL [facility] Basophils Absolute Auto 0.0 0.0 - 0.2 X10*3/uL [facility] NRBC Abs Auto 0.000 0.0 - 0.012 X10*3/uL [facility] 07/11/2024 6:35 PM EST 07/11/2024 10:23 PM EST us [employer] External Data Provider LAB BLOOD ORDERAB LES Final Result [facility] [address] [place] [address] [phone] documented in this encounter Visit Diagnoses Not on filedocumented in this encounter Additional Health Concerns Assessment Noted Time PHQ-9 Depression Total Score: 0 01/09/20 24 2:03 PM EDT documented as of this encounter Care Teams Head Irrigator Relationship Specialty Start Date End Date Will Cole MD [address] [place] [phone] PCP - General Internal Medicine 01/14/14 documented as of this encounter
--- OUTSIDE RECORDS SUMMARY | 2024-08-05 19:29 | XMS_ITS | Clinical Summary ---
Author Organization [employer] Address [address] [place] [address] Care Team Providers Care Video And Sound Recorder Name Role Phone Will Cole MD Primary Care Provide r Allergies No known active allergies Medications Banophen 25 MG capsuleIndicati ons:Rash TAKE 1 CAPSULE BY MOUTH AT BEDTIME NEEDED FOR SLEEP 30 capsule 05/31/20 22 Active bacitracin 500 UNIT/GM ointment APPLY TOPICALLY TO AFFECTED AREA(S) EVERY 8 HOURS DIRECTED 01/19/20 22 Active carbidopa-levod opa (Sinemet) 25-100 MG tablet TAKE 1 TABLET BY MOUTH THREE TIMES DAILY 08/02/19 23 Active finasteride (Proscar) 5 MG tablet TAKE 1 TABLET BY MOUTH EVERY MORNING 05/03/20 22 Active folic acid (Folvite) 1 MG tablet TAKE 1 TABLET BY MOUTH EVERY MORNING 08/02/19 23 Active ipratropium-alb uterol (Duo-Neb) 0.5-2.5 mg/3 mL nebulizer solution INHALE 1 AMPULE USING A NEBULIZER TWICE DAILY 05/31/20 22 Active melatonin 3 MG tablet TAKE 1 TABLET BY MOUTH AT BEDTIME 08/02/19 23 Active methotrexate 2.5 MG tablet TAKE 8 TABLETS BY MOUTH EVERY MONDAY MORNING 08/02/19 23 Active naloxone (Narcan) 4 mg/0.1 mL nasal spray spray 0.1 milliliter by intranasal route in 1 nostril may repeat dose every 2-3 minutes as needed alternating nostrils with each dose 08/27/19 22 Active predniSONE (Deltasone) 10 MG tablet Take 10 mg by mouth in the morning. 03/22/20 23 Active clopidogrel (Plavix) 75 MG tablet Take 75 mg by mouth. 03/08/20 23 Active predniSONE (Deltasone) 5 MG tablet Take 5 mg by mouth in the morning. 06/07/19 24 Active naproxen (Naprosyn) 500 MG tabletIndicatio ns:Rib pain Take 1 tablet (500 mg) by mouth with breakfast and with evening meal. 20 tablet 10/06/19 24 2024 Active Diclofenac Sodium 1 % gelIndications: Chronic midline low back pain without sciatica Apply affected area BID 100 g 3 01/09/20 24 Active atorvastatin (Lipitor) 40 MG tablet TAKE 1 TABLET BY MOUTH EVERY DAY AT BEDTIME 90 tablet 1 03/05/20 24 Active Aspirin Low Dose 81 MG EC tablet TAKE 1 TABLET BY MOUTH AT BEDTIME 90 tablet 1 05/16/20 24 Active tamsulosin (Flomax) 0.4 MG 24 hr capsule TAKE 1 CAPSULE BY MOUTH EVERY MORNING (30 DAYS BEFORE BREAKFAST) 90 capsule 1 05/16/20 24 Active traZODone (Desyrel) 150 MG tablet TAKE 2 TABLETS BY MOUTH EVERY DAY AT BEDTIME 60 tablet 6 06/10/19 25 Active Multiple Vitamin (Multivitamin) tabletIndicatio ns:Gastroesopha geal reflux disease without esophagitis TAKE 1 TABLET BY MOUTH EVERY MORNING WITH FOOD 90 tablet 3 06/10/19 25 Active famotidine (Pepcid) 20 MG tabletIndicatio ns:Gastroesopha geal reflux disease without esophagitis TAKE 1 TABLET BY MOUTH TWICE DAILY IN THE MORNING AND IN THE EVENING 180 tablet 1 06/13/19 25 Active lactulose (Chronulac) 10 GM/15ML solution TAKE 15 ML BY MOUTH TWICE DAILY NEEDED FOR CONSTIPATION 900 mL 06/25/19 25 Active gabapentin (Neurontin) 800 MG tablet TAKE 1 TABLET BY MOUTH TWICE DAILY IN THE MORNING AND AT BEDTIME 05/22/20 24 Active oxyCODONE-aceta minophen (Percocet) 5-325 MG tabletIndicatio ns:Rib pain,Severe pain TAKE 1 TABLET BY MOUTH EVERY TWELVE HOURS NEEDED FOR SEVERE PAIN 56 tablet 07/04/19 25 Active docusate sodium (Colace) 100 MG capsuleIndicati ons:Drug-induce d constipation TAKE 1 CAPSULE BY MOUTH TWICE DAILY IN THE MORNING AND IN THE EVENING 180 capsule 07/04/19 25 Active amLODIPine (Norvasc) 5 MG tabletIndicatio ns:Essential hypertension TAKE 1 TABLET BY MOUTH EVERY MORNING 90 tablet 07/11/19 25 Active phenazopyridine (Pyridium) 200 MG tablet Take 1 tablet (200 mg) by mouth if needed in the morning, at noon, and at bedtime for bladder spasms for up to 5 days. 15 tablet 08/06/19 25 2024 Active sulfamethoxazol e-trimethoprim (Bactrim DS) 800-160 MG tablet Take 1 tablet by mouth 2 times daily for 10 days. 20 tablet 08/06/19 25 2024 Active amLODIPine (Norvasc) 5 MG tabletIndicatio ns:Essential hypertension TAKE 1 TABLET BY MOUTH EVERY MORNING 90 tablet 04/02/20 24 2024 Discontinued Active Problems Problem Noted Date Diagnosed Date Lower urinary tract symptoms (LUTS) 08/05/2024 Assessment & Plan (08/05/2024 5:36 PM EST): Unclear if related to BPH versus kidney stone, order renal ultrasound Acute pyelonephritis 08/05/2024 Assessment & Plan (08/05/2024 5:36 PM EST): Unclear if arising from kidney stones versus BPH. Will order renal bladder ultrasound. Based in his most recent urine culture, I will give him Bactrim x 10 days and follow-up today's urine culture. He will call MTX this week I will restart it once he completes antibiotics Advised to increase water intake, take Pyridium as needed. Jyotsna his MOTORCYCLE FABRICATOR will call urology to schedule an appointment. Patient is to follow-up with his PCP within 4 to 5 weeks Acute cystitis without hematuria 05/15/2024 Body mass [...] every 3 months Rx: Percocet 5/325mg BID WATER [employer]TER Agreement last signed: 09/27/23 Routine physical examination 10/10/2023 Assessment & Plan (10/10/2023 10:50 AM EDT): Pt is deconditioned, will refer to Physical Therapy Physical deconditioning 10/10/2023 Assessment & Plan (10/10/2023 10:40 AM EDT): Will refer to Physical therapy Acute cystitis with hematuria 10/10/2023 Assessment & Plan (10/10/2023 10:53 AM EDT): Diagnosed 10/05 treated with Augmentin Ucx sensitive Pt asymptomatic [...] patient cancelled/ no showed. Will contact his MOTORCYCLE FABRICATOR to find out if this can be [...] is almost his birthday. He appreciates his MOTORCYCLE FABRICATOR's involvement in his life for the past [...] is almost his birthday. He appreciates his MOTORCYCLE FABRICATOR's involvement in his life for the past [...] is almost his birthday. He appreciates his MOTORCYCLE FABRICATOR's involvement in his life for the past [...] is almost his birthday. He appreciates his MOTORCYCLE FABRICATOR's involvement in his life for the past [...] Hematology Last Hgb up to 8.2 03/09/[address] [facility] health care 10/05/2022 Assessment & Plan (10/10/2023 10:46 AM EDT): Pneumovax: 08/12/2014 Tdap: 03/29/2012 Zoster: 03/31/2015 Colonoscopy with tubular adenomas '06, [place]11 [place] [facility] [place]; repeat 07/15/13 was normal. Assessment & Plan (10/05/2022 5:09 PM EDT): Pneumovax: 08/12/2014 Tdap: 03/29/2012 Zoster: 03/31/2015 Colonoscopy with tubular adenomas '06, [place]03[place]11 [place] [facility] [place]; repeat 07/15/13 was normal. History of [...] disease He was last seen by his Marketing Compliance Manager Dr Cummings in August 2022 He mentioned [...] move for with any aggressive intervention. Pts MOTORCYCLE FABRICATOR tells me he refuses to use the [id number] patches and does not like to use [...] disease He was last seen by his Marketing Compliance Manager Dr Cummings in August 2022 He mentioned [...] the moment, will make an appointment with [facility] if he decides to proceed Nephrolithiasis 06/20/2022 [...] for in stent re-stenosis. 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 Last seen at [facility] 07/2023 recommended conservative approach and [...] his four-foot cane if he has his MOTORCYCLE FABRICATOR with him. Pt wanted to see Dr. [...] disease He was last seen by his Marketing Compliance Manager Dr Cummings in August 2022 He mentioned [...] Either way he recommended to see a water pump servicer . He mentioned in the note that patient and his family wanted to take some time to discuss and decide how to move forward. Previous visit His MOTORCYCLE FABRICATOR told me that the appointment with [facility] was cancelled since he was not convinced he wanted to proceed with Dr morrison recommendation. Today once again we discussed this, he still seems reluctant. He is still smoking and has not used the nicotine patches he was prescribed or the plastic cigarettes. Today again I had a conversation with him and his MOTORCYCLE FABRICATOR if he decides to go ahead with it he would ask his MOTORCYCLE FABRICATOR to contact the water pump servicer for an appointment and schedule a follow [...] disease He was last seen by his Marketing Compliance Manager Dr Cummings in August 2022 He mentioned [...] Either way he recommended to see a water pump servicer . He mentioned in the note that patient and his family wanted to take some time to discuss and decide how to move forward. Previous visit His MOTORCYCLE FABRICATOR told me that the appointment with [facility] was cancelled since he was not convinced he wanted to proceed with Dr morrison recommendation. Today once again we discussed this, he still seems reluctant. He is still smoking and has not used the nicotine patches he was prescribed or the plastic cigarettes. Today again I had a conversation with him and his MOTORCYCLE FABRICATOR if he decides to go ahead with it he would ask his MOTORCYCLE FABRICATOR to contact the water pump servicer for an appointment and schedule a follow [...] disease He was last seen by his Marketing Compliance Manager Dr Cummings in August 2022 He mentioned [...] Either way he recommended to see a water pump servicer . He mentioned in the note that patient and his family wanted to take some time to discuss and decide how to move forward. Previous visit His MOTORCYCLE FABRICATOR told me that the appointment with [facility] was cancelled since he was not convinced he wanted to proceed with Dr morrison recommendation. Today once again we discussed this, he still seems reluctant. He is still smoking and has not used the nicotine patches he was prescribed or the plastic cigarettes. Once again today I had a conversation with him and his MOTORCYCLE FABRICATOR if he decides to go ahead with it he would ask his MOTORCYCLE FABRICATOR to contact the water pump servicer for an appointment and schedule a follow [...] disease He was last seen by his Marketing Compliance Manager Dr Cummings in August 2022 He mentioned [...] Either way he recommended to see a water pump servicer . He mentioned in the note that patient and his family wanted to take some time to discuss and decide how to move forward. His MOTORCYCLE FABRICATOR told me that the appointment with [facility] was cancelled since he was not convinced he wanted to proceed with Dr morrison recommendation. Today we discussed again, and he seems on the fence. He is still smoking and has not used the nicotine patches he was prescribed or the plastic cigarettes. I had a very detailed conversation with him and his MOTORCYCLE FABRICATOR today and he stated he would think about it and if he decides to go ahead with it he would ask his MOTORCYCLE FABRICATOR to contact the water pump servicer for an appointment and schedule a follow [...] Encounters Date Type Department Care Team Description 08/05/2024 2:20 PM EST Office Visit [facility] [address] [place] [address] Georgina Hines MD Lower urinary tract symptoms (LUTS) (Primary Dx); Acute pyelonephritis; Other microscopic hematuria 08/05/2024 Telephone [facility] [address] [place] [address] Georgina Hines MD Medication Question 07/11/2024 Orders Only GENERIC EXTERNAL DATA DEPARTMENT Provider, Generic External Data 07/11/2024 Refill [facility] [address] [place] [address] Will Cole MD Essential hypertension 07/10/2024 Telephone [facility] [address] [place] [address] Melissa Fernando, ONEL 07/10/2024 Travel 07/05/2024 Telephone [facility] [address] [place] [address] Melissa Fernando, ONEL hand gluer and slicer 07/03/2024 Refill [facility] [address] [place] [address] Will Cole MD Rib pain; Severe pain; Drug-induced constipation 06/28/2024 Telephone [facility] [address] [place] [address] Will Cole MD Results; CT Results (CT lungs) 06/20/2024 Refill [facility] [address] [place] [address] Will Cole MD 06/13/2024 Refill [facility] [address] [place] [address] Will Cole MD Gastroesophageal reflux disease without esophagitis 06/07/2024 Refill [facility] [address] [place] [address] Will Cole MD Gastroesophageal reflux disease without esophagitis 06/06/2024 Refill [facility] [address] [place] [address] Melissa Fernando, ONEL Rib pain; Severe pain 06/06/2024 Telephone [facility] [address] [place] [address] Will Cole MD 05/15/2024 6:40 PM EST Office Visit [facility] [address] [place] [address] Isiah Melendez MD Acute cystitis without hematuria (Primary Dx); UTI symptoms 05/15/2024 Telephone [facility] [address] [place] [address] Yue Berman RN 05/15/2024 Orders Only [facility] [address] [place] [address] Kecia Smith MD 05/15/2024 Orders Only [facility] [address] [place] [address] Kecia Smith MD Urinary tract infection with hematuria, site unspecified (Primary Dx) 05/15/2024 Orders Only [facility] [address] [place] [address] Kecia Smith MD 05/15/2024 Telephone [facility] [address] [place] [address] Will Cole MD Referral 05/15/2024 Refill [facility] [address] [place] [address] Will Cole MD 05/14/2024 2:15 PM EST Office Visit [facility] [address] [place] [address] Will Cole MD Essential hypertension (Primary Dx); Rib pain; Body mass index (BMI) 20.0-20.9, adult 05/14/2024 Orders Only [facility] [address] [place] [address] Will Cole MD 05/14/2024 Telephone [facility] [address] [place] [address] Will Cole MD Referral 05/14/2024 Travel 05/10/2024 Telephone [facility] [address] [place] [address] Will Cole MD Durable Medical Equipment 05/09/2024 Telephone [facility] [address] [place] [address] Will Cole MD Durable Medical Equipment 05/09/2024 Telephone [facility] [address] [place] [address] Will Cole MD Durable Medical Equipment 05/08/2024 Refill [facility] [address] [place] [address] Will Cole MD Rib pain; Severe pain 05/07/2024 Telephone [facility] [address] [place] [address] Will Cole MD Durable Medical Equipment from Last 3 Months Immunizations Name Administration [...] Sign Reading Time Taken Comments Blood Pressure 131/81 08/05/2024 2:13 PM EST Pulse 73 08/05/2024 2:13 PM EST Temperature 37.1 ??C (98.7 ??F) 08/05/2024 2:13 PM ES T Respiratory Rate 16 08/05/2024 2:13 PM EST Oxygen Saturation 99% 08/05/2024 2:13 PM EST Inhaled Oxygen Concentration - - Weight 61 kg (134 lb 8 oz) 05/15/2024 6:15 PM ES T Height 167.6 cm (5' 6 ) 05/15/2024 6:15 PM EST Body Mass Index 21.71 05/15/2024 6:15 PM EST Plan of Treatment Upcoming Encounters Date Type Department Care Team (Late st Contact Info) Description 08/27/2024 9:45 AM EDT Office Visit [facility] [address] [place] [phone] 10/10/2024 2:30 PM EDT Office Visit [facility] [address] [facility] [place] [address] Will Cole MD [address] [facility] [place] [place] [address] Health Maintenance Due Date Last Done Comments Hepatitis B Vaccines (1 of 3 - Risk 3-dose series) 2000 Hepatitis A Vaccines (2 of 2 - Risk 2-dose series) 02/12/2011 08/12/2010 COVID-19 Vaccine ( season) 2024 08/03/2021, 09/02/2020, 08/05/2020 Influenza Vaccine (#1) 2024 , 03/09/2020, 03/29/2019, Additional history exists SDOH Screening 09/18/2024 09/19/2023 Depression Screening 01/08/2025 01/09/2024, 01/09/20 24 Alcohol/Substance Use Screening 05/14/2025 05/14/2024 Tobacco Screening [...] Procedure Name Priority Date/Time Associated Diagnosis Comments POCT URINALYSIS DIPSTICK Routine 08/05/2024 2:40 PM EST Lower urinary tract symptoms (LUTS) CULTURE, URINE, ROUTINE Routine 07/11/2024 10:04 PM [...] Recently Relevant to Health Maintenance Results * (ABNORMAL) POCT urinalysis dipstick manually resulted (08/05/2024 2:40 PM EST) Color, UA Yellow Clarity, UA Cloudy Glucose, UA Negative Bilirubin, UA Negative Ketones, UA Negative Spec Grav, UA 1.020 Blood, UA Positive(A) Negative, None Detected Comment:Moderate pH, UA 6.0 Protein, UA 3+ 500+++ Comment:300mg Urobilinogen, UA 1.0 Leukocytes, UA Rare Negative, Rare, Trace Nitrite, UA Positive(A) Negative, None Detected Appearance, UA ok Urine 08/05/2024 2:40 PM EST us Georgina Hines MD POINT OF CARE TEST ENTER /EDIT ORDERABLES Final Result * Culture, Urine, Routine (07/11/2024 10:04 PM EST) Only the most recent of2 resultswithin the time period is included. Urine Urine specimen obtained by clean catch procedure / Unknown 07/11/2024 10:04 PM EST 07/11/2024 10:04 PM EST Comment:UACC Narrative [facility] - 07/15/2024 8:16 AM EST Escherichia [...] LAB MICROBIOLOGY - GENERAL ORDERABLES Final Result [facility] [address] [place] [address] [phone] * CT Abdomen Pelvis w/o Contrast (07/11/2024 7:55 PM EST) Anatomical Region Laterality Modality Body, Pelvis, Abdomen Computed T omography 07/11/2024 7:55 PM EST Narrative 07/11/2024 9:32 PM EST ? [facility] ?[address] ?[place] [address] ? CT Scan Report ? Signed ? Patient: Nilesh,Jabari ?MR#: [id number] ? : 1940 ?Acct:[id number] ? Age/Sex: 83 / M ?ADM Date: 07/11/24 ? Loc: HO.ED ? Attending Dr: ? Ordering Physician: Ivory Gomez MD ?? Date of Service: 07/11/24 ?? Procedure(s): CT abdomen pelvis wo IV con ?? Accession Number(s): [id number] ? cc: Will Smart MD; Ivory Gomez MD ? Report Number: ?? [id number]: Total DLP = ??352.00 mGy-cm ? CLINICAL [...] ? DD/ 54 ? TD/TT: 07/11/241954 ? And Rescue Fire Fighter Crash Fire: ? Procedure Note Luba Georges - 07/11/[address] [place] [address] [address] Scan Report Signed Patient: Shannon Galloway#: [id number] : 1Acct:[id number] Age/Sex: 83 / MADM Date: 07/11/24 Loc: HO.ED Attending Dr: Ordering Physician: Ivory Gomez MD Date of Service: 07/11/24 Procedure(s): CT abdomen pelvis wo IV con Accession Number(s): [id number] cc: Will Smart MD; Ivory Gomez MD Report Number: [id number]: Total DLP = 352.00 mGy-cm CLINICAL HISTORY: [...] This document has been electronically signed by: oClby Patiño MD on 07/11/2024 19:55:29 Dictated By: Colby Patiño MD Signed By: <Electronically signed by Colby Patiño MD in OV> 07/11/242131 DD/ 54 TD/TT: 07/11/241954 And Rescue Fire Fighter Crash Fire: [facility] External Provider IMG CT PROCEDURES Edited Result - Final * (ABNORMAL) Urinalysis, Complete, with Reflex to Culture (07/11/2024 6:38 PM EST) Only the most recent of2 resultswithin the time period is included. Color Urine DK YELLOW [facility] Appearance Urine Cloudy [facility] PH 6.0 5.0 - 9.0 [facility] Glucose Urine UA Negative Negative mg/dL [facility] Urine Blood Large (3+)(A) Negative [facility] Specific [place] - Urine >=1.030(H) 1.005 - 1.025 [facility] Urine Protein 100 (2+)(A) Neg-Trace mg/dL [facility] Urine Ketones Negative Negative mg/dL [facility] Nitrite Urine Negative Negative [facility] Leukocyte Esterase Urine Large (3+)(A) Negative [facility] RBC Urine 11-20(A) 0 - 2 /HPF [facility] Urine WBC >50 0 - 5 /HPF [facility] WBC CLUMPS, UR Present [facility] Urine Squamous Epithelial Cell 0-2 0 - 2 /HPF [facility] CALCIUM OXALATE CRYSTAL, UR Present [facility] Urine Bacteria 4+ None Seen [facility] Hyaline Casts, Urine 0-2 0 - 2 /LPF [facility] 07/11/2024 6:38 PM EST 07/11/2024 9:15 PM EST Narrative [facility] - 07/11/2024 9:41 PM EST Urine, Clean Catch us Generic External Data Provider LAB URINE ORDERAB LES Final Result [facility] [address] [place] [address] [phone] * (ABNORMAL) CBC auto differential (07/11/2024 6:35 PM EST) White Blood Count 10.6 4.8 - 10.8 X10*3/uL [facility] Red Blood Count 4.48(L) 4.60 - 5.80 X10*6/uL [facility] Hemoglobin 13.8(L) 14.0 - 18.0 g/dl [facility] Hematocrit 41.0(L) 42.0 - 52.0 % [facility] Mean Corpuscular Volume 91.5 80.0 - 98.0 fL [facility] Mean Corpuscular Hemoglobin 30.8 27.0 - 33.0 pg [facility] Mean Corpuscular HGB Conc 33.7 31.0 - 36.0 g/dl [facility] Red Cell Distribution Width 15.2 11.0 - 16.0 % [facility] Platelet Count 266 160 - 400 X10*3/uL [facility] Mean Platelet Volume 10.2 9.4 - 12.4 fL [facility] Neutrophils Percent Auto 72.1 45 - 73 % [facility] Imm Gran Pct Auto 0.3 0.0 - 0.4 % [facility] Lymphocytes Percent Auto 23.4 20 - 40 % [facility] Monocytes Percent Auto 3.7 2 - 11 % [facility] Eosinophils Percent Auto 0.2 0 - 4 % [facility] Basophils Percent Auto 0.3 0 - 2 % [facility] NRBC Pct Auto 0.0 0.0 - 0.2 /100WBC [facility] Neutrophils Absolute Auto 7.7 2.0 - 8.3 x10*3/uL [facility] Imm Gran Abs Auto 0.03 0.00 - 0.03 X10*3/uL [facility] Lymphocytes Absolute Auto 2.5 1.2 - 4.9 X10*3/uL [facility] Monocytes Absolute Auto 0.4 0.1 - 1.2 X10*3/uL [facility] Eosinophils Absolute Auto 0.0 0.0 - 0.4 X10*3/uL [facility] Basophils Absolute Auto 0.0 0.0 - 0.2 X10*3/uL [facility] NRBC Abs Auto 0.000 0.0 - 0.012 X10*3/uL [facility] 07/11/2024 6:35 PM EST 07/11/2024 10:23 PM EST us Generic External Data Provider LAB BLOOD ORDERAB LES Final Result [facility] [address] [place] [address] [phone] * CT Chest w/o Contrast (06/21/2024 2:45 PM EST) Anatomical Region Laterality Modality Body, Chest Computed Tomogra phy 06/21/2024 2:4 5 PM EST Narrative 06/21/2024 3:18 PM EST ? [facility] ?[address] ?[place] [address] ? CT Scan Report ? Signed ? Patient: Jabari Galloway ?MR#: [id number] ? : 1940 ?Acct:[id number] ? Age/Sex: 83 / M ?ADM Date: 06/21/24 ? Loc: HO.CT ? Attending Dr: Abimbola Felipe MD ? Ordering Physician: Abimbola Felipe ?? Date of Service: 06/21/24 ?? Procedure(s): CT chest wo IV con ?? Accession Number(s): [id number] ? cc: Abimbola Felipe ? Report Number: ?? [id number]: Total DLP = ?? 96.00 mGy-cm ?? [...] Quiroz MD ??06/21/2024 03:15 PM ?? EST ? Dictated By: ?Celso Chinchilla MD ? Signed By: ?<Electronically signed by Celso Fernandes MD in OV> ? 06/21/24 1515 ? DD/ 1445 ? TD/TT: 06/21/24 1500 ? And Rescue Fire [employer] Crash Fire: ? Procedure Note [place], [place] - 06/21/[address] [address] [address] Scan Report Signed Patient: Shannon Galloway#: [id number] : 1Acct:[id number] Age/Sex: 83 / MADM Date: 06/21/24 Loc: HO.CT Attending Dr: Abimbola Felipe MD Ordering Physician: Abimbola Felipe Date of Service: 06/21/24 Procedure(s): CT chest wo IV con Accession Number(s): [id number] cc: Abimbola Felipe Report Number: [id number]: Total DLP = 96.00 mGy-cm EXAMINATION: CT [...] by: Celso Quiroz MD 06/21/2024 03:15 PM [facility] Dictated By: Celso Chinchilla MD Signed By: <Electronically signed by Celso Fernandes MDin OV> 06/21/24 1515 DD/ 1445 TD/TT: 06/21/24 1500 And Rescue Fire Fighter Crash Fire: us Abimbola Felipe MD IMG CT PROCEDURES Edited Resul t - Final * Hepatitis C Antibody with Reflex to HCV, RNA, Quantitative, Real-Time PCR (05/14/2024 2:45 PM EST) Pathologist [facility] Hepatitis C Antibody Nonreactive Nonreactive [facility] Comment:Antibodies to HCV no t detected; does not exclude early acuteHCV infection. Blood Venous blood specimen / Unknown 05/14/2024 2:45 PM EST 05/14/2024 4:00 PM EST Will Hardy MD LAB BLOOD ORDERABLES Final Result Performing Organization Address [facility]/ZIP Co de Phone Number [facility] [address] [place] [address] [phone] * (ABNORMAL) Hepatitis B Core??Antibody (IgM) (05/14/2024 2:45 PM EST) Pathologist [facility] Hepatitis B Core Antibody IgM BORDERLINE (A) NON-REACT RAQUEL [facility] Comment:Verified by repeat a nalysis.For additional information, please refer tohttp://education.[employer]/faq/TKV367(This link is being provided for informational/educational purposes only.)THIS TEST WAS PERFORMED AT:[facility] [place] [phone] JANG MD 05/14/2024 2:45 PM EST 05/14/2024 4:00 PM EST Will Hardy MD LAB BLOOD ORDERABLES Final Result Performing Organization Address [facility]/ZIP Co de Phone Number [facility] [address] [place] [phone] * Hepatitis B surface antigen, EIA (05/14/2024 2:45 PM EST) Pathologist [facility] Hepatitis B Surface Ag Negative Negative [facility] Blood Venous blood specimen / Unknown 05/14/2024 2:45 PM EST 05/14/2024 4:00 PM EST us Wlil Hardy MD LAB BLOOD ORDERABLES Final Result Performing Organization Address [facility] Co de Phone Number [facility] [address] [place] [phone] * Hepatitis B Core Antibody, Total (05/14/2024 2:45 PM EST) Hepatitis B Core Antibody Reactive Nonreactive [facility] Comment:Presumptive evidence of anti-HBc. Blood Venous blood specimen / Unknown 05/14/2024 2:45 PM EST 05/14/2024 4:00 PM EST us Will Hardy MD LAB BLOOD ORDERABLES Final Result Performing Organization Address [facility] Phone Number [facility] [address] [place] [phone] * Hepatitis B Surface Antibody, Qualitative (05/14/2024 2:45 PM EST) ~Hepatitis B Surface Antibody NONREACTIVE Nonreactive [facility] Comment:Nonreactive: < 8.00 mIU/mL Blood Venous blood specimen / Unknown 05/14/2024 2:45 PM EST 05/14/2024 4:00 PM EST us Will Hardy MD LAB BLOOD ORDERABLES Final Result Performing Organization Address [facility] Co de Phone Number [facility] [address] [place] [phone] * (ABNORMAL) Lipid Panel, Standard (12/22/2023 8:24 AM EDT) Triglycerides 77 <150 mg/dL [facility] Comment:Desirable Triglyceri de: less than 150 mg/dLBorderline High Triglyceride 150-199 mg/dLHigh Triglyceride: 200-499 mg/dLVery High Triglyceride: greater than or equal to 5OO mg/dL Cholesterol 135 <200 mg/dL [facility] Comment:Desirable Cholestero l: less than 200 mg/dLBorderline High Cholesterol: 200-239 mg/dLHigh Cholesterol: greater than 239 mg/dL LDL Cholesterol Calculated 87 <100 mg/dL [facility] Comment:Desirable LDL: less than 100 mg/dLNear Optimal/Above Optimal LDL: 110- 129 mg/dLBorderline High LDL: 130-159 mg/dLHigh LDL: 160-189 mg/dLVery High LDL: greater than or equal to 190 mg/dL HDL Cholesterol 33(L) >40 mg/dL [facility] Comment:Desirable HDL: great er than 40 mg/dL Note: This HDL assay may give artificially low results in patients with liver disease. Blood Venous blood specimen / Unknown 12/22/2023 8:24 AM EDT 12/22/2023 1:01 PM EDT Will Hardy MD LAB BLOOD ORDERABLES Final Result [facility] [address] [place] [phone] from Last 3 Months or Most Recently Relevant to Health Maintenance Insurance [facility] Care Teams Video And Sound Recorder Relationship Specialty Start Date End Date Will Cole MD [address] [place] [phone] PCP - General Internal Medicine 01/14/14
--- OUTSIDE RECORDS SUMMARY | 2024-08-05 19:30 | XMS_ITS | Encounter Summary ---
Author Organization [facility]ly [facility] [employer] [facility] Address [address] [facility] 7t [place] [address] Care Team Providers Care Marriage And Family Teacher Name Role Phone Will Cole MD Primary Care Provide r Encounter Details Date Type Department Care Team (Latest Contact Info) Description 10/15/2018 Abstract [facility] CONVERSIONS Dental, Provider, DDS Social [...] Description 08/27/2024 9:45 AM EDT Office Visit [facility] MEDICINE [address] [place] [phone] 10/10/2024 2:30 PM EDT Office Visit [facility] MEDICINE [address] [place] [phone] Will Cole MD [address] [place] [address] documented as of this encounter Visit Diagnoses Not on filedocumented in this encounter Care Teams Marriage And Family Teacher Relationship Specialty Start Date End Date Will Cole MD [address] [place] [phone] PCP - General Internal Medicine 01/14/14 documented as of this encounter
--- OUTSIDE RECORDS SUMMARY | 2024-08-05 19:30 | XMS_ITS | Encounter Summary ---
Author Organization [facility] [employer] Address [address] [facility] 7t [place] [address] Care Team Providers Care Sliver Lap Tender Name Role Phone Will Cole MD Primary Care Provide r Reason for Referral * Consultation (Urgent) - Pending Review Specialty Diagnoses / Procedures Referred By Jose Alejandro michaels Referred To Contact Urology Diagnoses Lower urinary tract symptoms (LUTS) Georgina Hines MD [address] [place] [address] Phone: tel: fax: Referral ID Status Reason Start Date Expiration Date Visits Requested Visits Authorized [id number] Pending Review Specialty Services Required 08/05/2024 08/05/2025 1 1 Scheduling Instructions Patient has monthly UTIs x 1y, sees Dr Hernandez at [facility] urology, please schedule fu aptp w him within 1-2mo, last note in the chart was on 2022 * Imaging (Routine) - Authorized Specialty Diagnoses / Procedures Referred By Contjennifer t Referred To Contact Radiology Diagnoses Acute pyelonephritis Other microscopic hematuria Procedures US Renal Urinary bladder Georgina Hines MD [address] [place] [address] Phone: tel: fax: [address] Phone: tel: fax: Referral ID Status Reason Start Date Expiration Date V isits Requested Visits Authorized [id number] Authorized 08/05/2024 08/05/2025 1 1 * Imaging (Routine) - Authorized Specialty Diagnoses / Procedures Referred By Contac t Referred To Contact Radiology Diagnoses Acute pyelonephritis Other microscopic hematuria Procedures US RENAL BI Georgina Hines MD [address] [place] [address] Phone: tel: fax: [address] Phone: tel: fax: Referral ID Status Reason Start Date Expiration Date V isits Requested Visits Authorized [id number] Authorized 08/05/2024 08/05/2025 1 1 Reason for Visit * Reason Comments UTI Can't give sample. Encounter Details Date Type Department Care Team (Late st Contact Info) Description 08/05/2024 2:20 PM EST Office Visit [facility] [address] [place] [address] [phone] Georgina Hines MD [address] [place] [phone] Lower urinary tract symptoms (LUTS) (Primary Dx); Acute pyelonephritis; Other microscopic hematuria Social History Tobacco Use Types Packs/Day Years [...] AM EDT documented as of this encounter Last Filed Vital Signs Vital Sign Reading Time Taken Comments Blood Pressure 131/81 08/05/2024 2:13 PM EST Pulse 73 08/05/2024 2:13 PM EST Temperature 37.1 ??C (98.7 ??F) 08/05/2024 2:13 PM ES T Respiratory Rate 16 08/05/2024 2:13 PM EST Oxygen Saturation 99% 08/05/2024 2:13 PM EST Inhaled Oxygen Concentration - - Weight - - Height - - Body Mass Index - - documented in this encounter Progress Notes * Georgina Hines MD - 08/05/2024 2:20 PM EST SUBJECTIVE: Jabari Galloway is a 83 y.o. year old male who presents for Walk In Center/UTI sxs . Denies recent illness, injury, or hospitalization. Acute Concerns: Patient complaining of increased urinary frequency, but dysuria, lower abdominal pain radiated to his back for the past week. He reportedly does not have any fever or chills, nausea or diarrhea. He has been treated for recurrent UTIs for the past 2 months. He has BPH and history of kidney stones, reportedly on Flomax nightly on med boxes. Patient asked me to call his HEEL SEAT FLAP STAPLER Jyotsna who tells me that the last time he saw urology was last year and will see him once per year only. She denies episodes of gross hematuria, fever or chills. 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 Review of Systems Constitutional: Negative for fever. HENT: Negative for congestion, ear pain, rhinorrhea and sore throat. Eyes: Negative for pain and discharge. Respiratory: Negative for cough and shortness of breath. Cardiovascular: Negative for chest pain. Gastrointestinal: Positive for abdominal pain. Negative for constipation, diarrhea and nausea. Endocrine: Negative for polydipsia. Genitourinary: Positive for difficulty urinating, dysuria, flank pain and frequency. Musculoskeletal: Positive for back pain. Negative for arthralgias and neck pain. Neurological: Negative for dizziness, numbness and headaches. Psychiatric/Behavioral: Negative for agitation. OBJECTIVE: Vitals: 08/05/24 1413 BP: 131/81 Pulse: 73 Resp: 16 Temp: 98.7 ??F (37.1 ??C) SpO2: 99% Physical Exam Exam conducted with a tire center supervisor present (Kirill Gonzalez MA). Constitutional: Appearance: Normal appearance. HENT: Right Ear: Tympanic membrane and ear canal normal. Left Ear: Tympanic membrane and ear canal normal. Mouth/Throat: Mouth: Mucous membranes are moist. Pharynx: No oropharyngeal exudate or posterior oropharyngeal erythema. Eyes: Pupils: Pupils are equal, round, and reactive to light. Cardiovascular: Rate and Rhythm: Normal rate and regular rhythm. Heart sounds: No murmur heard. Pulmonary: Breath sounds: Normal breath sounds. No wheezing. Abdominal: General: Bowel sounds are normal. Palpations: Abdomen is soft. Tenderness: There is abdominal tenderness in the suprapubic area. There is right CVA tenderness andleft CVA tenderness. There is no guarding. Genitourinary: Penis: Normal. No phimosis, erythema, tenderness, discharge or swelling. Testes: Normal. Epididymis: Right: Normal. No tenderness. Left: Normal. No tenderness. Musculoskeletal: General: Normal range of motion. Cervical back: Normal range of motion. No tenderness. Lumbar back: Tenderness present. Comments: Patient is on the wheelchair, he is able to stand up by himself. Lymphadenopathy: Lower Body: No right inguinal adenopathy. No left inguinal adenopathy. Skin: General: Skin is warm. Neurological: General: No focal deficit present. Mental Status: He is alert and oriented to person, place, and time. Psychiatric: Mood and Affect: Mood normal. Office Visit on 08/05/2024 Component Date Value Ref Range Status Color, UA 08/05/2024 Yellow Final Clarity, UA 08/05/2024 Cloudy Final Glucose, UA 08/05/2024 Negative Final Bilirubin, UA 08/05/2024 Negative Final Ketones, UA 08/05/2024 Negative Final Spec Grav, UA 08/05/2024 1.020 Final Blood, UA 08/05/2024 Positive (A) Negative, None Detected Final Moderate pH, UA 08/05/2024 6.0 Final Protein, UA 08/05/2024 3+ 500+++ Final 300mg Urobilinogen, UA 08/05/2024 1.0 Final Leukocytes, UA 08/05/2024 Rare Negative, Rare, Trace Final Nitrite, UA 08/05/2024 Positive (A) Negative, None Detected Final Appearance, UA 08/05/2024 ok Final Problem List Items Addressed This Visit Lower urinary tract symptoms (LUTS) - Primary Unclear if related to BPH versus kidney stone, order renal ultrasound Relevant Orders POCT urinalysis dipstick manually resulted (Completed) Culture, Urine, Routine Acute pyelonephritis Unclear if arising from kidney stones versus BPH. Will order renal bladder ultrasound. Based in his most recent urine culture, I will give him Bactrim x 10 days and follow-up today's urine culture. He will call MTX this week I will restart it once he completes antibiotics Advised to increase water intake, take Pyridium as needed. Jyotsna his HEEL SEAT FLAP STAPLER will call urology to schedule an appointment. Patient is to follow-up with his PCP within 4 to 5 weeks Relevant Orders US RENAL BI US Renal Urinary bladder Other Visit Diagnoses Other microscopic hematuria Relevant Orders US RENAL BI US Renal Urinary bladder Follow Up: Current Outpatient Medications on File Prior to Visit Medication Sig Dispense Refill amLODIPine (Norvasc) 5 MG tablet TAKE 1 TABLET BY MOUTH EVERY MORNING 90 tablet 0 Aspirin Low Dose 81 MG EC tablet TAKE 1 TABLET BY MOUTH AT BEDTIME 90 tablet 1 atorvastatin (Lipitor) 40 MG tablet TAKE 1 TABLET BY MOUTH EVERY DAY AT BEDTIME 90 tablet 1 bacitracin 500 UNIT/GM ointment APPLY TOPICALLY TO AFFECTED AREA(S) EVERY 8 HOURS DIRECTED Banophen 25 MG capsule TAKE 1 CAPSULE BY MOUTH AT BEDTIME NEEDED FOR SLEEP 30 capsule 0 carbidopa-levodopa (Sinemet) 25-100 MG tablet TAKE 1 TABLET BY MOUTH THREE TIMES DAILY clopidogrel (Plavix) 75 MG tablet Take 75 mg by mouth. Diclofenac Sodium 1 % gel Apply affected area BID 100 g 3 docusate sodium (Colace) 100 MG capsule TAKE 1 CAPSULE BY MOUTH TWICE DAILY IN THE MORNING AND IN THE EVENING 180 capsule 0 famotidine (Pepcid) 20 MG tablet TAKE 1 TABLET BY MOUTH TWICE DAILY IN THE MORNING AND IN THE EVENING 180 tablet 1 finasteride (Proscar) 5 MG tablet TAKE 1 TABLET BY MOUTH EVERY MORNING folic acid (Folvite) 1 MG tablet TAKE 1 TABLET BY MOUTH EVERY MORNING gabapentin (Neurontin) 800 MG tablet TAKE 1 TABLET BY MOUTH TWICE DAILY IN THE MORNING AND AT BEDTIME ipratropium-albuterol (Duo-Neb) 0.5-2.5 mg/3 mL nebulizer solution INHALE 1 AMPULE USING A NEBULIZER TWICE DAILY lactulose (Chronulac) 10 GM/15ML solution TAKE 15 ML BY MOUTH TWICE DAILY NEEDED FOR CONSTIPATION 900 mL 0 melatonin 3 MG tablet TAKE 1 TABLET BY MOUTH AT BEDTIME methotrexate 2.5 MG tablet TAKE 8 TABLETS BY MOUTH EVERY MONDAY MORNING Multiple Vitamin (Multivitamin) tablet TAKE 1 TABLET BY MOUTH EVERY MORNING WITH FOOD 90 tablet 3 naloxone (Narcan) 4 mg/0.1 mL nasal spray spray 0.1 milliliter by intranasal route in 1 nostril mayrepeat dose every 2-3 minutes as needed alternating nostrils with each dose naproxen (Naprosyn) 500 MG tablet Take 1 tablet (500 mg) by mouth with breakfast and with evening meal. 20 tablet 0 oxyCODONE-acetaminophen (Percocet) 5-325 MG tablet TAKE 1 TABLET BY MOUTH EVERY TWELVE HOURS NEEDED FOR SEVERE PAIN 56 tablet 0 predniSONE (Deltasone) 10 MG tablet Take 10 mg by mouth in the morning. predniSONE (Deltasone) 5 MG tablet Take 5 mg by mouth in the morning. tamsulosin (Flomax) 0.4 MG 24 hr capsule TAKE 1 CAPSULE BY MOUTH EVERY MORNING (30 DAYS BEFORE BREAKFAST) 90 capsule 1 traZODone (Desyrel) 150 MG tablet TAKE 2 TABLETS BY MOUTH EVERY DAY AT BEDTIME 60 tablet 6 No current facility-administered medications on file prior to visit. documented in this encounter Miscellaneous Notes * Assessment & Plan Note - Georgina Hines MD - 08/05/2024 5:36 PM EST Associated Problem(s): Lower urinary tract symptoms (LUTS) Unclear if related to BPH versus kidney stone, order renal ultrasound * Assessment & Plan Note - Georgina Hines MD - 08/05/2024 5:33 PM EST Associated Problem(s): Acute pyelonephritis Unclear if arising from kidney stones versus BPH. Will order renal bladder ultrasound. Based in his most recent urine culture, I will give him Bactrim x 10 days and follow-up today's urine culture. He will call MTX this week I will restart it once he completes antibiotics Advised to increase water intake, take Pyridium as needed. Jyotsna his HEEL SEAT FLAP STAPLER will call urology to schedule an appointment. Patient is to follow-up with his PCP within 4 to 5 weeks documented in this encounter Plan of Treatment Upcoming Encounters Date Type Department Care Team (Late st Contact Info) Description 08/27/2024 9:45 AM EDT Office Visit [address] [address] 10/10/2024 2:30 PM EDT Office Visit [facility] [address] [place] [phone] Will Cole MD [address] [place] [phone] Scheduled Orders Name Type Priority Associated Diagnoses Orde r Schedule US RENAL BI Imaging Routine Acute pyelonephritis Other microscopic hematuria Expected: 08/05/2024 (Approximate), Expires: 08/05/2025 US Renal Urinary bladder Imaging Routine Acute pyelonephritis Other microscopic hematuria Expected: 08/05/2024 (Approximate), Expires: 08/05/2025 Culture, Urine, Routine Microbiology Routine Lower urinary tract symptoms (LUTS) Ordered: 08/05/2024 Scheduled Referrals Name Type Priority Associated Diagnoses Orde r Schedule Referral to Urology Outpatient Referral Urgent Lower urinary tract symptoms (LUTS) Expected: 08/05/2024 (Approximate), Expires: 08/05/2025 documented as of this encounter Procedures Procedure Name Priority Date/Time Associated Diagnosis Comments POCT URINALYSIS DIPSTICK Routine 08/05/2024 2:40 PM EST Lower urinary tract symptoms (LUTS) documented in this encounter Results * (ABNORMAL) POCT urinalysis dipstick manually [...] UA ok Urine 08/05/2024 2:40 PM EST Georgina Hines MD POINT OF CARE TEST ENTER /EDIT ORDERABLES Final Result documented in this encounter Visit Diagnoses Diagnosis Lower urinary tract symptoms (LUTS)- Primary Acute pyelonephritis Acute pyelonephritis without lesion of renal medullary necrosis Other microscopic hematuria documented in this encounter Additional Health Concerns Assessment Noted Time PHQ-9 Depression Total Score: 0 01/09/20 24 2:03 PM EDT documented as of this encounter Care Teams Sliver Lap Tender Relationship Specialty Start Date End Date Will Cole MD [address] [place] [phone] PCP - General Internal Medicine 01/14/14 documented as of this encounter
--- OUTSIDE RECORDS SUMMARY | 2024-08-05 19:30 | XMS_ITS | Encounter Summary ---
Author Organization [employer] Address [address] [facility] 7t [place] [address] Care Team Providers Care Stock Patch Sawyer Name Role Phone Will Cole MD Primary Care Provide r Encounter Details Date Type Department Care Team (Late st Contact Info) Description 12/29/2023 Orders Only [facility] [address] [place], [place] [phone] Abimbola Felipe MD [address] [place], [place] [phone] Social History Tobacco Use Types Packs/Day Years [...] Description 08/27/2024 9:45 AM EDT Office Visit [facility] [address] [place] [phone] 10/10/2024 2:30 PM EDT Office Visit [address] [address] Will Cole MD [address] [place] [phone] documented as of this encounter Visit Diagnoses Not on filedocumented in this encounter Additional Health Concerns Assessment Noted Time PHQ-9 Depression Total Score: 0 09/19/19 24 11:37 AM EDT documented as of this encounter Care Teams Stock Patch Sawyer Relationship Specialty Start Date End Date Will Cole MD [address] [place] [phone] PCP - General Internal Medicine 01/14/14 documented as of this encounter
--- OUTSIDE RECORDS SUMMARY | 2024-08-05 19:30 | XMS_ITS | Encounter Summary ---
Author Organization [employer] Address [address] [facility] 7t [place] [address] Care Team Providers Care Director Plans Name Role Phone Will Cole MD Primary Care Provide r Reason for Visit * Reason Onset Date Comments Durable Medical Equipment 03/20/2024 Encounter Details Date Type Department Care Team ([facility] st Contact Info) Description 03/20/2024 Telephone [facility] [address] [place], [place] [phone] Will Cole MD [address] [place], [place] [phone] Durable Medical Equipment Social History Tobacco Use [...] chair. She would like script sent to [facility]. If any questions you can contact Jyotsna/pt at [phone]. * Telephone Encounter - Harvey Hernandez - 03/20/2024 11:25 AM EDT Tc from Jyotsna requesting a recliner as soon as possible stating pt does have one that they received years ago but the chair is broken and pt is at risk of falling due to the state of the chair. She would like script sent to [facility]. If any questions you can contact Jyotsna/pt at [phone]. documented in this encounter Plan of Treatment Upcoming Encounters Date Type Department Care Team (Late st Contact Info) Description 08/27/2024 9:45 AM EDT Office Visit [facility] [address] [place] [address] 10/10/2024 2:30 PM EDT Office Visit [facility] [address] [facility] [place] [address] Will Cole MD [address] [place] [address] documented as of this encounter Visit Diagnoses Not on filedocumented in this encounter Additional Health Concerns Assessment Noted Time PHQ-9 Depression Total Score: 0 01/09/20 24 2:03 PM EDT documented as of this encounter Care Teams Director Plans Relationship Specialty Start Date End Date [place] [address] PCP - General Internal Medicine 01/14/14 documented as of this encounter
--- OUTSIDE RECORDS SUMMARY | 2024-08-05 19:30 | XMS_ITS | Encounter Summary ---
Author Organization [employer] Address [address] [facility] 7t [place] [address] Care Team Providers Care Psychodramatist Name Role Phone Will Cole MD Primary Care Provide r Reason for Visit * Reason Onset Date Comments Medication Question 08/05/2024 Encounter Details Date Type Department Care Team ([facility] st Contact Info) Description 08/05/2024 Telephone [facility] [address] [place], [place] [phone] Georgina Hines MD [address] [place], [place] [phone] Medication Question Social History Tobacco Use Types Packs/Day Years [...] encounter Miscellaneous Notes * Telephone Encounter - Staci Cameron RN - 08/05/2024 5:45 PM EST Walk In ONEL Trevino spoke with [facility] pharmacy staff Rosalina, and per Belinda, rx is covered under insurance but Azo is not. TC placed to pt regarding message below(no alliance party listed in HIPAA to release information on most recent form 10/10/23.) Pt informed rx Bactrim prescribed at Walk In Visit today is covered under insurance but Azo is not. Pt verbalized understanding and inquiring when he can pick rx up. RN advised pt topick up rx tomorrow unless pt can come tonight prior to pharmacy closing at 6pm. Pt verbalized understanding and to turkey picker rx tomorrow. No further questions or concerns expressed at this time. Pt toF/U as needed. TC from [employer] reports pt was seen today br Dr Hines at [facility] . Was prescribed sulfamethoxazole-trimethoprim (Bactrim DS) 800-160 MG tablet that is not covered by Insurance . Looking for alternative medication * Telephone Encounter - Markus Lunsford - 08/05/2024 4:05 PM EST TC from [employer] reports pt was seen today br Dr Hines at [facility] . Was prescribed sulfamethoxazole-trimethoprim (Bactrim DS) 800-160 MG tablet that is not covered by Insurance . Looking for alternative medication documented in this encounter Plan of Treatment Upcoming Encounters Date Type Department Care Team (Late st Contact Info) Description 08/27/2024 9:45 AM EDT Office Visit [facility] [address] [place] [address] 10/10/2024 2:30 PM EDT Office Visit [facility] [address] [place] [phone] Will Cole MD [address] [place] [phone] documented as of this encounter Visit Diagnoses Not on filedocumented in this encounter Additional Health Concerns Assessment Noted Time PHQ-9 Depression Total Score: 0 01/09/20 24 2:03 PM EDT documented as of this encounter Care Teams Psychodramatist Relationship Specialty Start Date End Date Will Cole MD [address] [place] [phone] PCP - General Internal Medicine 01/14/14 documented as of this encounter
--- OUTSIDE RECORDS SUMMARY | 2024-08-05 19:30 | XMS_ITS | Encounter Summary ---
Author Organization [employer] Address [address] [facility] 7t [place] [address] Care Team Providers Care Straddle Truck Operator Name Role Phone Will Cole MD Primary Care Provide r Reason for Visit * Reason Onset Date Comments Referral 04/15/2024 Encounter Details Date Type Department Care Team ([facility] st Contact Info) Description 04/15/2024 Telephone [facility] MED[facility]INE [address] [place], [place] [phone] Will Cole MD [address] [place], [place] [phone] Referral Social History Tobacco Use Types Packs/Day [...] - 04/15/2024 2:31 PM EST Tc from [facility] with [facility] Regarding the referral sent out 04/11. She states that they don't do Reclining Chairs. documented in this encounter Plan of Treatment Upcoming Encounters Date Type Department Care Team (Late st Contact Info) Description 08/27/2024 9:45 AM EDT Office Visit [facility] [address] [place] [phone] 10/10/2024 2:30 PM EDT Office Visit [address] [address] Will Cole MD [address] [place] [phone] documented as of this encounter Visit Diagnoses Not on filedocumented in this encounter Additional Health Concerns Assessment Noted Time PHQ-9 Depression Total Score: 0 01/09/20 24 2:03 PM EDT documented as of this encounter Care Teams Straddle Truck Operator Relationship Specialty Start Date End Date Will Cole MD [address] [place] [phone] PCP - General Internal Medicine 01/14/14 documented as of this encounter
--- OUTSIDE RECORDS SUMMARY | 2024-08-05 19:30 | XMS_ITS | Encounter Summary ---
Author Organization [employer] Address [address] [facility] 7t [place] [address] Care Team Providers Care Combiner Operator Name Role Phone Will Cole MD Primary Care Provide r Encounter Details Date Type Department Care Team ([facility] st Contact Info) Description 05/15/2024 Orders Only [facility] MEDICINE [address] [place], [place] [phone] Kecia Smith MD [address] [place], [place] [phone] Social History Tobacco Use Types Packs/Day Years [...] Description 08/27/2024 9:45 AM EDT Office Visit [facility] MED[facility]INE [address] [place] [address] 10/10/2024 2:30 PM EDT Office Visit [facility] [address] [place] [phone] Will Cole MD [address] [place] [phone] documented as of this encounter Procedures Procedure Name Priority Date/Time Associated Diagnosis Comments CULTURE, URINE, ROUTINE Routine 05/15/2024 12:00 PM EST documented in this encounter Results * Culture, Urine, Routine (05/15/2024 12:00 PM EST) Urine Urine specimen obtained by clean catch procedure / Unknown 05/15/2024 12:00 PM EST 05/15/2024 3:19 PM EST Comment:[facility] - 05/18/2024 8:03 AM EST Escherichia coli Quant > 100,000 cfu/mL Escherichia coli: Ampicillin >=32(R) Escherichia coli: Cefepime <=0.12(S) Escherichia coli: Ceftriaxone <=0.25(S) Escherichia coli: Ciprofloxacin >=4(R) Escherichia coli: Gentamicin <=1(S) Escherichia coli: Nitrofurantoin <=16(S) Escherichia coli: Trimethoprim/Sulfamethoxazole <=20(S) Specimen Source: Urine clean catch us Kecia Camejo MD LAB MICROBIOLOGY - [facility] ORDERABLES Final Result [facility] [address] [place] [phone] documented in this encounter Visit Diagnoses Not on filedocumented in this encounter Additional Health Concerns Assessment Noted Time PHQ-9 Depression Total Score: 0 01/09/20 24 2:03 PM EDT documented as of this encounter Care Teams Combiner Operator Relationship Specialty Start Date End Date Will Cole MD [address] [place] [phone] PCP - General Internal Medicine 01/14/14 documented as of this encounter
--- OUTSIDE RECORDS SUMMARY | 2024-08-05 19:30 | XMS_ITS | Encounter Summary ---
Author Organization [employer] Address [address] [facility] 7t [place] [address] Care Team Providers Care Math Specialist Name Role Phone Will Cole MD Primary Care Provide r Reason for Visit * Reason Onset Date Comments Med Refill 04/08/2024 Encounter Details Date Type Department Care Team (Late st Contact Info) Description 04/08/2024 Refill [facility] [address] [place] [address] Will Cole MD [address] [place] [address] Rib pain; Severe pain Social History Tobacco [...] Description 08/27/2024 9:45 AM EDT Office Visit [facility] MEDICINE [address] [place] [address] 10/10/2024 2:30 PM EDT Office Visit [facility] MEDICINE [address] [place], [place] [phone] Will Cole MD [address] [place] [address] documented as of this encounter Visit Diagnoses Diagnosis Rib pain Unspecified chest pain Severe pain documented in this encounter Additional Health Concerns Assessment Noted Time PHQ-9 Depression Total Score: 0 01/09/20 24 2:03 PM EDT documented as of this encounter Care Teams Math Specialist Relationship Specialty Start Date End Date Will Cole MD [address] [place] [address] PCP - General Internal Medicine 01/14/14 documented as of this encounter
--- OUTSIDE RECORDS SUMMARY | 2024-08-05 19:30 | XMS_ITS | Encounter Summary ---
Author Organization [employer] Address [address] [facility] 7t [place] [address] Care Team Providers Care Etiologist Name Role Phone Will Cole MD Primary Care Provide r Reason for Visit * Reason Onset Date Comments Durable Medical Equipment 05/12/2022 Requesting a call back 05/12/2022 CT scan 05/12/2022 Encounter Details Date Type Department Care Team ([facility] st Contact Info) Description 05/12/2022 Telephone [facility] MEDICINE [address] [place], [place] [phone] Will Cole MD [address] [place], [place] [phone] Durable Medical Equipment; Requesting a call back [...] 06/01/2022 3:18 PM EST T/C placed to [facility] to make sure pt's PET scan is all set and scheduled. Got busy signal. Will retask to green nurses for third attempt. * Telephone Encounter - Leana Modi RN - 06/01/2022 10:16 AM EST T/C placed to [facility] to make sure pt's PET [...] PM EST Incoming T/C from Sarmad at [facility] returning my calls at my direct line. Explained below situation to her. Informed we are actively working on it and that I will call her back and update her. She provided direct number [phone]. * Telephone Encounter - Leana Modi RN - 05/25/2022 12:02 PM EST T/C placed to [facility] again. They stated they did [...] a V/M. Spoke to Job nurse manager supplier who stated will send message to Dx specialist to work on it RADHA. T/C placed to Sarmad at [facility] to update/ discuss. They stated she is unavailable and sent bette message. Provided my direct ext for call back. * Telephone Encounter - Leana Modi RN - 05/24/2022 2:18 PM EST Reviewed pt's [employer] chart. Per Dx specialist, PET scan order was faxed to [facility] and they would call pt to schedule. T/C placed to [facility] to see if it was ever scheduled as we never received results. No answer, left detailed V/M. Phone number in below messages is inaccurate. T/C placed to [facility]. They attempted to connectme to Sarmad but she was unavailable. Had them send her a message letting her know that we sent the order to [facility] and that we never received results. Also informed I working on getting in contact with them but so far they have no answered my call. Will retask to benjie portillo to attempt another call for results. * Telephone Encounter - Treasure Ugalde - 05/24/2022 9:31 AM EST Tc from sarmad from [facility] requesting a call would like to know if pt ever got scheduled for PET scan with concurrent CT scan, order was done on 03/10/22 and printed on 03/15/22 please call [phone]. Marshmallow Machine Worker attempted to get a hold of a nurse, Unable to, call dropped. * Telephone Encounter - Claudia Hernandez - 05/20/2022 9:56 AM EST Tc from sarmad from [facility] requesting a call would like to know if pt ever got scheduled for PET scan with concurrent CT scan, order was done on 03/10/22 and printed on 03/15/22 please call [phone]. * Telephone Encounter - Natanael Ceja - 05/19/2022 9:27 AM EST Tc from Sarmad with [facility] requesting a call back from a nurse to discuss order ( PET scan with concurrent ct scan skill base to mid-thigh. Please contact Sarmad at [phone] * Telephone Encounter - Will Hardy MD - 05/12/2022 4:01 PM EST Please write script ( discuss case with RN to include appropriate diagnosis ) and I will then sign. * Telephone Encounter - Jaycee Taylor - 05/12/2022 1:55 PM EST Tc from [facility] requesting a power chair . States would prefer [facility] , which [facility] informs they have already faxed a request. Please call to clarify. documented in this encounter Plan of Treatment Upcoming Encounters Date Type Department Care Team (Late st Contact Info) Description 08/27/2024 9:45 AM EDT Office Visit [facility] MEDICINE [address] [place] [phone] 10/10/2024 2:30 PM EDT Office Visit [address] [address] Will Cole MD [address] [place] [address] documented as of this encounter Visit Diagnoses Not on filedocumented in this encounter Care Teams Etiologist Relationship Specialty Start Date End Date Will Cole [place] [address] PCP - General Internal Medicine 01/14/14 documented as of this encounter
--- OUTSIDE RECORDS SUMMARY | 2024-08-05 19:30 | XMS_ITS | Data Portability ---
Author Organization [facility], Main Office Address [address], [address] [place] [address] Care Team Providers Care Motor Home Electrical Foreman Name Role Phone JAZZ HASTINGS - 3RD FLOOR OTHER EVANS PERRIN Primary Care Provider Assessment Encounter Date Assessment Date Assessment LastModified by Organization Details LastModified Time 09/25/2020 09/25/2020 09/25/20 WBC 4.7, Hgb 11, Hct 33.9, Plt 211, Na 131, K 4.3, BUN 17, Counseling Aide 0.72, diane 8.3, tot prot 8.3, alb 2.9, tot bili 0.4, AST 19, ALT 16, alk phos 114 tkoloski Not available 09/25/2020 12:31:57 09/28/2020 09/28/2020 09/25/20 WBC 4.7, Hgb 11, Hct 33.9, Plt 211, Na 131, K 4.3, BUN 17, Counseling Aide 0.72, diane 8.3, tot prot 8.3, alb [...] Address Organization Details Recorded Time Abnormal gait 21882903 Active 2020 S[address]AN STEIN [address], [address], [place], [address], [facility] 13:43:55 History of cerebrovasc ular accident 433715791 Active 2020 SUSAN STEIN [address], [address], [place], [address], [facility] 18:30:18 Gastroesoph ageal reflux disease without esophagitis 018622905 Active 2020 SUSAN STEIN [address], [address], [place], [address], [facility] 18:32:34 Coronary arterioscle rosis 43008150 Active 2020 SUSAN STEIN [address], [address], [place], [address], [facility] 18:33:28 Anemia 252485330 Active 2020 SUSAN STEIN [address], [address], [place], [address], [facility] 18:33:43 Blood in urine 27785380 Active 2020 SUSAN STEIN [address], [address], [place], [address], [facility] 18:35:24 Constipatio n 83124157 Active 2020 SUSAN STEIN [address], [place], [address], [facility] 18:37:06 Chronic insomnia 728455085 Active 2020 SUSAN STEIN [address], [place], [address], [facility] 18:40:24 Benign prostatic hyperplasia 065072149 Active 2020 TORREY STEINP [address] [facility], [address], [place], [address], [facility] 1 18:43:50 Rhabdomyoly sis 895393886 Active 2015 Daly solis, [facility] 6 10:11:43 Cerebrovasc ular accident 097529332 Active 2015 Daly Bui null, [facility] 6 10:11:48 Acute injury of kidney 2771887901658 4108 Active 2015 Dayl Ames null, [facility] 6 10:12:01 Chronic obstructive pulmonary disease 12683350 Active 2015 Daly Ames null, [facility] 6 10:12:07 Mixed hyperlipide loco 161084150 Active 2015 Daly Bui null, [facility] 6 10:12:13 Essential hypertensio n 68370462 Active 2015 Daly Ames null, [facility] 6 10:12:19 Rheumatoid arthritis 41028610 Active 2015 Daly Bui null, [facility] 6 10:12:32 Chronic pain 97978326 Active 2015 Daly Bui null, [facility] 6 10:12:39 Neuropathy 296178789 Active 2015 Daly Bui null, [facility] 6 10:26:35 Tremor 86219093 Active 2016 Juana Mcdonough null, [facility] 7 12:23:32 Problem Notes None recorded. [...] 134 mm[Hg] 68 mm[Hg] SUSAN STEIN [address] [facility], [address], [place], [address], [facility] 18:21:00 Date Recorded Body height Body mass index (BMI) Body weight Oxygen saturation Oxygen saturation in Arterial blood by Pulse oximetry Body temperature Heart rate Respiratory rate Systolic blood pressure Diastolic blood pressure Provider Name and Address Organization Details Last Updated DateTime 170.18 cm 19.3 kg/m2 52241.8 6 g 94 % 94 % 97.9 [degF] 78 /min 18 /min 124 mm[Hg] 68 mm[Hg] Stefanie Nelson MD [address] [facility], [address], [place], [address], [facility] 13:27:16 Date Recorded Body height Systolic blood pressure Diastolic blood pressure Provider Name and Address Organization Details Last Updated DateTime 09/29/2020 170.18 cm 124 mm[Hg] 68 mm[Hg] Markus Yi MD [address] [facility], [address], [place], [address], [facility] 09/29/2020 13:11:53 Social History Question Answer Notes LastModified by Organizat ion Details LastModified Time Tobacco Smoking Status Current Every Day Smoker just 1-2 cigs/day Stefanie Nelson MD [address] [facility], [address], [place], [address], [facility] 09/28/2020 15:00:49 Do You Have An [...] Do You Have A Medical Power Of Paper Cone Machine Operator? Yes Hcp On File Information not available [...] SNOMED-CT Code Diagnosis ICD10 Code Diagnosis Note [id number] [address] [address] 06/04/2016 10:00:35 06/10/2016 11:24:13 Rhabdomyolysis 742826045 M62.82 Patient with fall out of wheelchair , found laying on floor for unknown period of time, patient presented c/o severe back pain and other assorted aches and pains, initial CK 25,000+, treated with IV fluids with improvemen t, CK 18,892 on d/c, follow CPK and BMP twice weekly until normalized , PT/OT to maximize function Cerebrovas cular accident 433788677 I63.342 Presented with fall, screening head CT revealed acute cerebellar infarct, no deficits noted, f/u neuro Dr Roberts, ASA and statin, bp control, follow diet recs, GIS SOFTWARE ENGINEER eval prn, PT/OT to maximize function Acute inju ry of kidney 1470754542 9587602 N17.8 Cr on admission 2.74, improved with IV fluids, Cr on d/c 0.6, monitor renal function as rhabdomyol ysis resolves Chronic ob structive pulmonary disease 21069072 J41.1 Stable, proair inhaler prn Mixed hyperlipidemia 267 127450 E78.2 On statin Essential hypertension 24059128 I10 Amlodipine 5 mg, monitor bp and labs Chronic pain 98783075 G8 9.29 Oxycodone for pain, monitor Vertigo 339117928 R42 With dizziness in hospital, patient reports dizziness has not improved, cont. meclizine 12.5 mg prn, if fails to improve consider ENT consult, monitor Rheumatoid arthritis 698 18295 M06.89 Methotrexa te qweekly, prednisone 5 mg, monitor sxs [id number] Juana Mcdonough [facility] of [address] [address] 06/06/2016 12:14:01 06/06/2016 12:43:57 Tremor 98085032 G25.2 Neurology consult as scheduled. OT evaluation for weighted eating utensils Neuropathy 900684744 G65 .1 Neurology consult. [id number] Markus Yi MD [address] [address] 06/08/2016 11:20:31 06/10/2016 11:51:58 Rhabdomyolysis 106465187 M62.82 Patient with fall out of wheelchair , found laying on floor for unknown period of time, patient presented c/o severe back pain and other assorted aches and pains, initial CK 25,000+, treated with IV fluids with improvemen t, CK 18,892 on d/c, follow CPK and BMP twice weekly until normalized , PT/OT to maximize function Cerebrovas cular accident 697705385 I63.342 Acute cerebellar infarct seen on CT head. f/u neuro Dr Roberts for CVA and tremorASA and statin, bp controlSLP eval prnPT/OT to maximize function Acute inju ry of kidney 2187744262 0649358 N17.8 Cr on admission 2.74, improved with IV fluids, Cr on d/c 0.6, monitor renal function as rhabdomyol ysis resolves Chronic ob structive pulmonary disease 32359653 J41.1 Stable, proair inhaler prn Mixed hyperlipidemia 267 982978 E78.2 On statin Essential hypertension 19987444 I10 Norvasc 5 mgmonitor bp and labs Chronic pain 15860283 G8 9.29 Oxycodone for pain, monitor Vertigo 438702608 R42 With dizziness in hospital, patient reports dizziness has not improved, cont. meclizine 12.5 mg prn, if fails to improve consider ENT consult, monitor Rheumatoid arthritis 698 34851 M06.89 Methotrexa te qweekly, prednisone 5 mg, monitor sxs [id number] MARKIE KOLOSKI, CUSTOMER ACCOUNTS ADVISOR [facility] [address] [place] [address] 09/25/2020 12:26:20 09/29/2020 08:22:25 Abnormal gait 40388403 R26.89 PT/OT eval and treat reminders to ask for help utilize walker monitor for safety History of cerebrovascular accident 834007910 Z86.73 ASA 81 mg qd atorvastat in 40 mg qd monitor follow with neurology as needed Neuropathy 711254501 G63 neurontin 600 mg bid discussed risk vs benefit of neurontin with pt monitor Rheumatoid arthritis 698 08825 M06.89 methotrexa te 2.5 mg 6 tabs q week monitor Mixed hyperlipidemia 267 162060 E78.2 atorvastat in 40 mg qd monitor labs Essential hypertension 85652552 I10 ASA 81 mg qd norvasc at home but not discharged on any monitor b/p and labs Chronic ob structive pulmonary disease 01796082 J41.8 carries diagnosis not on medication monitor respirator y status Chronic pain 70193995 G8 9.29 oxycodone/ apap 5-325 mg bid prn monitor pain Gastroesop hageal reflux disease without esophagitis 388878446 K21.9 omeprazole 20 mg qd monitor for symptoms Coronary arteriosclerosis 02803280 I25.10 ASA 81 mg qd atorvastat in 40 mg qd monitor Anemia 334851390 D50.8 ferrous sulfate 325 mg tid monitor labs Tremor 32696055 G25.2 primadone 50 mg bid and 100 mg q hs carbidopa- levodopa 25-100 mg tid monitor Blood in urine 92161502 R31.29 monitor urine follow up with urology Lactic acidosis 59297179 E87.2 unknown cause resolved with fluids monitor Constipation 68201944 K5 9.09 miralax 17 gms qd colace 100 mg bid monitor bowels Chronic insomnia 4928800 04 F51.04 melatonin 3 mg q hs trazodone 300 mg q hs discussed risk vs benefit of trazodone with pt monitor sleep Benign pro static hyperplasia 683949662 N40.0 tamsulosin 0.4 mg qd monitor for symptoms [id number] Stefanie Nelson MD [facility] of [address] [address] 09/28/2020 13:23:25 09/30/2020 13:29:25 Abnormal gait 55957993 R26.89 Doing great with PT per PT. Continue PT/OT for strengthen ing, balance, gait training, safety and function, her and then hopefully at home also for awhile. Encouraged to use walker consistent ly. Monitor for safety Blood in urine 09243192 R31.29 Incidental finding. F/U with urology as outpt. Constipation 93145668 K5 9.09 Continue miralax 17 gms qd and colace 100 mg BID. Monitor bowel function. History of cerebrovascular accident 473028180 Z86.73 Stable at baseline. Continue ASA 81 mg qd and atorvastat in 40 mg qd Monitor for change in sxs. Rheumatoid arthritis 698 82468 M06.89 Continue methotrexa te 15 mg q week And pain meds as above. F/U with rheum as planned. Mixed hyperlipidemia 267 178223 E78.2 Continue atorvastat in 40 mg qd Monitor labs as outpt. Essential hypertension 46027153 I10 BP in good control since here. Continue amlodipine 5 mg qd. Monitor BP and labs Chronic ob structive pulmonary disease 30693098 J41.8 carries diagnosis not on medication monitor respirator y status Gastroesop hageal reflux disease without esophagitis 947459897 K21.9 No current sxs. Continue omeprazole 20 mg qd Monitor for sxs Coronary arteriosclerosis 27700982 I25.10 Continue ASA 81 mg qd and atorvastat in 40 mg qd Monitor for sxs. Anemia 187142266 D50.8 Continue ferrous sulfate 325 mg TID. Monitor labs Tremor 98665748 G25.2 Unclear if dx is Parkinson' s Continue primidone 50 mg bid and 100 mg qhs and carbidopa- levodopa 25-100 mg TID. Monitor F/U with neuro as planned Chronic insomnia 7711144 04 F51.04 Continue melatonin 3 mg qhs and trazodone 300 mg qhs Monitor sleep patterns. Benign pro static hyperplasia 006123623 N40.0 No current sxs. Continue tamsulosin 0.4 mg qd Monitor for sxs Chronic back pain 680483 002 M54.5 Checked meds in [facility]. COnfirmed chronic use, rxed by PCP. Continue oxycodone/ apap 5-325 mg BID prn (uses BID scheduled) and gabapentin 600 mg BID. Monitor pain control. [id number] Markus Yi MD [address] [address] 09/29/2020 13:06:18 10/01/2020 11:59:12 Abnormal gait 19250919 R26.89 improved with therapy now independen t with walker Blood in urine 76443981 R31.29 recent episode of F/U with urology as outpt. History of cerebrovascular accident 573954921 Z86.73 Stable at baseline. Continue ASA 81 mg qd and atorvastat in 40 mg qd Monitor for change in sxs. Chronic back pain 883542 002 M54.5 Checked meds in [facility]. COnfirmed chronic use, rxed by PCP. Continue oxycodone/ apap 5-325 mg BID prn (uses BID scheduled) and gabapentin 600 mg BID. Monitor pain control. Rheumatoid arthritis 698 56104 M06.89 Continue methotrexa te 15 mg q week And pain meds as above. F/U with rheum as planned. Mixed hyperlipidemia 267 195077 E78.2 Continue atorvastat in 40 mg qd Monitor labs as outpt. Essential hypertension 44856115 I10 BP in good control since here. Continue amlodipine 5 mg qd. Monitor BP and labs Gastroesop hageal reflux disease without esophagitis 147712698 K21.9 Continue omeprazole 20 mg qd Monitor for sxs Coronary arteriosclerosis 55544578 I25.10 Continue ASA 81 mg qd and atorvastat in 40 mg qd Monitor for sxs. Anemia 213480305 D50.8 Continue ferrous sulfate 325 mg TID. Monitor labs Tremor 05787116 G25.2 Unclear if dx is Parkinson' s Continue primidone 50 mg bid and 100 mg qhs and carbidopa- levodopa 25-100 mg TID. Monitor F/U with neuro as planned Chronic insomnia 9875256 04 F51.04 Continue melatonin 3 mg qhs and trazodone 300 mg qhs Monitor sleep patterns. Benign pro static hyperplasia 679015429 N40.0 Continue tamsulosin 0.4 mg qd Monitor for sxs Health Concerns Section Related Observation LastModified by Organization Detai ls LastModified Time None Recorded Concern Status LastModified by Organization Details LastModified Time None Recorded Advance Directives Directive Y: FULL CODE-NO DIALYSIS-use nutrition and hydration Payers Encounter Date Sequence Insurance Name Policy Number Policy Khanna Covered Member ID Khanna Member ID Guarantor Name 06/06/2016 1 [facility] [employer] - DOS PRIOR TO 2022 - DUAL ELIGIBLE (MEDICARE REPLACEMENT/ADV ANTAGE - HMO) Jabari Nilesh [id number] Jabari Nilesh 06/06/2016 2 [place] [facility] Jabari Galloway [id number] Jabari Galloway 06/08/2016 1 [facility] [employer] - DOS PRIOR TO 2022 - DUAL ELIGIBLE (MEDICARE REPLACEMENT/ADV ANTAGE - HMO) Jabari Nilesh [id number] Jabari Galloway 06/08/2016 2 [place] [facility] Jabari Nilesh [id number] Jabari Galloway 09/25/2020 1 [facility] [employer] - DOS PRIOR TO 2022 - DUAL ELIGIBLE (MEDICARE REPLACEMENT/ADV ANTAGE - HMO) Jabari Galloway [id number] Jabari Galloway 09/25/2020 2 [place] [facility] Jabari Galloway [id number] Jabari Galloway 09/28/2020 1 [facility] CARE ALLIANCE - DOS PRIOR TO 2022 - DUAL ELIGIBLE (MEDICARE REPLACEMENT/ADV ANTAGE - HMO) Jabari Nilesh [id number] Jabari Galloway 09/28/2020 2 [place] [facility] Jabari Nilesh [id number] Jabari Galloway 09/29/2020 1 [facility] CARE [employer] - DOS PRIOR TO 2022 - DUAL ELIGIBLE (MEDICARE REPLACEMENT/ADV ANTAGE - HMO) Jabari Nilesh [id number] Jabari Galloway 09/29/2020 2 [place] [facility] Jabari Nilesh [id number] Jabari Nilesh Notes Date Note Type Note Provider Name and Address Organization Details Recorded Time 06/06/2016 text/html 75-year-old male being seen for acute rounding visit at the request of nursing due to tremors of the left hand. Juana solis [place] - [facility] 06/06/2016 12:39:38 06/08/2016 text/html Patient is [...] Tremor since CVA Markus Yi MD [address] [facility], [address], [place], [address], [facility] 06/08/2016 11:46:35 09/25/2020 text/html A 79 year old nafisa le being seen for a initial intake note. Patient was sent to [facility] er when his DIRECTOR OF PROFESSIONAL SERVICES noted slurred speech, unsteady gait and lethargy. [...] tremor. PCP is Evans ROUSE, SUSAN [address] [facility], [address], [place], [address], [facility] 09/25/2020 19:13:22 09/28/2020 text/html This is a 79 yo man who is here for rehab after and acute hospitalization for slurred speech, unsteady gait and lethargy. He was sent to the [facility] ED on 09/23 after his DIRECTOR OF PROFESSIONAL SERVICES noted the above sxs. Eval in hospital [...] doing well with rehab, he has daily DIRECTOR OF PROFESSIONAL SERVICES at home and hopes for d/c on 09/30. Of note he is on chronic oxycodone and gabapentin for back pain.Seen walking in the [place] with PT, walking well and quickly using walker, with no assist.He says he feels like he is back to baseline, remembers day he went to hospital, he could understand what DIRECTOR OF PROFESSIONAL SERVICES was saying, but she said she couldn't understand him. He couldn't tell that speech was slurred.His PMH includes HTN, hx of CVA-inferomedial left cerebellum, anemia, BPH, insomnia, COPD, hx of tubular adenoma, chronic back pain, YEIMY, PVD, constipation, GERD, HLD, neuropathy, RA and tremor. Stefanie Nelson MD [address] [place] [address], [address], [place], [address], [facility] 09/28/2020 15:16:59 09/29/2020 text/html Patient is a 79 yo male seen in preparation for discharge initially admit from hospital after presenting with slurred speech, unsteady gait and lethargy. He was sent to the [facility] ED on 09/23 after his DIRECTOR OF PROFESSIONAL SERVICES noted the above sxs. Eval in hospital [...] doing well with rehab, he has daily DIRECTOR OF PROFESSIONAL SERVICES at home and hopes for d/c on 09/30. Of note he is on chronic oxycodone and gabapentin for back pain.Now independent ambulation with walker, cleared for discharge with services in place to f/u with PCP Markus Yi MD [address] [place] [address], [address], [place], [address], [facility] 09/29/2020 13:19:01
--- OUTSIDE RECORDS SUMMARY | 2024-08-05 19:30 | XMS_ITS | Encounter Summary ---
Author Organization [facility] Address [address] [facility] [address] [place] [address] Care Team Providers Care Director Of Primary Name Role Phone Will Cole MD Primary Care Provide r Encounter Details Date Type Department Care Team (Latest Contact Info) Description 04/02/2021 Abstract [facility] CONVERSIONS Dental, Provider, DDS Social History Tobacco [...] Description 08/27/2024 9:45 AM EDT Office Visit [facility] [address] [place] [phone] 10/10/2024 2:30 PM EDT Office Visit [facility] [address] [place] [address] Will Cole MD [address] [place] [address] documented as of this encounter Visit Diagnoses Not on filedocumented in this encounter Care Teams Director Of Primary Relationship Specialty Start Date End Date Will Cole MD [address] [place] [phone] PCP - General Internal Medicine 01/14/14 documented as of this encounter
--- OUTSIDE RECORDS SUMMARY | 2024-08-05 19:30 | XMS_ITS | Encounter Summary ---
Author Organization [employer] Address [address] [facility] [address] [place] [address] Care Team Providers Care Business Administration Program Chair Name Role Phone Will Cole MD Primary Care Provide r Encounter Details Date Type Department Care Team (Late st Contact Info) Description 06/16/2022 Orders Only [facility] [address] [place] [address] [phone] Ximena Cameron LPN Social History Tobacco Use [...] Description 08/27/2024 9:45 AM EDT Office Visit [facility] [address] [place] [address] [phone] 10/10/2024 2:30 PM EDT Office Visit [address] [phone] Will Cole MD [address] [place] [address] [phone] documented as of this encounter Procedures Procedure Name Priority Date/Time Associated Diagnosis Comments PET/CT BONE SKULL BASE TO MID THIGH Routine 06/21/2022 11:30 AM EST documented in this encounter Results * PET/CT Bone Skull Base to Mid Thigh (06/21/2022 11:30 AM EST) Anatomical Region Laterality Modality Body Computed Tomogra phy 06/21/2022 11:3 0 AM EST Narrative 06/23/2022 11:44 AM EST ? [facility] ?[address] ?[place] [address] ? PET Report ? Signed ? Patient: Jabari Galloway ?MR#: [id number] ? : 1940 ?Acct:[id number] ? Age/Sex: 81 / M ?ADM Date: 06/21/22 ? Loc: HO.PET ? Attending Dr: Will Smart MD ? Ordering Physician: Will Smart MD ?? Date of Service: 06/21/22 ?? Procedure(s): PET CT fusion skull to thigh ?? Accession Number(s): [id number] ? cc: Will Smart MD ? EXAMINATION: [...] recommend dental ?? referral. ? Dictated By: ?Dager,Rosi ? Signed By: ?<Electronically signed by Rosi ??Dager in OV> ? 06/23/22 1141 ? DD/ 1130 ? TD/TT: ? [employer] [place]: ? Procedure Note Destini, Image - 07/11/2022 [place] [address] PET Report Signed Patient: Shannon Galloway#: [id number] : 1Acct:[id number] Age/Sex: 81 / MADM Date: 06/21/22 Loc: HO.PET Attending Dr: Will Smart MD Ordering Physician: Will Smart MD Date of Service: 06/21/22 Procedure(s): PET CT fusion skull to thigh Accession Number(s): [id number] cc: Will Smart MD EXAMINATION: NM FLUORINE-18 [...] lucencies within right inferior premolars SUVmax 5.9 (). Otherwise, physiologic uptake in the soft [...] in OV> 06/23/22 1141 DD/ 1130 TD/TT: [employer] [place]: [facility] External Provider IMG CT PROCEDURES Edited Result - Final documented in this encounter Visit Diagnoses Not on filedocumented in this encounter Care Teams Business Administration Program Chair Relationship Specialty Start Date End Date Will Cole MD [address] [place] [address] PCP - General Internal Medicine 01/14/14 documented as of this encounter
== END 2024-08-05 18:34 | disposition home or self-care (01) ==
LOC: HO.HHCLNP 18:33
PROVIDERS: Visit Provider Internal Medicine
DX: R39.9 Unspecified symptoms and signs involving the genitourinary system (principal)
CPT/HCPCS: 87086; 87088; 87186

== ENCOUNTER 2024-08-29 14:17 | Outpatient (REF) | payer OTHER, SELFPAY ==
--- NOTE | ~2024-08-29 | US_ITS ---
EXAMINATION: US KIDNEY BILATERAL HISTORY: dysuria/back pain + hematuria ro kidney stone TECHNIQUE: Real-time grayscale ultrasound imaging of the kidneys was performed and images were reviewed. COMPARISON: Comparison is made with the prior examination dated 01/27/2023. FINDINGS: Right kidney: The right kidney measures 10.7 x 4.5 x 6.2 cm. Renal parenchymal thickness is normal. However, there is increased cortical echotexture with prominence of the pyramids, suggestive of chronic medical renal disease. There are no masses. There is a nonobstructing 7 x 5 x 9 mm lower pole calculus. There is no hydronephrosis. Left Kidney: The left kidney measures 10.0 x 5.6 x 4.6 cm. Renal parenchymal thickness is normal. However, there is increased cortical echotexture with prominence of the pyramids, suggestive of chronic medical renal disease. There are 2 cysts at the lower pole measuring 11 x 10 x 9 mm and 7 x 5 x 6 mm. There is a nonobstructing 11 x 7 x 9 mm calculus in the interpolar region and a nonobstructing 10 x 5 x 10 mm calculus at the lower pole. There is no hydronephrosis. US/US renal BI IMPRESSION: 1. Increased renal parenchymal echotexture and prominence of the pyramids, suggestive of chronic medical renal disease. Clinical correlation is recommended. 2. Bilateral nephrolithiasis as described. No hydronephrosis. Electronically signed by: Amadou Pérez MD 08/29/2024 03:36 PM EDT
--- OUTSIDE RECORDS SUMMARY | 2024-08-29 17:58 | XMS_ITS | Data Portability ---
Author Organization [facility], Main Office Address [address] [facility] [facility] [address], [address] [place] [address] Care Team Providers Care Billing And Accounting Staff Assistant Name Role Phone JAZZ HASTINGS - 3RD FLOOR OTHER EVANS PERRIN Primary Care Provider Assessment Encounter Date Assessment Date Assessment LastModified by Organization Details LastModified Time 09/25/2020 09/25/2020 09/25/20 WBC 4.7, Hgb 11, Hct 33.9, Plt 211, Na 131, K 4.3, BUN 17, Elevator Service Mechanic 0.72, diane 8.3, tot prot 8.3, alb 2.9, tot bili 0.4, AST 19, ALT 16, alk phos 114 [email or web address] Not available 09/25/2020 12:31:57 09/28/2020 09/28/2020 09/25/20 WBC 4.7, Hgb 11, Hct 33.9, Plt 211, Na 131, K 4.3, BUN 17, Elevator Service Mechanic 0.72, diane 8.3, tot prot 8.3, alb [...] Address Organization Details Recorded Time Abnormal gait 43439121 Active 2020 SUSAN STEIN [address], [address], [place], [address], [facility] 13:43:55 History of cerebrovasc ular accident 898019799 Active 2020 SUSAN STEIN [address], [address], [place], [address], [facility] 18:30:18 Gastroesoph ageal reflux disease without esophagitis 836141005 Active 2020 SUSAN STEIN [address], [address], [place], [address], [facility] 18:32:34 Coronary arterioscle rosis 40935622 Active 2020 SUSAN STEIN [address], [address], [place], [address], [facility] 18:33:28 Anemia 022071881 Active 2020 SUSAN STEIN [address], [address], [place], [address], [facility] 18:33:43 Blood in urine 54073828 Active 2020 SUSAN STEIN [address], [address], [place], [address], [facility] 18:35:24 Constipatio n 20545755 Active 2020 SUSAN STEIN [address], [address], [place], [address], [facility] 18:37:06 Chronic insomnia 506112246 Active 2020 SUSAN STEIN [address], [address], [place], [address], [facility] 18:40:24 Benign prostatic hyperplasia 508116227 Active 2020 TORREY STEINP [address] [facility], [address], [place], [address], [facility] [employer] [facility] 1 18:43:50 Rhabdomyoly sis 262002690 Active 2015 Daly solis, [facility] [employer] [facility] 6 10:11:43 Cerebrovasc ular accident 344475611 Active 2015 Daly Bui null, [facility] 6 10:11:48 Acute injury of kidney 1203581593645 4108 Active 2015 Daly Ames null, [facility] 6 10:12:01 Chronic obstructive pulmonary disease 08481429 Active 2015 Daly Ames null, [facility] 6 10:12:07 Mixed hyperlipide loco 887477835 Active 2015 Daly Bui null, [facility] [employer] [facility] 6 10:12:13 Essential hypertensio n 41682283 Active 2015 Daly Ames null, [facility] [employer] [facility] 6 10:12:19 Rheumatoid arthritis 50822985 Active 2015 Daly Bui null, [facility] 6 10:12:32 Chronic pain 93776353 Active 2015 Daly Bui null, [facility] 6 10:12:39 Neuropathy 336245448 Active 2015 Daly Bui null, [facility] 6 10:26:35 Tremor 01872591 Active 2016 Juana Mcdonough null, [facility] 7 12:23:32 Problem Notes None recorded. [...] 134 mm[Hg] 68 mm[Hg] SUSAN STEIN [address] [facility] [facility], [address], [place], [address], [facility] 18:21:00 Date Recorded Body height Body mass index (BMI) Body weight Oxygen saturation Oxygen saturation in Arterial blood by Pulse oximetry Body temperature Heart rate Respiratory rate Systolic blood pressure Diastolic blood pressure Provider Name and Address Organization Details Last Updated DateTime 170.18 cm 19.3 kg/m2 36360.8 6 g 94 % 94 % 97.9 [degF] 78 /min 18 /min 124 mm[Hg] 68 mm[Hg] Stefanie Nelson MD [address] [facility] [facility], [address], [place], [address], [facility] 13:27:16 Date Recorded Body height Systolic blood pressure Diastolic blood pressure Provider Name and Address Organization Details Last Updated DateTime 09/29/2020 170.18 cm 124 mm[Hg] 68 mm[Hg] Markus Yi MD [address] [facility] [facility], [address], [place], [address], [facility] 09/29/2020 13:11:53 Social History Question Answer Notes LastModified by Organizat ion Details LastModified Time Tobacco Smoking Status Current Every Day Smoker just 1-2 cigs/day Stefanie Nelson MD [address] [facility] [facility], [address], [place], [address], [facility] 09/28/2020 15:00:49 Do You Have An [...] Do You Have A Medical Power Of Insurance Operations Rep? Yes Hcp On File Information not available [...] SNOMED-CT Code Diagnosis ICD10 Code Diagnosis Note [id number] [address] [address] 06/04/2016 10:00:35 06/10/2016 11:24:13 Rhabdomyolysis 725410005 M62.82 Patient with fall out of wheelchair , found laying on floor for unknown period of time, patient presented c/o severe back pain and other assorted aches and pains, initial CK 25,000+, treated with IV fluids with improvemen t, CK 18,892 on d/c, follow CPK and BMP twice weekly until normalized , PT/OT to maximize function Cerebrovas cular accident 522138141 I63.342 Presented with fall, screening head CT revealed acute cerebellar infarct, no deficits noted, f/u neuro Dr Roberts, ASA and statin, bp control, follow diet recs, CENTER RECEPTIONIST eval prn, PT/OT to maximize function Acute inju ry of kidney 3450068352 5417124 N17.8 Cr on admission 2.74, improved with IV fluids, Cr on d/c 0.6, monitor renal function as rhabdomyol ysis resolves Chronic ob structive pulmonary disease 00616245 J41.1 Stable, proair inhaler prn Mixed hyperlipidemia 267 650520 E78.2 On statin Essential hypertension 23136371 I10 Amlodipine 5 mg, monitor bp and labs Chronic pain 92750545 G8 9.29 Oxycodone for pain, monitor Vertigo 808840822 R42 With dizziness in hospital, patient reports dizziness has not improved, cont. meclizine 12.5 mg prn, if fails to improve consider ENT consult, monitor Rheumatoid arthritis 698 84137 M06.89 Methotrexa te qweekly, prednisone 5 mg, monitor sxs [id number] Juana Mcdonough [facility] of [address] [address] 06/06/2016 12:14:01 06/06/2016 12:43:57 Tremor 29537312 G25.2 Neurology consult as scheduled. OT evaluation for weighted eating utensils Neuropathy 155020083 G65 .1 Neurology consult. [id number] Markus Yi MD [address] [address] 06/08/2016 11:20:31 06/10/2016 11:51:58 Rhabdomyolysis 094353677 M62.82 Patient with fall out of wheelchair , found laying on floor for unknown period of time, patient presented c/o severe back pain and other assorted aches and pains, initial CK 25,000+, treated with IV fluids with improvemen t, CK 18,892 on d/c, follow CPK and BMP twice weekly until normalized , PT/OT to maximize function Cerebrovas cular accident 803793980 I63.342 Acute cerebellar infarct seen on CT head. f/u neuro Dr Roberts for CVA and tremorASA and statin, bp controlSLP eval prnPT/OT to maximize function Acute inju ry of kidney 4456429409 5681162 N17.8 Cr on admission 2.74, improved with IV fluids, Cr on d/c 0.6, monitor renal function as rhabdomyol ysis resolves Chronic ob structive pulmonary disease 21375834 J41.1 Stable, proair inhaler prn Mixed hyperlipidemia 267 910527 E78.2 On statin Essential hypertension 72047997 I10 Norvasc 5 mgmonitor bp and labs Chronic pain 71184034 G8 9.29 Oxycodone for pain, monitor Vertigo 873903127 R42 With dizziness in hospital, patient reports dizziness has not improved, cont. meclizine 12.5 mg prn, if fails to improve consider ENT consult, monitor Rheumatoid arthritis 698 64058 M06.89 Methotrexa te qweekly, prednisone 5 mg, monitor sxs [id number] MARKIE KOLOSKI, REFRIGERATION TECH [facility] [address] [place] [address] 09/25/2020 12:26:20 09/29/2020 08:22:25 Abnormal gait 41101611 R26.89 PT/OT eval and treat reminders to ask for help utilize walker monitor for safety History of cerebrovascular accident 294405152 Z86.73 ASA 81 mg qd atorvastat in 40 mg qd monitor follow with neurology as needed Neuropathy 502816446 G63 neurontin 600 mg bid discussed risk vs benefit of neurontin with pt monitor Rheumatoid arthritis 698 73887 M06.89 methotrexa te 2.5 mg 6 tabs q week monitor Mixed hyperlipidemia 267 570973 E78.2 atorvastat in 40 mg qd monitor labs Essential hypertension 12622366 I10 ASA 81 mg qd norvasc at home but not discharged on any monitor b/p and labs Chronic ob structive pulmonary disease 86857282 J41.8 carries diagnosis not on medication monitor respirator y status Chronic pain 15883604 G8 9.29 oxycodone/ apap 5-325 mg bid prn monitor pain Gastroesop hageal reflux disease without esophagitis 908813108 K21.9 omeprazole 20 mg qd monitor for symptoms Coronary arteriosclerosis 76754220 I25.10 ASA 81 mg qd atorvastat in 40 mg qd monitor Anemia 627717436 D50.8 ferrous sulfate 325 mg tid monitor labs Tremor 52073185 G25.2 primadone 50 mg bid and 100 mg q hs carbidopa- levodopa 25-100 mg tid monitor Blood in urine 94511877 R31.29 monitor urine follow up with urology Lactic acidosis 14809394 E87.2 unknown cause resolved with fluids monitor Constipation 33478193 K5 9.09 miralax 17 gms qd colace 100 mg bid monitor bowels Chronic insomnia 9454744 04 F51.04 melatonin 3 mg q hs trazodone 300 mg q hs discussed risk vs benefit of trazodone with pt monitor sleep Benign pro static hyperplasia 137854718 N40.0 tamsulosin 0.4 mg qd monitor for symptoms [id number] Stefanie Nelson MD [facility] [address] [address] 09/28/2020 13:23:25 09/30/2020 13:29:25 Abnormal gait 03053242 R26.89 Doing great with PT per PT. Continue PT/OT for strengthen ing, balance, gait training, safety and function, her and then hopefully at home also for awhile. Encouraged to use walker consistent ly. Monitor for safety Blood in urine 24252047 R31.29 Incidental finding. F/U with urology as outpt. Constipation 78540106 K5 9.09 Continue miralax 17 gms qd and colace 100 mg BID. Monitor bowel function. History of cerebrovascular accident 276511449 Z86.73 Stable at baseline. Continue ASA 81 mg qd and atorvastat in 40 mg qd Monitor for change in sxs. Rheumatoid arthritis 698 82790 M06.89 Continue methotrexa te 15 mg q week And pain meds as above. F/U with rheum as planned. Mixed hyperlipidemia 267 692275 E78.2 Continue atorvastat in 40 mg qd Monitor labs as outpt. Essential hypertension 65973537 I10 BP in good control since here. Continue amlodipine 5 mg qd. Monitor BP and labs Chronic ob structive pulmonary disease 37176687 J41.8 carries diagnosis not on medication monitor respirator y status Gastroesop hageal reflux disease without esophagitis 815686124 K21.9 No current sxs. Continue omeprazole 20 mg qd Monitor for sxs Coronary arteriosclerosis 57452753 I25.10 Continue ASA 81 mg qd and atorvastat in 40 mg qd Monitor for sxs. Anemia 435430770 D50.8 Continue ferrous sulfate 325 mg TID. Monitor labs Tremor 64927865 G25.2 Unclear if dx is Parkinson' s Continue primidone 50 mg bid and 100 mg qhs and carbidopa- levodopa 25-100 mg TID. Monitor F/U with neuro as planned Chronic insomnia 0396607 04 F51.04 Continue melatonin 3 mg qhs and trazodone 300 mg qhs Monitor sleep patterns. Benign pro static hyperplasia 469276181 N40.0 No current sxs. Continue tamsulosin 0.4 mg qd Monitor for sxs Chronic back pain 659301 002 M54.5 Checked meds in [facility]. COnfirmed chronic use, rxed by PCP. Continue oxycodone/ apap 5-325 mg BID prn (uses BID scheduled) and gabapentin 600 mg BID. Monitor pain control. [id number] Markus Yi MD [address] [address] 09/29/2020 13:06:18 10/01/2020 11:59:12 Abnormal gait 44649154 R26.89 improved with therapy now independen t with walker Blood in urine 41806432 R31.29 recent episode of F/U with urology as outpt. History of cerebrovascular accident 025367574 Z86.73 Stable at baseline. Continue ASA 81 mg qd and atorvastat in 40 mg qd Monitor for change in sxs. Chronic back pain 860346 002 M54.5 Checked meds in [facility]. COnfirmed chronic use, rxed by PCP. Continue oxycodone/ apap 5-325 mg BID prn (uses BID scheduled) and gabapentin 600 mg BID. Monitor pain control. Rheumatoid arthritis 698 52596 M06.89 Continue methotrexa te 15 mg q week And pain meds as above. F/U with rheum as planned. Mixed hyperlipidemia 267 134480 E78.2 Continue atorvastat in 40 mg qd Monitor labs as outpt. Essential hypertension 27943592 I10 BP in good control since here. Continue amlodipine 5 mg qd. Monitor BP and labs Gastroesop hageal reflux disease without esophagitis 801075007 K21.9 Continue omeprazole 20 mg qd Monitor for sxs Coronary arteriosclerosis 27413192 I25.10 Continue ASA 81 mg qd and atorvastat in 40 mg qd Monitor for sxs. Anemia 230919011 D50.8 Continue ferrous sulfate 325 mg TID. Monitor labs Tremor 15661307 G25.2 Unclear if dx is Parkinson' s Continue primidone 50 mg bid and 100 mg qhs and carbidopa- levodopa 25-100 mg TID. Monitor F/U with neuro as planned Chronic insomnia 1058222 04 F51.04 Continue melatonin 3 mg qhs and trazodone 300 mg qhs Monitor sleep patterns. Benign pro static hyperplasia 279386976 N40.0 Continue tamsulosin 0.4 mg qd Monitor for sxs Health Concerns Section Related Observation LastModified by Organization Detai ls LastModified Time None Recorded Concern Status LastModified by Organization Details LastModified Time None Recorded Advance Directives Directive Y: FULL CODE-NO DIALYSIS-use nutrition and hydration Payers Encounter Date Sequence Insurance Name Policy Number Policy Khanna Covered Member ID Khanna Member ID Guarantor Name 06/06/2016 1 [facility] [employer] - DOS PRIOR TO 2022 - DUAL ELIGIBLE (MEDICARE REPLACEMENT/ADV ANTAGE - HMO) Jabari Nilesh [id number] Jabari Nilesh 06/06/2016 2 [place] [facility] Jabari Galloway [id number] Jabari Galloway 06/08/2016 1 [facility] [employer] - DOS PRIOR TO 2022 - DUAL ELIGIBLE (MEDICARE REPLACEMENT/ADV ANTAGE - HMO) Jabari Nilesh [id number] Jabari Galloway 06/08/2016 2 [place] [facility] Jabari Nilesh [id number] Jabari Galloway 09/25/2020 1 [facility] [employer] - DOS PRIOR TO 2022 - DUAL ELIGIBLE (MEDICARE REPLACEMENT/ADV ANTAGE - HMO) Jabari Galloway [id number] Jabari Galloway 09/25/2020 2 [place] [facility] Jabari Galloway [id number] Jabari Galloway 09/28/2020 1 [facility] CARE ALLIANCE - DOS PRIOR TO 2022 - DUAL ELIGIBLE (MEDICARE REPLACEMENT/ADV ANTAGE - HMO) Jabari Nilesh [id number] Jabari Galloway 09/28/2020 2 [place] [facility] Jabari Nilesh [id number] Jabari Galloway 09/29/2020 1 [facility] CARE [employer] - DOS PRIOR TO 2022 - DUAL ELIGIBLE (MEDICARE REPLACEMENT/ADV ANTAGE - HMO) Jabari Nilesh [id number] Jabari Galloway 09/29/2020 2 [place] [facility] Jabari Nilesh [id number] Jabari Nilesh Notes Date Note Type Note Provider Name and Address Organization Details Recorded Time 06/06/2016 text/html 75-year-old male being seen for acute rounding visit at the request of nursing due to tremors of the left hand. Juana solis [place] - [facility] 06/06/2016 12:39:38 06/08/2016 text/html Patient is a [...] Tremor since CVA Markus Yi MD [address] [facility] [facility], [address], [place], [address], [facility] 06/08/2016 11:46:35 09/25/2020 text/html A 79 year old nafisa le being seen for a initial intake note. Patient was sent to [facility] er when his MANAGER APPLICATION noted slurred speech, unsteady gait and lethargy. [...] tremor. PCP is Evans ROUSE, SUSAN [address] [facility] [facility], [address], [place], [address], [facility] 09/25/2020 19:13:22 09/28/2020 text/html This is a 79 yo man who is here for rehab after and acute hospitalization for slurred speech, unsteady gait and lethargy. He was sent to the [facility] ED on 09/23 after his MANAGER APPLICATION noted the above sxs. Eval in hospital [...] doing well with rehab, he has daily MANAGER APPLICATION at home and hopes for d/c on 09/30. Of note he is on chronic oxycodone and gabapentin for back pain.Seen walking in the [place] with PT, walking well and quickly using walker, with no assist.He says he feels like he is back to baseline, remembers day he went to hospital, he could understand what MANAGER APPLICATION was saying, but she said she couldn't understand him. He couldn't tell that speech was slurred.His PMH includes HTN, hx of CVA-inferomedial left cerebellum, anemia, BPH, insomnia, COPD, hx of tubular adenoma, chronic back pain, YEIMY, PVD, constipation, GERD, HLD, neuropathy, RA and tremor. Stefanie Nelson MD [address] [place] [address], [address], [place], [address], [facility] 09/28/2020 15:16:59 09/29/2020 text/html Patient is a 79 yo male seen in preparation for discharge initially admit from hospital after presenting with slurred speech, unsteady gait and lethargy. He was sent to the [facility] ED on 09/23 after his MANAGER APPLICATION noted the above sxs. Eval in hospital [...] doing well with rehab, he has daily MANAGER APPLICATION at home and hopes for d/c on 09/30. Of note he is on chronic oxycodone and gabapentin for back pain.Now independent ambulation with walker, cleared for discharge with services in place to f/u with PCP Markus Yi MD [address] [place] [address], [address], [place], [address], [facility] 09/29/2020 13:19:01
== END 2024-08-29 14:18 | disposition home or self-care (01) ==
LOC: HO.US 14:17
PROVIDERS: PCP Internal Medicine; Visit Provider Internal Medicine
DX: N10 Acute pyelonephritis (principal); R31.29 Other microscopic hematuria
CPT/HCPCS: 76775

== ENCOUNTER → 2024-08-29 14:19 | Outpatient (BNV) | payer OTHER, SELFPAY | PROVIDERS: PCP Internal Medicine; Visit Provider Radiology Diagnostic Radiology | DX: N20.0 Calculus of kidney (principal) | CPT/HCPCS: 76775 ==

== ENCOUNTER 2024-09-10 13:40 | Outpatient (REF) | payer OTHER, SELFPAY ==
--- NOTE | 2024-09-10 14:10 | PFT_ITS ---
Flows: FEV1: 90 % of predicted at 1.93 L FVC: 69 % of predicted at 1.98 L FEV1/FVC: 97 % Bronchodilator response: Absent Volumes: Total lung capacity: 72 % of predicted at 4.58 L Residual volume: 94 % of predicted at 2.38 L Slow vital capacity: 61 % of predicted at 2.20 L Expiratory reserve volume: 6 % of predicted at 0.07 L Diffusion capacity: Severely decreased, adjusts to being moderately decreased after correction for alveolar ventilation. Impression: Moderate restrictive ventilatory defect with no bronchodilator response. Combination of decreased diffusion capacity and restrictive ventilatory defect suggests underlying pulmonary parenchymal disease. Clinical correlation is advised. MTDD
[2024-09-10 14:45] VITALS: PULSE 68; O2SAT 96
--- OUTSIDE RECORDS SUMMARY | 2024-09-10 16:40 | XMS_ITS | Data Portability ---
Author Organization [facility], Main Office Address [address], [address] [place] [address] Care Team Providers Care Teletray Operator Name Role Phone JAZZ HASTINGS - 3RD FLOOR OTHER EVANS PERRIN Primary Care Provider Assessment Encounter Date Assessment Date Assessment LastModified by Organization Details LastModified Time 09/25/2020 09/25/2020 09/25/20 WBC 4.7, Hgb 11, Hct 33.9, Plt 211, Na 131, K 4.3, BUN 17, Assistant Elementary Teacher 0.72, diane 8.3, tot prot 8.3, alb 2.9, tot bili 0.4, AST 19, ALT 16, alk phos 114 [email or web address] Not available 09/25/2020 12:31:57 09/28/2020 09/28/2020 09/25/20 WBC 4.7, Hgb 11, Hct 33.9, Plt 211, Na 131, K 4.3, BUN 17, Assistant Elementary Teacher 0.72, diane 8.3, tot prot 8.3, alb [...] Address Organization Details Recorded Time Abnormal gait 00405602 Active 2020 [address] STEIN [address], [address], [place], [address], [employer] 13:43:55 History of cerebrovasc ular accident 792822694 Active 2020 SUSAN STEIN [address], [address], [place], [address], [employer] [facility] 18:30:18 Gastroesoph ageal reflux disease without esophagitis 385014592 Active 2020 SUSAN STEIN [address], [address], [place], [address], [employer] 18:32:34 Coronary arterioscle rosis 04481769 Active 2020 SUSAN STEIN [address], [address], [place], [address], [facility] 18:33:28 Anemia 425218299 Active 2020 SUSAN STEIN [address], [address], [place], [address], [facility] 18:33:43 Blood in urine 35266195 Active 2020 SUSAN STEIN [address], [address], [place], [address], [facility] 18:35:24 Constipatio n 18299679 Active 2020 SUSAN STEIN [address], [place], [address], [employer] 18:37:06 Chronic insomnia 862628628 Active 2020 SUSAN STEIN [address], [address], [place], [address], [facility] 18:40:24 Benign prostatic hyperplasia 981258617 Active 2020 TORREY STEINP [address] [facility], [address], [place], [address], [facility] [employer] [facility] 1 18:43:50 Rhabdomyoly sis 975118695 Active 2015 Daly solis, [facility] [employer] [facility] 6 10:11:43 Cerebrovasc ular accident 993383834 Active 2015 Daly Bui null, [facility] 6 10:11:48 Acute injury of kidney 9688678781564 4108 Active 2015 Daly Ames null, [facility] 6 10:12:01 Chronic obstructive pulmonary disease 86187238 Active 2015 Daly Ames null, [facility] 6 10:12:07 Mixed hyperlipide loco 247175549 Active 2015 Daly Bui null, [facility] [employer] [facility] 6 10:12:13 Essential hypertensio n 74228920 Active 2015 Daly Ames null, [facility] [employer] [facility] 6 10:12:19 Rheumatoid arthritis 69725483 Active 2015 Daly Bui null, [facility] 6 10:12:32 Chronic pain 12110080 Active 2015 Daly Bui null, [facility] [employer] [facility] 6 10:12:39 Neuropathy 821463540 Active 2015 Daly Bui null, [facility] [employer] [facility] 6 10:26:35 Tremor 50670264 Active 2016 Juana Mcdonough null, [facility] [employer] [facility] 7 12:23:32 Problem Notes None recorded. Medical [...] 134 mm[Hg] 68 mm[Hg] SUSAN STEIN [address] [facility], [address], [place], [address], [employer] [facility] 18:21:00 Date Recorded Body height Body mass index (BMI) Body weight Oxygen saturation Oxygen saturation in Arterial blood by Pulse oximetry Body temperature Heart rate Respiratory rate Systolic blood pressure Diastolic blood pressure Provider Name and Address Organization Details Last Updated DateTime 170.18 cm 19.3 kg/m2 97060.8 6 g 94 % 94 % 97.9 [degF] 78 /min 18 /min 124 mm[Hg] 68 mm[Hg] Stefanie Nelson MD [address] [facility], [address], [place], [address], [facility] 13:27:16 Date Recorded Body height Systolic blood pressure Diastolic blood pressure Provider Name and Address Organization Details Last Updated DateTime 09/29/2020 170.18 cm 124 mm[Hg] 68 mm[Hg] Markus Yi MD [address] [facility], [address], [place], [address], [facility] 09/29/2020 13:11:53 Social History Question Answer Notes LastModified by Organizat ion Details LastModified Time Tobacco Smoking Status Current Every Day Smoker just 1-2 cigs/day Stefanie Nelson MD [address] [facility], [address], [place], [address], [facility] 09/28/2020 15:00:49 Do You Have An [...] Do You Have A Medical Power Of Cutting And Boning Supervisor? Yes Hcp On File Information not available [...] SNOMED-CT Code Diagnosis ICD10 Code Diagnosis Note [id number] [address]aly [address]ui [address] [address] 06/04/2016 10:00:35 06/10/2016 11:24:13 Rhabdomyolysis 296262988 M62.82 Patient with fall out of wheelchair , found laying on floor for unknown period of time, patient presented c/o severe back pain and other assorted aches and pains, initial CK 25,000+, treated with IV fluids with improvemen t, CK 18,892 on d/c, follow CPK and BMP twice weekly until normalized , PT/OT to maximize function Cerebrovas cular accident 222968819 I63.342 Presented with fall, screening head CT revealed acute cerebellar infarct, no deficits noted, f/u neuro Dr Roberts, ASA and statin, bp control, follow diet recs, ACID TANK CLEANER eval prn, PT/OT to maximize function Acute inju ry of kidney 9765601100 1331192 N17.8 Cr on admission 2.74, improved with IV fluids, Cr on d/c 0.6, monitor renal function as rhabdomyol ysis resolves Chronic ob structive pulmonary disease 10351195 J41.1 Stable, proair inhaler prn Mixed hyperlipidemia 267 348226 E78.2 On statin Essential hypertension 97404918 I10 Amlodipine 5 mg, monitor bp and labs Chronic pain 34005867 G8 9.29 Oxycodone for pain, monitor Vertigo 850507830 R42 With dizziness in hospital, patient reports dizziness has not improved, cont. meclizine 12.5 mg prn, if fails to improve consider ENT consult, monitor Rheumatoid arthritis 698 91844 M06.89 Methotrexa te qweekly, prednisone 5 mg, monitor sxs [id number] Juana Mcdonough [facility] of [address] [address] 06/06/2016 12:14:01 06/06/2016 12:43:57 Tremor 29494362 G25.2 Neurology consult as scheduled. OT evaluation for weighted eating utensils Neuropathy 090717070 G65 .1 Neurology consult. [id number] Markus Yi MD [address] [address] 06/08/2016 11:20:31 06/10/2016 11:51:58 Rhabdomyolysis 806938599 M62.82 Patient with fall out of wheelchair , found laying on floor for unknown period of time, patient presented c/o severe back pain and other assorted aches and pains, initial CK 25,000+, treated with IV fluids with improvemen t, CK 18,892 on d/c, follow CPK and BMP twice weekly until normalized , PT/OT to maximize function Cerebrovas cular accident 281505520 I63.342 Acute cerebellar infarct seen on CT head. f/u neuro Dr Roberts for CVA and tremorASA and statin, bp controlSLP eval prnPT/OT to maximize function Acute inju ry of kidney 4155265985 9043581 N17.8 Cr on admission 2.74, improved with IV fluids, Cr on d/c 0.6, monitor renal function as rhabdomyol ysis resolves Chronic ob structive pulmonary disease 65743868 J41.1 Stable, proair inhaler prn Mixed hyperlipidemia 267 489773 E78.2 On statin Essential hypertension 28831901 I10 Norvasc 5 mgmonitor bp and labs Chronic pain 84857752 G8 9.29 Oxycodone for pain, monitor Vertigo 445503404 R42 With dizziness in hospital, patient reports dizziness has not improved, cont. meclizine 12.5 mg prn, if fails to improve consider ENT consult, monitor Rheumatoid arthritis 698 37894 M06.89 Methotrexa te qweekly, prednisone 5 mg, monitor sxs [id number] MARKIE KOLOSKI, STEAM METER READER [facility] [address] [place] [address] 09/25/2020 12:26:20 09/29/2020 08:22:25 Abnormal gait 15621750 R26.89 PT/OT eval and treat reminders to ask for help utilize walker monitor for safety History of cerebrovascular accident 940452374 Z86.73 ASA 81 mg qd atorvastat in 40 mg qd monitor follow with neurology as needed Neuropathy 184151144 G63 neurontin 600 mg bid discussed risk vs benefit of neurontin with pt monitor Rheumatoid arthritis 698 13349 M06.89 methotrexa te 2.5 mg 6 tabs q week monitor Mixed hyperlipidemia 267 929667 E78.2 atorvastat in 40 mg qd monitor labs Essential hypertension 70439952 I10 ASA 81 mg qd norvasc at home but not discharged on any monitor b/p and labs Chronic ob structive pulmonary disease 08997175 J41.8 carries diagnosis not on medication monitor respirator y status Chronic pain 76759298 G8 9.29 oxycodone/ apap 5-325 mg bid prn monitor pain Gastroesop hageal reflux disease without esophagitis 672590690 K21.9 omeprazole 20 mg qd monitor for symptoms Coronary arteriosclerosis 45441856 I25.10 ASA 81 mg qd atorvastat in 40 mg qd monitor Anemia 975690963 D50.8 ferrous sulfate 325 mg tid monitor labs Tremor 09850786 G25.2 primadone 50 mg bid and 100 mg q hs carbidopa- levodopa 25-100 mg tid monitor Blood in urine 14837411 R31.29 monitor urine follow up with urology Lactic acidosis 51772008 E87.2 unknown cause resolved with fluids monitor Constipation 85348107 K5 9.09 miralax 17 gms qd colace 100 mg bid monitor bowels Chronic insomnia 6967771 04 F51.04 melatonin 3 mg q hs trazodone 300 mg q hs discussed risk vs benefit of trazodone with pt monitor sleep Benign pro static hyperplasia 071082205 N40.0 tamsulosin 0.4 mg qd monitor for symptoms [id number] Stefanie Nelson MD [facility] of [address] [address] 09/28/2020 13:23:25 09/30/2020 13:29:25 Abnormal gait 70529369 R26.89 Doing great with PT per PT. Continue PT/OT for strengthen ing, balance, gait training, safety and function, her and then hopefully at home also for awhile. Encouraged to use walker consistent ly. Monitor for safety Blood in urine 26400220 R31.29 Incidental finding. F/U with urology as outpt. Constipation 91996281 K5 9.09 Continue miralax 17 gms qd and colace 100 mg BID. Monitor bowel function. History of cerebrovascular accident 317386866 Z86.73 Stable at baseline. Continue ASA 81 mg qd and atorvastat in 40 mg qd Monitor for change in sxs. Rheumatoid arthritis 698 02224 M06.89 Continue methotrexa te 15 mg q week And pain meds as above. F/U with rheum as planned. Mixed hyperlipidemia 267 205825 E78.2 Continue atorvastat in 40 mg qd Monitor labs as outpt. Essential hypertension 02688094 I10 BP in good control since here. Continue amlodipine 5 mg qd. Monitor BP and labs Chronic ob structive pulmonary disease 43041952 J41.8 carries diagnosis not on medication monitor respirator y status Gastroesop hageal reflux disease without esophagitis 095191151 K21.9 No current sxs. Continue omeprazole 20 mg qd Monitor for sxs Coronary arteriosclerosis 24004949 I25.10 Continue ASA 81 mg qd and atorvastat in 40 mg qd Monitor for sxs. Anemia 076298240 D50.8 Continue ferrous sulfate 325 mg TID. Monitor labs Tremor 77740500 G25.2 Unclear if dx is Parkinson' s Continue primidone 50 mg bid and 100 mg qhs and carbidopa- levodopa 25-100 mg TID. Monitor F/U with neuro as planned Chronic insomnia 8568685 04 F51.04 Continue melatonin 3 mg qhs and trazodone 300 mg qhs Monitor sleep patterns. Benign pro static hyperplasia 805955176 N40.0 No current sxs. Continue tamsulosin 0.4 mg qd Monitor for sxs Chronic back pain 714410 002 M54.5 Checked meds in [facility]. COnfirmed chronic use, rxed by PCP. Continue oxycodone/ apap 5-325 mg BID prn (uses BID scheduled) and gabapentin 600 mg BID. Monitor pain control. [id number] Markus Yi MD [address] [address] 09/29/2020 13:06:18 10/01/2020 11:59:12 Abnormal gait 98994799 R26.89 improved with therapy now independen t with walker Blood in urine 84592966 R31.29 recent episode of F/U with urology as outpt. History of cerebrovascular accident 511935503 Z86.73 Stable at baseline. Continue ASA 81 mg qd and atorvastat in 40 mg qd Monitor for change in sxs. Chronic back pain 799499 002 M54.5 Checked meds in [facility]. COnfirmed chronic use, rxed by PCP. Continue oxycodone/ apap 5-325 mg BID prn (uses BID scheduled) and gabapentin 600 mg BID. Monitor pain control. Rheumatoid arthritis 698 36064 M06.89 Continue methotrexa te 15 mg q week And pain meds as above. F/U with rheum as planned. Mixed hyperlipidemia 267 817330 E78.2 Continue atorvastat in 40 mg qd Monitor labs as outpt. Essential hypertension 96188630 I10 BP in good control since here. Continue amlodipine 5 mg qd. Monitor BP and labs Gastroesop hageal reflux disease without esophagitis 535147102 K21.9 Continue omeprazole 20 mg qd Monitor for sxs Coronary arteriosclerosis 61113445 I25.10 Continue ASA 81 mg qd and atorvastat in 40 mg qd Monitor for sxs. Anemia 802976651 D50.8 Continue ferrous sulfate 325 mg TID. Monitor labs Tremor 06518290 G25.2 Unclear if dx is Parkinson' s Continue primidone 50 mg bid and 100 mg qhs and carbidopa- levodopa 25-100 mg TID. Monitor F/U with neuro as planned Chronic insomnia 7190747 04 F51.04 Continue melatonin 3 mg qhs and trazodone 300 mg qhs Monitor sleep patterns. Benign pro static hyperplasia 826411105 N40.0 Continue tamsulosin 0.4 mg qd Monitor for sxs Health Concerns Section Related Observation LastModified by Organization Detai ls LastModified Time None Recorded Concern Status LastModified by Organization Details LastModified Time None Recorded Advance Directives Directive Y: FULL CODE-NO DIALYSIS-use nutrition and hydration Payers Encounter Date Sequence Insurance Name Policy Number Policy Khanna Covered Member ID Khanna Member ID Guarantor Name 06/06/2016 1 [facility] [employer] [employer] - DOS PRIOR TO 2022 - DUAL ELIGIBLE (MEDICARE REPLACEMENT/ADV ANTAGE - HMO) Jabari Nilesh [id number] Jabari Nilesh 06/06/2016 2 [place] [facility] Jabari Galloway [id number] Jabari Galloway 06/08/2016 1 [facility] [employer] - DOS PRIOR TO 2022 - DUAL ELIGIBLE (MEDICARE REPLACEMENT/ADV ANTAGE - HMO) Jabari Nilesh [id number] Jabari Galloway 06/08/2016 2 [place] [facility] Jabari Nilesh [id number] Jabari Galloway 09/25/2020 1 [facility] [employer] - DOS PRIOR TO 2022 - DUAL ELIGIBLE (MEDICARE REPLACEMENT/ADV ANTAGE - HMO) Jabari Galloway [id number] Jabari Galloway 09/25/2020 2 [place] [facility] Jabari Galloway [id number] Jabari Galloway 09/28/2020 1 [facility] CARE ALLIANCE - DOS PRIOR TO 2022 - DUAL ELIGIBLE (MEDICARE REPLACEMENT/ADV ANTAGE - HMO) Jabari Nilesh [id number] Jabari Galloway 09/28/2020 2 [place] [facility] Jabari Nilesh [id number] Jabari Galloway 09/29/2020 1 [facility] CARE [employer] - DOS PRIOR TO 2022 - DUAL ELIGIBLE (MEDICARE REPLACEMENT/ADV ANTAGE - HMO) Jabari Nilesh [id number] Jabari Galloway 09/29/2020 2 [place] [facility] Jabari Nilesh [id number] Jabari Nilesh Notes Date Note Type Note Provider Name and Address Organization Details Recorded Time 06/06/2016 text/html 75-year-old male being seen for acute rounding visit at the request of nursing due to tremors of the left hand. Juana solis [place] - [facility] 06/06/2016 12:39:38 06/08/2016 text/html Patient is a [...] Tremor since CVA Markus Yi MD [address] [facility], [address], [place], [address], [facility] 06/08/2016 11:46:35 09/25/2020 text/html A 79 year old nafisa le being seen for a initial intake note. Patient was sent to [facility] er when his CORRECTIONAL THERAPY DIRECTOR noted slurred speech, unsteady gait and lethargy. [...] tremor. PCP is Evans ROUSE, SUSAN [address] [facility], [address], [place], [address], [facility] 09/25/2020 19:13:22 09/28/2020 text/html This is a 79 yo man who is here for rehab after and acute hospitalization for slurred speech, unsteady gait and lethargy. He was sent to the [facility] ED on 09/23 after his CORRECTIONAL THERAPY DIRECTOR noted the above sxs. Eval in hospital [...] doing well with rehab, he has daily CORRECTIONAL THERAPY DIRECTOR at home and hopes for d/c on 09/30. Of note he is on chronic oxycodone and gabapentin for back pain.Seen walking in the [place] with PT, walking well and quickly using walker, with no assist.He says he feels like he is back to baseline, remembers day he went to hospital, he could understand what CORRECTIONAL THERAPY DIRECTOR was saying, but she said she couldn't understand him. He couldn't tell that speech was slurred.His PMH includes HTN, hx of CVA-inferomedial left cerebellum, anemia, BPH, insomnia, COPD, hx of tubular adenoma, chronic back pain, YEIMY, PVD, constipation, GERD, HLD, neuropathy, RA and tremor. Stefanie Nelson MD [address] [place] [address], [address], [place], [address], [facility] 09/28/2020 15:16:59 09/29/2020 text/html Patient is a 79 yo male seen in preparation for discharge initially admit from hospital after presenting with slurred speech, unsteady gait and lethargy. He was sent to the [facility] ED on 09/23 after his CORRECTIONAL THERAPY DIRECTOR noted the above sxs. Eval in hospital [...] doing well with rehab, he has daily CORRECTIONAL THERAPY DIRECTOR at home and hopes for d/c on 09/30. Of note he is on chronic oxycodone and gabapentin for back pain.Now independent ambulation with walker, cleared for discharge with services in place to f/u with PCP Markus Yi MD [address] [place] [address], [address], [place], [address], [facility] 09/29/2020 13:19:01
== END 2024-09-10 13:41 | disposition home or self-care (01) ==
LOC: HO.RESP 13:40
PROVIDERS: PCP Internal Medicine; Visit Provider Hospitalist
DX: C34.90 Malignant neoplasm of unspecified part of unspecified bronchus or lung (principal)
CPT/HCPCS: 94010; 94640; 94727; 94729

== ENCOUNTER → 2024-09-10 14:10 | Outpatient (BNV) | payer OTHER, SELFPAY | PROVIDERS: PCP Internal Medicine; Visit Provider Internal Medicine Pulmonary Disease | DX: C34.90 Malignant neoplasm of unspecified part of unspecified bronchus or lung (principal) | CPT/HCPCS: 94060 ==

== ENCOUNTER 2024-09-24 13:56 | Outpatient (REF) | payer OTHER, SELFPAY ==
--- NOTE | ~2024-09-24 | US_ITS ---
EXAMINATION: US PELVIS LIMITED (BLADDER) CLINICAL INFORMATION: Microscopic hematuria. COMPARISON: August 29, 2024 TECHNIQUE: Real-time imaging of the bladder. FINDINGS: BLADDER: Fluid-filled with the isoechoic abnormality in the dependent portion without flow on color Doppler interrogation. Bilateral ureteral jets are demonstrated. Prevoid bladder volume is 148 mL. Postvoid bladder volume is 75 mL. Prostate gland measures 4 x 5 cm in maximum dimension and a volume: 33 cc. US/US bladder IMPRESSION: 75 cc residual amount of urine in a post void image. The previously versus blood products versus other, urinary bladder lumen.. Electronically signed by: Celso Quiroz MD 09/25/2024 01:37 PM EDT
--- OUTSIDE RECORDS SUMMARY | 2024-09-24 16:43 | XMS_ITS | Encounter Summary ---
Author Organization [employer] Address [address] [facility] 7t [place] [address] Care Team Providers Care Hospice Liaison Name Role Phone Will Cole MD Primary Care Provide r Reason for Visit * Reason Comments Med Refill Encounter Details Date Type Department Care Team ([facility] st Contact Info) Description 03/13/2023 Refill [facility] [address] [place], [place] [phone] Will Cole MD [address] [place] [address] Severe pain Social History Tobacco Use Types [...] Care Team (Late st Contact Info) Description 10/24/2024 2:30 PM EDT Office Visit [facility] [address] [place] [address] Will Cole MD [address] [place] [address] 10/29/2024 9:45 AM EDT Office Visit [facility] [address] [place] [address] documented as of this encounter Visit Diagnoses Diagnosis Severe pain documented in this encounter Additional Health Concerns Assessment Noted Time PHQ-9 Depression Total Score: 11 023 10:42 AM EDT documented as of this encounter Care Teams Hospice Liaison Relationship Specialty Start Date End Date Will Cole MD [address] [place] [address] PCP - General Internal Medicine 01/14/14 documented as of this encounter
--- OUTSIDE RECORDS SUMMARY | 2024-09-24 16:43 | XMS_ITS | Encounter Summary ---
Author Organization [employer] Address [address] [facility] 7t [place] [address] Care Team Providers Care Analysis Evaluator Name Role Phone Will Cole MD Primary Care Provide r Reason for Visit * Reason Comments Med Refill Encounter Details Date Type Department Care Team ([facility] st Contact Info) Description 08/29/2022 Refill [facility] [address] [place], [place] [phone] Will Cole MD [address] [place], [place] [phone] Severe pain Social History Tobacco Use Types [...] Description 10/24/2024 2:30 PM EDT Office Visit [facility] [address] [place] [address] Will Cole MD [address] [place] [address] 10/29/2024 9:45 AM EDT Office Visit [facility] [address] [place] [address] documented as of this encounter Visit Diagnoses Diagnosis Severe pain documented in this encounter Care Teams Analysis Evaluator Relationship Specialty Start Date End Date Will Cole MD [address] [place] [address] PCP - General Internal Medicine 01/14/14 documented as of this encounter
--- OUTSIDE RECORDS SUMMARY | 2024-09-24 16:43 | XMS_ITS | Encounter Summary ---
Author Organization [employer] Address [address] [facility] 7t [place] [address] Care Team Providers Care Technical Consultant Name Role Phone Will Cole MD Primary Care Provide r Reason for Visit * Reason Comments Med Refill Encounter Details Date Type Department Care Team ([facility] st Contact Info) Description 04/11/2023 Refill [facility] [address] [place], [place] [phone] Will Cole MD [address] [place] [address] Severe pain Social History Tobacco Use Types [...] Description 10/24/2024 2:30 PM EDT Office Visit [facility] [address] [place] [address] Will Cole MD [address] [place] [address] 10/29/2024 9:45 AM EDT Office Visit [facility] [address] [place] [phone] documented as of this encounter Visit Diagnoses Diagnosis Severe pain documented in this encounter Additional Health Concerns Assessment Noted Time PHQ-9 Depression Total Score: 11 023 10:42 AM EDT documented as of this encounter Care Teams Technical Consultant Relationship Specialty Start Date End Date Will Cole MD [address] [place] [address] PCP - General Internal Medicine 01/14/14 documented as of this encounter
--- OUTSIDE RECORDS SUMMARY | 2024-09-24 16:43 | XMS_ITS | Encounter Summary ---
Author Organization [employer] Address [address] [facility] 7t [place] [address] Care Team Providers Care Referral Nurse Name Role Phone Will Cole MD Primary Care Provide r Reason for Visit * Reason Comments Med Refill Encounter Details Date Type Department Care Team ([facility] Contact Info) Description 03/29/2023 Refill [facility] [address] [place], [place] [phone] Name, MD Kevin [address] [place] [address] Social History Tobacco Use Types Packs/Day Years [...] Description 10/24/2024 2:30 PM EDT Office Visit [facility] [address] [place] [phone] Will Cole MD [address] [place] [address] 10/29/2024 9:45 AM EDT Office Visit [facility] [address] [place] [address] documented as of this encounter Visit Diagnoses Not on filedocumented in this encounter Additional Health Concerns Assessment Noted Time PHQ-9 Depression Total Score: 11 023 10:42 AM EDT documented as of this encounter Care Teams Referral Nurse Relationship Specialty Start Date End Date Will Cole MD [address] [place] [address] PCP - General Internal Medicine 01/14/14 documented as of this encounter
--- OUTSIDE RECORDS SUMMARY | 2024-09-24 16:43 | XMS_ITS | Encounter Summary ---
Author Organization [employer] Address [address] [facility] 7t [place] [address] Care Team Providers Care Allopathic Doctor Name Role Phone Will Cole MD Primary Care Provide r Encounter Details Date Type Department Care Team ([facility] st Contact Info) Description 09/04/[address] [facility] MEDICINE [address] [place], [place] [phone] Will Cole MD [address] [place], [place] [phone] Social History Tobacco Use Types Packs/Day Years [...] Description 10/24/2024 2:30 PM EDT Office Visit [facility] MED[facility]INE [address] [place] [phone] Will Cole MD [address] [place] [phone] 10/29/2024 9:45 AM EDT Office Visit [facility] [address] [place] [phone] documented as of this encounter Visit Diagnoses Not on filedocumented in this encounter Additional Health Concerns Assessment Noted Time PHQ-9 Depression Total Score: 0 01/09/20 24 2:03 PM EDT documented as of this encounter Care Teams Allopathic Doctor Relationship Specialty Start Date End Date Will Cole MD [address] [place] [phone] PCP - General Internal Medicine 01/14/14 documented as of this encounter
--- OUTSIDE RECORDS SUMMARY | 2024-09-24 16:44 | XMS_ITS | Encounter Summary ---
Author Organization [employer] Address [address] [facility] 7t [place] [address] Care Team Providers Care Metal Furnace Operator Name Role Phone Will Cole MD Primary Care Provide r Reason for Visit * Reason Onset Date Comments Durable Medical Equipment 05/12/2022 Requesting a call back 05/12/2022 CT scan 05/12/2022 Encounter Details Date Type Department Care Team ([facility] st Contact Info) Description 05/12/2022 Telephone [facility] MEDICINE [address] [place], [place] [phone] Will Cole MD [address] [place], [place] [phone] Durable Medical Equipment; Requesting a call back [...] 06/01/2022 3:18 PM EST T/C placed to [facility] to make sure pt's PET scan is all set and scheduled. Got busy signal. Will retask to green nurses for third attempt. * Telephone Encounter - Leana Modi RN - 06/01/2022 10:16 AM EST T/C placed to [facility] to make sure pt's PET [...] PM EST Incoming T/C from Sarmad at [facility] returning my calls at my direct line. Explained below situation to her. Informed we are actively working on it and that I will call her back and update her. She provided direct number [phone]. * Telephone Encounter - Leana Modi RN [...] left a V/M. Spoke to Job nurse media relations manager who stated will send message to Dx specialist to work on it RADHA. T/C placed to Sarmad at [facility] to update/ discuss. They stated she is unavailable and sent bette message. Provided my direct ext for call back. * Telephone Encounter - Leana Modi RN - 05/24/2022 2:18 PM EST Reviewed pt's [employer] chart. Per Dx specialist, PET scan order was faxed to [facility] and they would call pt to schedule. T/C placed to [facility] to see if it was ever scheduled as we never received results. No answer, left detailed V/M. Phone number in below messages is inaccurate. T/C placed to [facility]. They attempted to connectme to Sarmad but she was unavailable. Had them send her a message letting her know that we sent the order to [facility] and that we never received results. Also informed I working on getting in contact with them but so far they have no answered my call. Will retask to benjie portillo to attempt another call for results. * Telephone Encounter - Treasure Ugalde - 05/24/2022 9:31 AM EST Tc from sarmad from [facility] requesting a call would like to know if pt ever got scheduled for PET scan with concurrent CT scan, order was done on 03/10/22 and printed on 03/15/22 please call [phone]. Proof Technician Helper attempted to get a hold of a nurse, Unable to, call dropped. * Telephone Encounter - Claudia Hernandez - 05/20/2022 9:56 AM EST Tc from sarmad from [facility] requesting a call would like to know if pt ever got scheduled for PET scan with concurrent CT scan, order was done on 03/10/22 and printed on 03/15/22 please call [phone]. * Telephone Encounter - Natanael Ceja - 05/19/2022 9:27 AM EST Tc from Sarmad with [facility] requesting a call back from a nurse to discuss order ( PET scan with concurrent ct scan skill base to mid-thigh. Please contact Sarmad at [phone] * Telephone Encounter - Will Hardy MD - 05/12/2022 4:01 PM EST Please write script ( discuss case with RN to include appropriate diagnosis ) and I will then sign. * Telephone Encounter - Jaycee Taylor - 05/12/2022 1:55 PM EST Tc from [facility] requesting a power chair . States would prefer [employer] , which [facility] informs they have already faxed a request. Please call to clarify. documented in this encounter Plan of Treatment Upcoming Encounters Date Type Department Care Team (Late st Contact Info) Description 10/24/2024 2:30 PM EDT Office Visit [facility] [place] [address] [place] [address] 10/29/2024 9:45 AM EDT Office Visit [facility] [place] [phone] documented as of this encounter Visit Diagnoses Not on filedocumented in this encounter Care Teams Metal Furnace Operator Relationship Specialty Start Date End Date Will Cole MD [facility] [place] [address] PCP - General Internal Medicine 01/14/14 documented as of this encounter
--- OUTSIDE RECORDS SUMMARY | 2024-09-24 16:44 | XMS_ITS | Encounter Summary ---
Author Organization [employer] Address [address] [facility] 7t [place] [address] Care Team Providers Care Children'S Service Worker Name Role Phone Will Cole MD Primary Care Provide r Encounter Details Date Type Department Care Team (Late st Contact Info) Description 06/16/2022 Orders Only [facility] MEDICINE [address] [place] [phone] Ximena Cameron LPN Social History Tobacco Use [...] Description 10/24/2024 2:30 PM EDT Office Visit [facility] MEDICINE [address] [place] [address] [phone] Will Cole MD [address] [place] [address] 10/29/2024 9:45 AM EDT Office Visit [facility] MED[facility]INE [address] [place] [address] [phone] documented as of this encounter Procedures Procedure Name Priority Date/Time Associated Diagnosis Comments PET/CT BONE SKULL BASE TO MID THIGH Routine 06/21/2022 11:30 AM EST documented in this encounter Results * PET/CT Bone Skull Base to Mid Thigh (06/21/2022 11:30 AM EST) Anatomical Region Laterality Modality Body Computed Tomogra phy 06/21/2022 11:3 0 AM EST Narrative 06/23/2022 11:44 AM EST ? [facility] ?[address] ?[place] [address] ? PET Report ? Signed ? Patient: Jabari Galloway ?MR#: [id number] ? : 1940 ?Acct:[id number] ? Age/Sex: 81 / M ?ADM Date: 06/21/22 ? Loc: HO.PET ? Attending Dr: Will Smart MD ? Ordering Physician: Will Smart MD ?? Date of Service: 06/21/22 ?? Procedure(s): PET CT fusion skull to thigh ?? Accession Number(s): [id number] ? cc: Will Smart MD ? EXAMINATION: [...] 1141 ? DD/ 1130 ? TD/TT: ? Bad Work Gatherer: ? Procedure Note Dest[place], Image - 07/11/2022 [place] [id number] PET Report Signed Patient: Shannon Galloway#: [id number] : 1Acct:[id number] Age/Sex: 81 / MADM Date: 06/21/22 Loc: HO.PET Attending Dr: Will Smart MD Ordering Physician: Will Smart MD Date of Service: 06/21/22 Procedure(s): PET CT fusion skull to thigh Accession Number(s): [id number] cc: Will Smart MD EXAMINATION: NM [id number] [...] in OV> 06/23/22 1141 DD/ 1130 TD/TT: Bad Work Gatherer: [facility] External Provider IMG CT PROCEDURES Edited Result - Final documented in this encounter Visit Diagnoses Not on filedocumented in this encounter Care Teams Children'S Service Worker Relationship Specialty Start Date End Date Will Cole MD [address] [place] [phone] PCP - General Internal Medicine 01/14/14 documented as of this encounter
--- OUTSIDE RECORDS SUMMARY | 2024-09-24 16:44 | XMS_ITS | Clinical Summary ---
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 Banophen 25 MG capsuleIndicati ons:Rash TAKE 1 [...] TAKE 1 TABLET BY MOUTH EVERY MORNING 023 Active ipratropium-alb uterol (Duo-Neb) 0.5-2.5 mg/3 mL [...] 10 mg by mouth in the morning. Active clopidogrel (Plavix) 75 MG tablet Take 75 mg by mouth. Active predniSONE (Deltasone) 5 MG tablet Take 5 mg by mouth in the morning. Active naproxen (Naprosyn) 500 MG tabletIndicatio ns:Rib pain Take 1 tablet (500 mg) by mouth with breakfast and with evening meal. 20 tablet 024 2024 Active Diclofenac Sodium 1 % gelIndications: Chronic midline low back pain without sciatica Apply affected area BID 100 g 3 024 Active Aspirin Low Dose 81 MG [...] DAILY IN THE MORNING AND AT BEDTIME Active docusate sodium (Colace) 100 MG capsuleIndicati ons:Drug-induce d constipation TAKE 1 CAPSULE BY MOUTH TWICE DAILY IN THE MORNING AND IN THE EVENING 180 capsule 025 Active amLODIPine (Norvasc) 5 MG tabletIndicatio ns:Essential hypertension TAKE 1 TABLET BY MOUTH EVERY MORNING 90 tablet 025 Active oxyCODONE-aceta minophen (Percocet) 5-325 MG tabletIndicatio ns:Rib pain,Severe pain Take 1 tablet by mouth every 12 (twelve) hours if needed for severe pain. 56 tablet 025 Active atorvastatin (Lipitor) 40 MG tablet TAKE 1 TABLET BY MOUTH AT BEDTIME 90 tablet 1 025 Active atorvastatin (Lipitor) 40 MG tablet TAKE 1 TABLET BY MOUTH EVERY DAY AT BEDTIME 90 tablet 1 024 2024 Discontinued oxyCODONE-aceta minophen (Percocet) 5-325 MG tabletIndicatio ns:Rib pain,Severe pain Take 1 tablet by mouth every 12 (twelve) hours if needed for severe pain. 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 Agreement renewed Lower urinary tract symptoms (LUTS) 08/05/2024 Assessment [...] intake, take Pyridium as needed. Jyotsna his DIRECTOR OF ARCHITECTURE will call urology to schedule an appointment. 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 Will contact his DIRECTOR OF ARCHITECTURE to find out if this can be [...] is almost his birthday. He appreciates his DIRECTOR OF ARCHITECTURE's involvement in his life for the past [...] is almost his birthday. He appreciates his DIRECTOR OF ARCHITECTURE's involvement in his life for the past [...] is almost his birthday. He appreciates his DIRECTOR OF ARCHITECTURE's involvement in his life for the past [...] is almost his birthday. He appreciates his DIRECTOR OF ARCHITECTURE's involvement in his life for the past [...] Hematology Last Hgb up to 8.2 03/09/2020 Preventative health care 10/05/2022 Assessment & Plan (10/10/2023 10:46 AM EDT): Pneumovax: 08/12/2014 Tdap: 03/29/2012 Zoster: 03/31/2015 Colonoscopy with tubular adenomas '06, repeat 01/03/11 at [facility] normal; repeat 07/15/13 was normal. Assessment & Plan (10/05/2022 5:09 PM EDT): Pneumovax: 08/12/2014 Tdap: 03/29/2012 Zoster: 03/31/2015 Colonoscopy with tubular adenomas '06, repeat 01/03/11 at [facility] normal; repeat 07/15/13 was normal. History of [...] disease He was last seen by his Aircraft Ordnance Technician Dr Cummings in August 2022 He mentioned [...] move for with any aggressive intervention. Pts DIRECTOR OF ARCHITECTURE tells me he refuses to use the [id number] patches and does not like to use [...] disease He was last seen by his Aircraft Ordnance Technician Dr Cummings in August 2022 He mentioned [...] the moment, will make an appointment with Pleasure Craft Sailor if he decides to proceed Nephrolithiasis 06/20/2022 [...] for in stent re-stenosis. 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 Last seen at [facility] 07/2023 recommended conservative approach [...] his four-foot cane if he has his DIRECTOR OF ARCHITECTURE with him. Pt wanted to see Dr. [...] disease He was last seen by his Aircraft Ordnance Technician Dr Cummings in August 2022 He mentioned [...] Either way he recommended to see a literacy consultant . He mentioned in the note that patient and his family wanted to take some time to discuss and decide how to move forward. Previous visit His DIRECTOR OF ARCHITECTURE told me that the appointment with Pleasure Craft Sailor was cancelled since he was not convinced he wanted to proceed with Dr morrison recommendation. Today once again we discussed this, he still seems reluctant. He is still smoking and has not used the nicotine patches he was prescribed or the plastic cigarettes. Today again I had a conversation with him and his DIRECTOR OF ARCHITECTURE if he decides to go ahead with it he would ask his DIRECTOR OF ARCHITECTURE to contact the literacy consultant for an appointment and schedule a follow [...] disease He was last seen by his Aircraft Ordnance Technician Dr Cummings in August 2022 He mentioned [...] Either way he recommended to see a literacy consultant . He mentioned in the note that patient and his family wanted to take some time to discuss and decide how to move forward. Previous visit His DIRECTOR OF ARCHITECTURE told me that the appointment with Pleasure Craft Sailor was cancelled since he was not convinced he wanted to proceed with Dr morrison recommendation. Today once again we discussed this, he still seems reluctant. He is still smoking and has not used the nicotine patches he was prescribed or the plastic cigarettes. Today again I had a conversation with him and his DIRECTOR OF ARCHITECTURE if he decides to go ahead with it he would ask his DIRECTOR OF ARCHITECTURE to contact the literacy consultant for an appointment and schedule a follow [...] disease He was last seen by his Aircraft Ordnance Technician Dr Cummings in August 2022 He mentioned [...] Either way he recommended to see a literacy consultant . He mentioned in the note that patient and his family wanted to take some time to discuss and decide how to move forward. Previous visit His DIRECTOR OF ARCHITECTURE told me that the appointment with Pleasure Craft Sailor was cancelled since he was not convinced he wanted to proceed with Dr morrison recommendation. Today once again we discussed this, he still seems reluctant. He is still smoking and has not used the nicotine patches he was prescribed or the plastic cigarettes. Once again today I had a conversation with him and his DIRECTOR OF ARCHITECTURE if he decides to go ahead with it he would ask his DIRECTOR OF ARCHITECTURE to contact the literacy consultant for an appointment and schedule a follow [...] disease He was last seen by his Aircraft Ordnance Technician Dr Cummings in August 2022 He mentioned [...] Either way he recommended to see a literacy consultant . He mentioned in the note that patient and his family wanted to take some time to discuss and decide how to move forward. His DIRECTOR OF ARCHITECTURE told me that the appointment with Pleasure Craft Sailor was cancelled since he was not convinced he wanted to proceed with Dr morrison recommendation. Today we discussed again, and he seems on the fence. He is still smoking and has not used the nicotine patches he was prescribed or the plastic cigarettes. I had a very detailed conversation with him and his DIRECTOR OF ARCHITECTURE today and he stated he would think about it and if he decides to go ahead with it he would ask his DIRECTOR OF ARCHITECTURE to contact the literacy consultant for an appointment and schedule a follow up with Dr Choe I have asked him to come in and see me in 1 month , he is agreable Rheumatoid arthritis involvi ng multiple sites with positive rheumatoid factor 01/27/2012 Assessment & Plan (08/27/2024 1:42 PM EDT): See below Assessment & Plan (03/28/2024 3:11 PM EDT): [...] Date Resolved Date Pure hypercholesterolemia 03/26/2015 Encounters * This document contains information received from the source organization and may not represent a complete record from that organization. Date Type Department Care Team Description 09/04/2024 Orders Only [facility] [address] [place] [phone] Will Cole MD 09/03/2024 Refill [facility] [address] [place] [address] Will Cole MD 09/02/2024 Refill [facility] [address], [place] [phone] Melissa Fernando RN Rib pain; Severe pain 09/02/2024 Telephone [facility] [address] [place] [address] Will Cole MD Med Refill 08/27/2024 9:45 AM EDT Office Visit [address] [phone] Amanda Irizarry FNP Rheumatoid arthritis involving multiple sites with positive rheumatoid factor ([facility]) (Primary Dx); Long-term current use of opiate analgesic; Rib pain 08/27/2024 Travel 08/08/2024 Telephone [facility] [address] [place] [phone] Georgina Hines MD 08/06/2024 Refill [facility] [address] [place] [phone] Will Cole MD Rib pain; Severe pain 08/05/2024 2:20 PM EST Office Visit [facility] [address] [place] [phone] Georgina Hines MD Lower urinary tract symptoms (LUTS) (Primary Dx); Acute pyelonephritis; Other microscopic hematuria 08/05/2024 Telephone [facility] [address] [place] [address] Georgina Hines MD Medication Question 07/11/2024 Orders Only GENERIC EXTERNAL DATA DEPARTMENT Provider, Generic External Data 07/11/2024 Refill [facility] [address] [place] [address] Will Cole MD Essential hypertension 07/10/2024 Telephone [facility] [address] [place] [address] Melissa Fernando RN 07/10/2024 Travel 07/05/2024 Telephone [facility] [address], [place] [phone] Melissa Fernando RN education diagnostician 07/03/2024 Refill [facility] [address], [place] [phone] Will Cole MD Rib pain; Severe pain; Drug-induced constipation 06/28/2024 Telephone [facility] [address] [place] [address] Will Cole MD Results; CT Results (CT lungs) from Last 3 Months Immunizations Name Administration [...] Description 10/24/2024 2:30 PM EDT Office Visit [facility] [address] [place], [place] [phone] Will Cole MD [address] [place] [address] 10/29/2024 9:45 AM EDT Office Visit [facility] [address] [place], [place] [phone] Health Maintenance Due Date Last Done Comments [...] Additional history exists Zoster Vaccines Completed 04/04/2023, 08/2 02/2023, 03/31/2015 RSV Patients and Patients Aged 60 [...] Procedure Name Priority Date/Time Associated Diagnosis Comments US RENAL BI Routine 08/29/2024 2:50 PM EDT Acute pyelonephritis Other microscopic hematuria POCT JULIANNA-14 URINE DRUG SCREEN Routine 08/27/2024 12:54 PM EDT Rheumatoid arthritis involving multiple sites with positive rheumatoid factor ([facility]) Long-term current use of opiate analgesic CULTURE, URINE, ROUTINE Routine 08/05/2024 2:57 PM EST Lower urinary tract symptoms (LUTS) POCT URINALYSIS DIPSTICK Routine 08/05/2024 2:40 PM EST Lower urinary tract symptoms (LUTS) CULTURE, URINE, ROUTINE Routine 07/11/2024 10:[address] ABDOMEN PELVIS WO CONTRAST Routine 07/11/2024 7:55 PM EST URINALYSIS, COMPLETE, WITH REFLEX TO CULTURE Routine 07/11/2024 6:38 PM EST CBC WITH AUTO DIFFERENTIAL Routine 07/11/2024 6:35 PM EST LIPID PANEL, STANDARD Routine 12/22/2023 8:24 AM EDT Mixed hyperlipidemia from Last 3 Months or Most Recently Relevant to Health Maintenance Results * US RENAL BI (08/29/2024 2:50 PM EDT) Anatomical Region Laterality Modality Abdomen Ultrasound 08/29/2024 2:50 PM EDT Narrative 08/29/2024 3:39 PM EDT ? [facility] ?[address] ?[place] [address] ? Ultrasound Report ? Signed ? Patient: Jabari Galloway ?MR#: [id number] ? : 1940 ?Acct:[id number] ? Age/Sex: 83 / M ?ADM Date: 08/29/24 ? Loc: HO.US ? Attending Dr: Georgina Hines MD ? Ordering Physician: Georgina Hines MD ?? Date of Service: 08/29/24 ?? Procedure(s): US renal BI ?? Accession Number(s): [id number] ? cc: Georgina Hines MD; Will Smart MD ? EXAMINATION: ??US KIDNEY BILATERAL ? HISTORY: dysuria/back pain + hematuria ro kidney stone ? TECHNIQUE: Real-time grayscale ultrasound imaging of the kidneys was ?? performed and images were reviewed. ? COMPARISON: Comparison is made with the prior examination dated ?? 01/27/2023. ? FINDINGS: ? Right kidney: ??The right kidney measures 10.7 x 4.5 x 6.2 cm. ??Renal ?? parenchymal thickness is normal. However, there is increased cortical ?? echotexture with prominence of the pyramids, suggestive of chronic ?? medical renal disease. ??There are no masses. ??There is a nonobstructing ?? 7 x 5 x 9 mm lower pole calculus. There is no hydronephrosis. ? Left Kidney: ??The left kidney measures 10.0 x 5.6 x 4.6 cm. ??Renal ?? parenchymal thickness is normal. However, there is increased cortical ?? echotexture with prominence of the pyramids, suggestive of chronic ?? medical renal disease. ??There are 2 cysts at the lower pole measuring ?? 11 x 10 x 9 mm and 7 x 5 x 6 mm. ??There is a nonobstructing 11 x 7 x 9 ?? mm calculus in the interpolar region and a nonobstructing 10 x 5 x 10 ?? mm calculus at the lower pole. There is no hydronephrosis. ? US/US renal BI ?? IMPRESSION: ? 1. Increased renal parenchymal echotexture and prominence of the ?? pyramids, suggestive of chronic medical renal disease. Clinical ?? correlation is recommended. ? 2. Bilateral nephrolithiasis as described. No hydronephrosis. ? Electronically signed by: ??Amadou Pérez MD ??08/29/2024 03:36 PM EDT ? Dictated By: ?Amadou Pérez MD ? Signed By: ?<Electronically signed by Amadou Pérez MD in OV> ?08/29/24 1536 ? DD/ 1450 ? TD/TT: 08/29/24 1508 ? Loan Administrator: ? Procedure Note Donedith, Image - 08/29/2024 [place] [address] Ultrasound Report Signed Patient: Shannon Galloway#: [id number] : 1940cct:[id number] Age/Sex: 83 / MADM Date: 08/29/24 Loc: HO.US Attending Dr: Georgina Hines MD Ordering Physician: Georgina Hines MD Date of Service: 08/29/24 Procedure(s): US renal BI Accession Number(s): [id number] cc: Georgina Hines MD; Will Smart MD EXAMINATION: US KIDNEY BILATERAL HISTORY: dysuria/back pain + hematuria ro kidney stone TECHNIQUE: Real-time grayscale ultrasound imaging of the kidneys was performed and images were reviewed. COMPARISON: Comparison is made with the prior examination dated 01/27/2023. FINDINGS: Right kidney: The right kidney measures 10.7 x 4.5 x 6.2 cm. Renal parenchymal thickness is normal. However, there is increased cortical echotexture with prominence of the pyramids, suggestive of chronic medical renal disease. There are no masses. There is a nonobstructing 7 x 5 x 9 mm lower pole calculus. There is no hydronephrosis. Left Kidney: The left kidney measures 10.0 x 5.6 x 4.6 cm. Renal parenchymal thickness is normal. However, there is increased cortical echotexture with prominence of the pyramids, suggestive of chronic medical renal disease. There are 2 cysts at the lower pole measuring 11 x 10 x 9 mm and 7 x 5 x 6 mm. There is a nonobstructing 11 x 7 x 9 mm calculus in the interpolar region and a nonobstructing 10 x 5 x 10 mm calculus at the lower pole. There is no hydronephrosis. US/US renal BI IMPRESSION: 1. Increased renal parenchymal echotexture and prominence of the pyramids, suggestive of chronic medical renal disease. Clinical correlation is recommended. 2. Bilateral nephrolithiasis as described. No hydronephrosis. Electronically signed by: Amadou Pérez MD 08/29/2024 03:36 PM EDT Dictated By: Amadou Pérez MD Signed By: <Electronically signed by Amadou Pérez MD in OV> 08/29/24 1536 DD/ 1450 TD/TT: 08/29/24 1508 Loan Administrator: Georgina Hines MD [facility] [place] [place] US PROCEDURES Final Result * POCT JULIANNA-14 Urine Drug Screen (08/27/2024 12:54 PM EDT) THC Negative Cocaine Screen, Urine Negative Opiate Screen, Urine Negative Methamphetamine Screen Urine Negative Amphetamine Screen, Urine Negative Benzodiazepines Screen, Urine Negative Barbiturate Screen, Urine Negative Methadone Screen, Urine Negative Buprenophine Screen, Urine Negative TCA, Urine Negative MDMA Urine Negative ng/mL Oxycodone Screen, Urine Positive Phencyclidine (PCP), Urine Negative Propoxyphene, Urine Negative Fentanyl, Urine Negative Urine Urine specimen obtained by clean catch procedure / Unknown 08/27/2024 12:54 PM EDT Narrative Anna Ocampo [place] - 08/27/2024 12:56 PM EDT Lot:[id number] Exp: 01/23/2028 Amanda Irizarry CHAIN PEGGER POINT OF CARE TEST ENTER/EDIT ORDERABLES Edited Result - Final * Culture, Urine, Routine (08/05/2024 2:57 PM EST) Only the most recent of2 resultswithin the time period is included. Urine Urine specimen obtained by clean catch procedure / Unknown 08/05/2024 2:57 PM EST 08/05/2024 6:34 PM EST Comment:UACC Narrative [facility] - 08/08/2024 7:23 AM EST Escherichia coli Quant > 100,000 cfu/mL Escherichia coli: Ampicillin >=32(R) Escherichia coli: Cefazolin (Urine) 2(S) Escherichia coli: Cefepime <=0.12(S) Escherichia coli: Ceftriaxone <=0.25(S) Escherichia coli: Ciprofloxacin >=4(R) Escherichia coli: Gentamicin <=1(S) Escherichia coli: Nitrofurantoin <=16(S) Escherichia coli: Trimethoprim/Sulfamethoxazole <=20(S) Specimen Source: Urine clean catch Georgina Hines MD LAB MICROBIOLOGY - GENER AL ORDERABLES Final Result [facility] [address] [place] [phone] * (ABNORMAL) POCT urinalysis dipstick manually resulted [...] TEST ENTER /EDIT ORDERABLES Final Result * CT Abdomen Pelvis w/o Contrast (07/11/2024 7:55 PM EST) Anatomical Region Laterality Modality Body, Pelvis, Abdomen Computed T omography 07/11/2024 7:55 PM EST Narrative 07/11/2024 9:32 PM EST ? [facility] ?[address] ?[place] [address] ? CT Scan Report ? Signed ? Patient: Jabari Galloway ?MR#: [id number] ? : 1940 ?Acct:[id number] ? Age/Sex: 83 / M ?ADM Date: 07/11/24 ? Loc: HO.ED ? Attending Dr: ? Ordering Physician: Ivory Gomez MD ?? Date of Service: 07/11/24 ?? Procedure(s): CT abdomen pelvis wo IV con ?? Accession Number(s): [id number] ? cc: Will Smart MD; Ivory Goemz MD ? Report Number: ?? [id number]: Total DLP = ??352.00 mGy-cm ? CLINICAL [...] ? DD/ 54 ? TD/TT: 07/11/241954 ? Loan Administrator: ? Procedure Note Destini, Image - 07/11/[address] [place] [address] [address] Scan Report Signed Patient: Shannon Galloway#: [id number] : 1Acct:[id number] Age/Sex: 83 / MADM Date: 07/11/24 Loc: HO.ED Attending Dr: Ordering Physician: Ivory Gomez MD Date of Service: 07/11/24 Procedure(s): CT abdomen pelvis wo IV con Accession Number(s): [id number] cc: Will Smart MD; Ivory Gomez MD Report Number: [id number]: Total DLP = 352.00 mGy-cm CLINICAL HISTORY: [...] in OV> 07/11/242131 DD/ 54 TD/TT: 07/11/241954 Loan Administrator: [facility] External Provider IMG CT PROCEDURES Edited Result - Final * (ABNORMAL) Urinalysis, Complete, with Reflex to Culture (07/11/2024 6:38 PM EST) Color Urine DK YELLOW [facility] Appearance Urine Cloudy [facility] PH 6.0 5.0 - 9.0 [facility] Glucose Urine UA Negative Negative mg/dL [facility] Urine Blood Large (3+)(A) Negative [facility] Specific [place] - Urine >=1.030(H) 1.005 - 1.025 [facility] Urine Protein 100 (2+)(A) Neg-Trace mg/dL [facility] Urine Ketones Negative Negative mg/dL [facility] Nitrite Urine Negative Negative [facility] Leukocyte Esterase Urine Large (3+)(A) Negative [facility] RBC Urine 11-20(A) 0 - 2 /HPF [facility] Urine WBC >50 0 - 5 /HPF [facility] WBC CLUMPS, UR Present [facility] Urine Squamous Epithelial Cell 0-2 0 - 2 /HPF [facility] CALCIUM OXALATE CRYSTAL, UR Present [facility] Urine Bacteria 4+ None Seen [facility] Hyaline Casts, Urine 0-2 0 - 2 /LPF [facility] 07/11/2024 6:38 PM EST 07/11/2024 9:15 PM EST Narrative [facility] - 07/11/2024 9:41 PM EST Urine, Clean Catch us Generic External Data Provider LAB URINE ORDERAB LES Final Result Performing Organization Address City/State/[facility] Co de Phone Number [facility] [address] [place] [phone] * (ABNORMAL) CBC auto differential (07/11/2024 6:35 PM EST) White Blood Count 10.6 4.8 - 10.8 X10*3/uL [facility] Red Blood Count 4.48(L) 4.60 - 5.80 X10*6/uL [facility] Hemoglobin 13.8(L) 14.0 - 18.0 g/dl [facility] Hematocrit 41.0(L) 42.0 - 52.0 % [facility] Mean Corpuscular Volume 91.5 80.0 - 98.0 fL [facility] Mean Corpuscular Hemoglobin 30.8 27.0 - 33.0 pg [facility] Mean Corpuscular HGB Conc 33.7 31.0 - 36.0 g/dl [facility] Red Cell Distribution Width 15.2 11.0 - 16.0 % [facility] Platelet Count 266 160 - 400 X10*3/uL [facility] Mean Platelet Volume 10.2 9.4 - 12.4 fL [facility] Neutrophils Percent Auto 72.1 45 - 73 % [facility] Imm Gran Pct Auto 0.3 0.0 - 0.4 % [facility] Lymphocytes Percent Auto 23.4 20 - 40 % [facility] Monocytes Percent Auto 3.7 2 - 11 % [facility] Eosinophils Percent Auto 0.2 0 - 4 % [facility] Basophils Percent Auto 0.3 0 - 2 % [facility] NRBC Pct Auto 0.0 0.0 - 0.2 /100WBC [facility] Neutrophils Absolute Auto 7.7 2.0 - 8.3 x10*3/uL [facility] Imm Gran Abs Auto 0.03 0.00 - 0.03 X10*3/uL [facility] Lymphocytes Absolute Auto 2.5 1.2 - 4.9 X10*3/uL [facility] Monocytes Absolute Auto 0.4 0.1 - 1.2 X10*3/uL [facility] Eosinophils Absolute Auto 0.0 0.0 - 0.4 X10*3/uL [facility] Basophils Absolute Auto 0.0 0.0 - 0.2 X10*3/uL [facility] NRBC Abs Auto 0.000 0.0 - 0.012 X10*3/uL [facility] 07/11/2024 6:35 PM EST 07/11/2024 10:23 PM EST us Generic External Data Provider LAB BLOOD ORDERAB LES Final Result [facility] [address] [place] [phone] [phone] * (ABNORMAL) Lipid Panel, Standard (12/22/2023 8:24 AM EDT) Triglycerides 77 <150 mg/dL [facility] Comment:Desirable Triglyceri de: less than 150 mg/dLBorderline High Triglyceride 150-199 mg/dLHigh Triglyceride: 200-499 mg/dLVery High Triglyceride: greater than or equal to 5OO mg/dL Cholesterol 135 <200 mg/dL [facility] Comment:Desirable Cholestero l: less than 200 mg/dLBorderline High Cholesterol: 200-239 mg/dLHigh Cholesterol: greater than 239 mg/dL LDL Cholesterol Calculated 87 <100 mg/dL [facility] Comment:Desirable LDL: less than 100 mg/dLNear Optimal/Above Optimal LDL: 110- 129 mg/dLBorderline High LDL: 130-159 mg/dLHigh LDL: 160-189 mg/dLVery High LDL: greater than or equal to 190 mg/dL HDL Cholesterol 33(L) >40 mg/dL [facility] Comment:Desirable HDL: great er than 40 mg/dL Note: This HDL assay may give artificially low results in patients with liver disease. 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
--- OUTSIDE RECORDS SUMMARY | 2024-09-24 16:44 | XMS_ITS | Encounter Summary ---
Author Organization [employer] Address [address] [facility] 7t [place] [address] Care Team Providers Care Tariff Supervisor Name Role Phone Will Cole MD Primary Care Provide r Reason for Visit * Reason Onset Date Comments Durable Medical Equipment 03/20/2024 Encounter Details Date Type Department Care Team ([facility] st Contact Info) Description 03/20/2024 Telephone [facility] [address] [place], [place] [phone] Will Cole MD [address] [place], [place] [phone] Durable Medical Equipment Social History Tobacco Use [...] chair. She would like script sent to [facility]. If any questions you can contact [facility]pt at [phone]. * Telephone Encounter - Harvey Hernandez - 03/20/2024 11:25 AM EDT Tc from [facility] requesting a recliner as soon as possible stating pt does have one that they received years ago but the chair is broken and pt is at risk of falling due to the state of the chair. She would like script sent to [facility]. If any questions you can contact [facility] at [phone]. documented in this encounter Plan of Treatment Upcoming Encounters Date Type Department Care Team (Late st Contact Info) Description 10/24/2024 2:30 PM EDT Office Visit [facility] [address] [facility] [place] [address] [place] [address] 10/29/2024 9:45 AM EDT Office Visit [facility] [place] [address] documented as of this encounter Visit Diagnoses Not on filedocumented in this encounter Additional Health Concerns Assessment Noted Time PHQ-9 Depression Total Score: 0 01/09/20 24 2:03 PM EDT documented as of this encounter Care Teams Tariff Supervisor Relationship Specialty Start Date End Date Wlil Cole MD [address] [facility] [place] [address] PCP - General Internal Medicine 01/14/14 documented as of this encounter
--- OUTSIDE RECORDS SUMMARY | 2024-09-24 16:44 | XMS_ITS | Encounter Summary ---
Author Organization [employer] Address [address] [facility] 7t [place] [address] Care Team Providers Care Clean Up Supervisor Name Role Phone Will Cole MD Primary Care Provide r Reason for Visit * Reason Onset Date Comments Med Refill 04/08/2024 Encounter Details Date Type Department Care Team (Late st Contact Info) Description 04/08/2024 Refill [facility] [address] [place] [address] Will Cole MD [address] [place] [address] Rib pain; Severe pain Social History Tobacco [...] Description 10/24/2024 2:30 PM EDT Office Visit [facility] [address] [place] [address] Will Cole MD [address] [place] [address] 10/29/2024 9:45 AM EDT Office Visit [facility] [address] [place] [address] documented as of this encounter Visit Diagnoses Diagnosis Rib pain Unspecified chest pain Severe pain documented in this encounter Additional Health Concerns Assessment Noted Time PHQ-9 Depression Total Score: 0 01/09/20 24 2:03 PM EDT documented as of this encounter Care Teams Clean Up Supervisor Relationship Specialty Start Date End Date Will Cole MD [address] [place] [address] PCP - General Internal Medicine 01/14/14 documented as of this encounter
--- OUTSIDE RECORDS SUMMARY | 2024-09-24 16:44 | XMS_ITS | Data Portability ---
Author Organization [facility], Main Office Address [address] [facility] [place] [address] Care Team Providers Care Pneumatic Tube Repairer Name Role Phone JAZZ HASTINGS - 3RD FLOOR OTHER EVANS PERRIN Primary Care Provider Assessment Encounter Date Assessment Date Assessment LastModified by Organization Details LastModified Time 09/25/2020 09/25/2020 09/25/20 WBC 4.7, Hgb 11, Hct 33.9, Plt 211, Na 131, K 4.3, BUN 17, Yard Demurrage Clerk 0.72, diane 8.3, tot prot 8.3, alb 2.9, tot bili 0.4, AST 19, ALT 16, alk phos 114 [email or web address] Not available 09/25/2020 12:31:57 09/28/2020 09/28/2020 09/25/20 WBC 4.7, Hgb 11, Hct 33.9, Plt 211, Na 131, K 4.3, BUN 17, Yard Demurrage Clerk 0.72, diane 8.3, tot prot 8.3, alb [...] Address Organization Details Recorded Time Abnormal gait 80471943 Active 2020 [address], [address], [place], [address], [facility] 13:43:55 History of cerebrovasc ular accident 532609939 Active 2020 SUSAN STEIN [address], [address], [place], [address], [facility] 18:30:18 Gastroesoph ageal reflux disease without esophagitis 816552016 Active 2020 [address], [address], [place], [address], [facility] 18:32:34 Coronary arterioscle rosis 63315239 Active 2020 [address], [address], [place], [address], [facility] 18:33:28 Anemia 382728854 Active 2020 [address], [address], [place], [address], [facility] 18:33:43 Blood in urine 45423649 Active 2020 [address], [address], [place], [address], [facility] 18:35:24 Constipatio n 28145618 Active 2020 [address], [address], [place], [address], [facility] 18:37:06 Chronic insomnia 878354932 Active 2020 [address], [address], [place], [address], [facility] 18:40:24 Benign prostatic hyperplasia 380528160 Active 2020 TORREY STEINP [address] [facility], [address], [place], [address], [facility] [employer] [facility] 1 18:43:50 Rhabdomyoly sis 299400871 Active 2015 Daly solis, [facility] [employer] [facility] 6 10:11:43 Cerebrovasc ular accident 516803134 Active 2015 Daly Bui null, [facility] 6 10:11:48 Acute injury of kidney 5505751923468 4108 Active 2015 Daly Ames null, [facility] 6 10:12:01 Chronic obstructive pulmonary disease 28959915 Active 2015 Daly Ames null, [facility] 6 10:12:07 Mixed hyperlipide loco 052037631 Active 2015 Daly Bui null, [facility] [employer] [facility] 6 10:12:13 Essential hypertensio n 70466364 Active 2015 Daly Ames null, [facility] [employer] [facility] 6 10:12:19 Rheumatoid arthritis 37036679 Active 2015 Daly Bui null, [facility] 6 10:12:32 Chronic pain 57173166 Active 2015 Daly Bui null, [facility] [employer] [facility] 6 10:12:39 Neuropathy 825526614 Active 2015 Daly Bui null, [facility] [employer] [facility] 6 10:26:35 Tremor 06656238 Active 2016 Juana Mcdonough null, [facility] [employer] [facility] 7 12:23:32 Problem Notes None recorded. Medical [...] 134 mm[Hg] 68 mm[Hg] SUSAN STEIN [address] [facility], [address], [place], [address], [facility] 18:21:00 Date Recorded Body height Body mass index (BMI) Body weight Oxygen saturation Oxygen saturation in Arterial blood by Pulse oximetry Body temperature Heart rate Respiratory rate Systolic blood pressure Diastolic blood pressure Provider Name and Address Organization Details Last Updated DateTime 170.18 cm 19.3 kg/m2 24958.8 6 g 94 % 94 % 97.9 [degF] 78 /min 18 /min 124 mm[Hg] 68 mm[Hg] Stefanie Nelson MD [address] [facility], [address], [place], [address], [facility] 13:27:16 Date Recorded Body height Systolic blood pressure Diastolic blood pressure Provider Name and Address Organization Details Last Updated DateTime 09/29/2020 170.18 cm 124 mm[Hg] 68 mm[Hg] Markus Yi MD [address] [facility], [address], [place], [address], [facility] 09/29/2020 13:11:53 Social History Question Answer Notes LastModified by Organizat ion Details LastModified Time Tobacco Smoking Status Current Every Day Smoker just 1-2 cigs/day Stefanie Nelson MD [address] [facility], [address], [place], [address], [facility] 09/28/2020 15:00:49 Do You Have An [...] Do You Have A Medical Power Of Preschool Teacher'S Assistant? Yes Hcp On File Information not available [...] SNOMED-CT Code Diagnosis ICD10 Code Diagnosis Note [id number] [address] [address] 06/04/2016 10:00:35 06/10/2016 11:24:13 Rhabdomyolysis 392720774 M62.82 Patient with fall out of wheelchair , found laying on floor for unknown period of time, patient presented c/o severe back pain and other assorted aches and pains, initial CK 25,000+, treated with IV fluids with improvemen t, CK 18,892 on d/c, follow CPK and BMP twice weekly until normalized , PT/OT to maximize function Cerebrovas cular accident 375350313 I63.342 Presented with fall, screening head CT revealed acute cerebellar infarct, no deficits noted, f/u neuro Dr Roberts, ASA and statin, bp control, follow diet recs, UI LEAD DEVELOPER eval prn, PT/OT to maximize function Acute inju ry of kidney 1631029445 7842142 N17.8 Cr on admission 2.74, improved with IV fluids, Cr on d/c 0.6, monitor renal function as rhabdomyol ysis resolves Chronic ob structive pulmonary disease 79896799 J41.1 Stable, proair inhaler prn Mixed hyperlipidemia 267 991580 E78.2 On statin Essential hypertension 92197761 I10 Amlodipine 5 mg, monitor bp and labs Chronic pain 26045113 G8 9.29 Oxycodone for pain, monitor Vertigo 271674681 R42 With dizziness in hospital, patient reports dizziness has not improved, cont. meclizine 12.5 mg prn, if fails to improve consider ENT consult, monitor Rheumatoid arthritis 698 [address]42 M06.89 Methotrexa te qweekly, prednisone 5 mg, monitor sxs [id number] Juana Mcdonough [facility] of [address] [address] 06/06/2016 12:14:01 06/06/2016 12:43:57 Tremor 50048992 G25.2 Neurology consult as scheduled. OT evaluation for weighted eating utensils Neuropathy 542458265 G65 .1 Neurology consult. [id number] Markus Yi MD [address] [address] 06/08/2016 11:20:31 06/10/2016 11:51:58 Rhabdomyolysis 259378997 M62.82 Patient with fall out of wheelchair , found laying on floor for unknown period of time, patient presented c/o severe back pain and other assorted aches and pains, initial CK 25,000+, treated with IV fluids with improvemen t, CK 18,892 on d/c, follow CPK and BMP twice weekly until normalized , PT/OT to maximize function Cerebrovas cular accident 981920313 I63.342 Acute cerebellar infarct seen on CT head. f/u neuro Dr Roberts for CVA and tremorASA and statin, bp controlSLP eval prnPT/OT to maximize function Acute inju ry of kidney 7344100714 7095887 N17.8 Cr on admission 2.74, improved with IV fluids, Cr on d/c 0.6, monitor renal function as rhabdomyol ysis resolves Chronic ob structive pulmonary disease 26952655 J41.1 Stable, proair inhaler prn Mixed hyperlipidemia 267 779959 E78.2 On statin Essential hypertension 59642303 I10 Norvasc 5 mgmonitor bp and labs Chronic pain 88699310 G8 9.29 Oxycodone for pain, monitor Vertigo 255028272 R42 With dizziness in hospital, patient reports dizziness has not improved, cont. meclizine 12.5 mg prn, if fails to improve consider ENT consult, monitor Rheumatoid arthritis 698 00517 M06.89 Methotrexa te qweekly, prednisone 5 mg, monitor sxs [id number] MARKIE KOLOSKI, LAMINA SEARCHER [facility] [address] [place] [address] 09/25/2020 12:26:20 09/29/2020 08:22:25 Abnormal gait 98171613 R26.89 PT/OT eval and treat reminders to ask for help utilize walker monitor for safety History of cerebrovascular accident 148427459 Z86.73 ASA 81 mg qd atorvastat in 40 mg qd monitor follow with neurology as needed Neuropathy 354480320 G63 neurontin 600 mg bid discussed risk vs benefit of neurontin with pt monitor Rheumatoid arthritis 698 57632 M06.89 methotrexa te 2.5 mg 6 tabs q week monitor Mixed hyperlipidemia 267 997677 E78.2 atorvastat in 40 mg qd monitor labs Essential hypertension 05955827 I10 ASA 81 mg qd norvasc at home but not discharged on any monitor b/p and labs Chronic ob structive pulmonary disease 24529282 J41.8 carries diagnosis not on medication monitor respirator y status Chronic pain 12271852 G8 9.29 oxycodone/ apap 5-325 mg bid prn monitor pain Gastroesop hageal reflux disease without esophagitis 528056337 K21.9 omeprazole 20 mg qd monitor for symptoms Coronary arteriosclerosis 93363653 I25.10 ASA 81 mg qd atorvastat in 40 mg qd monitor Anemia 196242042 D50.8 ferrous sulfate 325 mg tid monitor labs Tremor 89060787 G25.2 primadone 50 mg bid and 100 mg q hs carbidopa- levodopa 25-100 mg tid monitor Blood in urine 93297234 R31.29 monitor urine follow up with urology Lactic acidosis 62442651 E87.2 unknown cause resolved with fluids monitor Constipation 17715020 K5 9.09 miralax 17 gms qd colace 100 mg bid monitor bowels Chronic insomnia 7572705 04 F51.04 melatonin 3 mg q hs trazodone 300 mg q hs discussed risk vs benefit of trazodone with pt monitor sleep Benign pro static hyperplasia 697283205 N40.0 tamsulosin 0.4 mg qd monitor for symptoms [id number] Stefanie Nelson MD [facility] of [address] [address] 09/28/2020 13:23:25 09/30/2020 13:29:25 Abnormal gait 81443945 R26.89 Doing great with PT per PT. Continue PT/OT for strengthen ing, balance, gait training, safety and function, her and then hopefully at home also for awhile. Encouraged to use walker consistent ly. Monitor for safety Blood in urine 56188698 R31.29 Incidental finding. F/U with urology as outpt. Constipation 63949252 K5 9.09 Continue miralax 17 gms qd and colace 100 mg BID. Monitor bowel function. History of cerebrovascular accident 735038848 Z86.73 Stable at baseline. Continue ASA 81 mg qd and atorvastat in 40 mg qd Monitor for change in sxs. Rheumatoid arthritis 698 45184 M06.89 Continue methotrexa te 15 mg q week And pain meds as above. F/U with rheum as planned. Mixed hyperlipidemia 267 088722 E78.2 Continue atorvastat in 40 mg qd Monitor labs as outpt. Essential hypertension 75804806 I10 BP in good control since here. Continue amlodipine 5 mg qd. Monitor BP and labs Chronic ob structive pulmonary disease 82217569 J41.8 carries diagnosis not on medication monitor respirator y status Gastroesop hageal reflux disease without esophagitis 164665610 K21.9 No current sxs. Continue omeprazole 20 mg qd Monitor for sxs Coronary arteriosclerosis 78335313 I25.10 Continue ASA 81 mg qd and atorvastat in 40 mg qd Monitor for sxs. Anemia 895573625 D50.8 Continue ferrous sulfate 325 mg TID. Monitor labs Tremor 78701487 G25.2 Unclear if dx is Parkinson' s Continue primidone 50 mg bid and 100 mg qhs and carbidopa- levodopa 25-100 mg TID. Monitor F/U with neuro as planned Chronic insomnia 7924353 04 F51.04 Continue melatonin 3 mg qhs and trazodone 300 mg qhs Monitor sleep patterns. Benign pro static hyperplasia 008856735 N40.0 No current sxs. Continue tamsulosin 0.4 mg qd Monitor for sxs Chronic back pain 964166 002 M54.5 Checked meds in [facility]. COnfirmed chronic use, rxed by PCP. Continue oxycodone/ apap 5-325 mg BID prn (uses BID scheduled) and gabapentin 600 mg BID. Monitor pain control. [id number] Markus Yi MD [address] [address] 09/29/2020 13:06:18 10/01/2020 11:59:12 Abnormal gait 56296339 R26.89 improved with therapy now independen t with walker Blood in urine 59903076 R31.29 recent episode of F/U with urology as outpt. History of cerebrovascular accident 029404161 Z86.73 Stable at baseline. Continue ASA 81 mg qd and atorvastat in 40 mg qd Monitor for change in sxs. Chronic back pain 849876 002 M54.5 Checked meds in [facility]. COnfirmed chronic use, rxed by PCP. Continue oxycodone/ apap 5-325 mg BID prn (uses BID scheduled) and gabapentin 600 mg BID. Monitor pain control. Rheumatoid arthritis 698 29631 M06.89 Continue methotrexa te 15 mg q week And pain meds as above. F/U with rheum as planned. Mixed hyperlipidemia 267 289367 E78.2 Continue atorvastat in 40 mg qd Monitor labs as outpt. Essential hypertension 95324409 I10 BP in good control since here. Continue amlodipine 5 mg qd. Monitor BP and labs Gastroesop hageal reflux disease without esophagitis 163320543 K21.9 Continue omeprazole 20 mg qd Monitor for sxs Coronary arteriosclerosis 72098681 I25.10 Continue ASA 81 mg qd and atorvastat in 40 mg qd Monitor for sxs. Anemia 385359333 D50.8 Continue ferrous sulfate 325 mg TID. Monitor labs Tremor 98187824 G25.2 Unclear if dx is Parkinson' s Continue primidone 50 mg bid and 100 mg qhs and carbidopa- levodopa 25-100 mg TID. Monitor F/U with neuro as planned Chronic insomnia 1780517 04 F51.04 Continue melatonin 3 mg qhs and trazodone 300 mg qhs Monitor sleep patterns. Benign pro static hyperplasia 219214025 N40.0 Continue tamsulosin 0.4 mg qd Monitor for sxs Health Concerns Section Related Observation LastModified by Organization Detai ls LastModified Time None Recorded Concern Status LastModified by Organization Details LastModified Time None Recorded Advance Directives Directive Y: FULL CODE-NO DIALYSIS-use nutrition and hydration Payers Encounter Date Sequence Insurance Name Policy Number Policy Khanna Covered Member ID Khanna Member ID Guarantor Name 06/06/2016 1 [facility] - DOS PRIOR TO 2022 - DUAL ELIGIBLE (MEDICARE REPLACEMENT/ADV ANTAGE - HMO) Jabari Nilesh [id number] Jabari Nilesh 06/06/2016 2 [place] [facility] Jabari Galloway [id number] Jabari Galloway 06/08/2016 1 [facility] - DOS PRIOR TO 2022 - DUAL ELIGIBLE (MEDICARE REPLACEMENT/ADV ANTAGE - HMO) Jabari Nilesh [id number] Jabari Galloway 06/08/2016 2 [place] [facility] Jabari Nilesh [id number] Jabari Galloway 09/25/2020 1 [facility] - DOS PRIOR TO 2022 - DUAL ELIGIBLE (MEDICARE REPLACEMENT/ADV ANTAGE - HMO) Jabari Galolway [id number] Jabari Galloway 09/25/2020 2 [place] [facility] Jabari Galloway [id number] Jabari Galloway 09/28/2020 1 [facility] ALLI[facility] - DOS PRIOR TO 2022 - DUAL ELIGIBLE (MEDICARE REPLACEMENT/ADV ANTAGE - HMO) Jabari Nilesh [id number] Jabari Galloway 09/28/2020 2 [place] [facility] Jabari Nilesh [id number] Jabari Galloway 09/29/2020 1 [facility] C[facility] [employer] - DOS PRIOR TO 2022 - DUAL ELIGIBLE (MEDICARE REPLACEMENT/ADV ANTAGE - HMO) Jabari Nilesh [id number] Jabari Galloway 09/29/2020 2 [place] [facility] Jabari Nilesh [id number] Jabari Nilesh Notes Date Note Type Note Provider Name and Address Organization Details Recorded Time 06/06/2016 text/html 75-year-old male being seen for acute rounding visit at the request of nursing due to tremors of the left hand. Juana solis [place] - [facility] 06/06/2016 12:39:38 06/08/2016 text/html Patient is [...] Tremor since CVA Markus Yi MD [address] [facility], [address], [place], [address], [facility] 06/08/2016 11:46:35 09/25/2020 text/html A 79 year old nafisa le being seen for a initial intake note. Patient was sent to [facility] when his SLUBBER OPERATOR noted slurred speech, unsteady gait and lethargy. [...] tremor. PCP is Evans ROUSE, SUSAN [address] [facility], [address], [place], [address], [facility] 09/25/2020 19:13:22 09/28/2020 text/html This is a 79 yo man who is here for rehab after and acute hospitalization for slurred speech, unsteady gait and lethargy. He was sent to the [facility] ED on 09/23 after his SLUBBER OPERATOR noted the above sxs. Eval in hospital [...] doing well with rehab, he has daily SLUBBER OPERATOR at home and hopes for d/c on 09/30. Of note he is on chronic oxycodone and gabapentin for back pain.Seen walking in the [place] with PT, walking well and quickly using walker, with no assist.He says he feels like he is back to baseline, remembers day he went to hospital, he could understand what SLUBBER OPERATOR was saying, but she said she couldn't understand him. He couldn't tell that speech was slurred.His PMH includes HTN, hx of CVA-inferomedial left cerebellum, anemia, BPH, insomnia, COPD, hx of tubular adenoma, chronic back pain, YEIMY, PVD, constipation, GERD, HLD, neuropathy, RA and tremor. Stefanie Nelson MD [address] [place] [address], [address], [place], [address], [facility] 09/28/2020 15:16:59 09/29/2020 text/html Patient is a 79 yo male seen in preparation for discharge initially admit from hospital after presenting with slurred speech, unsteady gait and lethargy. He was sent to the [facility] ED on 09/23 after his SLUBBER OPERATOR noted the above sxs. Eval in hospital [...] doing well with rehab, he has daily SLUBBER OPERATOR at home and hopes for d/c on 09/30. Of note he is on chronic oxycodone and gabapentin for back pain.Now independent ambulation with walker, cleared for discharge with services in place to f/u with PCP Markus iY MD [address] [place] [address], [address], [place], [address], [facility] 09/29/2020 13:19:01
--- OUTSIDE RECORDS SUMMARY | 2024-09-24 16:44 | XMS_ITS | Encounter Summary ---
Author Organization [employer] Address [address] [facility] 7t [place] [address] Care Team Providers Care Missile Mechanic Name Role Phone Will Cole MD Primary Care Provide r Encounter Details Date Type Department Care Team (Late st Contact Info) Description 07/26/2022 Orders Only [facility] MEDICINE [address] [place] [address] Ximena Cameron LPN Social History Tobacco Use [...] Description 10/24/2024 2:30 PM EDT Office Visit [address] [address] Will Cole MD [address] [place] [address] 10/29/2024 9:45 AM EDT Office Visit [address] [address] documented as of this encounter Procedures Procedure Name Priority Date/Time Associated Diagnosis Comments CELL BLOCK Routine 07/26/2022 9:31 AM EST CELL BLOCK Routine 07/26/2022 9:31 AM EST HEMATOXYLIN AND EOSIN STAIN Routine 07/26/2022 9:31 AM EST documented in this encounter Results * Cell Block (07/26/2022 9:31 AM EST) 07/26/2022 9:31 AM EST 07/27/2022 9:00 AM EST [facility]S - 07/30/2022 1:42 PM EST ----- ------- Name: Jabari Galloway ?Age/Sex: 81/M ? : 1940 Unit#: [id number] ?? Attend Dr: Jm Hernandez MD ?Re07/26/22 ?Status: DEP SDC ? Location: HO.SSS ?Disch: ? ----- ------- SPEC : [id number] ? RECD: 07/27/22-899 ? STATUS: ??SOUT ? REQ NUM: [id number] ? ROSEMARY: 07/26/22-31 ? SUBM DR: Jm [...] Galloway ?Age/Sex: 81/M ? : 1940 Unit#: [id number] ?? Attend Dr: Jm Hernandez MD ?Re07/26/22 ?Status: DEP SDC ? Location: HO.SSS ?Disch: ? ----- ------- SPEC : [id number] ? RECD: 07/27/22-899 ? STATUS: ??SOUT ? REQ NUM: [id number] ? ROSEMARY: 07/26/22-930 ? SUBM DR: Jm Hernandez MD ? ENTERED: ??07/27/22-1507 ?SP TYPE: Cytology ? OTHR DR: Will Smart MD ?? ORDERED: ??Cell Block/2, Fine Ndl Asp/2, VICKIE/2, FNAIA/2 ? Copies To: ?? Will Smart MD ?? [address] ?? [place] [address] ?? [phone] ?? Jm Hernandez MD ?? [address] [place] [address] ?? [place] [address] ?? [phone] ----- ------- Signed (signature on file) Adele Leavitt 07/30/22 1342 ? ----- ------- ? END OF REPORT ? us [facility] External Provider LAB CYT OLOGY ORDERABLES Final Result [facility] [address] [place] [phone] * Cell Block (07/26/2022 9:31 AM EST) 07/26/2022 9:31 AM EST 07/27/2022 9:00 AM EST [facility] - 07/28/2022 4:37 PM EST ----- ------- Name: Jabari Galloway ?Age/Sex: 81/M ? : 1940 Unit#: [id number] ?? Attend Dr: Jm Hernandez MD ?Re07/26/22 ?Status: DEP SDC ? Location: HO.SSS ?Disch: ? ----- ------- SPEC : [id number] ? RECD: 07/27/22-899 ? STATUS: ??SOUT ? REQ NUM: [id number] ? ROSEMARY: 07/26/22-930 ? SUBM DR: Jm [...] Note: ??See also concurrent transbronchial biopsy report, [id number]. ?Clinical History Solitary pulmonary nodule ? Material Received ?? A: RUL washings ?? B: RUL brushings ? Gross Description A: 17 cc reddish fluid. ??Thin prep and cell block made. B: Received in [place]. ??Thin prep and cell block made. Copies To: ?? Will Smart MD ?? [address] ?? [place] [address] ?? [phone] ?? Jm Hernandez MD ?? [address] [place] [address] DR ?? [place] [address] ?? [phone] ? CONTINUED ON NEXT PAGE ----- ------- Name: Jabari Galloway ?Age/Sex: 81/M ? : 1940 Unit#: [id number] ?? Attend Dr: Jm Hernandez MD ?Re07/26/22 ?Status: DEP SDC ? Location: HO.SSS ?Disch: ? ----- ------- SPEC : [id number] ? RECD: 07/27/22 ? STATUS: ??SOUT ? REQ NUM: [id number] ? ROSEMARY: 07/26/22 ? SUBM DR: Jm Hernandez MD ? ENTERED: ??07/27/22-1501 ?SP TYPE: Cytology ? OTHR DR: Will Smart MD ?? ORDERED: ??Cell Block/2, Cyto-enhanced/2 ? ----- ------- Signed (signature on file) Adele Dagmar 07/28/221636 ? ----- ------- ? END OF REPORT ? us [facility] External Provider LAB CYT OLOGY ORDERABLES Final Result [facility] [address] [place] [address] [phone] * Hematoxylin and Eosin Stain (07/26/2022 9:31 AM EST) 07/26/2022 9:3 1 AM EST 07/26/2022 12:00 PM EST Narrative [facility] - 07/28/2022 6:47 AM EST ----- ------- Name: Jabari Galloway ?Age/Sex: 81/M ? : 1940 Unit#: [id number] ?? Attend Dr: Jm Hernandez MD ?Re07/26/22 ?Status: DEP SDC ? Location: HO.SSS ?Disch: ? ----- ------- SPEC : [id number] ?RECD: 07/26/22-1200 ? STATUS: ??SOUT ? REQ NUM: [id number] ? ROSEMARY: 07/26/22-930 ? SUBM DR: Jm [...] Gross Description Received in formalin are multiple osn-red needle cores of soft tissue, measuring 1-4, totally submitted in cassettes 1-2. ??(ANGELA) This case was reviewed intradepartmentally. Copies To: ?? Will Smart MD ?? [address] ?? [place] [address] ?? [phone] ?? Jm Hernandez MD ?? [address] [place] [address] ?? [place] [address] ?? [phone] ----- ------- Signed (signature on file) Richard Portillo MD 07/28/22 0647 ? ----- ------- ? END OF REPORT ? us [facility] External Provider LAB BLO OD ORDERABLES Final Result [facility] [address] [place] [address] [phone] documented in this encounter Visit Diagnoses Not on filedocumented in this encounter Care Teams Missile Mechanic Relationship Specialty Start Date End Date Will Cole MD [address] [place] [phone] PCP - General Internal Medicine 01/14/14 documented as of this encounter
--- OUTSIDE RECORDS SUMMARY | 2024-09-24 16:44 | XMS_ITS | Encounter Summary ---
Author Organization [facility] [employer] [facility] Address [address] [facility] 7t [place] [address] Care Team Providers Care Vp Of Customer Experience Strategy Name Role Phone Will Cole MD Primary Care Provide r Encounter Details Date Type Department Care Team (Latest Contact Info) Description 10/15/[address] [facility] CONVERSIONS Dental, Provider, DDS Social History [...] Care Team ( st Contact Info) Description 10/24/2024 2:30 PM EDT Office Visit [facility] MEDICINE [address] [place] [phone] Will Cole MD [address] [place] [address] 10/29/2024 9:45 AM EDT Office Visit [facility] MEDICINE [address] [place] [address] [phone] documented as of this encounter Visit Diagnoses Not on filedocumented in this encounter Care Teams Vp Of Customer Experience Strategy Relationship Specialty Start Date End Date Will Cole MD [address] [place] [address] PCP - General Internal Medicine 01/14/14 documented as of this encounter
--- OUTSIDE RECORDS SUMMARY | 2024-09-24 16:44 | XMS_ITS | Encounter Summary ---
Author Organization [employer] Address [address] [facility] 7t [place] [address] Care Team Providers Care Supervisor Properties Name Role Phone Will Cole MD Primary Care Provide r Reason for Visit * Reason Onset Date Comments Referral 04/15/2024 Encounter Details Date Type Department Care Team ([facility] st Contact Info) Description 04/15/2024 Telephone [facility] MEDICINE [address] [place], [place] [phone] Will Cole MD [address] [place], [place] [phone] Referral Social History Tobacco Use Types Packs/Day [...] - 04/15/2024 2:31 PM EST [facility] from [facility] with [facility] Regarding the referral sent out 04/11. She states that they don't do Reclining Chairs. documented in this encounter Plan of Treatment Upcoming Encounters Date Type Department Care Team (Late st Contact Info) Description 10/24/2024 2:30 PM EDT Office Visit [facility] MEDICINE [address] [place] [phone] Will Cole MD [address] [place] [phone] 10/29/2024 9:45 AM EDT Office Visit [facility] MED[facility]INE [address] [place] [address] documented as of this encounter Visit Diagnoses Not on filedocumented in this encounter Additional Health Concerns Assessment Noted Time PHQ-9 Depression Total Score: 0 01/09/20 24 2:03 PM EDT documented as of this encounter Care Teams Supervisor Properties Relationship Specialty Start Date End Date Will Cole MD [address] [place] [phone] PCP - General Internal Medicine 01/14/14 documented as of this encounter
--- OUTSIDE RECORDS SUMMARY | 2024-09-24 16:44 | XMS_ITS | Encounter Summary ---
Author Organization [employer] Address [address] [facility] 7t [place] [address] Care Team Providers Care Housing Inspectors Name Role Phone Will Cole MD Primary Care Provide r Encounter Details Date Type Department Care Team ([facility] st Contact Info) Description 05/15/2024 Orders Only [facility] MEDICINE [address] [place], [place] [phone] Kecia Smith MD [address] [place], [place] [phone] Social History Tobacco Use Types Packs/Day Years [...] Description 10/24/2024 2:30 PM EDT Office Visit [facility] MEDICINE [address] [place] [phone] Will Cole MD [address] [place] [address] 10/29/2024 9:45 AM EDT Office Visit [address] [address] documented as of this encounter Procedures Procedure Name Priority Date/Time Associated Diagnosis Comments CULTURE, URINE, ROUTINE Routine 05/15/2024 12:00 PM EST documented in this encounter Results * Culture, Urine, Routine (05/15/2024 12:00 PM EST) Urine Urine specimen obtained by clean catch procedure / Unknown 05/15/2024 12:00 PM EST 05/15/2024 3:19 PM EST Comment:[facility]S - 05/18/2024 8:03 AM EST Escherichia coli Quant > 100,000 cfu/mL Escherichia coli: Ampicillin >=32(R) Escherichia coli: Cefepime <=0.12(S) Escherichia coli: Ceftriaxone <=0.25(S) Escherichia coli: Ciprofloxacin >=4(R) Escherichia coli: Gentamicin <=1(S) Escherichia coli: Nitrofurantoin <=16(S) Escherichia coli: Trimethoprim/Sulfamethoxazole <=20(S) Specimen Source: Urine clean catch us Kecia Camejo MD LAB MICROBIOLOGY - [facility] ORDERABLES Final Result [facility] [address] [place] [address] [phone] documented in this encounter Visit Diagnoses Not on filedocumented in this encounter Additional Health Concerns Assessment Noted Time PHQ-9 Depression Total Score: 0 01/09/20 24 2:03 PM EDT documented as of this encounter Care Teams Housing Inspectors Relationship Specialty Start Date End Date Will Cole MD [address] [place] [phone] PCP - General Internal Medicine 01/14/14 documented as of this encounter
--- OUTSIDE RECORDS SUMMARY | 2024-09-24 16:44 | XMS_ITS | Encounter Summary ---
Author Organization [employer] [facility] Address [address] [facility] 7t [place] [address] Care Team Providers Care Press Washer Name Role Phone Will Cole MD Primary Care Provide r Encounter Details Date Type Department Care Team (Latest Contact Info) Description 04/02/2021 Abstract [facility] CONVERSIONS Dental, Provider, DDS Social History [...] Description 10/24/2024 2:30 PM EDT Office Visit [facility] MEDICINE [address] [place] [phone] Will Cole MD [address] [place] [address] 10/29/2024 9:45 AM EDT Office Visit [facility] MEDICINE [address] [place] [address] [phone] documented as of this encounter Visit Diagnoses Not on filedocumented in this encounter Care Teams Press Washer Relationship Specialty Start Date End Date Will Cole MD [address] [place] [address] [phone] PCP - General Internal Medicine 01/14/14 documented as of this encounter
--- OUTSIDE RECORDS SUMMARY | 2024-09-24 16:44 | XMS_ITS | Encounter Summary ---
Author Organization [employer] Address [address] [facility] 7t [place] [address] Care Team Providers Care Caser Name Role Phone Will Cole MD Primary Care Provide r Encounter Details Date Type Department Care Team (Late st Contact Info) Description 12/29/2023 Orders Only [facility] MEDICINE [address] [place], [place] [phone] Abimbola Felipe MD [address] [place], [place] [phone] Social History Tobacco Use Types Packs/Day Years [...] Description 10/24/2024 2:30 PM EDT Office Visit [facility] MEDICINE [address] [place] [phone] Will Cole MD [address] [place] [phone] 10/29/2024 9:45 AM EDT Office Visit [facility] MEDICINE [address] [place] [address] documented as of this encounter Visit Diagnoses Not on filedocumented in this encounter Additional Health Concerns Assessment Noted Time PHQ-9 Depression Total Score: 0 09/19/19 24 11:37 AM EDT documented as of this encounter Care Teams Caser Relationship Specialty Start Date End Date Will Cole MD [address] [place] [phone] PCP - General Internal Medicine 01/14/14 documented as of this encounter
== END 2024-09-24 13:57 | disposition home or self-care (01) ==
LOC: HO.US 13:56
PROVIDERS: PCP Internal Medicine; Visit Provider Internal Medicine
DX: N10 Acute pyelonephritis (principal); R31.29 Other microscopic hematuria
CPT/HCPCS: 76857

== ENCOUNTER → 2024-09-24 14:57 | Outpatient (BNV) | payer OTHER, SELFPAY | PROVIDERS: PCP Internal Medicine; Visit Provider Radiology Diagnostic Radiology | DX: R31.29 Other microscopic hematuria (principal) | CPT/HCPCS: 76857 ==

== ENCOUNTER 2025-01-13 08:10 | Outpatient (REF) | payer OTHER, SELFPAY ==
[2025-01-13 12:31] LABS: Alanine Aminotransferase 13 U/L (0-40); Albumin Level 4.0 g/dL (3.5-5.0); Alkaline Phosphatase 124 U/L (39-117); Anion Gap 12 (12-20); Aspartate Amino Transferase 26 U/L (5-37); Blood Urea Nitrogen 15 mg/dL (9-16); Calcium 9.7 mg/dL (8.4-10.2); Carbon Dioxide 28 mmol/L (22-29); Chloride 104 mmol/L (96-108); Cholesterol 148 mg/dL (<200); Estimated Glomerular Filt Rate > 60; HDL Cholesterol 39 mg/dL (>40); Potassium 4.3 mmol/L (3.3-5.1); Sodium 140 mmol/L (135-145); Total Protein 9.4 g/dL (6.5-8.0); Triglycerides 75 mg/dL (<150)
== END 2025-01-13 08:11 | disposition home or self-care (01) ==
LOC: HO.HHCL 08:10
PROVIDERS: PCP Internal Medicine; Visit Provider Internal Medicine
DX: E78.2 Mixed hyperlipidemia (principal); I10 Essential (primary) hypertension
CPT/HCPCS: 36415; 80053; 80061

== ENCOUNTER 2025-05-04 13:51 | Inpatient (IN) | payer OTHER, SELFPAY ==
--- OUTSIDE RECORDS SUMMARY | 2025-04-29 09:45 | XMS_ITS | Encounter Summary ---
Author Organization [employer] Address [address] [facility] [address] 7t [place] [address] Care Team Providers Care Air And Water Tester Name Role Phone Will Cole MD Primary Care Provide r Encounter Details Date Type Department Care Team (Late st Contact Info) Description 04/29/2025 9:45 AM EST Office Visit [facility] MEDICINE [address] [place] [address] Amanda Irizarry FNP [address] [place], [place] [phone] Rheumatoid arthritis involving multiple sites with positive rheumatoid factor (CMS/HCC) (HCC) (Primary Dx); Long-term current use of opiate analgesic Social History Tobacco Use Types Packs/Day Years Used Date Smoking Tobacco: Every Day Cigarettes Passive Smoke Exposure: Current Smokeless Tobacco: Never Alcohol Use Standard Drinks/Week Comments Not Currently 0 (1 standard drink = 0.6 oz pur e alcohol) Depression Answer Date Recorded Patient Health Questionnaire-9 Score 3 12/24/2024 Patient Health Questionnaire-9 Score 3 12/24/2024 Last PHQ-9: Questionnaire Data Not on file 0 12/24/2024 Housing Stability Answer Date Recorded What is your housing situation today? I have edgar woodward 12/17/[address] you li ve. Do you have problems with any of the following? None of the above 12/17/2024 Food Insecurity Answer Date Recorded Within the past 12 months, y ou worried that your food would run out before you got money to buy more: Never True 12/17/2024 Within the past 12 months,th e food you bought just didn't last and you didn't have enough money to get more: Never True Transportation Answer Date Recorded In the past 12 months, has l ack of transportation kept you from medical appts, meetings, work or from getting things needed for daily living? No 12/17/2024 Utilities Answer Date Recorded In the past 12 months, has t he electric, gas, oil or water company threatened to shut off services in your home? No 12/17/2024 Depression Answer Date Recorded Patient Health Questionnaire-2 Score 1 12/24/2024 Internet Access Answer Date Recorded Internet Access Q1 Yes 12/17/2024 Internet Access Q2 Not on file 12/17/2024 Sex and Gender Information Value Date Recorded Sex Assigned at Male 09/25/2023 10:19 AM EDT Legal Sex Male 10:16 AM EDT Gender Identity Male 04/04/2022 10:16 AM EDT Sexual Orientation Straight 04/04/2022 10 :16 AM EDT documented as of this encounter Progress Notes * SUSAN Ladd - 04/29/2025 9:45 AM EST Subjective: Jabari Galloway is an 84 y.o. male w/ PMH of CVA, pulmonary nodule, HTN, PVD, RA who presents to the office for - Chronic Pain Clinic Group visits. Initial Group visit: 06/27/23 Group Topic: Self-Care Massage Interim History: Mr. Galloway had a follow up with his PCP on 04/01/25. He was referred to re-establish with Rheumatology. Referral letter printed and provided to patient today. Chronic Pain History: Associated Diagnosis: Rheumatoid arthritis Current pharm tx: Percocet 5/325mg twice a day Medication: States taking medication as prescribed. Non-pharm tx: maurice, community involvement Related Specialists: Dr. Maldonado, Rheumatology, Pulm Functional Goals: able to ride his scooter where he needs to go Other substance use: Tobacco: daily, not interest in quitting Marijuana: denies Alcohol: not currently Illicit substances: denies Review of Systems Constitutional: Negative. Respiratory: Negative. Cardiovascular: Negative. Musculoskeletal: Positive for arthralgias Physical Exam Constitutional: Appearance: Normal appearance. Comments: Presents in motorized wheelchair Pulmonary: Effort: Pulmonary effort is normal. Neurological: Mental Status: He is alert and oriented to person, place, and time. Psychiatric: Mood and Affect: Mood normal. Behavior: Behavior normal. Problem List Items Addressed This Visit Mental Health Long-term current use of opiate analgesic Overview Medication: Percocet 5/325mg BID PRN Indication: Rheumatoid Arthritis Controlled Substance Agreement 09/03/2024 Tier: 2 ([id number] [employer] visit) Current Assessment & Plan Timeline: - 08/27/24: Group visit - utox/pill count as expected. Agreement renewed - 11/26/24: Group visit - utox/pill count as expected - 01/28/25: Group visit - utox/pill count as expected - 04/29/25: Group visit - utox/pill count as expected Relevant Orders POCT JULIANNA-14 Urine Drug Screen (Completed) Multi-system (Lupus, Sarcoid...) Rheumatoid arthritis involving multiple sites with positive rheumatoid factor (CMS/HCC) (HCC) - Primary Current Assessment & Plan Referred to Re-establish with Rheumatology during PCP visit in Mar 2025. Referral letter provided to pt today. Good engagement and participation with Group Medical Visit model Encouraged multifactorial approach to pain control including pharm and non-pharm modalities UTOX and Pill count as expected Relevant Orders POCT JULIANNA-14 Urine Drug Screen (Completed) Follow up: 1-3 months for Chronic Pain Clinic. Follow up with PCP as scheduled, sooner as needed. * Melissa Fernando RN - 04/29/2025 9:45 AM EST .[employer] professional driver: PDMP reviewed today. Last fill date: 04/09/25 (Percocet 5-325mg bid) count was (29), anticipated (15) to be remaining. .UTOX completed. Positive for (OXY), Negative for AMP, BAR, BUP, BZO, CELIO, FTY, MDMA, MET, MOP, MTD, PCP, TCA, THC. UTOX as expected. documented in this encounter Miscellaneous Notes * Assessment & Plan Note - SUSAN Ladd - 05/03/2025 4:07 PM ESTAssociated Problem(s): Long-term current use of opiate analgesic Timeline: - 08/27/24: Group visit - utox/pill count as expected. Agreement renewed - 11/26/24: Group visit - utox/pill count as expected - 01/28/25: Group visit - utox/pill count as expected - 04/29/25: Group visit - utox/pill count as expected * Assessment & Plan Note - SUSAN Ladd - 05/03/2025 4:07 PM ESTAssociated Problem(s): Rheumatoid arthritis involving multiple sites with positive rheumatoid factor (CMS/HCC) (HCC) Referred to Re-establish with Rheumatology during PCP visit in Mar 2025. Referral letter provided to pt today. Good engagement and participation with Group Medical Visit model Encouraged multifactorial approach to pain control including pharm and non-pharm modalities UTOX and Pill count as expected documented in this encounter Plan of Treatment Upcoming Encounters Date Type Department Care Team (Late st Contact Info) Description 05/23/2025 11:00 AM EST Office Visit [facility] OPTOMETRY [address] [place] [address] Lanie Spain, ELIZ [address] [place] [address] 05/27/2025 9:45 AM EST Office Visit [facility] MEDICINE [address] [place] [address] 07/03/2025 2:00 PM EST Office Visit [facility] MED[facility] [address] [place] [address] Will Cole MD [address] [place] [address] documented as of this encounter Procedures Procedure Name Priority Date/Time Associated Diagnosis Comments POCT JULIANNA-14 URINE DRUG SCREEN Routine 04/29/2025 11:21 AM EST Long-term current use of opiate analgesic Rheumatoid arthritis involving multiple sites with positive rheumatoid factor (CMS/HCC) (HCC) documented in this encounter Results * (ABNORMAL) POCT JULIANNA-14 Urine Drug Screen (04/29/2025 11:21 AM EST) THC Negative Negative Cocaine Screen, Urine Negative Negative Opiate Screen, Urine Negative Negative Methamphetamine Screen Urine Negative Negative Amphetamine Screen, Urine Negative Negative Benzodiazepines Screen, Urine Negative Negative Barbiturate Screen, Urine Negative Negative Methadone Screen, Urine Negative Negative Buprenophine Screen, Urine Negative Negative TCA, Urine Negative Negative MDMA Urine Negative Negative ng/mL Oxycodone Screen, Urine Positive(A) Negative Comment:Rx Phencyclidine (PCP), Urine Negative Negative Propoxyphene, Urine Negative Negative Fentanyl, Urine Negative Negative Urine Urine specimen obtained by clean catch procedure / Unknown 04/29/2025 11:21 AM EST Narrative Melissa Fernando RN - 04/29/2025 11:21 AM EST .UTOX cup Lot#[id number] Exp. 05/05/26 Internal Pass Control Amanda Irizarry SERICULTURE TEACHER POINT OF CARE TEST ENTER/EDIT ORDERABLES Final Result documented in this encounter Visit Diagnoses Diagnosis Rheumatoid arthritis involving multiple sites with positive rheumatoid factor (CMS/[facility]) ([facility])- Primary Long-term current use of opiate analgesic Encounter for long-term (current) use of other medications documented in this encounter Additional Health Concerns Assessment Noted Time PHQ-9 Depression Total Score: 3 12/25/19 25 1:37 PM EDT documented as of this encounter Care Teams Air And Water Tester Relationship Specialty Start Date End Date Will Cole MD [address] [place] [address] PCP - General Internal Medicine 01/14/14 documented as of this encounter
[2025-05-04] VITALS (7 sets, daily range): BP systolic 119–141; BP diastolic 46–78; PULSE 56–66; RESP 14–16; TEMP 36.4–36.7; O2SAT 92–100; BMI 23.5
--- NOTE | 2025-05-04 | ECG_ITS ---
Test Reason : MARIA ELENA/WEAKNESS Blood Pressure : */* mmHG Vent. Rate : 58 BPM Atrial Rate : 58 BPM P-R Int : 288 ms QRS Dur : 78 ms QT Int : 460 ms P-R-T Axes : 73 -50 51 degrees QTcB Int : 451 ms Sinus bradycardia with 1st degree A-V block Left axis deviation Abnormal ECG When compared with ECG of 22-Sep-2020 17:08, Nonspecific T wave abnormality no longer evident in Lateral leads Referred By: Wero Gonzalez Electronically Signed By: ISABELLA COSTELLO
--- NOTE | ~2025-05-04 | XR_ITS ---
CLINICAL HISTORY: L sided rib pain 4 view, chest and left ribs Comparison: CT/SR - CT CHEST WITHOUT IV CONTRAST - 06/21/24 14:45 EST Findings: No left hemithorax rib fracture identified. Pulmonary fibrosis. Right mid lung zone nodule, 2.9 cm, 1.1 cm. IMPRESSION: 1. Right mid lung zone nodule measuring 2.9 cm and 1.1 cm. Please refer to CT of the thorax on 06/21/2024. 2. Pulmonary fibrosis. 3. No acute left rib fracture identified. This document has been electronically signed by: Jovani Rogers MD on 05/04/2025 17:08:15
--- NOTE | ~2025-05-04 | US_ITS ---
CLINICAL HISTORY: pyelonephritis Ultrasound kidneys. COMPARISON: US kidney bilateral dated 08/29/24 at 14:47 EDT Technique: Real time sonographic imaging, including color-flow imaging, was performed by the securities vault supervisor. Multiple parts representative static images were saved for review. FINDINGS: Right kidney: Cortical medullary differentiation is maintained. Normal color flow by Doppler. Simple renal cyst of the superior pole measuring 1.0 x 0.7 x 0.7 cm. Nonobstructing renal calculus of the inferior pole measuring 0.6 x 0.4 x 0.6 cm. No hydronephrosis. Right kidney size: 10.9 x 4.1 x 6.0 cm Left kidney: Cortical medullary differentiation is maintained. No calculus or focal parenchymal abnormality identified. No hydronephrosis. Left kidney size: 10.7 x 4.8 x 4.4 cm IMPRESSION: 1. No evidence of renal obstruction. 2. Nonobstructing 0.6 cm calculus of the inferior pole of the right kidney. 3. Simple renal cyst of the superior pole of the right kidney measuring 1.0 cm. This document has been electronically signed by: Levi Mata MD on 05/05/2025 19:41:54
[2025-05-04 14:34] LABS: MANUAL DIFF FLAG NO
--- OUTSIDE RECORDS SUMMARY | 2025-05-04 14:39 | XMS_ITS | Encounter Summary ---
Author Organization [employer] Address [address] [facility] 7t [place] [address] Care Team Providers Care Manager Cargo Name Role Phone Will Cole MD Primary Care Provide r Reason for Visit * Reason Comments Med Refill Encounter Details Date Type Department Care Team ([facility] st Contact Info) Description 03/13/2023 Refill [facility] MED & PEDS [address] [place], [place] [phone] Will Cole MD [address] [place], [place] [phone] Severe pain Social History Tobacco Use Types [...] Description 05/23/2025 11:00 AM EST Office Visit [facility] OPTOMETRY [address] [place] [address] Grabiel, Lanie, OD [address] [place] [address] 05/27/2025 9:45 AM EST Office Visit [facility] MEDICINE [address] [place] [address] 07/03/2025 2:00 PM EST Office Visit [facility] MEDICINE [address] [place] [address] Will Cole MD [address] [place] [address] documented as of this encounter Visit Diagnoses Diagnosis Severe pain documented in this encounter Additional Health Concerns Assessment Noted Time PHQ-9 Depression Total Score: 11 023 10:42 AM EDT documented as of this encounter Care Teams Manager Cargo Relationship Specialty Start Date End Date Will Cole MD [address] [place] [address] PCP - General Internal Medicine 01/14/14 documented as of this encounter
--- OUTSIDE RECORDS SUMMARY | 2025-05-04 14:39 | XMS_ITS | Encounter Summary ---
Author Organization [employer] Address [address] [facility] [address] [place] [address] Care Team Providers Care Media Senior Recruiter Name Role Phone Will Cole MD Primary Care Provide r Reason for Visit * Reason Comments Med Refill Encounter Details Date Type Department Care Team ([facility] st Contact Info) Description 04/11/2023 Refill [facility] CHC MED & PEDS [address] [place], [place] [phone] Will Cole MD [address] [place], [place] [phone] Severe pain Social History Tobacco Use Types [...] Description 05/23/2025 11:00 AM EST Office Visit [facility] OPTOMETRY [address] [place] [address] Grabiel, Lanie, OD 230 [place] [address] 05/27/2025 9:45 AM EST Office Visit [facility] MEDICINE [address] [place] [address] 07/03/2025 2:00 PM EST Office Visit [facility] MEDICINE [address] [place] [address] Will Cole MD [address] [place] [address] documented as of this encounter Visit Diagnoses Diagnosis Severe pain documented in this encounter Additional Health Concerns Assessment Noted Time PHQ-9 Depression Total Score: 11 023 10:42 AM EDT documented as of this encounter Care Teams Media Senior Recruiter Relationship Specialty Start Date End Date Will Cole MD [address] [place] [address] PCP - General Internal Medicine 01/14/14 documented as of this encounter
--- OUTSIDE RECORDS SUMMARY | 2025-05-04 14:39 | XMS_ITS | Encounter Summary ---
Author Organization [employer] Address [address] [facility] 7t [place] [address] Care Team Providers Care Dynamometer Repairer Name Role Phone Will Cole MD Primary Care Provide r Reason for Visit * Reason Comments Med Refill Encounter Details Date Type Department Care Team ([facility] st Contact Info) Description 03/29/2023 Refill [facility] MEDICINE [address] [place], [place] [phone] Name, MD Kevin [address] [place], [place] [phone] Social History Tobacco Use Types Packs/Day Years [...] Description 05/23/2025 11:00 AM EST Office Visit [facility] OPTOMETRY [address] [place] [address] GrabielLanie boyd, OD [address] [place] [address] 05/27/2025 9:45 AM EST Office Visit [facility] MEDICINE [address] [place] [address] 07/03/2025 2:00 PM EST Office Visit [facility] MEDICINE [address] [place] [address] Will Cole MD [address] [place] [address] documented as of this encounter Visit Diagnoses Not on filedocumented in this encounter Additional Health Concerns Assessment Noted Time PHQ-9 Depression Total Score: 11 023 10:42 AM EDT documented as of this encounter Care Teams Dynamometer Repairer Relationship Specialty Start Date End Date Will Cole MD [address] [place] [address] PCP - General Internal Medicine 01/14/14 documented as of this encounter
--- OUTSIDE RECORDS SUMMARY | 2025-05-04 14:39 | XMS_ITS | Encounter Summary ---
Author Organization [employer] Address [address] [facility] [address] [place] [address] Care Team Providers Care Dehydrating Press Operator Name Role Phone Will Cole MD Primary Care Provide r Encounter Details Date Type Department Care Team (Latest Contact Info) Description 04/29/2025 Travel Social History Tobacco Use Types Packs/Day [...] Description 05/23/2025 11:00 AM EST Office Visit [facility] OPTOMETRY [address] [place], [place] [phone] Lanie Spain, OD [address] [place] [address] 05/27/2025 9:45 AM EST Office Visit [facility] MEDICINE [address] [place] [address] 07/03/2025 2:00 PM EST Office Visit [facility] MEDICINE [address] [place] [address] Will Cole MD [address] [place] [address] documented as of this encounter Visit Diagnoses Not on filedocumented in this encounter Additional Health Concerns Assessment Noted Time PHQ-9 Depression Total Score: 3 12/25/19 25 1:37 PM EDT documented as of this encounter Care Teams Dehydrating Press Operator Relationship Specialty Start Date End Date Will Cole MD [address] [place] [address] PCP - General Internal Medicine 01/14/14 documented as of this encounter
[2025-05-04 14:40] LABS: Hematocrit 38.9 % (42.0-52.0); Hemoglobin 12.8 g/dl (14.0-18.0); Imm Gran Abs Auto 0.01 X10*3/uL (0.00-0.03); Imm Gran Pct Auto 0.2 % (0.0-0.4); Lymphocytes Absolute Auto 2.1 X10*3/uL (1.2-4.9); Mean Corpuscular HGB Conc 32.9 g/dl (31.0-36.0); Mean Corpuscular Hemoglobin 29.9 pg (27.0-33.0); Mean Corpuscular Volume 90.9 fL (80.0-98.0); NRBC Abs Auto 0.000 X10*3/uL (0.0-0.012); NRBC Pct Auto 0.0 /100WBC (0.0-0.2); Platelet Count 233 X10*3/uL (160-400); Red Blood Count 4.28 X10*6/uL (4.60-5.80); White Blood Count 5.5 X10*3/uL (4.8-10.8)
--- OUTSIDE RECORDS SUMMARY | 2025-05-04 14:40 | XMS_ITS | Encounter Summary ---
Author Organization [employer] Address [address] [facility] [address] [place] [address] Care Team Providers Care Wharf Worker Name Role Phone Will Cole MD Primary Care Provide r Reason for Visit * Reason Onset Date Comments Durable Medical Equipment 05/12/2022 Requesting a call back 05/12/2022 CT scan 05/12/2022 Encounter Details Date Type Department Care Team ([facility] st Contact Info) Description 05/12/2022 Telephone [facility] MEDICINE [address] [place] [address] Will Cole MD [address] [place], [place] [phone] Durable Medical Equipment; Requesting a call back [...] 06/01/2022 3:18 PM EST T/C placed to [facility] to make sure pt's PET scan is all set and scheduled. Got busy signal. Will retask to green nurses for third attempt. * Telephone Encounter - Leana Modi RN - 06/01/2022 10:16 AM EST T/C placed to [facility] to make sure pt's PET [...] PM EST Incoming T/C from Sarmad at [facility] returning my calls at my direct line. Explained below situation to her. Informed we are actively working on it and that I will call her back and update her. She provided direct number [phone]. * Telephone Encounter - Leana Modi RN - 05/25/2022 12:02 PM EST T/C placed to [facility] again. They stated they did [...] a V/M. Spoke to Job nurse manager spring who stated will send message to Dx specialist to work on it RADHA. T/C placed to Sarmad at [facility] to update/ discuss. They stated she is unavailable and sent bette message. Provided my direct ext for call back. * Telephone Encounter - Leana Modi RN - 05/24/2022 2:18 PM EST Reviewed pt's [facility] chart. Per Dx specialist, PET scan order was fax[place] to [facility] and they would call pt to schedule. T/C placed to [facility] to see if it was ever scheduled as we never received results. No answer, left detailed V/M. Phone number in below messages is inaccurate. T/C placed to [facility]. They attempted to connectme to Sarmad but she was unavailable. Had them send her a message letting her know that we sent the order to [facility] and that we never received results. Also informed I working on getting in contact with them but so far they have no answered my call. Will retask to green nurses to attempt another call for results. * Telephone Encounter - Treasure Ugalde - 05/24/2022 9:31 AM EST Tc from sarmad from [facility] requesting a call would like to know if pt ever got scheduled for PET scan with concurrent CT scan, order was done on 03/10/22 and printed on 03/15/22 please call [phone]. Verse Writer attempted to get a hold of a nurse, Unable to, call dropped. * Telephone Encounter - Claudia Hernandez - 05/20/2022 9:56 AM EST Tc from sarmad from [facility] requesting a call would like to know if pt ever got scheduled for PET scan with concurrent CT scan, order was done on 03/10/22 and printed on 03/15/22 please call [phone]. * Telephone Encounter - Natanael Ceja - 05/19/2022 9:27 AM EST Tc from Sarmad with [facility] requesting a call back from a nurse to discuss order ( PET scan with concurrent ct scan skill base to mid-thigh. Please contact Sarmad at [phone] * Telephone Encounter - Will Hardy MD - 05/12/2022 4:01 PM EST Please write script ( discuss case with RN to include appropriate diagnosis ) and I will then sign. * Telephone Encounter - Jaycee Taylor - 05/12/2022 1:55 PM EST Tc from susanna Goyal requesting a power chair . States would prefer [facility] , which [facility] informs they have already faxed a request. Please call to clarify. documented in this encounter Plan of Treatment Upcoming Encounters Date Type Department Care Team (Late st Contact Info) Description 05/23/2025 11:00 AM EST Office Visit [facility] OPTOMETRY [address] [place], [place] [phone] Lanie Spain, OD [address] [place] [address] 05/27/2025 9:45 AM EST Office Visit [facility] MEDICINE [address] [place] [address] 07/03/2025 2:00 PM EST Office Visit [facility] MEDICINE [address] [place] [address] Will Cole MD [address] [place] [address] documented as of this encounter Visit Diagnoses Not on filedocumented in this encounter Care Teams Wharf Worker Relationship Specialty Start Date End Date Will Cole MD [address] [place] [phone] PCP - General Internal Medicine 01/14/14 documented as of this encounter
--- OUTSIDE RECORDS SUMMARY | 2025-05-04 14:40 | XMS_ITS | Encounter Summary ---
Author Organization [facility] Address [address] [facility] [address] [place] [address] Care Team Providers Care Lump Roller Name Role Phone Will Cole MD Primary Care Provide r Encounter Details Date Type Department Care Team (Latest Contact Info) Description 04/02/2021 Abstract [facility] CONVERSIONS Dental, Provider, DDS Social History Tobacco [...] Description 05/23/2025 11:00 AM EST Office Visit [facility] OPTOMETRY [address] [place] [address] Lanie Spain, OD [address] [place] [address] 05/27/2025 9:45 AM EST Office Visit [facility] MEDICINE [address] [place] [address] 07/03/2025 2:00 PM EST Office Visit [facility] MEDICINE [address] [place] [address] Will Cole MD [address] [place] [address] documented as of this encounter Visit Diagnoses Not on filedocumented in this encounter Care Teams Lump Roller Relationship Specialty Start Date End Date Will Cole MD [address] [place] [address] PCP - General Internal Medicine 01/14/14 documented as of this encounter
--- OUTSIDE RECORDS SUMMARY | 2025-05-04 14:40 | XMS_ITS | Clinical Summary ---
Author Organization [employer] Address [address] [place] [address] Care Team Providers Care Business Law Teacher Name Role Phone Will Cole MD [...] MOUTH EVERY MONDAY MORNING 08/02/19 23 Active predniSONE (Deltasone) 10 MG tablet Take 10 mg by mouth in the morning. 03/22/20 23 Active clopidogrel (Plavix) 75 MG tablet Take 75 mg by mouth. 03/08/20 23 Active predniSONE (Deltasone) 5 MG tablet Take 5 mg by mouth in the morning. 06/07/19 24 Active Diclofenac Sodium 1 % gelIndications: Chronic midline low back pain without sciatica Apply affected area BID 100 g 3 01/09/20 24 Active Multiple Vitamin (Multivitamin) tabletIndicatio ns:Gastroesopha geal reflux disease without esophagitis TAKE 1 TABLET BY MOUTH EVERY MORNING WITH FOOD 90 tablet 3 06/10/19 25 Active lactulose (Chronulac) 10 GM/15ML solution TAKE 15 ML BY MOUTH TWICE DAILY NEEDED FOR CONSTIPATION 900 mL 06/25/19 25 Active gabapentin (Neurontin) 800 MG tablet TAKE 1 TABLET BY MOUTH TWICE DAILY IN THE MORNING AND AT BEDTIME 05/22/20 24 Active docusate sodium (Colace) 100 MG capsuleIndicati ons:Drug-induce d constipation TAKE 1 CAPSULE BY MOUTH TWICE DAILY IN THE MORNING AND IN THE EVENING 180 capsule 3 10/25/19 25 Active Aspirin Low Dose 81 MG EC tablet TAKE 1 TABLET BY MOUTH AT BEDTIME 90 tablet 1 11/01/19 25 Active tamsulosin (Flomax) 0.4 MG 24 hr capsule TAKE 1 CAPSULE BY MOUTH EVERY MORNING BEFORE BREAKFAST 90 capsule 1 11/01/19 25 Active Diclofenac Sodium 1 % gelIndications: Rheumatoid arthritis involving multiple sites with positive rheumatoid factor (CMS/HCC) (HCC) Apply thin layer by topical route (quantity as directed on package insert) to affected area of pain 3 times daily as needed. 50 g 11/27/19 25 Active capsaicin (Capzasin-HP) 0.1 % creamIndication s:Rheumatoid arthritis involving multiple sites with positive rheumatoid factor (CMS/HCC) (HCC) Apply thin layer by topical route up to 4 times daily for pain. 45 g 11/27/19 25 Active lidocaine (Xylocaine) 5 % ointmentIndicat ions:Rheumatoid arthritis involving multiple sites with positive rheumatoid factor (CMS/HCC) (HCC) Apply topically if needed in the morning, at noon, and at bedtime (pain). 30 g 11/27/19 25 2025 Active famotidine (Pepcid) 20 MG tabletIndicatio ns:Gastroesopha geal reflux disease without esophagitis TAKE 1 TABLET BY MOUTH TWICE DAILY IN THE MORNING AND IN THE EVENING 180 tablet 1 11/29/19 25 Active traZODone (Desyrel) 150 MG tablet TAKE 2 TABLETS BY MOUTH EVERY DAY AT BEDTIME 60 tablet 6 01/14/20 25 Active atorvastatin (Lipitor) 40 MG tablet TAKE 1 TABLET BY MOUTH AT BEDTIME 90 tablet 1 02/12/20 25 Active naloxone (Narcan) 4 mg/0.1 mL nasal spray Administer 1 spray (4 mg) into affected nostril(s) if needed for opioid reversal. May repeat every 2-3 minutes if needed, alternating nostrils, until medical assistance becomes available. 2 each 1 03/06/20 25 Active oxyCODONE-aceta minophen (Percocet) 5-325 MG tabletIndicatio ns:Rib pain,Severe pain Take 1 tablet by mouth every 12 (twelve) hours if needed for severe pain. Do not start before April 08, 2025. 56 tablet 04/08/20 Active amLODIPine (Norvasc) 5 MG tabletIndicatio ns:Essential hypertension TAKE 1 TABLET BY MOUTH EVERY MORNING 90 tablet 1 04/28/20 25 Active amLODIPine (Norvasc) 5 MG tabletIndicatio ns:Essential hypertension TAKE 1 TABLET BY MOUTH EVERY MORNING 90 tablet 01/09/20 25 2024 Discontinued Active Problems Problem Noted Date Diagnosed Date Long-term current use of opiate analgesic 2024 Overview (05/03/2025): Medication: Percocet 5/325mg BID PRN Indication: Rheumatoid Arthritis Controlled Substance Agreement 09/03/2024 Tier: 2 ([id number] MELLOWING MACHINE OPERATOR visit) Assessment & Plan (05/03/2025 4:07 PM EST): Timeline: - 08/27/24: Group visit - utox/pill count as expected. Agreement renewed - 11/26/24: Group visit - utox/pill count as expected - 01/28/25: Group visit - utox/pill count as expected - 04/29/25: Group visit - utox/pill count as expected Assessment & Plan (01/28/2025 1:17 PM EDT): Timeline: - 08/27/24: Group visit - utox/pill count as expected. Agreement renewed - 11/26/24: Group visit - utox/pill count as expected - 01/28/25: Group visit - utox/pill count as expected Assessment & Plan (11/26/2024 1:55 PM EDT): Timeline: - 08/27/24: Group visit - utox/pill count as expected. Agreement renewed - 11/26/24: Group visit - utox/pill count as expected Assessment & Plan (08/27/2024 1:47 PM EDT): [...] intake, take Pyridium as needed. Jyotsna his TECHNICAL DIRECTOR will call urology to schedule an appointment. Patient is to follow-up with his PCP within 4 to 5 weeks Body mass index (BMI) 20.0-20.9, adult Assessment [...] every 3 months Rx: Percocet 5/325mg BID MELLOWING MACHINE OPERATOR Agreement last signed: 09/27/23 Routine physical examination 10/10/2023 Assessment & Plan (10/10/2023 10:50 AM EDT): Pt is deconditioned, will refer to Physical Therapy Physical deconditioning 10/10/2023 Assessment & Plan (10/10/2023 10:40 AM EDT): Will refer to Physical therapy COPD (chronic obstructive pulmonary disease) 06/2022 Protein-calorie malnutrition, unspecified severi ty 01/03/2023 Assessment & Plan (09/19/2023 11:57 AM EDT): Pt drinking Boost Assessment & Plan (01/03/2023 1:55 PM EDT): Pt drinking Boost Rib pain 11/22/2022 Assessment & Plan (01/28/2025 1:16 PM EDT): - CT 01/2024: Slightly larger spiculated pulmonary nodule likely posterior segment right upper lung lobe with associated lymphadenopathy. Malignancy should be considered. Endobronchial nodules versus secretions in the upper airways. Coronary artery disease and atherosclerosis disease. Chronic interstitial lung disease. 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 - Biopsy was recommended, but pt continues to decline. Has spoken with his HCP and chairman and chief executive officer as well regarding his decision. Assessment & Plan (08/27/2024 1:45 PM EDT): [...] patient cancelled/ no showed. Will contact his TECHNICAL DIRECTOR to find out if this can be [...] is almost his birthday. He appreciates his TECHNICAL DIRECTOR's involvement in his life for the past [...] is almost his birthday. He appreciates his TECHNICAL DIRECTOR's involvement in his life for the past [...] is almost his birthday. He appreciates his TECHNICAL DIRECTOR's involvement in his life for the past [...] is almost his birthday. He appreciates his TECHNICAL DIRECTOR's involvement in his life for the past [...] Hematology Last Hgb up to 8.2 03/09/2020 [facility] health care 10/05/2022 Assessment & Plan (10/10/2023 10:46 AM EDT): Pneumovax: 08/12/2014 Tdap: 03/29/2012 Zoster: 03/31/2015 Colonoscopy with tubular adenomas '06, repeat 01/03/11 at [facility] normal; repeat 07/15/13 was normal. Assessment & Plan (10/05/2022 5:09 PM EDT): Pneumovax: 08/12/2014 Tdap: 03/29/2012 Zoster: 03/31/2015 Colonoscopy with tubular adenomas '06, repeat 01/03/11 at [facility] normal; repeat 07/15/13 was normal. History of [...] extremity Centrilobular emphysema 06/23/2022 Assessment & Plan (12/24/2024 1:43 PM EDT): Patient here for a follow up, under the care of Dr Cummings Pulmonology, last seen 07/1024 Assessment & Plan (09/19/2023 11:58 AM EDT): [...] disease He was last seen by his Sql Server Developer Dr Cummings in August 2022 He mentioned [...] move for with any aggressive intervention. Pts TECHNICAL DIRECTOR tells me he refuses to use the [id number] patches and does not like to use [...] disease He was last seen by his Sql Server Developer Dr Cummings in August 2022 He mentioned [...] the moment, will make an appointment with [facility] if he decides to proceed Nephrolithiasis 06/20/2022 [...] 06/08/2021 Essential hypertension 03/26/2015 Assessment & Plan (04/01/2025 2:11 PM EDT): Pt is here for a follow up BP Controlled currently he is on Amlodipine 5 mg po daily, no longer on Lisinopril Most recent electrolytes, Bun and Creatinine done on: Lab Results Component Value Date NA 140 01/13/2025 NA 139 07/03/2023 K 4.3 01/13/2025 K 4.2 07/03/2023 CL 104 01/13/2025 CL 103 07/03/2023 BUN 15 01/13/2025 BUN 11 07/03/2023 CREATININE 1.01 01/13/2025 CREATININE 0.97 07/03/2023 were wnl. patient advised to adhere to a low sodium diet, encouraged about medication compliance. Assessment & Plan (12/24/2024 1:42 PM EDT): Pt is here for a follow up BP Controlled currently he is on Amlodipine 5 mg po daily, no longer on Lisinopril Most recent electrolytes, Bun and Creatinine done on: Lab Results Component Value Date NA 139 07/03/2023 NA 139 09/22/2020 K 4.2 07/03/2023 K 4.3 09/22/2020 CL 103 07/03/2023 CL 102 09/22/2020 BUN 11 07/03/2023 BUN 21 (H) 09/22/2020 CREATININE 0.97 07/03/2023 CREATININE 0.80 09/22/2020 were wnl.will repeat patient advised to adhere to a low sodium diet, encouraged about medication compliance. Assessment & Plan (05/14/2024 2:31 PM EST): [...] for in stent re-stenosis. Last seen at [facility] Vascular surgery 07/2023 recommended conservative approach and 6 month follow up Assessment & Plan (09/19/2023 11:45 AM EDT): Here for a f/u He is S/p fem-pop bypass to help with previous Hx of osteomyelitis in the right foot, s/p toe amputations. 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 Last seen at [facility] Vascular surgery 07/2023 recommended conservative approach [...] low back pain 01/27/2012 Assessment & Plan (04/01/2025 2:20 PM EDT): Pt here with acute on chronic low back pain with previous extensive workup (see 03/04/13 note). Currently on Percocet, He is now out of his wheel chair and states that he will walk with his four-foot cane if he has his TECHNICAL DIRECTOR with him. Pt requesting a recliner, he would benefit from one. Repeat MRI 07/17/2015 showed; Chronic postoperative changes [...] nerve root segments at L4-L5 and L5-S1 Assessment & Plan (10/05/2022 5:05 PM EDT): Pt here with chronic low back pain with previous extensive workup (see 03/04/13 note). Currently on Percocet, He is now out of his wheel chair and states that he will walk with his four-foot cane if he has his TECHNICAL DIRECTOR with him. Pt wanted to see Dr. [...] deficiency 01/27/2012 Hyperlipidemia 01/27/2012 Assessment & Plan (04/01/2025 2:12 PM EDT): Patient with elevated lipids. Most recent lipid profile from: Lab Results Component Value Date TRIG 75 01/13/2025 TRIG 77 12/22/2023 CHOL 148 01/13/2025 CHOL 135 12/22/2023 LDLCHOLCAL 94 01/13/2025 LDLCHOLCAL 87 12/22/2023 HDL 39 (L) 01/13/2025 HDL 33 (L) 12/22/2023 Currently on a regimen of: Atorvastatin 40mg po qhs. advised to try to adhere to a low cholesterol diet, counseled and educated about diet . Assessment & Plan (12/24/2024 1:42 PM EDT): Patient with elevated lipids. Most [...] with a personal goal for weight loss. Repeat Lipid profile Assessment & Plan (01/09/2024 2:09 PM EDT): [...] or greater in diameter Assessment & Plan (12/24/2024 1:52 PM EDT): Pt here for a follow up PET CT 06/21/2022 showed:Redemonstration of a 1.7 cm irregularly-shaped nodular- like opacity in the posterior medial right upper [...] inferior mandible suggesting periodontal disease He was seen by his Sql Server Developer Dr Cummings in August 2022 He mentioned [...] Either way he recommended to see a apparatus repair mechanic . He mentioned in the note that patient and his family wanted to take some time to discuss and decide how to move forward. Previous visit His TECHNICAL DIRECTOR told me that the appointment with [facility] was cancelled since he was not convinced he wanted to proceed with Dr morrison recommendation. Patient is still smoking and has not used the nicotine patches he was prescribed or the plastic cigarettes. Previously I had a conversation with him and his TECHNICAL DIRECTOR if he decides to go ahead with it he would ask his TECHNICAL DIRECTOR to contact the apparatus repair mechanic for an appointment and schedule a follow up with Dr Choe. Previously in very clear terms he told me he dcid not want to pursue any type of surgical intervention. He verbalized understanding that by doing this he is putting himself at risk of not treating a malignancy in its early stages and even . Since last time I saw him, he ended up having a repeat CT chest 06/21/2024 that showed: Slightly larger spiculated pulmonary nodule likely posterior segment right upper lung lobe with associated lymphadenopathy. Malignancy should be considered. Endobronchial nodules versus secretions in the upper airways. Coronary artery disease and atherosclerosis disease. Chronic interstitial lung disease. 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 Pt was re-evaluated by Sql Server Developer Dr. Jm Cummings who ordered a CT guided biopsy and a PET CT on 07/18/2024 According to [facility] Pts healthcare proxy Jose Rueda and Nigel with patient decided against any biopsy. Pt has an upcoming appointment for PFTs according to [facility] Assessment & Plan (09/19/2023 11:52 AM EDT): [...] disease He was last seen by his Sql Server Developer Dr Cummings in August 2022 He mentioned [...] Either way he recommended to see a apparatus repair mechanic . He mentioned in the note that patient and his family wanted to take some time to discuss and decide how to move forward. Previous visit His TECHNICAL DIRECTOR told me that the appointment with [facility] was cancelled since he was not convinced he wanted to proceed with Dr morrison recommendation. Today once again we discussed this, he still seems reluctant. He is still smoking and has not used the nicotine patches he was prescribed or the plastic cigarettes. Today again I had a conversation with him and his TECHNICAL DIRECTOR if he decides to go ahead with it he would ask his TECHNICAL DIRECTOR to contact the apparatus repair mechanic for an appointment and schedule a follow [...] disease He was last seen by his Sql Server Developer Dr Cummings in August 2022 He mentioned [...] Either way he recommended to see a apparatus repair mechanic . He mentioned in the note that patient and his family wanted to take some time to discuss and decide how to move forward. Previous visit His TECHNICAL DIRECTOR told me that the appointment with [facility] was cancelled since he was not convinced he wanted to proceed with Dr morrison recommendation. Today once again we discussed this, he still seems reluctant. He is still smoking and has not used the nicotine patches he was prescribed or the plastic cigarettes. Today again I had a conversation with him and his TECHNICAL DIRECTOR if he decides to go ahead with it he would ask his TECHNICAL DIRECTOR to contact the apparatus repair mechanic for an appointment and schedule a follow [...] disease He was last seen by his Sql Server Developer Dr Cummings in August 2022 He mentioned [...] Either way he recommended to see a apparatus repair mechanic . He mentioned in the note that patient and his family wanted to take some time to discuss and decide how to move forward. Previous visit His TECHNICAL DIRECTOR told me that the appointment with [facility] was cancelled since he was not convinced he wanted to proceed with Dr morrison recommendation. Today once again we discussed this, he still seems reluctant. He is still smoking and has not used the nicotine patches he was prescribed or the plastic cigarettes. Once again today I had a conversation with him and his TECHNICAL DIRECTOR if he decides to go ahead with it he would ask his TECHNICAL DIRECTOR to contact the apparatus repair mechanic for an appointment and schedule a follow [...] disease He was last seen by his Sql Server Developer Dr Cummings in August 2022 He mentioned [...] Either way he recommended to see a apparatus repair mechanic . He mentioned in the note that patient and his family wanted to take some time to discuss and decide how to move forward. His TECHNICAL DIRECTOR told me that the appointment with [facility] was cancelled since he was not convinced he wanted to proceed with Dr morrison recommendation. Today we discussed again, and he seems on the fence. He is still smoking and has not used the nicotine patches he was prescribed or the plastic cigarettes. I had a very detailed conversation with him and his TECHNICAL DIRECTOR today and he stated he would think about it and if he decides to go ahead with it he would ask his TECHNICAL DIRECTOR to contact the apparatus repair mechanic for an appointment and schedule a follow up with Dr Choe I have asked him to come in and see me in 1 month , he is agreable Rheumatoid arthritis involvi ng multiple sites with positive rheumatoid factor ([facility]) 01/27/2012 Assessment & Plan (05/03/2025 4:07 PM EST): Referred to Re-establish with Rheumatology during PCP visit in Mar 2025. Referral letter provided to pt today. Good engagement and participation with Group Medical Visit model Encouraged multifactorial approach to pain control including pharm and non-pharm modalities UTOX and Pill count as expected Assessment & Plan (04/01/2025 2:18 PM EDT): Under the care of Dr. Piter Maldonado. Last office visit 06/07/2023 Pt tells me he missed an appointment due to transportation He is no longer on Remicade or Methotrexate as a result I have placed a referral again so he can be reschedule Assessment & Plan (01/28/2025 1:12 PM EDT): Cont following with Rheumaology Good engagement and participation with Group Medical Visit model Encouraged multifactorial approach to pain control including pharm and non-pharm modalities UTOX and Pill count as expected Assessment & Plan (11/26/2024 1:54 PM EDT): Cont following with Rheumaology Good engagement and participation with Group Medical Visit model Encouraged multifactorial approach to pain control including pharm and non-pharm modalities UTOX and Pill count as expected Assessment & Plan (08/27/2024 1:42 PM EDT): [...] 5:09 PM EDT): Not interested in quitting Insomnia 11/16/2011 Assessment & Plan (01/09/2024 2:15 [...] Problem Noted Date Diagnosed Date Resolved Date Acute cystitis without hematuria 05/15/2024 04/01/2025 Acute cystitis with hematuria 10/10/2023 04/01/2025 Assessment & Plan (10/10/2023 10:53 AM EDT): Diagnosed 5/3 treated with Augmentin Ucx sensitive Pt asymptomatic today Pure hypercholesterolemia 03/26/2015 Chronic type B viral hepatitis (CMS/HCC) 01/27/2012 04/01/2025 Encounters * This document contains information received from the source organization and may not represent a complete record from that organization. Date Type Department Care Team Description 04/29/2025 9:45 AM EST Office Visit [facility] [address] [place] [address] Amanda Irizarry FNP Rheumatoid arthritis involving multiple sites with positive rheumatoid factor (CMS/HCC) (HCC) (Primary Dx); Long-term current use of opiate analgesic 04/29/2025 Travel 04/28/2025 Refill [facility] [address] [place] [address] Will Cole MD Essential hypertension 04/22/2025 Telephone [facility] [address] [place] [address] Will Cole MD June04/04/2025 Refill [facility] [address] [place] [address] Melissa Fernando RN Rib pain; Severe pain 04/04/2025 Telephone [facility] [address] [place] [address] Will Cole MD 04/01/2025 2:00 PM EDT Office Visit [facility] [address] [place] [address] Will Cole MD Essential hypertension (Primary Dx); Mixed hyperlipidemia; Rheumatoid arthritis involving multiple sites with positive rheumatoid factor (CMS/HCC) (HCC); Chronic midline low back pain without sciatica; Encounter for immunization 04/01/2025 Telephone [facility] [place] [address] Lucy Her RN Recliner DME 04/01/2025 Travel 03/25/2025 Patient Outreach [facility] [place] [address] Will Cole MD Pre-visit Planning (SDAL screening completed on 12/17/24) 03/13/2025 Telephone [facility] [place] [address] Will Cole MD Call Back Request 03/06/2025 Refill [facility] [address] [place] [address] Will Cole MD Rib pain; Severe pain 03/03/2025 Telephone [facility] [address] [place] [address] Will Cole MD Med Refill 02/09/2025 Refill [facility] [address] [place] [address] Will Cole MD 02/06/2025 Refill [facility] [address] [place] [address] Will Cole MD Rib pain; Severe pain from Last 3 Months Immunizations Immunization Administration Dates Next Due Hep A, Adult 08/12/2010 INFLUENZA INJECTABLE QUADRIV ALANT CCIIV4 MDCK Multi-dose vial 03/29/2019 Influenza High-dose Quadriva lent Preservative Free 03/24/2021,03/09/2020 Influenza injectable quadriv alent IIV4 with preservative 03/28/2016 Influenza injectable quadriv alent preservative free 03/23/2015 Influenza, High Dose Seasona l, Preservative Free 04/01/2025,03/14/2018,02/23/2017 Influenza, IIV3, injectable 04/24/2014, 1 Influenza, Split [...] Sign Reading Time Taken Comments Blood Pressure 138/80 04/01/2025 1:59 PM EDT Pulse 72 04/01/2025 1:59 PM EDT Temperature 36.3 C (97.3 F) 04/01/2025 1:59 PM EDT Respiratory Rate 20 04/01/2025 1:59 PM EDT Oxygen Saturation 99% 12/24/2024 1:28 PM EDT Inhaled Oxygen Concentration - - Weight 59 kg (130 lb) 04/01/2025 1:59 PM EDT Height 167.6 cm (5' 6 ) 04/01/2025 1:59 PM EDT Body Mass Index 20.98 04/01/2025 1:59 PM EDT Plan of Treatment Upcoming Encounters Date Type Department Care Team (Late st Contact Info) Description 05/23/2025 11:00 AM EST Office Visit [facility]OM[facility] [address] [place], [place] [phone] Lanie Spain, OD [address] [place] [address] 05/27/2025 9:45 AM EST Office Visit [facility] [address] [place] [address] 07/03/2025 2:00 PM EST Office Visit [facility] [address] [place], [place] [phone] Will Cole MD [address] [place], [place] [phone] Health Maintenance Due Date Last Done Comments COVID-19 Vaccine ( season) 2025 08/03/2021, 09/02/2020, 08/05/2020 Alcohol/Substance Use Screening 05/14/2025 05/14/2024 SDOH Screening 12/17/2025 12/17/2024 Depression Screening 12/24/2025 12/24/2024, 12/25/19 Tobacco Screening 04/01/2026 04/01/2025 Lipid Panel 01/13/2030 01/13/2025, 0702/2024, 04/10/2020 DTaP/Tdap/Td Vaccines (3 - Td or Tdap) 01/31/2033 01/31/2023, 03/29/2012, 09/03/2001 Hepatitis A Vaccines Aged Out 08/12/2010 No long er eligible based on patient's age to complete this topic Pneumococcal Vaccine: 50+ Years Completed 05/10/2016, 03/21/2015, 08/12/2014, Additional history exists Zoster Vaccines Completed 04/04/2023, 01/04, 03/31/2015 RSV Patients and Patients Aged 60 years or older Completed 07/02/2024 Influenza Vaccine Completed 04/01/2025, , 03/09/2020, Additional history exists HIB Vaccines Aged Out No longer eligi ble based on patient's age to complete this topic HPV Vaccines Aged Out No longer eligi ble based on patient's age to complete this topic Hepatitis B Vaccines Aged Out No long er eligible based on patient's age to complete this topic IPV Vaccines Aged Out No longer eligi ble based on patient's age to complete this topic Meningococcal B Vaccine Aged Out No l onger eligible based on patient's age to complete [...] sites with positive rheumatoid factor (CMS/HCC) (HCC) LIPID PANEL, STANDARD Routine 01/13/2025 8:19 AM EDT Mixed hyperlipidemia from Last 3 Months or Most Recently Relevant to Health Maintenance Results * (ABNORMAL) POCT JULIANNA-14 Urine Drug [...] procedure / Unknown 04/29/2025 11:21 AM EST Melissa Hunter, ONEL - 04/29/2025 11:21 AM EST .UTOX cup Lot#[id number] Exp. 05/05/26 Internal Pass Control Amanda Irizarry DATA CAPTURE CLERK POINT OF CARE TEST ENTER/EDIT ORDERABLES Final Result * (ABNORMAL) Lipid Panel, Standard (01/13/2025 8:19 AM EDT) Triglycerides 75 <150 mg/dL [facility] Comment:Desirable Triglyceri de: less than 150 mg/dLBorderline High Triglyceride 150-199 mg/dLHigh Triglyceride: 200-499 mg/dLVery High Triglyceride: greater than or equal to 5OO mg/dL Cholesterol 148 <200 mg/dL [facility] Comment:Desirable Cholestero l: less than 200 mg/dLBorderline High Cholesterol: 200-239 mg/dLHigh Cholesterol: greater than 239 mg/dL LDL Cholesterol Calculated 94 <100 mg/dL [facility] Comment:Desirable LDL: less than 100 mg/dLNear Optimal/Above Optimal LDL: 110- 129 mg/dLBorderline High LDL: 130-159 mg/dLHigh LDL: 160-189 mg/dLVery High LDL: greater than or equal to 190 mg/dL HDL Cholesterol 39(L) >40 mg/dL [facility] Comment:Desirable HDL: great er than 40 mg/dL Note: This HDL assay may give artificially low results in patients with liver disease. Blood Venous blood specimen / Unknown 01/13/2025 8:19 AM EDT 01/13/2025 11:18 AM EDT Will Hardy MD LAB BLOOD ORDERABLES Final Result [facility] [address], [place] [id number] [phone] from Last 3 Months or Most Recently Relevant to Health Maintenance Insurance [facility] Care Teams Business Law Teacher Relationship Specialty Start Date End Date Will Cole MD [address] [place] [id number] PCP - General Internal Medicine 01/14/14
--- OUTSIDE RECORDS SUMMARY | 2025-05-04 14:40 | XMS_ITS | Data Portability ---
Author Organization [facility], Main Office Address [address] [facility], [address] [place] [address] Care Team Providers Care Button Sewer Name Role Phone JAZZ SUAREZ - 3RD FLOOR OTHER EVANS PERRIN Primary Care Provider Assessment Encounter Date Assessment Date Assessment LastModified by Organization Details LastModified Time 09/25/2020 09/25/2020 09/25/20 WBC 4.7, Hgb 11, Hct 33.9, Plt 211, Na 131, K 4.3, BUN 17, Artist'S Model 0.72, diane 8.3, tot prot 8.3, alb 2.9, tot bili 0.4, AST 19, ALT 16, alk phos 114 [email or web address] Not available 09/25/2020 12:31:57 09/28/2020 09/28/2020 09/25/20 WBC 4.7, Hgb 11, Hct 33.9, Plt 211, Na 131, K 4.3, BUN 17, Artist'S Model 0.72, diane 8.3, tot prot 8.3, alb [...] Modified By Organization Details Last Modified Time 06/08/2016 [id number] patient is concerned about possible need to transition to LTC continue PT OT eval and treat [email or web address] Not available 06/08/2016 11:45:28 Patient InstructionsNo instructions recorded. Reason for Referral None Reported. Problems Name Problem SNOMED Code Status Onset Date Resolution Date Notes Provider Name and Address Organization Details Recorded Time Rhabdomyoly sis 320809788 Active 2015 Dalyannie solis, [employer] [facility] 6 10:11:43 Cerebrovasc ular accident 632022633 Active 2015 Dalyannie solis, [employer] [facility] 6 10:11:48 Acute injury of kidney 2905819923187 4108 Active 2015 Daly Ames null, [place] [employer] [facility] 6 10:12:01 Chronic obstructive pulmonary disease 03118936 Active 2015 Daly Carrolles null, [facility] [employer] [facility] 6 10:12:07 Mixed hyperlipide loco 510853268 Active 2015 Dalyannie solis, [place] [employer] [facility] 6 10:12:13 Essential hypertensio n 24291538 Active 2015 Dalyannie solis, [place] [employer] [facility] 6 10:12:19 Rheumatoid arthritis 87802514 Active 2015 Dalyannie solis, [employer] [facility] 6 10:12:32 Chronic pain 84113442 Active 2015 Dalyannie solis, [place] [employer] [facility] 6 10:12:39 Neuropathy 242327964 Active 2015 Dalyannie solis, [employer] [facility] 6 10:26:35 Tremor 57370714 Active 2016 Juana solis, [employer] [facility] 7 12:23:32 Abnormal gait 56505911 Active 2020 S[address] STEIN [address], [address], [place], [address], [facility] 1 13:43:55 History of cerebrovasc ular accident 108747109 Active 2020 SUSAN STEIN [address], [address], [place], [address], [facility] 1 18:30:18 Gastroesoph ageal reflux disease without esophagitis 464942135 Active 2020 MARKIE PADMA [employer] [address], [address], [place], [address], [facility] 18:32:34 Coronary arterioscle rosis 13179823 Active 2020 [address]P [address], [address], [place], [address], [facility] 18:33:28 Anemia 866705193 Active 2020 [address] STE[address]P [address], [place], [address], [facility] 18:33:43 Blood in urine 38386467 Active 2020 [address]P [address], [address], [place], [address], [facility] 18:35:24 Constipatio n 42288679 Active 2020 T[address] STE[address]P [address], [place], [address], [facility] 18:37:06 Chronic insomnia 761654939 Active 2020 [address]P [address], [place], [address], [facility] 18:40:24 Benign prostatic hyperplasia 093112531 Active 2020 TOR[address] STE[address]P [address], [place], [address], [facility] 18:43:50 Problem Notes None recorded. Medical Equipment None Reported. Allergies No known drug allergies Medications Not known to be on any medication Vitals Date Recorded Body temperature Heart rate Respiratory rate Oxygen saturation Systolic And Diastolic Provider Name and Address Organization Details Last Updated DateTime 97.7 [degF] 67 /min 18 /min 96 % 134/68 mm[Hg] TORREY STEINP [address], [place], [address], [facility] 18:21:00 Date Recorded Body height Body mass index (BMI) Body weight Oxygen saturation Body temperature Heart rate Respiratory rate Systolic And Diastolic Provider Name and Address Organization Details Last Updated DateTime 170.18 cm 19.3 kg/m2 94503.8 6 g 94 % 97.9 [degF] 78 /min 18 /min 124/68 mm[Hg] Stefanie Nelson MD [address] [facility], [address], [place], [address], [facility] 13:27:16 Date Recorded Body height Systolic And Diastolic Provider Name and Address Organization Details Last Updated DateTime 09/29/2020 170.18 cm 124/68 mm[Hg] Markus Yi MD [address] [facility], [address], [place], [address], [facility] 09/29/2020 13:11:53 Social History Question Answer Notes LastModified by Organizat ion Details LastModified Time Tobacco Smoking Status Current Every Day Smoker just 1-2 cigs/day Stefanie Nelson MD [address] [facility], [address], [place], [address], [facility] 09/28/2020 15:00:49 Do You Have An Advance Directive? Yes FULL CODE-NO DIALYSIS-use Nutrition And Hydration Information not available 09/25/2020 How Much Tobacco Do You Chew? None Information not available 09/25/2020 Do You Have A Medical Power Of Carbon Sequestration Plant Manager? Yes Hcp On File Information not available 09/25/2020 What Was The Date Of Your Most Recent Tobacco Screening? 09/28/2020 Information not available 09/28/2020 How Much Tobacco Do You Smoke? 1 PPW Information not available 09/28/2020 On What Date Was Tobacco Cessation Counseling Provided? 09/28/2020 Knows He Should Quit, But It's too Hard Information not available 09/28/2020 How Many Years Have You Smoked Tobacco? 40 Information not available 09/25/2020 Sex: Male Functional Status Question Answer Note LastModified by Organizat ion Details LastModified Time What is your level of alcohol consumption? None Information not available 09/25/2020 Do you or have you ever used smokeless tobacco? Never used smokeless tobacco Information not available 09/25/2020 Do you or have you ever used e-cigarettes or vape? Never used electronic cigarettes Information not available 09/25/2020 Mental Status None recorded. Family History Nothing Reported Notes:n/c Medical History No medical history recorded. Past Encounters Encounter ID Performer Location Encounter Start Date Encounter Closed Date Diagnosis/Indication Diagnosis SNOMED-CT Code Diagnosis ICD10 Code Diagnosis IMO Codes Diagnosis Note [id number] [address] 06/04/2016 10:00:35 06/10/2016 11:24:13 Rhabdomyolysis 582830550 M62.82 Patient with fall out of wheelchair , found laying on floor for unknown period of time, patient presented c/o severe back pain and other assorted aches and pains, initial CK 25,000+, treated with IV fluids with improvemen t, CK 18,892 on d/c, follow CPK and BMP twice weekly until normalized , PT/OT to maximize function Cerebrovas cular accident 135395546 I63.342 Presented with fall, screening head CT revealed acute cerebellar infarct, no deficits noted, f/u neuro Dr Roberts, ASA and statin, bp control, follow diet recs, SLAB LIFTING SUPERVISOR eval prn, PT/OT to maximize function Acute inju ry of kidney 6719540813 0539371 N17.8 Cr on admission 2.74, improved with IV fluids, Cr on d/c 0.6, monitor renal function as rhabdomyol ysis resolves Chronic ob structive pulmonary disease 65733776 J41.1 Stable, proair inhaler prn Mixed hyperlipidemia 267 396773 E78.2 On statin Essential hypertension 19420633 I10 Amlodipine 5 mg, monitor bp and labs Chronic pain 60543845 G8 9.29 Oxycodone for pain, monitor Vertigo 997167298 R42 With dizziness in hospital, patient reports dizziness has not improved, cont. meclizine 12.5 mg prn, if fails to improve consider ENT consult, monitor Rheumatoid arthritis 698 99136 M06.89 Methotrexa te qweekly, prednisone 5 mg, monitor sxs [id number] Juana Mcdonough NP, [address] [address] 06/06/2016 12:14:01 06/06/2016 12:43:57 Tremor 68461876 G25.2 Neurology consult as scheduled. OT evaluation for weighted eating utensils Neuropathy 938755743 G65 .1 Neurology consult. [id number] Markus Yi MD [address] [address] 06/08/2016 11:20:31 06/10/2016 11:51:58 Rhabdomyolysis 960948080 M62.82 Patient with fall out of wheelchair , found laying on floor for unknown period of time, patient presented c/o severe back pain and other assorted aches and pains, initial CK 25,000+, treated with IV fluids with improvemen t, CK 18,892 on d/c, follow CPK and BMP twice weekly until normalized , PT/OT to maximize function Cerebrovas cular accident 776302686 I63.342 Acute cerebellar infarct seen on CT head. f/u neuro Dr Roberts for CVA and tremorASA and statin, bp controlSLP eval prnPT/OT to maximize function Acute inju ry of kidney 3894258919 2087876 N17.8 Cr on admission 2.74, improved with IV fluids, Cr on d/c 0.6, monitor renal function as rhabdomyol ysis resolves Chronic ob structive pulmonary disease 20828118 J41.1 Stable, proair inhaler prn Mixed hyperlipidemia 267 456923 E78.2 On statin Essential hypertension 67344754 I10 Norvasc 5 mgmonitor bp and labs Chronic pain 10610907 G8 9.29 Oxycodone for pain, monitor Vertigo 032120630 R42 With dizziness in hospital, patient reports dizziness has not improved, cont. meclizine 12.5 mg prn, if fails to improve consider ENT consult, monitor Rheumatoid arthritis 698 [address]7738 M06.89 Methotrexa te qweekly, prednisone 5 mg, monitor sxs [id number] [facility]AN [facility] [address] [place] [address] 09/25/2020 12:26:20 09/29/2020 08:22:25 Abnormal gait 73419364 R26.89 PT/OT eval and treat reminders to ask for help utilize walker monitor for safety History of cerebrovascular accident 245049100 Z86.73 ASA 81 mg qd atorvastat in 40 mg qd monitor follow with neurology as needed Neuropathy 356397148 G63 neurontin 600 mg bid discussed risk vs benefit of neurontin with pt monitor Rheumatoid arthritis 698 95312 M06.89 methotrexa te 2.5 mg 6 tabs q week monitor Mixed hyperlipidemia 267 534187 E78.2 atorvastat in 40 mg qd monitor labs Essential hypertension 29773344 I10 ASA 81 mg qd norvasc at home but not discharged on any monitor b/p and labs Chronic ob structive pulmonary disease 81937811 J41.8 carries diagnosis not on medication monitor respirator y status Chronic pain 94024308 G8 9.29 oxycodone/ apap 5-325 mg bid prn monitor pain Gastroesop hageal reflux disease without esophagitis 544801559 K21.9 omeprazole 20 mg qd monitor for symptoms Coronary arteriosclerosis 87401505 I25.10 ASA 81 mg qd atorvastat in 40 mg qd monitor Anemia 529609741 D50.8 ferrous sulfate 325 mg tid monitor labs Tremor 29660012 G25.2 primadone 50 mg bid and 100 mg q hs carbidopa- levodopa 25-100 mg tid monitor Blood in urine 27050332 R31.29 monitor urine follow up with urology Lactic acidosis 47465000 E87.2 unknown cause resolved with fluids monitor Constipation 91611359 K5 9.09 miralax 17 gms qd colace 100 mg bid monitor bowels Chronic insomnia 7364034 04 F51.04 melatonin 3 mg q hs trazodone 300 mg q hs discussed risk vs benefit of trazodone with pt monitor sleep Benign pro static hyperplasia 227446493 N40.0 tamsulosin 0.4 mg qd monitor for symptoms [id number] Stefanie Nelson MD [facility] [address] [place] [address] 09/28/2020 13:23:25 09/30/2020 13:29:25 Abnormal gait 70933995 R26.89 Doing great with PT per PT. Continue PT/OT for strengthen ing, balance, gait training, safety and function, her and then hopefully at home also for awhile. Encouraged to use walker consistent ly. Monitor for safety Blood in urine 86786349 R31.29 Incidental finding. F/U with urology as outpt. Constipation 71184280 K5 9.09 Continue miralax 17 gms qd and colace 100 mg BID. Monitor bowel function. History of cerebrovascular accident 296800135 Z86.73 Stable at baseline. Continue ASA 81 mg qd and atorvastat in 40 mg qd Monitor for change in sxs. Rheumatoid arthritis 698 41122 M06.89 Continue methotrexa te 15 mg q week And pain meds as above. F/U with rheum as planned. Mixed hyperlipidemia 267 019381 E78.2 Continue atorvastat in 40 mg qd Monitor labs as outpt. Essential hypertension 32569229 I10 BP in good control since here. Continue amlodipine 5 mg qd. Monitor BP and labs Chronic ob structive pulmonary disease 53034420 J41.8 carries diagnosis not on medication monitor respirator y status Gastroesop hageal reflux disease without esophagitis 060088285 K21.9 No current sxs. Continue omeprazole 20 mg qd Monitor for sxs Coronary arteriosclerosis 43565660 I25.10 Continue ASA 81 mg qd and atorvastat in 40 mg qd Monitor for sxs. Anemia 721057434 D50.8 Continue ferrous sulfate 325 mg TID. Monitor labs Tremor 66409652 G25.2 Unclear if dx is Parkinson' s Continue primidone 50 mg bid and 100 mg qhs and carbidopa- levodopa 25-100 mg TID. Monitor F/U with neuro as planned Chronic insomnia 1812609 04 F51.04 Continue melatonin 3 mg qhs and trazodone 300 mg qhs Monitor sleep patterns. Benign pro static hyperplasia 066820488 N40.0 No current sxs. Continue tamsulosin 0.4 mg qd Monitor for sxs Chronic back pain 169095 002 M54.5 Checked meds in [facility]. COnfirmed chronic use, rxed by PCP. Continue oxycodone/ apap 5-325 mg BID prn (uses BID scheduled) and gabapentin 600 mg BID. Monitor pain control. [id number] Markus Yi MD [address] [address] 09/29/2020 13:06:18 10/01/2020 11:59:12 Abnormal gait 92290001 R26.89 improved with therapy now independen t with walker Blood in urine 04334922 R31.29 recent episode of F/U with urology as outpt. History of cerebrovascular accident 498871151 Z86.73 Stable at baseline. Continue ASA 81 mg qd and atorvastat in 40 mg qd Monitor for change in sxs. Chronic back pain 865299 002 M54.5 Checked meds in [employer]. COnfirmed chronic use, rxed by PCP. Continue oxycodone/ apap 5-325 mg BID prn (uses BID scheduled) and gabapentin 600 mg BID. Monitor pain control. Rheumatoid arthritis 698 02122 M06.89 Continue methotrexa te 15 mg q week And pain meds as above. F/U with rheum as planned. Mixed hyperlipidemia 267 685467 E78.2 Continue atorvastat in 40 mg qd Monitor labs as outpt. Essential hypertension 71487747 I10 BP in good control since here. Continue amlodipine 5 mg qd. Monitor BP and labs Gastroesop hageal reflux disease without esophagitis 452119553 K21.9 Continue omeprazole 20 mg qd Monitor for sxs Coronary arteriosclerosis 90282330 I25.10 Continue ASA 81 mg qd and atorvastat in 40 mg qd Monitor for sxs. Anemia 871437281 D50.8 Continue ferrous sulfate 325 mg TID. Monitor labs Tremor 54058097 G25.2 Unclear if dx is Parkinson' s Continue primidone 50 mg bid and 100 mg qhs and carbidopa- levodopa 25-100 mg TID. Monitor F/U with neuro as planned Chronic insomnia 0073669 04 F51.04 Continue melatonin 3 mg qhs and trazodone 300 mg qhs Monitor sleep patterns. Benign pro static hyperplasia 063331841 N40.0 Continue tamsulosin 0.4 mg qd Monitor for sxs Health Concerns Section Related Observation LastModified by Organization Detai ls LastModified Time None Recorded Concern Status LastModified by Organization Details LastModified Time None Recorded Advance Directives Directive Y: FULL CODE-NO DIALYSIS-use nutrition and hydration Payers Insurance Date Sequence Insurance Name Policy Number Policy Khanna Covered Member ID Khanna Member ID Guarantor Name 09/25/2020 1 [facility] - DOS PRIOR TO 2022 - DUAL ELIGIBLE (MEDICARE REPLACEMENT/ADV ANTAGE - HMO) Jabari Galloway [id number] Jabari Galloway 09/25/2020 2 [place] [facility] Jabari Galloway [id number] Jabari Galloway Notes Date Note Type Note Provider Name and Address Organization Details Recorded Time 06/06/2016 text/html 75-year-old male being seen for acute rounding visit at the request of nursing due to tremors of the left hand. Juana solis, [facility] 06/06/2016 12:39:38 06/08/2016 text/html Patient is a 75 yo admit from hospital after being found on floor having fallen out of wheelchair. 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 Patient was eval by nephrology and neurology during hospitalization. Patient was frequently c/o dizzyness in hospital started on meclizine. methotrexate was held on admit and restarted at [facility] d/c. H htn, RA, hld, and copd. Tremor since CVA Markus Yi MD [address] [facility], [address], [place], [address], [facility] 06/08/2016 11:46:35 09/25/2020 text/html A 79 year old male being seen for a initial intake note. Patient was sent to [facility] [place] when his CREAM CHEESE MAKER noted slurred speech, unsteady gait and lethargy. [...] RA and tremor. PCP is Evans ROUSE, [employer]OUNDING [employer] FINISHING SUPERVISOR [address] [facility], [address], [place], [address], [employer] 09/25/2020 19:13:22 09/28/2020 text/html This is a 79 yo man who is here for rehab after and acute hospitalization for slurred speech, unsteady gait and lethargy. He was sent to the [facility] on 09/23 after his CREAM CHEESE MAKER noted the above sxs. Eval in hospital [...] doing well with rehab, he has daily CREAM CHEESE MAKER at home and hopes for d/c on 09/30. Of note he is on chronic oxycodone and gabapentin for back pain.Seen walking in the [place] with PT, walking well and quickly using walker, with no assist.He says he feels like he is back to baseline, remembers day he went to hospital, he could understand what CREAM CHEESE MAKER was saying, but she said she couldn't understand him. He couldn't tell that speech was slurred.His PMH includes HTN, hx of CVA-inferomedial left cerebellum, anemia, BPH, insomnia, COPD, hx of tubular adenoma, chronic back pain, YEIMY, PVD, constipation, GERD, HLD, neuropathy, RA and tremor. Stefanie Nelson MD [address] [facility], [address], [place], [address], [facility] 09/28/2020 15:16:59 09/29/2020 text/html Patient is a 79 yo male seen in preparation for discharge initially admit from hospital after presenting with slurred speech, unsteady gait and lethargy. He was sent to the [facility] on 09/23 after his CREAM CHEESE MAKER noted the above sxs. Eval in hospital [...] doing well with rehab, he has daily CREAM CHEESE MAKER at home and hopes for d/c on 09/30. Of note he is on chronic oxycodone and gabapentin for back pain.Now independent ambulation with walker, cleared for discharge with services in place to f/u with PCP Markus Yi MD [address] [facility], [address], [place], [address], [facility] 09/29/2020 13:19:01
--- OUTSIDE RECORDS SUMMARY | 2025-05-04 14:40 | XMS_ITS | Encounter Summary ---
Author Organization [employer] Address [address] [facility] [address] [place] [address] Care Team Providers Care Makeup Editor Name Role Phone Will Cole MD Primary Care Provide r Encounter Details Date Type Department Care Team (Late st Contact Info) Description 06/16/2022 Orders Only [facility] [address] [place], [place] [phone] Ximena Cameron LPN Social History Tobacco Use [...] Description 05/23/2025 11:00 AM EST Office Visit [facility] [address] [place], [place] [phone] Grabiel, Lanie, OD [address] [place] [address] 05/27/2025 9:45 AM EST Office Visit [facility] [address], [place] [phone] 07/03/2025 2:00 PM EST Office Visit [facility] [address] [place] [address] Will Cole MD [address] [place] [address] documented as of this encounter Procedures Procedure Name Priority Date/Time Associated Diagnosis Comments PET/CT BONE SKULL BASE TO MID THIGH Routine 06/21/2022 11:30 AM EST documented in this encounter Results * PET/CT Bone Skull Base to Mid Thigh (06/21/2022 11:30 AM EST) Anatomical Region Laterality Modality Body Computed Tomogra phy 06/21/2022 11:3 0 AM EST Narrative 06/23/2022 11:44 AM EST [facility] [address] [place] [address] PET Report Signed Patient: Jabari Galloway MR#: [id number] : 1940 Acct:[id number] Age/Sex: 81 / M ADM Date: 06/21/22 Loc: HO.PET Attending Dr: Will Smart MD Ordering Physician: Will Smart MD Date of Service: 06/21/22 Procedure(s): PET CT fusion skull to thigh Accession Number(s): [id number] cc: Will Smart MD EXAMINATION: NM FLUORINE-18 [...] in OV> 06/23/22 1141 DD/ 1130 TD/TT: Casket Inspector: Procedure Note Donotuseinterpreter, Image - 07/11/[address] [address] PET Report Signed Patient: Shannon Galloway#: [id number] : 1940cct:[id number] Age/Sex: 81 / MADM Date: 06/21/22 Loc: HO.PET Attending Dr: Will Smart MD Ordering Physician: Will Smart MD Date of Service: 06/21/22 Procedure(s): PET CT fusion skull to thigh Accession Number(s): [id number] cc: Will Smart MD EXAMINATION: NM FLUORINE-18 [...] in OV> 06/23/22 1141 DD/ 1130 TD/TT: Casket Inspector: [facility] External Provider IMG CT PROCEDURES Edited Result - Final documented in this encounter Visit Diagnoses Not on filedocumented in this encounter Care Teams Makeup Editor Relationship Specialty Start Date End Date Will Cole MD [address] [place] [address] PCP - General Internal Medicine 01/14/14 documented as of this encounter
--- OUTSIDE RECORDS SUMMARY | 2025-05-04 14:40 | XMS_ITS | Encounter Summary ---
Author Organization [employer] Address 75 [facility] 7t [place] [address] Care Team Providers Care Grease Refiner Operator Name Role Phone Will Cole MD Primary Care Provide r Reason for Visit * Reason Onset Date Comments Durable Medical Equipment 03/20/2024 Encounter Details Date Type Department Care Team (Late st Contact Info) Description 03/20/2024 Telephone [facility] [address] [place], [place] [phone] Will Cole MD 230 [place], [place] [phone] Durable Medical Equipment Social History Tobacco Use [...] chair. She would like script sent to [facility]. If any questions you can contact [facility] at [phone]. * Telephone Encounter - Harvey Hernandez - 03/20/2024 11:25 AM EDT Tc from [facility] requesting a recliner as soon as possible stating pt does have one that they received years ago but the chair is broken and pt is at risk of falling due to the state of the chair. She would like script sent to [facility]. If any questions you can contact [facility] at [phone]. documented in this encounter Plan of Treatment Upcoming Encounters Date Type Department Care Team (Late st Contact Info) Description 05/23/2025 11:00 AM EST Office Visit [facility] OPTOMETRY [address] [place], [place] [phone] Lnaie Spain OD 230 [place] [address] 05/27/2025 9:45 AM EST Office Visit [facility] [address] [place], [place] [phone] 07/03/2025 2:00 PM EST Office Visit [facility] [address] [place] [address] Will Cole MD [address] [place] [address] documented as of this encounter Visit Diagnoses Not on filedocumented in this encounter Additional Health Concerns Assessment Noted Time PHQ-9 Depression Total Score: 0 01/09/20 24 2:03 PM EDT documented as of this encounter Care Teams Grease Refiner Operator Relationship Specialty Start Date End Date Will Cole MD [address] [place], [place] [phone] PCP - General Internal Medicine 01/14/14 documented as of this encounter
--- OUTSIDE RECORDS SUMMARY | 2025-05-04 14:40 | XMS_ITS | Encounter Summary ---
Author Organization [employer] Address 75 [facility] 7t [place] [address] Care Team Providers Care Voice Engineer Name Role Phone Will Cole MD Primary Care Provide r Reason for Visit * Reason Onset Date Comments Referral 04/15/2024 Encounter Details Date Type Department Care Team ([facility] st Contact Info) Description 04/15/2024 Telephone [facility] MEDICINE [address] [place], [place] [phone] Will Cole MD [address] [place], [place] [phone] Referral Social History Tobacco Use Types Packs/Day [...] - 04/15/2024 2:31 PM EST Tc from [facility] with [facility] Regarding the referral sent out 04/11. She states that they don't do Reclining Chairs. documented in this encounter Plan of Treatment Upcoming Encounters Date Type Department Care Team (Late st Contact Info) Description 05/23/2025 11:00 AM EST Office Visit [facility] OPTOMETRY [address] [place] [address] Grabile, Lanie, OD 230 [place] [address] 05/27/2025 9:45 AM EST Office Visit [facility] MEDICINE [address] [place] [address] 07/03/2025 2:00 PM EST Office Visit [facility] MEDICINE [address] [place] [address] Will Cole MD [address] [place] [address] documented as of this encounter Visit Diagnoses Not on filedocumented in this encounter Additional Health Concerns Assessment Noted Time PHQ-9 Depression Total Score: 0 01/09/20 24 2:03 PM EDT documented as of this encounter Care Teams Voice Engineer Relationship Specialty Start Date End Date Will Cole MD [address] [place] [address] PCP - General Internal Medicine 01/14/14 documented as of this encounter
--- OUTSIDE RECORDS SUMMARY | 2025-05-04 14:40 | XMS_ITS | Encounter Summary ---
Author Organization [employer] Address [address] [facility] [address] 7t [place] [address] Care Team Providers Care Batch Plant Supervisor Name Role Phone Will Cole MD Primary Care Provide r Encounter Details Date Type Department Care Team ([facility] st Contact Info) Description 12/29/2023 Orders Only [facility] MEDICINE 230 [place], [place] [phone] Abimbola Felipe MD 230 [place], [place] [phone] Social History Tobacco Use Types Packs/Day Years [...] Description 05/23/2025 11:00 AM EST Office Visit [facility] OPTOMETRY [address] [place] [address] Grabiel, Lanie, OD 230 [place] [address] 05/27/2025 9:45 AM EST Office Visit [facility] MEDICINE 230 [place] [address] 07/03/2025 2:00 PM EST Office Visit [facility] MEDICINE [address] [place] [phone] Will Cole MD [address] [place] [phone] documented as of this encounter Visit Diagnoses Not on filedocumented in this encounter Additional Health Concerns Assessment Noted Time PHQ-9 Depression Total Score: 0 09/19/19 24 11:37 AM EDT documented as of this encounter Care Teams Batch Plant Supervisor Relationship Specialty Start Date End Date Will Cole MD [address] [place] [phone] PCP - General Internal Medicine 01/14/14 documented as of this encounter
--- OUTSIDE RECORDS SUMMARY | 2025-05-04 14:40 | XMS_ITS | Encounter Summary ---
Author Organization [employer] Address 75 [facility] 7t [place] [address] Care Team Providers Care Belt Back Operator Name Role Phone Will Cole MD Primary Care Provide r Encounter Details Date Type Department Care Team (Latest Contact Info) Description 10/15/2018 Abstract [facility] CONVERSIONS Dental, Provider, DDS Social History Tobacco [...] Description 05/23/2025 11:00 AM EST Office Visit [facility] OPTOMETRY [address] [place] [address] Lanie Spain, OD 230 [place] [address] 05/27/2025 9:45 AM EST Office Visit [facility] MEDICINE 230 [place] [address] 07/03/2025 2:00 PM EST Office Visit [facility] MEDICINE [address] [place] [address] Will Cole MD 230 [place] [address] documented as of this encounter Visit Diagnoses Not on filedocumented in this encounter Care Teams Belt Back Operator Relationship Specialty Start Date End Date Will Cole MD [address] [place] [phone] PCP - General Internal Medicine 01/14/14 documented as of this encounter
--- OUTSIDE RECORDS SUMMARY | 2025-05-04 14:40 | XMS_ITS | Encounter Summary ---
Author Organization [employer] Address 75 [facility] 7t [place] [address] Care Team Providers Care Cornetist Name Role Phone Will Cole MD Primary Care Provide r Reason for Visit * Reason Onset Date Comments Med Refill 04/08/2024 Encounter Details Date Type Department Care Team (Late st Contact Info) Description 04/08/2024 Refill [facility] PEDS [address] [place], [place] [phone] Will Cole MD [address] [place] [address] Rib pain; Severe pain Social History Tobacco [...] Description 05/23/2025 11:00 AM EST Office Visit [facility] OPTOMETRY [address] [place] [address] Lanie Spain, OD 230 [place] [address] 05/27/2025 9:45 AM EST Office Visit [facility] MEDICINE [address] [place] [phone] 07/03/2025 2:00 PM EST Office Visit [facility] MEDICINE [address] [place] [phone] Will Cole MD [address] [place] [phone] documented as of this encounter Visit Diagnoses Diagnosis Rib pain Unspecified chest pain Severe pain documented in this encounter Additional Health Concerns Assessment Noted Time PHQ-9 Depression Total Score: 0 01/09/20 24 2:03 PM EDT documented as of this encounter Care Teams Cornetist Relationship Specialty Start Date End Date Will Cole MD [address] [place] [phone] PCP - General Internal Medicine 01/14/14 documented as of this encounter
--- OUTSIDE RECORDS SUMMARY | 2025-05-04 14:40 | XMS_ITS | Encounter Summary ---
Author Organization [employer] Address 75 [facility] 7t [place] [address] Care Team Providers Care Pocket Builder Name Role Phone Will Cole MD Primary Care Provide r Encounter Details Date Type Department Care Team (Late st Contact Info) Description 07/26/2022 Orders Only [facility] MEDICINE [address] [place] [address] Ximena Cameron LPN Social History Tobacco Use [...] Office Visit [facility] OPTOMETRY [address] [place] [address] Lanie Spain OD 230 [place] [address] 05/27/2025 9:45 AM EST Office Visit [facility] MEDICINE [address] [place] [address] [phone] 07/03/2025 2:00 PM EST Office Visit [facility] MEDICINE [address] [place] [address] Will Cole MD 230 [place] [address] (work) documented as of this encounter Procedures Procedure Name Priority Date/Time Associated Diagnosis Comments CELL BLOCK Routine 07/26/2022 9:31 AM EST CELL BLOCK Routine 07/26/2022 9:31 AM EST HEMATOXYLIN AND EOSIN STAIN Routine 07/26/2022 9:31 AM EST documented in this encounter Results * Cell Block (07/26/2022 9:31 AM EST) 07/26/2022 9:31 AM EST 07/27/2022 9:00 AM EST [facility] LABS - 07/30/2022 1:42 PM EST ----- ------- Name: Jabari Galloway Age/Sex: 81/M : 1940 Unit#: [id number] Attend Dr: Jm Hernandez MD Re07/26/22 Status: [facility] Location: [facility] Disch: ----- ------- SPEC : [id number] RECD: 07/27/22 STATUS: SERAFIN KINGSLEY NUM: [id number] ROSEMARY: 07/26/22 [facility] DR: mJ Hernandez MD ENTERED: 07/27/22 SP TYPE: Cytology OTHR DR: Will Smart MD ORDERED: Cell Block/2, Fine Ndl Asp/2, VICKIE/2, FNAIA/2 Diagnosis A. Lymph node, station 4L, fine needle aspiration biopsy (cytology and cell block): No evidence of lymph node sampling. Comment: Examination of monolayer preparation, direct smear, and cell block slides show benign bronchial epithelial cells, mucus, alveolar macrophages, and acute inflammatory cells. B. Lymph node, station 7, fine needle aspiration biopsy (cytology and cell block): No evidence of lymph node sampling. Comment: Examination of monolayer preparation, direct smear, and cell block slides show abundant blood with few benign bronchial epithelial cells, and fragments of cartilage. Clinical History Solitary pulmonary nodule Material Received A: Station 4L B: Station 7 Gross Description Part A: Four Aspirate smears, [...] Blood and rare bronchs Dr. Portillo 07/27/22 CONTINUED ON NEXT PAGE ----- ------- Name: Jabari Galloway Age/Sex: 81/M : 1940 Unit#: [id number] Attend Dr: Jm Hernandez MD Re07/26/22 Status: [facility] Location: [facility] Disch: ----- ------- SPEC : [id number] RECD: 07/27/22 STATUS: SERAFIN KINGSLEY NUM: [id number] ROSEMARY: 07/26/22 [facility] DR: Jm Hernandez MD ENTERED: 07/27/22-733 SP TYPE: Cytology OTHR DR: Will Smart MD ORDERED: Cell Block/2, Fine Ndl Asp/2, VICKIE/2, FNAIA/2 Copies To: Will Smart MD [address] [place] [address] Jm Hernandez MD [address] [place] [address] [place] [address] ----- ------- Signed (signature on file) Adele Leavitt 07/30/22 1342 ----- ------- END OF REPORT [facility] External Provider LAB CYT OLOGAlfred ORDERABLES Final Result [facility]S [address] [place] [address] [phone] * Cell Block (07/26/2022 9:31 AM EST) 07/26/2022 9:31 AM EST 07/27/2022 9:00 AM EST [facility] LABS - 07/28/2022 4:37 PM EST ----- ------- Name: Jabari Galloway Age/Sex: 81/M : 1940 Unit#: [id number] Attend Dr: Jm Hernandez MD Re07/26/22 Status: [facility] Location: [facility] Disch: ----- ------- SPEC : [id number] RECD: 07/27/22 STATUS: SERAFIN KINGSLEY NUM: [id number] ROSEMARY: 07/26/22 [facility] DR: Jm Hernandez MD ENTERED: 07/27/22-150 SP TYPE: Cytology OT DR: Will Smart MD ORDERED: Cell Block/2, Cyto-enhanced/2 Diagnosis A. Lung, right upper lobe, bronchial washing (cytology and cell block): Negative for malignant cells. Comment: Examination of a monolayer preparation and cell block slides show benign bronchial epithelial cells, alveolar macrophages blood, mucus, scattered inflammatory cells, and few benign squamous cells. B. Lung, right upper lobe, bronchial brushing (cytology and cell block): Negative for malignant cells. Comment: Examination of a monolayer preparation and cell block slides shows benign bronchial epithelial cells mucus, occasional inflammatory cells, and scant blood. Note: See also concurrent transbronchial biopsy report, [id number]. Clinical History Solitary pulmonary nodule Material Received A: RUL washings B: RUL brushings Gross Description A: 17 cc reddish fluid. Thin prep and cell block made. B: Received in [employer]. Thin prep and cell block made. Copies To: Will Smart MD [address] [place] [address] [phone] Jm Hernandez MD [address] [place] [address] [address] [place], [place] [phone] CONTINUED ON NEXT PAGE ----- ------- Name: Jabari Galloway Age/Sex: 81/M : 1940 Unit#: [id number] Attend Dr: Jm Hernandez MD Re07/26/22 Status: [facility] Location: [facility] Disch: ----- ------- SPEC : [id number] RECD: 07/27/22 STATUS: SERAFIN KINGSLEY NUM: [id number] ROSEMARY: 07/26/22 [facility] DR: Jm Hernandez MD ENTERED: 07/27/22-1502 SP TYPE: Cytology OT DR: Will Smart MD ORDERED: Cell Block/2, Cyto-enhanced/2 ----- ------- Signed (signature on file) Adele [place] 07/28/22 1637 ----- ------- END OF REPORT [facility] External Provider LAB [facility] ORDERABLES Final Result [facility] [address] [place] [phone] * Hematoxylin and Eosin Stain (07/26/2022 9:31 AM EST) 07/26/2022 9:31 AM EST 07/26/2022 12:00 PM EST Narrative [facility]S - 07/28/2022 6:47 AM EST ----- ------- Name: Jabari Galloway Age/Sex: 81/M : 1940 Unit#: [id number] Attend Dr: Jm Hernandez MD Re07/26/22 Status: [facility] Location: [facility] Disch: ----- ------- SPEC : [id number] RECD: 07/26/22-1199 STATUS: SERAFIN KINGSLEY NUM: [id number] ROSEMARY: 07/26/22 [facility] DR: Jm Hernandez MD ENTERED: 07/26/22-1230 SP TYPE: Surgical OTHR DR: Will Smart MD ORDERED: HE Stain/2, Gross Micro L4 Diagnosis Lung, right upper lobe nodule, biopsy: - Fragment of lung tissue with confluent mucinous epithelium. - Separate fragment of benign bronchoalveolar tissue. COMMENT: The confluent mucinous epithelium is worrisome for a neoplastic process (e.g. atypical adenomatous hyperplasia). Clinical History Solitary pulmonary nodule Microscopic Description Microscopic sections reviewed. Material Received RUL bx's Gross Description Received in formalin are multiple son-red needle cores of soft tissue, measuring 1-4, totally submitted in cassettes 1-2. (RJD) This case was reviewed intradepartmentally. Copies To: Will Smart MD [address] [place] [address] [phone] Jm Hernandez MD [address] [place] [address] [place] [address] ----- ------- Signed (signature on file) Richard Portillo MD 07/28/2247 ----- ------- END OF REPORT [facility] External Provider LAB BLO OD ORDERABLES Final Result [facility] [address] [place] [address] [phone] documented in this encounter Visit Diagnoses Not on filedocumented in this encounter Care Teams Pocket Builder Relationship Specialty Start Date End Date Will Cole MD [address] [place] [phone] PCP - General Internal Medicine 01/14/14 documented as of this encounter
--- OUTSIDE RECORDS SUMMARY | 2025-05-04 14:40 | XMS_ITS | Encounter Summary ---
Author Organization [employer] Address 75 [facility] 7t [place] [address] Care Team Providers Care Personnel Technician Name Role Phone Will Cole MD Primary Care Provide r Encounter Details Date Type Department Care Team ([facility] st Contact Info) Description 09/04/2024 Orders Only [facility] MEDICINE [address] [place], [place] [phone] Will Cole MD [address] [place], [place] [phone] Social History Tobacco Use Types Packs/Day Years [...] as of this encounter Miscellaneous Notes * Result Encounter Note - Georgina Hines MD - 09/04/2024 4:52 PM EDT Bladder ultrasound showed postvoid bladder volume of 75 cc. Please call patient or his ADMINISTRATIVE LAW JUDGE -who is on HIPAA -and tell them that the exam showed a small urine retention, probably from his prostate or something else. There wasn't anything else abnormal in his bladder, please tell him that they need to follow-up with urologist, they had information today I saw them at the ED. Please reminded of following up with PCP documented in this encounter Plan of Treatment Upcoming Encounters Date Type Department Care Team (Late st Contact Info) Description 05/23/2025 11:00 AM EST Office Visit [facility] OPTOMETRY [address] [place] [address] Lanie Spain, OD [address] [place] [address] 05/27/2025 9:45 AM EST Office Visit [facility] MEDICINE [address] [place] [phone] 07/03/2025 2:00 PM EST Office Visit [facility] MEDICINE [address] [place] [address] Will Cole MD [address] [place] [address] (work) documented as of this encounter Procedures Procedure Name Priority Date/Time Associated Diagnosis Comments US BLADDER Routine 09/24/2024 2:57 PM EDT documented in this encounter Results * US BLADDER (09/24/2024 2:57 PM EDT) Anatomical Region Laterality Modality Abdomen Ultrasound 09/24/2024 2:57 PM EDT Narrative 09/25/2024 1:40 PM EDT [address] [address] Ultrasound Report Signed Patient: Jabari Galloway MR#: [id number] : 1940 Acct:[id number] Age/Sex: 83 / M ADM Date: 09/24/24 Loc: HO.US Attending Dr: Georgina Hines MD Ordering Physician: Georgina Hines MD Date of Service: 09/24/24 Procedure(s): US bladder Accession Number(s): [id number] cc: Georgina Hines MD; Will Smart MD EXAMINATION: US PELVIS LIMITED (BLADDER) CLINICAL INFORMATION: Microscopic hematuria. COMPARISON: August 29, 2024 TECHNIQUE: Real-time imaging of the bladder. FINDINGS: BLADDER: Fluid-filled with the isoechoic abnormality in the dependent portion without flow on color Doppler interrogation. Bilateral ureteral jets are demonstrated. Prevoid bladder volume is 148 mL. Postvoid bladder volume is 75 mL. Prostate gland measures 4 x 5 cm in maximum dimension and a volume: 33 cc. US/US bladder IMPRESSION: 75 cc residual amount of urine in a post void image. The previously versus blood products versus other, urinary bladder lumen.. Electronically signed by: Celso Quiroz MD 09/25/2024 01:37 PM EDT Dictated By: Celso Chinchilla MD Signed By: <Electronically signed by Celso Fernandes MD in OV> 09/25/24 1337 DD/ 1457 TD/TT: 09/24/24 1509 Picture Enlarger: Procedure Note Donotuseinterpreter, Image - 09/25/[address] [address] Ultrasound Report Signed Patient: Shannon Galloway#: [id number] : 1Acct:[id number] Age/Sex: 83 / MADM Date: 09/24/24 Loc: HO.US Attending Dr: Georgina Hines MD Ordering Physician: Georgina Hines MD Date of Service: 09/24/24 Procedure(s): US bladder Accession Number(s): [id number] cc: Georgina Hines MD; Will Smart MD EXAMINATION: US PELVIS LIMITED (BLADDER) CLINICAL INFORMATION: Microscopic hematuria. COMPARISON: August 29, 2024 TECHNIQUE: Real-time imaging of the bladder. FINDINGS: BLADDER: Fluid-filled with the isoechoic abnormality in the dependent portion without flow on color Doppler interrogation. Bilateral ureteral jets are demonstrated. Prevoid bladder volume is 148 mL. Postvoid bladder volume is 75 mL. Prostate gland measures 4 x 5 cm in maximum dimension and a volume: 33 cc. US/US bladder IMPRESSION: 75 cc residual amount of urine in a post void image. The previously versus blood products versus other, urinary bladder lumen.. Electronically signed by: Celso Quiroz MD 09/25/2024 01:37 PM EDT RP Dictated By: Celso Chinchilla MD Signed By: <Electronically signed by Celso Fernandes MDin OV> 09/25/24 1337 DD/ 1457 TD/TT: 09/24/24 1509 Picture Enlarger: us Georgina Hines MD IMG US PROCEDURES Final Result documented in this encounter Visit Diagnoses Not on filedocumented in this encounter Additional Health Concerns Assessment Noted Time PHQ-9 Depression Total Score: 0 01/09/20 24 2:03 PM EDT documented as of this encounter Care Teams Personnel Technician Relationship Specialty Start Date End Date Will Cole MD [address] [place] [address] PCP - General Internal Medicine 01/14/14 documented as of this encounter
--- OUTSIDE RECORDS SUMMARY | 2025-05-04 14:40 | XMS_ITS | Encounter Summary ---
Author Organization [employer] Address [address] [facility] [address] [place] [address] Care Team Providers Care Sap Basis Architect Name Role Phone Will Cole MD Primary Care Provide r Encounter Details Date Type Department Care Team ([facility] st Contact Info) Description 05/15/2024 Orders Only [facility] MEDICINE [address] [place], [place] [phone] Kecia Smith MD [address] [place], [place] [phone] Social History Tobacco Use Types Packs/Day Years [...] 05/23/2025 11:00 AM EST Office Visit [facility] OPTOMETRY [address] [place] [address] Grabiel, Lanie, OD [address] [place] [address] 05/27/2025 9:45 AM EST Office Visit [facility] MEDICINE [address] [place] [address] 07/03/2025 2:00 PM EST Office Visit [facility] MEDICINE [address] [place] [address] Will Cole MD [address] [place] [address] documented as of this encounter Procedures Procedure Name Priority Date/Time Associated Diagnosis Comments CULTURE, URINE, ROUTINE Routine 05/15/2024 12:00 PM EST documented in this encounter Results * Culture, Urine, Routine (05/15/2024 12:00 PM EST) Urine Urine specimen obtained by clean catch procedure / Unknown 05/15/2024 12:00 PM EST 05/15/2024 3:19 PM EST Comment:[facility] LABS - 05/18/2024 8:03 AM EST Escherichia coli Quant > 100,000 cfu/mL Escherichia coli: Ampicillin >=32(R) Escherichia coli: Cefepime <=0.12(S) Escherichia coli: Ceftriaxone <=0.25(S) Escherichia coli: Ciprofloxacin >=4(R) Escherichia coli: Gentamicin <=1(S) Escherichia coli: Nitrofurantoin <=16(S) Escherichia coli: Trimethoprim/Sulfamethoxazole <=20(S) Specimen Source: Urine clean catch Kecia Camejo MD LAB MICROBIOLOGY - NERAL ORDERABLES Final Result [facility]S [address] [place] [phone] documented in this encounter Visit Diagnoses Not on filedocumented in this encounter Additional Health Concerns Assessment Noted Time PHQ-9 Depression Total Score: 0 01/09/20 24 2:03 PM EDT documented as of this encounter Care Teams Sap Basis Architect Relationship Specialty Start Date End Date Will Cole MD [address] [place] [phone] PCP - General Internal Medicine 01/14/14 documented as of this encounter
--- OUTSIDE RECORDS SUMMARY | 2025-05-04 14:40 | XMS_ITS | Encounter Summary ---
Author Organization [employer] Address [address] [place] [address] Care Team Providers Care Employee Communications Manager Name Role Phone Will Cole MD Primary Care Provide r Reason for Visit * Reason Comments Med Refill Encounter Details Date Type Department Care Team ([facility] st Contact Info) Description 08/29/2022 Refill [facility] [address] [place], [place] [phone] Will Cole MD [address] [place], [place] [phone] Severe pain Social History Tobacco Use Types [...] Description 05/23/2025 11:00 AM EST Office Visit [facility] [address] [place] [address] Lanie Spain, OD [address] [place] [address] 05/27/2025 9:45 AM EST Office Visit [facility] [address] [place] [address] 07/03/2025 2:00 PM EST Office Visit [facility] [address] [place] [address] Will Cole MD [address] [place] [address] documented as of this encounter Visit Diagnoses Diagnosis Severe pain documented in this encounter Care Teams Employee Communications Manager Relationship Specialty Start Date End Date Will Cole MD [address] [place] [address] PCP - General Internal Medicine 01/14/14 documented as of this encounter
--- NOTE | 2025-05-04 14:52 | PC.NURSE ---
Pt awake and alert, oriented. Presented from home with concerns of weakness starting today with x1 episode of urinary incontinence with foul smelling urine per VETERINARY MEDICINE DOCTOR. Breathing equal and unlabored. Tremor at baseline. IV placed ART MANAGER. With EMS hypotensive, received 500ml of NS prior to arrival. Normotensive on arrival. SPO2 99%. Labs ordered and pt placed on court monitor. Forehead SPO2 monitor placed as patient with cold/clubbed finger nail beds. Awaiting ED provider
--- NOTE | 2025-05-04 15:21 | ED.MALEGU ---
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 Patient complains of feeling generally weak/tired today. Also complains of left-sided rib pain. Denies any recent cough or URI symptoms. Denies abdominal pain. Denies fevers. Related Data Home Medications ?Medication ?Instructions ?Recorded ?Confirmed amlodipine 5 mg tablet 1 tab PO QAM 09/22/20 02/01/23 aspirin 81 mg tablet,delayed 1 tab PO BEDTIME 09/22/20 02/01/23 release atorvastatin 40 mg tablet 1 tab PO BEDTIME 09/22/20 02/01/23 ferrous sulfate 325 mg (65 mg 325 mg PO TID 09/22/20 02/01/23 iron) tablet gabapentin 600 mg tablet 600 mg PO BID 09/22/20 02/01/23 latanoprost 0.005 % eye drops 1 drp ophthalmic (eye) BEDTIME 09/22/20 02/01/23 omeprazole 20 mg capsule,delayed 20 mg PO DAILY 09/22/20 02/01/23 release oxycodone-acetaminophen 5 mg-325 1 tab PO BID PRN Pain 09/22/20 02/01/23 mg tablet primidone 50 mg tablet 100 mg PO BEDTIME 09/22/20 02/01/23 clopidogrel 75 mg tablet 75 mg PO DAILY 11/06/20 02/01/23 famotidine 20 mg tablet 20 mg PO BID 11/06/20 02/01/23 lidocaine HCl 2 % mucosal solution ml PO 11/06/20 02/01/23 amantadine HCl 100 mg tablet 100 mg PO 04/13/22 02/01/23 bacitracin 500 unit/gram topical topical Q8H 04/13/22 02/01/23 ointment benztropine 1 mg tablet 1 mg PO DAILY 04/13/22 02/01/23 diphenhydramine HCl 25 mg capsule 25 mg PO BEDTIME 04/13/22 02/01/23 (Banophen) folic acid 1 mg tablet 1 mg PO DAILY 04/13/22 02/01/23 infliximab 100 mg intravenous IV 04/13/22 02/01/23 solution (Remicade) multivitamin 1 tab PO QAM 04/13/22 02/01/23 prednisone 10 mg tablet 10 mg PO DAILY 06/16/22 02/01/23 trazodone 150 mg tablet 300 mg PO BEDTIME 06/16/22 02/01/23 Previous Rx's ?Medication ?Instructions ?Recorded docusate sodium 100 mg capsule 100 mg PO BIDWMEAL #60 caps 09/23/20 finasteride 5 mg tablet 5 mg PO DAILY 90 days #90 tabs 04/25/22 nicotine 21 mg/24 hr daily 1 patch transdermal DAILY #28 ea 08/05/22 transdermal patch tamsulosin 0.4 mg capsule 0.4 mg PO BEDTIME 14 days #14 caps 12/21/22 tramadol 50 mg tablet 50 mg PO Q6H PRN pain (scale score 12/21/22 1-3) #8 tabs cephalexin 250 mg capsule 250 mg PO BID #14 caps 07/12/24 doxycycline hyclate 100 mg capsule 100 mg PO BID 7 days #14 caps 07/17/24 lidocaine 5 % topical patch 1 patch topical DAILY 30 days #30 07/18/24 (Lidoderm) ea carbidopa 25 mg-levodopa 100 mg 1 tab PO TID #90 tabs 11/11/24 tablet melatonin 3 mg tablet 3 mg PO BEDTIME 30 days #30 tabs 12/20/24 baclofen 10 mg tablet 10 mg PO TID #90 tabs 02/04/25 Allergies Allergy/AdvReac Type Severity Reaction Status Date / Time No Known Allergies (No Known Allergy Verified 05/04/25 14:09 Allergies*) Review of Systems Review of Systems: as per hpi Yes all other systems are reviewed and are negative Constitutional: Constitutional: Reports as per HPI [facility] Past Medical History Medical History (Updated 05/04/25 @ 18:03 by Rebeca White NP) Pulmonary nodule Post herpetic neuralgia Smoking COPD (chronic obstructive pulmonary disease) Pulmonary nodule 1 cm or greater in diameter Peripheral neuropathy 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 Weakness Obstructive sleep apnea PVD (peripheral vascular disease) Hyperlipemia Tubular adenoma Chronic hepatitis B Elevated rheumatoid factor Elevated sed rate Chronic anemia Renal lithiasis Chronic back pain Vitamin B12 deficiency HTN (hypertension) CAD (coronary artery disease) Surgical History History of bronchoscopy History of endoscopy History of lithotripsy History of cystoscopy History of colonoscopy History of repair of left rotator cuff History of lumbar surgery History of cataract surgery Social History Social History Household Members: None Housing: Apartment Do you presently have visiting nurse or other home services: Yes (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) Unable to assess alcohol history related to: Unknown Patient Tobacco Use Status: Current everyday Tobacco user Tobacco use type: Cigarette Cigarettes Per Day: 2 Years Smoked: 30+ Years Smoked in Last 30 Days: Yes Second Hand Smoke Exposure: No Use of substances other than those prescribed or required for medical reasons: Unknown Advance Directives: No Advance Directives Information Provided: No Advance Directives Date on File: 09/23/20 service: No Current occupational status: retired Physical Exam Vital Signs: Vital Signs: Last Vital Signs Temp 97.5 F 05/04/25 18:02 Pulse 60 05/04/25 18:02 Resp 14 05/04/25 18:02 BP 141/69 H 05/04/25 18:02 Pulse Ox 100 05/04/25 18:02 O2 Del Method Room Air 05/04/25 18:02 BMI result Body Mass Index 23.5 Vital signs have been reviewed and appear to be correct. Blood pressure normal. Heart rate normal. Respiratory rate normal. Temperature normal. Oxygen saturation normal. Const: General: cooperative, no acute distress, alert and awake Nutritional Appearance: thin Orientation/consciousness: oriented to person, oriented to place, oriented to time and patient oriented x3 Limitations: no limitations HEENT: Head: Yes normocephalic and Yes atraumatic Ears: external ears normal General nose exam: Normal external nose present Face and sinus: Yes face symmetric Mouth: oropharynx normal and moist mucous membranes Throat: Yes uvula midline Eyes: Pupils: Equal, round and reactive pupils present Neck: Neck: Yes normal visual inspection and Yes supple Resp: Effort & Inspection: normal respiratory effort and able to speak in complete sentences Auscultation: clear to auscultation bilaterally Cardio: Rate: regular rate Rhythm: regular rhythm Heart sounds: S1 normal heart sound present and S2 normal heart sound present GI: Palpation (GI): Soft to palpation and nontender Auscultation: normoactive bowel sounds : General: Yes no CVA tenderness Back/Spine/Pelvis: Back: no CVA tenderness Skin: General skin exam: elasticity normal and turgor normal Neuro: General: oriented to person, oriented to place, oriented to time, patient oriented x3, moves all extremities, no focal motor deficits and CN's II-XI intact bilaterally Cranial nerves: Yes Equal, round and reactive pupils present Cognition (Neuro): normal cognition Extrem: General: Yes full ROM, Yes no pedal edema and Yes no calf tenderness Psych: Mental Status: mental status grossly normal Affect: normal affect Thought process: Normal thought process present Medications Administered Discontinued Medications Generic Name Dose Route Start Last Admin Trade Name Freq PRN Reason Stop Dose Admin Ceftriaxone Sodium 1 gm/ 50 mls @ 100 mls/hr 05/04/25 15:09 05/04/25 15:30 Sodium Chloride IV 05/04/25 15:38 Infused ONCE ONE Infusion Lactated Ringer's 1,000 mls @ 999 mls/hr 05/04/25 15:30 05/04/25 16:36 Lr IV 05/04/25 16:30 Infused .Q1H1M GADIEL Infusion Medical Decision Making Medical Decision Making [facility] Narrative: Patient is an 84-year-old male with past medical history of COPD, BPH, lung cancer presenting to the emergency department after 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 On exam patient is awake, A+Ox3, VS WNL, afebrile, normal neurological exam without focal deficits, physical exam findings as above. Given reported symptoms and physical exam findings, initial differential includes but is not limited to UTI, pneumonia, viral illness, sepsis. Lactic of 2.4, IV ceftriaxone and LR ordered. No leukocytosis, do not suspect sepsis at 1540. Labs notable for elevated lactic without leukocytosis, no evidence of FELIPE. X-ray left ribs/chest notable for notable for known right mid lung nodule, pulmonary fibrosis, no acute rib fracture, pneumonia, pneumothorax. My interpretation is in agreement with the radiologist's interpretation. Viral serology negative. Urinalysis notable for 3+ leukocytes, positive nitrites, 2+ blood. Lactic at 2.5 after 1L of LR. Case discussed with Dr. Rees who accepts admission to medicine. Differential Diagnosis Differential Diagnoses: The differential diagnosis associated with the presentation includes as per [facility] Admission/Observation Consideration of admission/observation: Escalation of care including admission/observation considered Patient would have been admitted to the hospital and transferred to appropriate facility had their clinical presentation warranted hospital admission. Lab Data [facility] Lab Attestation statement: I reviewed the patient's lab results. as per [facility] 05/04/25 14:22 05/04/25 15:10 Labs: Lab Results 05/04/25 05/04/25 05/04/25 Range/Units 14:22 15:10 15:17 WBC 5.5 (4.8-10.8) X10*3/uL RBC 4.28 L (4.60-5.80) X10*6/uL Hgb 12.8 L (14.0-18.0) g/dl Hct 38.9 L (42.0-52.0) % MCV 90.9 (80.0-98.0) fL MCH 29.9 (27.0-33.0) pg MCHC 32.9 (31.0-36.0) g/dl RDW 14.9 (11.0-16.0) % Plt Count 233 (160-400) X10*3/uL MPV 9.6 (9.4-12.4) fL Immature Gran % (Auto) 0.2 (0.0-0.4) % Neut % (Auto) 55.5 (45-73) % Lymph % (Auto) 37.6 (20-40) % [place] % (Auto) 4.7 (2-11) % Eos % (Auto) 1.6 (0-4) % Baso % (Auto) 0.4 (0-2) % Lymph # (Auto) 2.1 (1.2-4.9) X10*3/uL [place] # (Auto) 0.3 (0.1-1.2) X10*3/uL Eos # (Auto) 0.1 (0.0-0.4) X10*3/uL Baso # (Auto) 0.0 (0.0-0.2) X10*3/uL Abs Immat Gran (auto) 0.01 (0.00-0.03) X10*3/uL Absolute Neuts (auto) 3.0 (2.0-8.3) x10*3/uL Absolute Nucleated RBC 0.000 (0.0-0.012) X10*3/uL Nucleated RBC % (auto) 0.0 (0.0-0.2) /100WBC Sodium 140 (135-145) mmol/L Potassium 4.0 (3.3-5.1) mmol/L Chloride 106 (96-108) mmol/L Carbon Dioxide 20 L (22-29) mmol/L Anion Gap 18 (12-20) BUN 18 H (9-16) mg/dL Creatinine 1.02 (0.5-1.4) mg/dL Estim Creat Clear Calc 50.4 Estimated GFR > 60 Random Glucose 109 (60-115) mg/dL Lactic Acid 2.4 H* (0.5-2.0) mmol/L Lactic Acid F/U @ 2Hr (0.5-2.0) mmol/L Calcium 9.5 (8.4-10.2) mg/dL Magnesium 1.9 (1.6-2.6) mg/dL Total Bilirubin 0.2 (0.0-1.0) mg/dL AST 19 (5-37) U/L ALT < 6 (0-40) U/L Alkaline Phosphatase 114 (39-117) U/L Total Protein 8.8 H (6.5-8.0) g/dL Albumin 3.8 (3.5-5.0) g/dL Urine Color Urine Appearance Urine pH (5.0-9.0) Ur Specific [place] (1.005-1.025) Urine Protein (Neg-Trace) mg/dL Urine Glucose (UA) (Negative) mg/dL Urine Ketones (Negative) mg/dL Urine Blood (Negative) Urine Nitrite (Negative) Ur Leukocyte Esterase (Negative) Influenza Type A (PCR) NEGATIVE (Negative) Influenza Type B (PCR) NEGATIVE (Negative) RSV RNA Qual (PCR) NEGATIVE (Negative) SARS-CoV-2 RNA (RT-PCR) NEGATIVE (Negative) 05/04/25 05/04/25 Range/Units 17:01 17:07 WBC (4.8-10.8) X10*3/uL RBC (4.60-5.80) X10*6/uL Hgb (14.0-18.0) g/dl Hct (42.0-52.0) % MCV (80.0-98.0) fL MCH (27.0-33.0) pg MCHC (31.0-36.0) g/dl RDW (11.0-16.0) % Plt Count (160-400) X10*3/uL MPV (9.4-12.4) fL Immature Gran % (Auto) (0.0-0.4) % Neut % (Auto) (45-73) % Lymph % (Auto) (20-40) % [place] % (Auto) (2-11) % Eos % (Auto) (0-4) % Baso % (Auto) (0-2) % Lymph # (Auto) (1.2-4.9) X10*3/uL [place] # (Auto) (0.1-1.2) X10*3/uL Eos # (Auto) (0.0-0.4) X10*3/uL Baso # (Auto) (0.0-0.2) X10*3/uL Abs Immat Gran (auto) (0.00-0.03) X10*3/uL Absolute Neuts (auto) (2.0-8.3) x10*3/uL Absolute Nucleated RBC (0.0-0.012) X10*3/uL Nucleated RBC % (auto) (0.0-0.2) /100WBC Sodium (135-145) mmol/L Potassium (3.3-5.1) mmol/L Chloride (96-108) mmol/L Carbon Dioxide (22-29) mmol/L Anion Gap (12-20) BUN (9-16) mg/dL Creatinine (0.5-1.4) mg/dL Estim Creat Clear Calc Estimated GFR Random Glucose (60-115) mg/dL Lactic Acid (0.5-2.0) mmol/L Lactic Acid F/U @ 2Hr 2.5 H* (0.5-2.0) mmol/L Calcium (8.4-10.2) mg/dL Magnesium (1.6-2.6) mg/dL Total Bilirubin (0.0-1.0) mg/dL AST (5-37) U/L ALT (0-40) U/L Alkaline Phosphatase (39-117) U/L Total Protein (6.5-8.0) g/dL Albumin (3.5-5.0) g/dL Urine Color Yellow Urine Appearance Turbid Urine pH 6.0 (5.0-9.0) Ur Specific [place] 1.020 (1.005-1.025) Urine Protein 100 (2+) H (Neg-Trace) mg/dL Urine Glucose (UA) Negative (Negative) mg/dL Urine Ketones Trace (Negative) mg/dL Urine Blood Moderate (2+) H (Negative) Urine Nitrite Positive H (Negative) Ur Leukocyte Esterase Large (3+) H (Negative) Influenza Type A (PCR) (Negative) Influenza Type B (PCR) (Negative) RSV RNA Qual (PCR) (Negative) SARS-CoV-2 RNA (RT-PCR) (Negative) Independent Interpretation I performed an independent interpretation of an: Plain X-Ray Interpretation: X-ray of left ribs/chest notable for known right mid lung nodule, pulmonary fibrosis, no acute rib fracture, pneumonia, pneumothorax. Radiology Impression Discussion of test interpretation with radiology: I have reviewed the radiologist's reading. Radiologist Impression: 4 view, chest and left ribs Comparison: CT/SR - CT CHEST WITHOUT IV CONTRAST - 06/21/24 14:45 EST Findings: No left hemithorax rib fracture identified. Pulmonary fibrosis. Right mid lung zone nodule, 2.9 cm, 1.1 cm. IMPRESSION: 1. Right mid lung zone nodule measuring 2.9 cm and 1.1 cm[address] refer to CT of the thorax on 06/21/2024. 2. Pulmonary fibrosis. 3. No acute left rib fracture identified. External Record Review External record reviewed: Inpatient record, Office record and Outpatient record Prescription Management I considered prescription management with: Antibiotic Critical Care Time Critical Care Time Critical Care Time: Yes Total Critical Care Time: 37 Attestation: I have personally provided critical care time exclusive of time spent on separately billable procedures. Time includes review of lab data, radiology results, discussion with consultants, and monitoring for potential decompensation. Intervention performed as documented. Discharge Plan Discharge Clinical Impression: UTI (urinary tract infection), Elevated lactic acid level Patient Disposition: Admitted As Inpatient
[2025-05-04] MEDS: Lactated Ringers 1,000 ML 999 ML IV ×2 (15:30→19:59)
[2025-05-04 15:31] LABS: Alanine Aminotransferase < 6 U/L (0-40); Albumin Level 3.8 g/dL (3.5-5.0); Alkaline Phosphatase 114 U/L (39-117); Anion Gap 18 (12-20); Aspartate Amino Transferase 19 U/L (5-37); Blood Urea Nitrogen 18 mg/dL (9-16); Calcium 9.5 mg/dL (8.4-10.2); Carbon Dioxide 20 mmol/L (22-29); Chloride 106 mmol/L (96-108); Creatinine Clr Calc Pharmacy 50.4; Estimated Glomerular Filt Rate > 60; Magnesium 1.9 mg/dL (1.6-2.6); Potassium 4.0 mmol/L (3.3-5.1); Sodium 140 mmol/L (135-145); Total Protein 8.8 g/dL (6.5-8.0)
[2025-05-04 16:03] LABS: Resp Syncy Virus RNA Qual PCR NEGATIVE (Negative); SARS COV2 PCR INHOUSE NEGATIVE (Negative)
[2025-05-04 16:31] LABS: Reflex Lactate? Lactic Acid Added
[2025-05-04 17:27] LABS: Appearance Urine Turbid; Glucose Urine UA Negative (Negative); PH 6.0 (5.0-9.0); Specific Gravity - Urine 1.020 (1.005-1.025); UMIC TRIGGER UACC YES
[2025-05-04 17:34] LABS: ~Lactic Acid-LAB USE ONLY 2.5 mmol/L (0.5-2.0)
[2025-05-04 18:12] LABS: UACC Culture Trigger YES
--- NOTE | 2025-05-04 18:19 | HO.NURTONUR ---
84 year old male presented to ED for concerns of general weakness starting today with x1 episode of incontience while in wheelchair that PHARMACEUTICAL WORKER noted to be foul smelling. Pt awake and alert, breathing equal and unlabored. SPO2 stable on room air, forehead probe used as patients finger nail beds are clubbed/cool to touch, SPO2 not reading well. Baseline tremor. Straight cath performed, +UTI. 18g to left AC from EMS. Does not ambulate, typically uses motorized wheelchair. VSS
--- NOTE | 2025-05-04 18:51 | PC.NURSE ---
Pt son Jose ([phone]) and daughter in law Nigel ([phone]) called looking for update and would like to be contacted for discharge planning. They plan to come to hospital tomorrow.
[2025-05-04 19:05] LABS: Reflex Lactate? 2 Y
--- NOTE | 2025-05-04 19:50 | PM.IMHP ---
History of Present Illness Date of Service: 05/04/25 Attending physician on admission: Wero Gonzalez Chief Complaint: Generalized weakness Jabari Galloway is 84 years old man with past medical history significant for recurrent UTI, COPD no home oxygen, CVA, YEIMY not on CPAP, hyperlipidemia, positive RF, CAD, essential hypertension, chronic hep C, pulmonary nodule and hyperlipidemia was brought to the emergency department via ambulance after his [employer] WASHER called EMS. Patient has been complaining of generalized weakness and sleepiness. He has been confused at time. He is a poor historian and was was able to tell me that he is not in pain. He denied any headache, palpitations, dizziness, chest pain, shortness on breath, cough, fever, chills, pain with urination, abdominal pain, nausea, vomiting or diarrhea. He does not recall the names of his medications. Per triage ED note patient had 1 episode foul-smelling urinary incontinence. In the ED, he was found to stable vital signs. Blood workup showed no leukocytosis. Hemoglobin is 12.8 and around baseline. Hematocrit 38.9 and platelets are 233. There are no significant electrolyte imbalances except for low CO2 at 20. BUN is 18 and creatinine 1.02. There is mild lactic acidosis. UA is consistent with UTI. Viral testing for COVID-19, influenza and RSV is negative. CXR showed right mid lung zone nodule measuring 2.9 cm and 1.1 cm. There is pulmonary fibrosis and no rib fractures. ED Tx: Ceftriaxone 1 g IV, LR 1 L bolus Review of Systems Review of Systems: All 12 systems were reviewed and normal except as noted in HPI. 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 Weakness Obstructive sleep apnea PVD (peripheral vascular disease) Hyperlipemia Tubular adenoma Chronic hepatitis B Elevated rheumatoid factor Elevated sed rate Chronic anemia Renal lithiasis Chronic back pain Vitamin B12 deficiency HTN (hypertension) CAD (coronary artery disease) Surgical History History of bronchoscopy History of endoscopy History of lithotripsy History of cystoscopy History of colonoscopy History of repair of left rotator cuff History of lumbar surgery History of cataract surgery Social History Household Members: None Housing: Apartment Do you presently have visiting nurse or other home services: Yes (pt has a breakfast host) Unable to assess alcohol history related to: Unknown Patient Tobacco Use Status: Current everyday Tobacco user Tobacco use type: Cigarette Cigarettes Per Day: 2 Years Smoked: 30+ Years Smoked in Last 30 Days: Yes Second Hand Smoke Exposure: No Use of substances other than those prescribed or required for medical reasons: Unknown Advance Directives: No Advance Directives Information Provided: No Advance Directives Date on File: 09/23/20 service: No Current occupational status: retired Meds Allergies Allergy/AdvReac Type Severity Reaction Status Date / Time No Known Allergies (No Known Allergy Verified 05/04/25 14:09 Allergies*) Active Medications: Current Medications Acetaminophen (Acetaminophen 325 Mg Tablet) 975 mg PO Q6H PRN PRN Reason: Pain, Mild 1-3,fever,headache Calcium Carbonate (Calcium Carbonate 750 Mg Tab.Chew) 750 mg PO Q4H PRN PRN Reason: Heartburn Heparin Sodium (Porcine) (Heparin Sodium,Porcine 5,000 Unit/Ml Vial) 5,000 unit SUBCUT Q12H [facility] Magnesium Hydroxide (Milk Of Magnesia 30 Ml Oral.Susp) 30 ml PO DAILY PRN PRN Reason: Constipation Melatonin (Melatonin 3 Mg Tablet) 6 mg PO BEDTIME PRN PRN Reason: Insomnia Sodium Chloride (0.9 % Sodium Chloride Flush 3 Ml Syringe) 3 ml IVFLUSH QSHIFT [facility] Home Medications ?Medication ?Instructions ?Recorded ?Confirmed ?Last Taken ?Type amlodipine 5 mg tablet 1 tab PO QAM 09/22/20 02/01/23 Unknown History aspirin 81 mg tablet,delayed 1 tab PO BEDTIME 09/22/20 02/01/23 12/12/22 History release atorvastatin 40 mg tablet 1 tab PO BEDTIME 09/22/20 02/01/23 Unknown History ferrous sulfate 325 mg (65 mg 325 mg PO TID 09/22/20 02/01/23 Unknown History iron) tablet gabapentin 600 mg tablet 600 mg PO BID 09/22/20 02/01/23 Unknown History latanoprost 0.005 % eye drops 1 drp ophthalmic (eye) BEDTIME 09/22/20 02/01/23 Unknown History omeprazole 20 mg capsule,delayed 20 mg PO DAILY 09/22/20 02/01/23 Unknown History release oxycodone-acetaminophen 5 mg-325 1 tab PO BID PRN Pain 09/22/20 02/01/23 Unknown History mg tablet primidone 50 mg tablet 100 mg PO BEDTIME 09/22/20 02/01/23 Unknown History clopidogrel 75 mg tablet 75 mg PO DAILY 11/06/20 02/01/23 12/12/22 History famotidine 20 mg tablet 20 mg PO BID 11/06/20 02/01/23 Unknown History lidocaine HCl 2 % mucosal solution ml PO 11/06/20 02/01/23 Unknown History amantadine HCl 100 mg tablet 100 mg PO 04/13/22 02/01/23 Unknown History bacitracin 500 unit/gram topical topical Q8H 04/13/22 02/01/23 Unknown History ointment benztropine 1 mg tablet 1 mg PO DAILY 04/13/22 02/01/23 Unknown History diphenhydramine HCl 25 mg capsule 25 mg PO BEDTIME 04/13/22 02/01/23 Unknown History (Banophen) folic acid 1 mg tablet 1 mg PO DAILY 04/13/22 02/01/23 Unknown History infliximab 100 mg intravenous IV 04/13/22 02/01/23 Unknown History solution (Remicade) multivitamin 1 tab PO QAM 04/13/22 02/01/23 Unknown History prednisone 10 mg tablet 10 mg PO DAILY 06/16/22 02/01/23 Unknown History trazodone 150 mg tablet 300 mg PO BEDTIME 06/16/22 02/01/23 Unknown History Physical Exam Vital Signs and Narrative: Vital Signs: Last Vital Signs Temp 97.5 F 05/04/25 19:29 Pulse 56 05/04/25 19:29 Resp 16 05/04/25 19:29 BP 134/78 05/04/25 19:29 Pulse Ox 92 05/04/25 19:29 O2 Del Method Room Air 05/04/25 19:29 BMI result Body Mass Index 23.5 General: Alert, oriented, in no acute distress. Looks very tired. Cooperative. Afebrile. HEENT: Head normocephalic, atraumatic. PER, EOMI. Sclerae anicteric, conjunctiva clear. Oropharynx without erythema or exudate. Mucous membranes moist. Neck: Supple, no lymphadenopathy, or JVD. Heart: Regular rhythm, bradycardic, no murmurs, rubs or gallops. Lungs: Clear to auscultation bilaterally. No wheezes, rales, or rhonchi. Normal respiratory effort. Abdomen: Soft, non tenderness, nondistended, normoactive bowel sounds. Extremities: No calf tenderness bilaterally, no swelling Musculoskeletal: Full range of motion. No joint swelling, deformity, or tenderness. Generalized weakness and muscular atrophy. Strength: 4/5 in all muscle groups Skin: Warm/Dry. No pallor. No jaundice. Neurologic: Alert & oriented x4. Moving all extremities spontaneously. Normal speech. Psychological: Depressed mood and affect. Thought process coherent. Results Labs 05/04/25 14:22 05/04/25 15:10 Labs: Laboratory Results - last 24 hr 05/04/25 05/04/25 05/04/25 14:22 15:10 15:17 MCV 90.9 MCH 29.9 MCHC 32.9 RDW 14.9 Plt Count 233 MPV 9.6 Immature Gran % (Auto) 0.2 Neut % (Auto) 55.5 Lymph % (Auto) 37.6 [place] % (Auto) 4.7 Eos % (Auto) 1.6 Baso % (Auto) 0.4 Lymph # (Auto) 2.1 [place] # (Auto) 0.3 Eos # (Auto) 0.1 Baso # (Auto) 0.0 Abs Immat Gran (auto) 0.01 Absolute Neuts (auto) 3.0 Absolute Nucleated RBC 0.000 Nucleated RBC % (auto) 0.0 Anion Gap 18 Estim Creat Clear Calc 50.4 Estimated GFR > 60 Random Glucose 109 Lactic Acid 2.4 H* Lactic Acid F/U @ 2Hr Calcium 9.5 Magnesium 1.9 Total Bilirubin 0.2 AST 19 ALT < 6 Alkaline Phosphatase 114 Total Protein 8.8 H Albumin 3.8 Urine Color Urine Appearance Urine pH Ur Specific [place] Urine Protein Urine Glucose (UA) Urine Ketones Urine Blood Urine Nitrite Ur Leukocyte Esterase Urine RBC Urine WBC Ur Squamous Epith Cells Urine Bacteria Hyaline Casts Influenza Type A (PCR) NEGATIVE Influenza Type B (PCR) NEGATIVE RSV RNA Qual (PCR) NEGATIVE SARS-CoV-2 RNA (RT-PCR) NEGATIVE 05/04/25 05/04/25 17:01 17:07 MCV MCH MCHC RDW Plt Count MPV Immature Gran % (Auto) Neut % (Auto) Lymph % (Auto) [place] % (Auto) Eos % (Auto) Baso % (Auto) Lymph # (Auto) [place] # (Auto) Eos # (Auto) Baso # (Auto) Abs Immat Gran (auto) Absolute Neuts (auto) Absolute Nucleated RBC Nucleated RBC % (auto) Anion Gap Estim Creat Clear Calc Estimated GFR Random Glucose Lactic Acid Lactic Acid F/U @ 2Hr 2.5 H* Calcium Magnesium Total Bilirubin AST ALT Alkaline Phosphatase Total Protein Albumin Urine Color Yellow Urine Appearance Turbid Urine pH 6.0 Ur Specific [place] 1.020 Urine Protein 100 (2+) H Urine Glucose (UA) Negative Urine Ketones Trace Urine Blood Moderate (2+) H Urine Nitrite Positive H Ur Leukocyte Esterase Large (3+) H Urine RBC 3-5 H Urine WBC >50 H Ur Squamous Epith Cells 3-5 Urine Bacteria 4+ Hyaline Casts 3-5 Influenza Type A (PCR) Influenza Type B (PCR) RSV RNA Qual (PCR) SARS-CoV-2 RNA (RT-PCR) Assessment and Plan (1) UTI (urinary tract infection): Qualifiers: Urinary tract infection type: acute cystitis Hematuria presence: without hematuria Qualified Code(s): N30.00 - Acute cystitis without hematuria Status: Acute (2) Toxic metabolic encephalopathy: Status: Acute Plan Jabari Galloway is 84 y/o man with a PMHx significant for recurrent UTI presents with: Acute toxic-metabolic encephalopathy due to urinary tract infection. Continue empiric IV antibiotic therapy with ceftriaxone. Blood and urine culture obtained -will follow results. Acute lactic acidosis, unclear etiology; he had has this problem before. Continue IV fluids. Continue to monitor lactic acid. 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 Continue Plavix, aspirin and statin. COPD/emphysema. No acute symptoms. Continue home inhalers. Hyperlipidemia. Continue statin. Hx YEIMY. Not using CPAP. Essential hypertension. Continue amlodipine. Insomnia. Continue trazodone. BPH. Continue finasteride and tamsulosin. GERD. Continue Pepcid. RF. Continue methotrexate and prednisone. Tremors. On carbidopa levodopa. Chronic back pain. Continue oxycodone. Hx of solitary pulmonary nodule/RUL. Status post biopsy 2022: Fragments of tissue known with confluence mucinous epithelium, separate fragments of benign bronchial alveolar tissue. Comment: The confluence mucinous epithelium is worrisome for neoplastic process (e.g. Atypical adenomatous hyperplasia). med rec pending Code status: Full DVT prophylaxis: Heparin Patient will need hospitalization for at least 2 midnights for encephalopathy secondary to UTI treatment with IV antibiotics. This documentation was generated using dictation software; minor spreading or comb tender errors may be present. Quality Stroke Does the patient have a stroke diagnosis?: No VTE Prior VTE?: No VTE Risk Level:: Medical - moderate - high VTE Device Contraindication: Treatment Not Indicated VTE Drug Contraindication: N/A - Med Ordered
[2025-05-04 19:57] LABS: ~Lactic Acid-LAB USE ONLY 1.5 mmol/L (0.5-2.0)
[2025-05-05] VITALS: BP 122/88; PULSE 77; RESP 18; TEMP 36.2; O2SAT 90
[2025-05-05 00:28] VITALS: BMI 20.6
[2025-05-05] MEDS: 0.9 % Sodium Chloride Flush 3 ML SYRINGE IVFLUSH ×4 (01:44→22:04)
[2025-05-05 03:27] VITALS: BP 140/65; PULSE 61; RESP 18; TEMP 36.3; O2SAT 97
[2025-05-05 07:35] LABS: MANUAL DIFF FLAG NO
[2025-05-05 07:41] LABS: Hematocrit 33.8 % (42.0-52.0); Hemoglobin 11.0 g/dl (14.0-18.0); Imm Gran Abs Auto 0.01 X10*3/uL (0.00-0.03); Imm Gran Pct Auto 0.2 % (0.0-0.4); Lymphocytes Absolute Auto 2.4 X10*3/uL (1.2-4.9); Mean Corpuscular HGB Conc 32.5 g/dl (31.0-36.0); Mean Corpuscular Hemoglobin 29.3 pg (27.0-33.0); Mean Corpuscular Volume 90.1 fL (80.0-98.0); NRBC Abs Auto 0.000 X10*3/uL (0.0-0.012); NRBC Pct Auto 0.0 /100WBC (0.0-0.2); Platelet Count 222 X10*3/uL (160-400); Red Blood Count 3.75 X10*6/uL (4.60-5.80); White Blood Count 5.6 X10*3/uL (4.8-10.8)
[2025-05-05 07:48] VITALS: BP 124/64; PULSE 74; RESP 20; TEMP 36.2; O2SAT 92
[2025-05-05 08:45] LABS: Anion Gap 11 (12-20); Blood Urea Nitrogen 14 mg/dL (9-16); Calcium 9.0 mg/dL (8.4-10.2); Carbon Dioxide 24 mmol/L (22-29); Chloride 107 mmol/L (96-108); Creatinine Clr Calc Pharmacy 54.0; Estimated Glomerular Filt Rate > 60; Magnesium 1.7 mg/dL (1.6-2.6); Potassium 4.3 mmol/L (3.3-5.1); Sodium 138 mmol/L (135-145)
--- NOTE | 2025-05-05 10:59 | PHA.MEDREC ---
Pharmacy Consult ? Medication Reconciliation Pharmacy has completed the medication reconciliation. Spoke with the pt, who was a poor historian. He confirmed that he has a [employer] (Jyotsna [phone]) who helps him with his medications. I contacted Jyotsna who reported she provided a medication list to the EMT's at the time of transport; however no list was found in pt chart. Jyotsna able to confirm med reconciliation, and all meds were confirmed except for Atorvastatin (LF 04/03 for 30) and Famotidine (LF 04/03 for 30); kept those in med rec since they were recently filled.
--- NOTE | 2025-05-05 11:12 | PHA.MEDREC ---
Addendum entered by Judah Archibald RPh 05/05/25 11:37: MED REC REVIEWED BY [facility] To clarify, atorvastatin and famotidine were filled on 04/03/25 for 90 day supply, not 30. Original Note: Pharmacy Consult ? Medication Reconciliation Pharmacy has completed the medication reconciliation. Spoke with the pt, who was a poor historian. He confirmed that he has a [employer] (Jyotsna [phone]) who helps him with his medications. I contacted Jyotsna who reported she provided a medication list to the EMT's at the time of transport; however no list was found in pt chart. Jyotsna able to confirm med reconciliation, and all meds were confirmed except for Atorvastatin (LF 04/03 for 30) and Famotidine (LF 04/03 for 30); [employer] doesn't recognize those names but states she just looks at the meds and give it to the pt and is not so good with names of meds, kept those in med rec since they were recently filled.
[2025-05-05 11:13] VITALS: BP 133/59; PULSE 59; RESP 16; TEMP 37.5; O2SAT 95
--- NOTE | 2025-05-05 13:05 | MHC.CM.PN ---
IMM 05/05/25, Pt. lives alone, he has MAINTENANCE [employer] CUST[employer]PERVIS[employer] services that helps him with ALD's, shopping, etc. HCP is on file, it is Jyotsna, she is his MAINTENANCE [employer] CUST[employer] SUPERVISOR. CM asked patient's permission to speak with his son Jose and dtr in law, Nigel, and he said yes, they take care of me. Jose would like to be the HCP, CM will ask patient if he wants to make this change. For DME, pt. uses a scooter, he is able to walk, but only short distances. Family to transport home at [place], DCP; home, with services, CM to follow for DC needs.
[2025-05-05 15:57] VITALS: BP 121/69; PULSE 59; RESP 18; TEMP 37.2; O2SAT 94
--- NOTE | 2025-05-05 17:29 | P.PNIM_ITS ---
Subjective Subjective Date of Service: 05/05/25 Interval History: uti Review of Systems Has some abdominal/CVA soreness Denies any chest pain or shortness of breath Physical Exam 2 Exam: Exam: Appearance: Alert.? Oriented X3.?. cvs: rrr, [id number]. res: clear to auscultation ,no rhonchii or wheezing abd: no rebound or guarding ,nt, bs present. gu:mild cva tenderness ext pulses present , no cyanosis . neuro: axo3 , nonfocal. Vital Signs: Vital Signs: Last Vital Signs Temp 99.0 F 05/05/25 15:57 Pulse 59 05/05/25 15:57 Resp 18 05/05/25 15:57 BP 121/69 05/05/25 15:57 Pulse Ox 94 05/05/25 15:57 O2 Del Method Room Air 05/05/25 15:57 BMI result Body Mass Index 20.6 Objective Data Active Medications Acetaminophen (Acetaminophen 325 Mg Tablet) 975 mg PO Q6H PRN PRN Reason: Pain, Mild 1-3,fever,headache Calcium Carbonate (Calcium Carbonate 750 Mg Tab.Chew) 750 mg PO Q4H PRN PRN Reason: Heartburn Heparin Sodium (Porcine) (Heparin Sodium,Porcine 5,000 Unit/Ml Vial) 5,000 unit SUBCUT Q12H [facility] Last Admin: 05/05/25 10:39 Dose: 5,000 unit Documented By: VANE Ceftriaxone Sodium 1 gm/ (Sodium Chloride) 50 mls @ 100 mls/hr IV Q24H [facility] Last Infusion: 05/05/25 15:52 Dose: Infused Documented By: ALBINA Magnesium Hydroxide (Milk Of Magnesia 30 Ml Oral.Susp) 30 ml PO DAILY PRN PRN Reason: Constipation Melatonin (Melatonin 3 Mg Tablet) 6 mg PO BEDTIME PRN PRN Reason: Insomnia Sodium Chloride (0.9 % Sodium Chloride Flush 3 Ml Syringe) 3 ml IVFLUSH QSHIFT [facility] Last Admin: 05/05/25 17:24 Dose: 3 ml Documented By: ALBINA Labs 05/05/25 07:00 05/05/25 07:00 Labs: Laboratory Results - last 24 hr 05/04/25 05/04/25 05/04/25 17:01 17:07 19:36 MCV MCH MCHC RDW Plt Count MPV Immature Gran % (Auto) Neut % (Auto) Lymph % (Auto) [place] % (Auto) Eos % (Auto) Baso % (Auto) Lymph # (Auto) [place] # (Auto) Eos # (Auto) Baso # (Auto) Abs Immat Gran (auto) Absolute Neuts (auto) Absolute Nucleated RBC Nucleated RBC % (auto) Anion Gap Estim Creat Clear Calc Estimated GFR Random Glucose Lactic Acid F/U @ 2Hr 2.5 H* Lactic Acid F/U @ 4Hr 1.5 Calcium Magnesium Urine Color Yellow Urine Appearance Turbid Urine pH 6.0 Ur Specific [place] 1.020 Urine Protein 100 (2+) H Urine Glucose (UA) Negative Urine Ketones Trace Urine Blood Moderate (2+) H Urine Nitrite Positive H Ur Leukocyte Esterase Large (3+) H Urine RBC 3-5 H Urine WBC >50 H Ur Squamous Epith Cells 3-5 Urine Bacteria 4+ Hyaline Casts 3-5 05/05/25 07:00 MCV 90.1 MCH 29.3 MCHC 32.5 RDW 14.6 Plt Count 222 MPV 9.9 Immature Gran % (Auto) 0.2 Neut % (Auto) 48.0 Lymph % (Auto) 42.0 H [place] % (Auto) 7.4 Eos % (Auto) 2.0 Baso % (Auto) 0.4 Lymph # (Auto) 2.4 [place] # (Auto) 0.4 Eos # (Auto) 0.1 Baso # (Auto) 0.0 Abs Immat Gran (auto) 0.01 Absolute Neuts (auto) 2.7 Absolute Nucleated RBC 0.000 Nucleated RBC % (auto) 0.0 Anion Gap 11 L Estim Creat Clear Calc 54.0 Estimated GFR > 60 Random Glucose 90 Lactic Acid F/U @ 2Hr Lactic Acid F/U @ 4Hr Calcium 9.0 Magnesium 1.7 Urine Color Urine Appearance Urine pH Ur Specific [place] Urine Protein Urine Glucose (UA) Urine Ketones Urine Blood Urine Nitrite Ur Leukocyte Esterase Urine RBC Urine WBC Ur Squamous Epith Cells Urine Bacteria Hyaline Casts Microbiology Microbiology Results: Microbiology 05/04/25 15:10 Blood Culture - Preliminary Blood - Venous No growth after 24 hours. 05/04/25 14:22 Blood Culture - Preliminary Blood - Venous No growth after 24 hours. 05/04/25 Unknown Urine Culture - Preliminary Urine clean catch - Clean Catch Midstream Culture too young to evaluate. Assessment and Plan (1) UTI (urinary tract infection): Status: Acute Plan 84 y/o man with a PMHx significant for recurrent UTI presents with: Acute toxic-metabolic encephalopathy due to urinary tract infection. Mental status improving Cultures pending Has mild CVA tenderness, renal ultrasound ordered Continue empiric IV antibiotic therapy with ceftriaxone. Acute lactic acidosis, unclear etiology; he had has this problem before. Continue IV fluids. Improved with the hydration. 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 Continue Plavix, aspirin and statin. COPD/emphysema. No acute symptoms. Continue home inhalers. Hyperlipidemia. Continue statin. Hx YEIMY. Not using CPAP. Essential hypertension. Continue amlodipine. Insomnia. Continue trazodone. BPH. Continue finasteride and tamsulosin. GERD. Continue Pepcid. RF. Continue methotrexate and prednisone. Tremors. On carbidopa levodopa. Chronic back pain. Continue oxycodone. Hx of solitary pulmonary nodule/RUL. Status post biopsy 2022: Fragments of tissue known with confluence mucinous epithelium, separate fragments of benign bronchial alveolar tissue. Comment: The confluence mucinous epithelium is worrisome for neoplastic process (e.g. Atypical adenomatous hyperplasia). Code status: Full DVT prophylaxis: Heparin ongoing need hospitalization for at least 2 midnights for encephalopathy secondary to UTI treatment with IV antibiotics. Quality Stroke Does the patient have a stroke diagnosis?: No VTE Prior VTE?: No VTE Risk Level:: Medical - moderate - high VTE Device Contraindication: Treatment Not Indicated VTE Drug Contraindication: N/A - Med Ordered
--- NOTE | 2025-05-05 18:54 | PC.NURSE ---
Pt has obvious blood in urine. Urine is pink to [place]. Placed on purewick due to difficulty using urinal at bedside (soiled sheets multiple times).
[2025-05-05 20:00] VITALS: BP 162/74; PULSE 50; RESP 18; TEMP 36.8; O2SAT 95
[2025-05-06] VITALS (9 sets, daily range): BP systolic 116–171; BP diastolic 63–82; PULSE 56–104; RESP 16–18; TEMP 36.1–37.3; O2SAT 94–98
[2025-05-06] MEDS: Ferrous Sulfate 324 MG TABLET.DR PO (08:56)
[2025-05-06] MEDS: 0.9 % Sodium Chloride Flush 3 ML SYRINGE IVFLUSH ×3 (09:12→21:44)
--- NOTE | 2025-05-06 14:06 | MHC.CM.PN ---
Pt completed new HCP today naming his son Jose and Jose's , Nigel. It has been added to chart, copies given to pt. Pt. has agreed to go to [facility], choices are 1. [facility], 2. [facility], 3. [facility]. Ref's out.
--- NOTE | 2025-05-06 15:33 | MHC.CM.PN ---
HCP UPLODED OT REFERRALS. FIRST CHOICE IS [facility]. FACILITY AWARE AND REQUEST SENT TO INQUIRE IF THEY CAN OFFER A BED TODAY.
--- NOTE | 2025-05-06 18:02 | P.PNIM_ITS ---
Subjective Subjective Date of Service: 05/06/25 Interval History: uti Review of Systems Abdominal pain seems to be improving Denies any chest pain or shortness of breath Physical Exam 2 Exam: Exam: Appearance: Alert.? Oriented X3.?. cvs: rrr, [id number]. res: clear to auscultation ,no rhonchii or wheezing abd: no rebound or guarding ,nt, bs present. gu:mild cva tenderness ext pulses present , no cyanosis . neuro: axo3 , nonfoca Vital Signs: Vital Signs: Last Vital Signs Temp 99.2 F 05/06/25 15:31 Pulse 56 05/06/25 15:31 Resp 16 05/06/25 15:31 BP 131/65 05/06/25 15:31 Pulse Ox 94 05/06/25 15:31 O2 Del Method Room Air 05/06/25 15:31 BMI result Body Mass Index 20.6 Objective Data Active Medications Acetaminophen (Acetaminophen 325 Mg Tablet) 975 mg PO Q6H PRN PRN Reason: Pain, Mild 1-3,fever,headache Amlodipine Besylate (Amlodipine Besylate 5 Mg Tablet) 5 mg PO DAILY [facility]; Protocol Last Admin: 05/06/25 08:56 Dose: 5 mg Documented By: ARACELI Aspirin (Aspirin Enteric Coated 81 Mg Tablet.Dr) 81 mg PO BEDTIME [facility] Atorvastatin Calcium (Atorvastatin Calcium 40 Mg Tablet) 40 mg PO BEDTIME GADIEL Baclofen (Baclofen 10 Mg Tablet) 10 mg PO TID [facility] Last Admin: 05/06/25 14:01 Dose: 10 mg Documented By: ARACELI Calcium Carbonate (Calcium Carbonate 750 Mg Tab.Chew) 750 mg PO Q4H PRN PRN Reason: Heartburn Carbidopa/Levodopa (Carbidopa/Levodopa 25/100 Tablet) 1 tab PO TID [facility] Last Admin: 05/06/25 14:01 Dose: 1 tab Documented By: ARACELI Cefuroxime Axetil (Cefuroxime Axetil 500 Mg Tablet) 500 mg PO Q12H [facility] Last Admin: 05/06/25 14:01 Dose: 500 mg Documented By: ARACELI Clopidogrel Bisulfate (Clopidogrel Bisulfate 75 Mg Tablet) 75 mg PO DAILY [facility] Last Admin: 05/06/25 08:55 Dose: 75 mg Documented By: ARACELI Docusate Sodium (Docusate Sodium 100 Mg Capsule) 100 mg PO BID [facility] Last Admin: 05/06/25 08:56 Dose: 100 mg Documented By: ARACELI Famotidine (Famotidine 20 Mg Tablet) 20 mg PO BID [facility] Last Admin: 05/06/25 08:56 Dose: 20 mg Documented By: ARACELI Ferrous Sulfate (Ferrous Sulfate 324 Mg Tablet.) 324 mg PO DAILY [facility] Last Admin: 05/06/25 08:56 Dose: 324 mg Documented By: ARCAELI Folic Acid (Folic Acid 1 Mg Tablet) 1 mg PO DAILY [facility] Last Admin: 05/06/25 08:56 Dose: 1 mg Documented By: ARACELI Gabapentin (Gabapentin 400 Mg Capsule) 800 mg PO BID [facility] Last Admin: 05/06/25 08:56 Dose: 800 mg Documented By: ARACELI Heparin Sodium (Porcine) (Heparin Sodium,Porcine 5,000 Unit/Ml Vial) 5,000 unit SUBCUT Q12H [facility] Last Admin: 05/06/25 08:56 Dose: 5,000 unit Documented By: ARACELI Lidocaine (Lidocaine 4 % Patch Adh..Patch) 1 patch TRANSDERMA DAILY PRN PRN Reason: Pain Magnesium Hydroxide (Milk Of Magnesia 30 Ml Oral.Susp) 30 ml PO DAILY PRN PRN Reason: Constipation Melatonin (Melatonin 3 Mg Tablet) 6 mg PO BEDTIME PRN PRN Reason: Insomnia Multivitamins/Vitamin C (Multivitamin Tablet) 1 tab PO DAILY [facility] Last Admin: 05/06/25 08:56 Dose: 1 tab Documented By: ARACELI Oxycodone HCl (Oxycodone Hcl Immed Release 5 Mg Tablet) 5 mg PO BID PRN PRN Reason: Pain Sodium Chloride (0.9 % Sodium Chloride Flush 3 Ml Syringe) 3 ml IVFLUSH QSHIFT [facility] Last Admin: 05/06/25 17:07 Dose: 3 ml Documented By: ARACELI Tamsulosin HCl (Tamsulosin Hcl 0.4 Mg Capsule) 0.4 mg PO BEDTIME [facility] Trazodone HCl (Trazodone Hcl 100 Mg Tablet) 300 mg PO BEDTIME [facility] Labs 05/05/25 07:00 05/05/25 07:00 Microbiology Microbiology Results: Microbiology 05/04/25 15:10 Blood Culture - Preliminary Blood - Venous No growth after 48 hours. 05/04/25 14:22 Blood Culture - Preliminary Blood - Venous No growth after 48 hours. 05/04/25 Unknown Urine Culture - Final Urine clean catch - Clean Catch Midstream Assessment and Plan (1) UTI (urinary tract infection): Status: Acute Plan 84 y/o man with a PMHx significant for recurrent UTI presents with: Acute toxic-metabolic encephalopathy due to urinary tract infection. Mental status improving Blood culture negative at 48 hours, urine culture mixed. Renal ultrasound:1. No evidence of renal obstruction.2. Nonobstructing 0.6 cm calculus of the inferior pole of the right kidney. 3. Simple renal cyst of the superior pole of the right kidney measuring 1.0 cm. Switched to p.o. Ceftin Acute lactic acidosis, unclear etiology; he had has this problem before. Continue IV fluids. Improved with the hydration. 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 Continue Plavix, aspirin and statin. COPD/emphysema. No acute symptoms. Continue home inhalers. Hyperlipidemia. Continue statin. Hx YEIMY. Not using CPAP. Essential hypertension. Continue amlodipine. Insomnia. Continue trazodone. BPH. Continue finasteride and tamsulosin. GERD. Continue Pepcid. RF. Continue methotrexate and prednisone. Tremors. On carbidopa levodopa. Chronic back pain. Continue oxycodone. Hx of solitary pulmonary nodule/RUL. Status post biopsy 2022: Fragments of tissue known with confluence mucinous epithelium, separate fragments of benign bronchial alveolar tissue. Comment: The confluence mucinous epithelium is worrisome for neoplastic process (e.g. Atypical adenomatous hyperplasia). pt eval-str Code status: Full DVT prophylaxis: Heparin Quality Stroke Does the patient have a stroke diagnosis?: No VTE Prior VTE?: No VTE Risk Level:: Medical - moderate - high VTE Device Contraindication: Treatment Not Indicated VTE Drug Contraindication: N/A - Med Ordered
[2025-05-06] MEDS: Aspirin Enteric Coated 81 MG TABLET.DR PO (21:37)
[2025-05-07] VITALS (9 sets, daily range): BP systolic 114–161; BP diastolic 68–98; PULSE 54–84; RESP 18; TEMP 36.3–36.7; O2SAT 93–98
[2025-05-07 07:49] LABS: Glucose, Whole Blood 82 mg/dL (60-115)
[2025-05-07] MEDS: Lidocaine 4 % Patch ADH..PATCH 1 PATCH TRANSDERMA (09:10)
[2025-05-07] MEDS: Ferrous Sulfate 324 MG TABLET.DR PO (09:10)
[2025-05-07] MEDS: 0.9 % Sodium Chloride Flush 3 ML SYRINGE IVFLUSH (09:21)
--- NOTE | 2025-05-07 12:59 | P.PNIM_ITS ---
Subjective Subjective Date of Service: 05/07/25 Interval History: no acute complaint Physical Exam 2 Exam: Exam: Appearance: Alert.? Oriented X3.?. cvs: rrr, [id number]. res: clear to auscultation ,no rhonchii or wheezing abd: no rebound or guarding ,nt, bs present. gu:mild cva tenderness ext pulses present , no cyanosis . neuro: axo3 , nonfoca Vital Signs: Vital Signs: Last Vital Signs Temp 97.5 F 05/07/25 11:45 Pulse 84 05/07/25 12:12 Resp 18 05/07/25 11:45 BP 114/68 05/07/25 12:12 Pulse Ox 98 05/07/25 11:45 O2 Del Method Room Air 05/07/25 11:45 BMI result Body Mass Index 20.6 Objective Data Active Medications Acetaminophen (Acetaminophen 325 Mg Tablet) 975 mg PO Q6H PRN PRN Reason: Pain, Mild 1-3,fever,headache Amlodipine Besylate (Amlodipine Besylate 5 Mg Tablet) 5 mg PO DAILY [facility]; Protocol Last Admin: 05/07/25 09:10 Dose: 5 mg Documented By: ARACELI Aspirin (Aspirin Enteric Coated 81 Mg Tablet.) 81 mg PO BEDTIME [facility] Last Admin: 05/06/25 21:37 Dose: 81 mg Documented By: RAYMON Atorvastatin Calcium (Atorvastatin Calcium 40 Mg Tablet) 40 mg PO BEDTIME [facility] Last Admin: 05/06/25 21:37 Dose: 40 mg Documented By: RAYMON Baclofen (Baclofen 10 Mg Tablet) 10 mg PO TID [facility] Last Admin: 05/07/25 09:10 Dose: 10 mg Documented By: ARACELI Calcium Carbonate (Calcium Carbonate 750 Mg Tab.Chew) 750 mg PO Q4H PRN PRN Reason: Heartburn Carbidopa/Levodopa (Carbidopa/Levodopa 25/100 Tablet) 1 tab PO TID [facility] Last Admin: 05/07/25 09:10 Dose: 1 tab Documented By: ARACELI Cefuroxime Axetil (Cefuroxime Axetil 500 Mg Tablet) 500 mg PO Q12H [facility] Last Admin: 05/07/25 00:25 Dose: 500 mg Documented By: RAYMON Clopidogrel Bisulfate (Clopidogrel Bisulfate 75 Mg Tablet) 75 mg PO DAILY [facility] Last Admin: 05/07/25 09:10 Dose: 75 mg Documented By: ARACELI Docusate Sodium (Docusate Sodium 100 Mg Capsule) 100 mg PO BID [facility] Last Admin: 05/07/25 09:10 Dose: 100 mg Documented By: ARACELI Famotidine (Famotidine 20 Mg Tablet) 20 mg PO BID [facility] Last Admin: 05/07/25 09:10 Dose: 20 mg Documented By: ARACELI Ferrous Sulfate (Ferrous Sulfate 324 Mg Tablet.) 324 mg PO DAILY [facility] Last Admin: 05/07/25 09:10 Dose: 324 mg Documented By: ARACELI Folic Acid (Folic Acid 1 Mg Tablet) 1 mg PO DAILY [facility] Last Admin: 05/07/25 09:10 Dose: 1 mg Documented By: ARACELI Gabapentin (Gabapentin 400 Mg Capsule) 800 mg PO BID [facility] Last Admin: 05/07/25 09:10 Dose: 800 mg Documented By: ARACELI Heparin Sodium (Porcine) (Heparin Sodium,Porcine 5,000 Unit/Ml Vial) 5,000 unit SUBCUT Q12H [facility] Last Admin: 05/07/25 09:11 Dose: 5,000 unit Documented By: ARACELI Lidocaine (Lidocaine 4 % Patch Adh..Patch) 1 patch TRANSDERMA DAILY PRN PRN Reason: Pain Last Admin: 05/07/25 09:10 Dose: 1 patch Documented By: ARACELI Magnesium Hydroxide (Milk Of Magnesia 30 Ml Oral.Susp) 30 ml PO DAILY PRN PRN Reason: Constipation Melatonin (Melatonin 3 Mg Tablet) 6 mg PO BEDTIME PRN PRN Reason: Insomnia Multivitamins/Vitamin C (Multivitamin Tablet) 1 tab PO DAILY [facility] Last Admin: 05/07/25 09:10 Dose: 1 tab Documented By: ARACELI Oxycodone HCl (Oxycodone Hcl Immed Release 5 Mg Tablet) 5 mg PO BID PRN PRN Reason: Pain Sodium Chloride (0.9 % Sodium Chloride Flush 3 Ml Syringe) 3 ml IVFLUSH QSHIFT [facility] Last Admin: 05/07/25 09:21 Dose: 3 ml Documented By: ARACELI Tamsulosin HCl (Tamsulosin Hcl 0.4 Mg Capsule) 0.4 mg PO BEDTIME [facility] Last Admin: 05/06/25 21:37 Dose: 0.4 mg Documented By: RAYMON Trazodone HCl (Trazodone Hcl 100 Mg Tablet) 300 mg PO BEDTIME [facility] Last Admin: 05/06/25 21:41 Dose: Not Given Documented By: RAYMON Non-Admin Reason: Patient Refused Labs 05/05/25 07:00 05/05/25 07:00 Labs: Laboratory Results - last 24 hr 05/07/25 07:43 POC Glucose 82 Microbiology Microbiology Results: Microbiology 05/04/25 15:10 Blood Culture - Preliminary Blood - Venous No growth after 48 hours. 05/04/25 14:22 Blood Culture - Preliminary Blood - Venous No growth after 48 hours. 05/04/25 Unknown Urine Culture - Final Urine clean catch - Clean Catch Midstream Assessment and Plan (1) UTI (urinary tract infection): Status: Acute Plan 84M PMH recurrent uti, CAD, cva, pvd, copd, hld, yaron, htn, bph, RA, HCV, presented with weakness Acute toxic metabolic encephalopathy due to urinary tract infection Improved on ceftriaxone, cultures negative, switched to Ceftin CAD, old CVA, peripheral vascular disease Dual antiplatelet statin COPD Continue inhalers YARON Not on CPAP History of solitary pulmonary nodule Outpatient follow up for possible malignancy DVT prophylaxis with heparin subQ Full code reason for continued hospitalization: auth pending Quality Stroke Does the patient have a stroke diagnosis?: No VTE Prior VTE?: No VTE Risk Level:: Medical - moderate - high VTE Device Contraindication: Treatment Not Indicated VTE Drug Contraindication: N/A - Med Ordered
--- NOTE | 2025-05-07 13:06 | P.DS_ITS ---
DS: Providers Provider Date of Service: 05/07/25 Date of admission: 05/04/25 17:50 Date of discharge: 05/07/25 Primary care physician: Unknown Physician DS: Diagnosis Discharge Diagnosis (1) UTI (urinary tract infection): Status: Acute DS: Summary Hospital Course Hospital Course: from initial hpi: 84 years old man with past medical history significant for recurrent UTI, COPD no home oxygen, CVA, YEIMY not on CPAP, hyperlipidemia, positive RF, CAD, essential hypertension, chronic hep C, pulmonary nodule and hyperlipidemia was brought to the emergency department via ambulance after his ACADEMIC COACH called EMS. Patient has been complaining of generalized weakness and sleepiness. He has been confused at time. He is a poor historian and was was able to tell me that he is not in pain. He denied any headache, palpitations, dizziness, chest pain, shortness on breath, cough, fever, chills, pain with urination, abdominal pain, nausea, vomiting or diarrhea. He does not recall the names of his medications. Per triage ED note patient had 1 episode foul-smelling urinary incontinence. In the ED, he was found to stable vital signs. Blood workup showed no leukocytosis. Hemoglobin is 12.8 and around baseline. Hematocrit 38.9 and uyen telets are 233. There are no significant electrolyte imbalances except for low CO2 at 20. BUN is 18 and creatinine 1.02. There is mild lactic acidosis. UA is consistent with UTI. Viral testing for COVID-19, influenza and RSV is negative. CXR showed right mid lung zone nodule measuring 2.9 cm and 1.1 cm. There is pulmonary fibrosis and no rib fractures. ED Tx: Ceftriaxone 1 g IV, LR 1 L bolus hospital course: Patient was admitted for acute toxic metabolic encephalopathy due to urinary tract infection. He was given ceftriaxone and mental status improved. His cultures were negative and he will be empirically treated with the more days of cefuroxime on discharge. For coronary artery disease, old CVA, peripheral vascular disease was continued on dual antiplatelet therapy and statin. For COPD was continued on inhalers. For YEIMY he does not use CPAP. For history of solitary pulmonary nodule suspicious for malignancy he will continue to follow up with Pulmonary. Due to deconditioning was seen by physical therapy recommended [facility] to which patient will be discharged. He is expected require less than 30 days. Time Attestation Discharge Coordination Time (in mins): 37 Quality: Safe Use of Opioids Does Pt have an Active Cancer Diagnosis on the Problem List?: No Quality: Stroke Does the patient have a stroke diagnosis?: No Physical Exam Exam: Exam: Appearance: Alert.? Oriented X3.?. cvs: rrr, [id number]. res: clear to auscultation ,no rhonchii or wheezing abd: no rebound or guarding ,nt, bs present. gu:mild cva tenderness ext pulses present , no cyanosis . neuro: axo3 , nonfoca Vital Signs: Vital Signs: Last Vital Signs Temp 97.5 F 05/07/25 11:45 Pulse 84 05/07/25 12:12 Resp 18 05/07/25 11:45 BP 114/68 05/07/25 12:12 Pulse Ox 98 05/07/25 11:45 O2 Del Method Room Air 05/07/25 11:45 BMI result Body Mass Index 20.6 DS: Data Data Completed and Pending Labs on day of discharge: Laboratory Results - last 24 hr 05/07/25 07:43 POC Glucose 82 Preliminary micro results at discharge 05/04/25 15:10 Blood Culture - Preliminary Blood - Venous No growth after 48 hours. 05/04/25 14:22 Blood Culture - Preliminary Blood - Venous No growth after 48 hours. Discharge Plan Discharge Anticipated Discharge Date/Time: 05/07/25 13:04 Patient Disposition: Xfer [facility] Discharge Diagnosis: uti Referrals: Physician,Gabriel Banerjee [Primary Care Provider, Medical] - 1 Week Jm Hernandez MD [Physician, Pulmonology] - 1 Week Referral Note: lung nodule Discharge Medications: New cefuroxime axetil 500 mg Tablet 500 mg PO Q12H 3 Days Qty: 6 0RF Continued carbidopa-levodopa 25-100 mg tablet 1 tab PO TID Qty: 90 6RF baclofen 10 mg tablet 10 mg PO TID Qty: 90 3RF atorvastatin 40 mg tablet 1 tab PO BEDTIME amlodipine 5 mg tablet 1 tab PO DAILY aspirin 81 mg tablet,delayed release (DR/EC) 1 tab PO BEDTIME oxycodone-acetaminophen 5-325 mg tablet 1 tab PO BID PRN (Reason: Pain) ferrous sulfate 325 mg (65 mg iron) tablet 325 mg PO DAILY tamsulosin 0.4 mg capsule 0.4 mg PO BEDTIME 14 Days Qty: 14 0RF docusate sodium 100 mg capsule 100 mg PO BID melatonin 3 mg tablet 6 mg PO BEDTIME PRN (Reason: Sleep) lidocaine [Lidoderm] 5 % adhesive patch,medicated 1 patch topical DAILY MDD 12 hrs on PRN (Reason: Pain) Rx Instructions: leave on most painful area for up to 12 hrs gabapentin 800 mg tablet 800 mg PO BID famotidine 20 mg tablet 20 mg PO BID clopidogrel 75 mg tablet 75 mg PO DAILY folic acid 1 mg tablet 1 mg PO DAILY multivitamin Tablet 1 tab PO DAILY trazodone 150 mg tablet 300 mg PO BEDTIME Discharge Orders: Discharge Order (Routine); Ordered 05/07/25 Ordered By: Brice Chau Diet: Advance to usual diet Activity on Discharge: As tolerated Stand Alone Forms: Patient Portal Discharge page Print Language: Algerian Care Plan Goals: [facility] Concerns: UTI, suspicious lung lesion Plan of Treatment: 3 more days of Ceftin, rehab, follow up with pulm for workup of lung nodule Assessment: See above
--- NOTE | 2025-05-07 14:02 | MHC.CM.PN ---
Pt. has been medically cleared to [place], he will go to [facility] for STR via BLS.
--- NOTE | 2025-05-07 16:02 | MHC.CM.PN ---
Pt.'s ins. did not approve Skilled STR, SNF will care for him there under his correction benefit, he will go to the traditional side (not [facility]) and have PT 3 x a week. CM discussed this with his son and dtr in law, and they agree for him to go to the SNF for this care.
== END 2025-05-07 19:01 | disposition skilled nursing facility (03) | DRG 689 ==
LOC: HO.ED 15:08 → HO.EDOVER 18:02 → HO.IMC 05-05 00:24
PROVIDERS: Internal Medicine; Registered Nurse Emergency; Admitting Provider Student in an Organized Health Care Education/Training Program; Emergency Provider Emergency Medicine Emergency Medical Services; Visit Provider Internal Medicine
DX: N39.0 Urinary tract infection, site not specified (principal); G92.8 Other toxic encephalopathy; E87.21 Acute metabolic acidosis; I25.10 Atherosclerotic heart disease of native coronary artery without angina pectoris; J43.9 Emphysema, unspecified; G47.33 Obstructive sleep apnea (adult) (pediatric); I10 Essential (primary) hypertension; G47.00 Insomnia, unspecified; K21.9 Gastro-esophageal reflux disease without esophagitis; I73.9 Peripheral vascular disease, unspecified; E78.5 Hyperlipidemia, unspecified; R25.1 Tremor, unspecified; M54.9 Dorsalgia, unspecified; N40.0 Benign prostatic hyperplasia without lower urinary tract symptoms; R91.1 Solitary pulmonary nodule; G89.29 Other chronic pain; Z20.822 Contact with and (suspected) exposure to COVID-19; Z87.440 Personal history of urinary (tract) infections; Z86.73 Personal history of transient ischemic attack (TIA), and cerebral infarction without residual deficits; Z79.82 Long term (current) use of aspirin; Z79.02 Long term (current) use of antithrombotics/antiplatelets; Z79.899 Other long term (current) drug therapy
CPT/HCPCS: 36415; 71101; 76775; 80048; 80053; 81001; 82947; 83605; 83735; 85025; 87040; 87086; 87637; 93005; 97110; 97116; 97162; 99221; 99285; J0696; J1644; J7120

== ENCOUNTER → 2025-05-04 15:26 | Outpatient (BNV) | payer OTHER, SELFPAY | PROVIDERS: Emergency Provider Emergency Medicine Emergency Medical Services; Visit Provider Radiology Diagnostic Radiology | DX: J84.10 Pulmonary fibrosis, unspecified (principal); R91.1 Solitary pulmonary nodule | CPT/HCPCS: 71101 ==

== ENCOUNTER 2025-05-04 17:50 | Outpatient (BNV) | payer OTHER, SELFPAY | END 2025-05-05 18:47 | PROVIDERS: Admitting Provider Student in an Organized Health Care Education/Training Program; Emergency Provider Emergency Medicine Emergency Medical Services; Visit Provider Radiology Diagnostic Radiology | DX: N20.0 Calculus of kidney (principal); N28.1 Cyst of kidney, acquired | CPT/HCPCS: 76775 ==

== ENCOUNTER 2025-05-04 17:50 | Outpatient (BNV) | payer OTHER, SELFPAY | END 2025-05-04 20:08 | PROVIDERS: Admitting Provider Student in an Organized Health Care Education/Training Program; Emergency Provider Emergency Medicine Emergency Medical Services; Visit Provider Internal Medicine | DX: R00.1 Bradycardia, unspecified (principal); I44.0 Atrioventricular block, first degree | CPT/HCPCS: 93010 ==

== ENCOUNTER → 2025-05-04 17:50 | Outpatient (BNV) | payer OTHER, SELFPAY | PROVIDERS: Admitting Provider Student in an Organized Health Care Education/Training Program; Emergency Provider Emergency Medicine Emergency Medical Services; Visit Provider Internal Medicine | DX: N30.00 Acute cystitis without hematuria (principal) | CPT/HCPCS: 99223; 99232; 99239; 99499 ==

== ENCOUNTER 2025-06-04 11:51 | Outpatient (REF) | payer OTHER, SELFPAY ==
--- OUTSIDE RECORDS SUMMARY | 2025-06-04 13:38 | XMS_ITS | Encounter Summary ---
Author Organization [facility] Address [address] [place] [address] Care Team Providers Care Cabinet Mounter Name Role Phone Amanda Amado MD Primary Care Provider Encounter Details Date Type Department Care Team (Late st Contact Info) Description 05/27/2025 Lab Requisition [facility] [address] [facility] [place] [address] Ignacio Saini MD [address] [place] [address] Essential (primary) hypertension; Cerebrovascular disease, unspecified Social History Tobacco Use Types Packs/Day Years Used Date Smoking Tobacco: Never Assessed Sex and Gender Information Value Date Recorded Sex Assigned at Not on file Legal Sex Male 3:00 PM EST Gender Identity Not on file Sexual Orientation Not on file documented as of this encounter Plan of Treatment Not on file documented as of this encounter Visit Diagnoses Diagnosis Essential (primary) hypertension Unspecified essential hypertension Cerebrovascular disease, unspecified documented in this encounter Care Teams Cabinet Mounter Relationship Specialty Start Date End Date Amanda Amado MD [address] [facility] [address] [place], [place] PCP - General 10/16/13 documented as of this encounter
--- OUTSIDE RECORDS SUMMARY | 2025-06-04 13:38 | XMS_ITS | Data Portability ---
Author Organization [facility], Main Office Address [address], [address] [place] [address] Care Team Providers Care Wilton Weaver Name Role Phone JAZZ SUAREZ - 3RD FLOOR OTHER EVANS PERRIN Primary Care Provider Assessment Encounter Date Assessment Date Assessment LastModified by Organization Details LastModified Time 09/25/2020 09/25/2020 09/25/20 WBC 4.7, Hgb 11, Hct 33.9, Plt 211, Na 131, K 4.3, BUN 17, Health Researcher 0.72, diane 8.3, tot prot 8.3, alb 2.9, tot bili 0.4, AST 19, ALT 16, alk phos 114 [email or web address] Not available 09/25/2020 12:31:57 09/28/2020 09/28/2020 09/25/20 WBC 4.7, Hgb 11, Hct 33.9, Plt 211, Na 131, K 4.3, BUN 17, Health Researcher 0.72, diane 8.3, tot prot 8.3, alb [...] By Organization Details Last Modified Time 06/08/2016 [id number] patient is concerned about possible need to transition to LTC continue PT OT eval and treat [email or web address] Not available 06/08/2016 11:45:28 Patient InstructionsNo instructions recorded. Reason for Referral None Reported. Problems Name Problem SNOMED Code Status Onset Date Resolution Date Notes Provider Name and Address Organization Details Recorded Time Rhabdomyoly sis 694901459 Active 2015 Dalyannie solis, [employer] Pinpoint MD [facility] 6 10:11:43 Cerebrovasc ular accident 985825642 Active 2015 Dalyannie solis, [employer] [facility] 6 10:11:48 Acute injury of kidney 4529599407859 4108 Active 2015 Daly Ames null, [place] [employer] [facility] 6 10:12:01 Chronic obstructive pulmonary disease 78659222 Active 2015 Daly Carrolles null, [facility] Pin[employer] MD [facility] 6 10:12:07 Mixed hyperlipide loco 117136766 Active 2015 Dalyannie solis, [place] [employer] [facility] 6 10:12:13 Essential hypertensio n 20888738 Active 2015 Dalyannie solis, [place] [employer] [facility] 6 10:12:19 Rheumatoid arthritis 41756958 Active 2015 Dalyannie solis, [employer] [facility] 6 10:12:32 Chronic pain 40001248 Active 2015 Dalyannie solis, [place] [employer] [facility] 6 10:12:39 Neuropathy 509494127 Active 2015 Dalyannie solis, [employer] [facility] 6 10:26:35 Tremor 15840049 Active 2016 Juana solis, [employer] [facility] 7 12:23:32 Abnormal gait 70314358 Active 2020 SUS[address], [address], [place], [address], [employer] 1 13:43:55 History of cerebrovasc ular accident 178167341 Active 2020 SUSAN STEIN [address], [address], [place], [address], [employer] 1 18:30:18 Gastroesoph ageal reflux disease without esophagitis 516481084 Active 2020 MARKIE PADMA PAPER CONSERVATOR [address], [address], [place], [address], [employer] [facility] 18:32:34 Coronary arterioscle rosis 56766058 Active 2020 TOR[address]Y STE[address]P [address], [address], [place], [address], [employer] [facility] 18:33:28 Anemia 912851140 Active 2020 TORREY STE[address]P [address], [address], [place], [address], [employer] [facility] 18:33:43 Blood in urine 70207127 Active 2020 TORREY STEINP [address], [address], [place], [address], [employer] [facility] 18:35:24 Constipatio n 77061499 Active 2020 TORREY STEINP [address], [address], [place], [address], [facility] 18:37:06 Chronic insomnia 579847297 Active 2020 TORREY STE[address]P [address], [address], [place], [address], [employer] [facility] 18:40:24 Benign prostatic hyperplasia 800694388 Active 2020 TORREY STEINP [address], [address], [place], [address], [employer] [facility] 18:43:50 Problem Notes None recorded. Medical Equipment None Reported. Allergies No known drug allergies Medications Not known to be on any medication Vitals Date Recorded Body temperature Heart rate Respiratory rate Oxygen saturation Systolic And Diastolic Provider Name and Address Organization Details Last Updated DateTime 97.7 [degF] 67 /min 18 /min 96 % 134/68 mm[Hg] TORREY STEINP [address], [address], [place], [address], [employer] [facility] 18:21:00 Date Recorded Body height Body mass index (BMI) Body weight Oxygen saturation Body temperature Heart rate Respiratory rate Systolic And Diastolic Provider Name and Address Organization Details Last Updated DateTime 170.18 cm 19.3 kg/m2 38861.8 6 g 94 % 97.9 [degF] 78 /min 18 /min 124/68 mm[Hg] Stefanie Nelson MD [address], [address], [place], [address], [employer] [facility] 13:27:16 Date Recorded Body height Systolic And Diastolic Provider Name and Address Organization Details Last Updated DateTime 09/29/2020 170.18 cm 124/68 mm[Hg] Markus Yi MD [address], [address], [place], [address], [employer] [facility] 09/29/2020 13:11:53 Social History Question Answer Notes LastModified by Organizat ion Details LastModified Time Tobacco Smoking Status Current Every Day Smoker just 1-2 cigs/day Stefanie Nelson MD [address] [facility] [address], [address], [place], [address], [employer] [facility] 09/28/2020 15:00:49 Do You Have An Advance Directive? Yes FULL CODE-NO DIALYSIS-use Nutrition And Hydration Information not available 09/25/2020 How Much Tobacco Do You Chew? None Information not available 09/25/2020 Do You Have A Medical Power Of Flash Welder? Yes Hcp On File Information not available [...] ICD10 Code Diagnosis IMO Codes Diagnosis Note [id number] SUS[address] [address] 06/04/2016 10:00:35 06/10/2016 11:24:13 Rhabdomyolysis 041406692 M62.82 Patient with fall out of wheelchair , found laying on floor for unknown period of time, patient presented c/o severe back pain and other assorted aches and pains, initial CK 25,000+, treated with IV fluids with improvemen t, CK 18,892 on d/c, follow CPK and BMP twice weekly until normalized , PT/OT to maximize function Cerebrovas cular accident 439542034 I63.342 Presented with fall, screening head CT revealed acute cerebellar infarct, no deficits noted, f/u neuro Dr Roberts, ASA and statin, bp control, follow diet recs, INFORMATICS PHYSICIAN LIAISON eval prn, PT/OT to maximize function Acute inju ry of kidney 3894010709 2421636 N17.8 Cr on admission 2.74, improved with IV fluids, Cr on d/c 0.6, monitor renal function as rhabdomyol ysis resolves Chronic ob structive pulmonary disease 78894582 J41.1 Stable, proair inhaler prn Mixed hyperlipidemia 267 716471 E78.2 On statin Essential hypertension 58314767 I10 Amlodipine 5 mg, monitor bp and labs Chronic pain 62282696 G8 9.29 Oxycodone for pain, monitor Vertigo 427068521 R42 With dizziness in hospital, patient reports dizziness has not improved, cont. meclizine 12.5 mg prn, if fails to improve consider ENT consult, monitor Rheumatoid arthritis 698 64035 M06.89 Methotrexa te qweekly, prednisone 5 mg, monitor sxs [id number] Juana Mcdonough NP, S [address] [address] 06/06/2016 12:14:01 06/06/2016 12:43:57 Tremor 09201539 G25.2 Neurology consult as scheduled. OT evaluation for weighted eating utensils Neuropathy 246950407 G65 .1 Neurology consult. [id number] Markus Yi MD [address] [address] 06/08/2016 11:20:31 06/10/2016 11:51:58 Rhabdomyolysis 312256349 M62.82 Patient with fall out of wheelchair , found laying on floor for unknown period of time, patient presented c/o severe back pain and other assorted aches and pains, initial CK 25,000+, treated with IV fluids with improvemen t, CK 18,892 on d/c, follow CPK and BMP twice weekly until normalized , PT/OT to maximize function Cerebrovas cular accident 572622181 I63.342 Acute cerebellar infarct seen on CT head. f/u neuro Dr Roberts for CVA and tremorASA and statin, bp controlSLP eval prnPT/OT to maximize function Acute inju ry of kidney 8154854252 4824166 N17.8 Cr on admission 2.74, improved with IV fluids, Cr on d/c 0.6, monitor renal function as rhabdomyol ysis resolves Chronic ob structive pulmonary disease 44503224 J41.1 Stable, proair inhaler prn Mixed hyperlipidemia 267 084640 E78.2 On statin Essential hypertension 74277331 I10 Norvasc 5 mgmonitor bp and labs Chronic pain 92877385 G8 9.29 Oxycodone for pain, monitor Vertigo 837868497 R42 With dizziness in hospital, patient reports dizziness has not improved, cont. meclizine 12.5 mg prn, if fails to improve consider ENT consult, monitor Rheumatoid arthritis 698 70217 M06.89 Methotrexa te qweekly, prednisone 5 mg, monitor sxs [id number] SUSAN STEIN [facility] [address] [place] [address] 09/25/2020 12:26:20 09/29/2020 08:22:25 Abnormal gait 74115491 R26.89 PT/OT eval and treat reminders to ask for help utilize walker monitor for safety History of cerebrovascular accident 075917698 Z86.73 ASA 81 mg qd atorvastat in 40 mg qd monitor follow with neurology as needed Neuropathy 279082471 G63 neurontin 600 mg bid discussed risk vs benefit of neurontin with pt monitor Rheumatoid arthritis 698 20111 M06.89 methotrexa te 2.5 mg 6 tabs q week monitor Mixed hyperlipidemia 267 069316 E78.2 atorvastat in 40 mg qd monitor labs Essential hypertension 29201040 I10 ASA 81 mg qd norvasc at home but not discharged on any monitor b/p and labs Chronic ob structive pulmonary disease 04665780 J41.8 carries diagnosis not on medication monitor respirator y status Chronic pain 68829489 G8 9.29 oxycodone/ apap 5-325 mg bid prn monitor pain Gastroesop hageal reflux disease without esophagitis 929819101 K21.9 omeprazole 20 mg qd monitor for symptoms Coronary arteriosclerosis 84004679 I25.10 ASA 81 mg qd atorvastat in 40 mg qd monitor Anemia 060259919 D50.8 ferrous sulfate 325 mg tid monitor labs Tremor 48291353 G25.2 primadone 50 mg bid and 100 mg q hs carbidopa- levodopa 25-100 mg tid monitor Blood in urine 79142164 R31.29 monitor urine follow up with urology Lactic acidosis 61354809 E87.2 unknown cause resolved with fluids monitor Constipation 39859133 K5 9.09 miralax 17 gms qd colace 100 mg bid monitor bowels Chronic insomnia 8596536 04 F51.04 melatonin 3 mg q hs trazodone 300 mg q hs discussed risk vs benefit of trazodone with pt monitor sleep Benign pro static hyperplasia 271278160 N40.0 tamsulosin 0.4 mg qd monitor for symptoms [id number] Stefanie Nelson MD [facility] [address] [place] [address] 09/28/2020 13:23:25 09/30/2020 13:29:25 Abnormal gait 48171053 R26.89 Doing great with PT per PT. Continue PT/OT for strengthen ing, balance, gait training, safety and function, her and then hopefully at home also for awhile. Encouraged to use walker consistent ly. Monitor for safety Blood in urine 84682067 R31.29 Incidental finding. F/U with urology as outpt. Constipation 73837983 K5 9.09 Continue miralax 17 gms qd and colace 100 mg BID. Monitor bowel function. History of cerebrovascular accident 641285171 Z86.73 Stable at baseline. Continue ASA 81 mg qd and atorvastat in 40 mg qd Monitor for change in sxs. Rheumatoid arthritis 698 50650 M06.89 Continue methotrexa te 15 mg q week And pain meds as above. F/U with rheum as planned. Mixed hyperlipidemia 267 199531 E78.2 Continue atorvastat in 40 mg qd Monitor labs as outpt. Essential hypertension 99391706 I10 BP in good control since here. Continue amlodipine 5 mg qd. Monitor BP and labs Chronic ob structive pulmonary disease 21288254 J41.8 carries diagnosis not on medication monitor respirator y status Gastroesop hageal reflux disease without esophagitis 863428909 K21.9 No current sxs. Continue omeprazole 20 mg qd Monitor for sxs Coronary arteriosclerosis 98128938 I25.10 Continue ASA 81 mg qd and atorvastat in 40 mg qd Monitor for sxs. Anemia 158516544 D50.8 Continue ferrous sulfate 325 mg TID. Monitor labs Tremor 31819456 G25.2 Unclear if dx is Parkinson' s Continue primidone 50 mg bid and 100 mg qhs and carbidopa- levodopa 25-100 mg TID. Monitor F/U with neuro as planned Chronic insomnia 0109956 04 F51.04 Continue melatonin 3 mg qhs and trazodone 300 mg qhs Monitor sleep patterns. Benign pro static hyperplasia 355608293 N40.0 No current sxs. Continue tamsulosin 0.4 mg qd Monitor for sxs Chronic back pain 017465 002 M54.5 Checked meds in [facility]. COnfirmed chronic use, rxed by PCP. Continue oxycodone/ apap 5-325 mg BID prn (uses BID scheduled) and gabapentin 600 mg BID. Monitor pain control. [id number] Markus Yi MD [address] [address] 09/29/2020 13:06:18 10/01/2020 11:59:12 Abnormal gait 47601599 R26.89 improved with therapy now independen t with walker Blood in urine 70702367 R31.29 recent episode of F/U with urology as outpt. History of cerebrovascular accident 176966538 Z86.73 Stable at baseline. Continue ASA 81 mg qd and atorvastat in 40 mg qd Monitor for change in sxs. Chronic back pain 852744 002 M54.5 Checked meds in [facility]. COnfirmed chronic use, rxed by PCP. Continue oxycodone/ apap 5-325 mg BID prn (uses BID scheduled) and gabapentin 600 mg BID. Monitor pain control. Rheumatoid arthritis 698 21595 M06.89 Continue methotrexa te 15 mg q week And pain meds as above. F/U with rheum as planned. Mixed hyperlipidemia 267 655294 E78.2 Continue atorvastat in 40 mg qd Monitor labs as outpt. Essential hypertension 45668420 I10 BP in good control since here. Continue amlodipine 5 mg qd. Monitor BP and labs Gastroesop hageal reflux disease without esophagitis 985276637 K21.9 Continue omeprazole 20 mg qd Monitor for sxs Coronary arteriosclerosis 09810546 I25.10 Continue ASA 81 mg qd and atorvastat in 40 mg qd Monitor for sxs. Anemia 311951928 D50.8 Continue ferrous sulfate 325 mg TID. Monitor labs Tremor 54400008 G25.2 Unclear if dx is Parkinson' s Continue primidone 50 mg bid and 100 mg qhs and carbidopa- levodopa 25-100 mg TID. Monitor F/U with neuro as planned Chronic insomnia 8015663 04 F51.04 Continue melatonin 3 mg qhs and trazodone 300 mg qhs Monitor sleep patterns. Benign pro static hyperplasia 324070615 N40.0 Continue tamsulosin 0.4 mg qd Monitor for sxs Health Concerns Section Related Observation LastModified by Organization Detai ls LastModified Time None Recorded Concern Status LastModified by Organization Details LastModified Time None Recorded Advance Directives Directive Y: FULL CODE-NO DIALYSIS-use nutrition and hydration Payers Insurance Date Sequence Insurance Name Policy Number Policy Khanna Covered Member ID Khanna Member ID Guarantor Name 09/25/2020 [address] [facility] - DOS PRIOR TO 2022 - DUAL ELIGIBLE (MEDICARE REPLACEMENT/ADV ANTAGE - HMO) Jabari Galloway [id number] Jabari Galloway 09/25/2020 2 [place] [facility] Jabari Galloway [id number] Jabari Galloway Notes Date Note Type Note Provider Name and Address Organization Details Recorded Time 06/06/2016 text/html 75-year-old male being seen for acute rounding visit at the request of nursing due to tremors of the left hand. Juana solis, [employer] 06/06/2016 12:39:38 06/08/2016 text/html Patient is a 75 yo admit from hospital after being found on floor having fallen out of wheelchair. 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 Patient was eval by nephrology and neurology during hospitalization. Patient was frequently c/o dizzyness in hospital started on meclizine. methotrexate was held on admit and restarted at [facility] d/c. H htn, RA, hld, and copd. Tremor since CVA Markus Yi MD [address] [facility], [address], [place], [address], [employer] 06/08/2016 11:46:35 09/25/2020 text/html A 79 year old male being seen for a initial intake note. Patient was sent to [facility] er when his DEVELOPMENT ANALYST noted slurred speech, unsteady gait and lethargy. [...] RA and tremor. PCP is Evans ROUSE, P[employer]ER CONSERVATOR [address] [facility] [facility], [address], [place], [address], [employer] 09/25/2020 19:13:22 09/28/2020 text/html This is a 79 yo man who is here for rehab after and acute hospitalization for slurred speech, unsteady gait and lethargy. He was sent to the [facility] ED on 09/23 after his DEVELOPMENT ANALYST noted the above sxs. Eval in hospital [...] doing well with rehab, he has daily DEVELOPMENT ANALYST at home and hopes for d/c on 09/30. Of note he is on chronic oxycodone and gabapentin for back pain.Seen walking in the [place] with PT, walking well and quickly using walker, with no assist.He says he feels like he is back to baseline, remembers day he went to hospital, he could understand what DEVELOPMENT ANALYST was saying, but she said she couldn't understand him. He couldn't tell that speech was slurred.His PMH includes HTN, hx of CVA-inferomedial left cerebellum, anemia, BPH, insomnia, COPD, hx of tubular adenoma, chronic back pain, YEIMY, PVD, constipation, GERD, HLD, neuropathy, RA and tremor. Stefanie Nelson MD [address] [facility] [address] [facility], [address], [place], [address], [employer] 09/28/2020 15:16:59 09/29/2020 text/html Patient is a 79 yo male seen in preparation for discharge initially admit from hospital after presenting with slurred speech, unsteady gait and lethargy. He was sent to the [facility] ED on 09/23 after his DEVELOPMENT ANALYST noted the above sxs. Eval in hospital [...] doing well with rehab, he has daily DEVELOPMENT ANALYST at home and hopes for d/c on 09/30. Of note he is on chronic oxycodone and gabapentin for back pain.Now independent ambulation with walker, cleared for discharge with services in place to f/u with PCP Markus Yi MD [address] [facility] [facility], [address], [place], [address], [employer] 09/29/2020 13:19:01
--- OUTSIDE RECORDS SUMMARY | 2025-06-04 13:38 | XMS_ITS | Encounter Summary ---
Author Organization [facility] Address [address] [place] [address] Care Team Providers Care Account Executive Key Accounts Name Role Phone Amanda Amado MD Primary Care Provider + [phone] Encounter Details Date Type Department Care Team (Late st Contact Info) Description 05/13/2025 Lab Requisition [facility] - Main Lab [address] [facility] [place] [address] Ignacio Saini MD [address] [place] [address] Essential (primary) hypertension; Cerebrovascular disease, unspecified Social [...] on file documented as of this encounter Procedures Procedure Name Priority Date/Time Associated Diagnosis Comments LIPID PANEL WITH REFLEX TO DIRECT LDL Routine 05/14/2025 5:00 AM EST Essential (primary) hypertension Cerebrovascular disease, unspecified COMPLETE BLOOD COUNT Routine 05/14/2025 5:00 AM EST Essential (primary) hypertension Cerebrovascular disease, unspecified THYROID STIMULATING HORMONE Routine 05/14/2025 5:00 AM EST Essential (primary) hypertension Cerebrovascular disease, unspecified THYROXINE TOTAL Routine 05/14/2025 5:00 AM EST Essential (primary) hypertension Cerebrovascular disease, unspecified BASIC METABOLIC PANEL Routine 05/14/2025 5:00 AM EST Essential (primary) hypertension Cerebrovascular disease, unspecified documented in this encounter Results * Thyroid stimulating hormone (05/14/2025 5:00 AM EST) Pathologist [facility] TSH 1.08 0.40 - 4.00 mcIU/mL 05/14/2025 9:42 AM EST [facility] Blood Venous blood specimen / Unknown Venipuncture / Unknown 05/14/2025 5:00 AM EST 05/14/2025 8:40 AM EST us Ignacio Saini MD LAB BLOOD ORDERABLES Final Result [facility] [address] [place] [address], [place] [phone] * Thyroxine total (05/14/2025 5:00 AM EST) Pathologist [facility] T4, Total 6.8 4.5 - 10.9 mcg/dL 05/14/2025 9:42 AM EST [facility] Blood Venous blood specimen / Unknown Venipuncture / Unknown 05/14/2025 5:00 AM EST 05/14/2025 8:40 AM EST Ignacio Saini MD LAB BLOOD ORDERABLES Final Result [facility] [address] [place] [address], [place] [phone] * (ABNORMAL) Lipid panel with reflex to direct LDL (05/14/2025 5:00 AM EST) [facility] Cholesterol 104 0 - 200 mg/dL 05/14/2025 9:42 AM EST [facility] Triglycerides 62 0 - 150 mg/dL 05/14/2025 9:42 AM EST [facility] HDL 39(L) >=40 mg/dL 05/14/2025 9:42 AM EST [facility] LDL Calculated 53 0 - 100 mg/dL 05/14/2025 9:42 AM [facility] Comment:Estimated LDL is diane culated using the Friedewald equation: Total cholesterol - HDL cholesterol - (Triglycerides/5) VLDL Cholesterol Diane 12.4 mg/dL 05/14/2025 9:42 AM [facility] Non HDL Chol. (LDL+VLDL) 65 <145 mg/dL 05/14/2025 9:42 AM [facility] Chol/HDL Ratio 2.7 0.0 - 4.4 05/14/2025 9:42 AM [facility] Blood Venous blood specimen / Unknown Venipuncture / Unknown 05/14/2025 5:00 AM EST 05/14/2025 8:40 AM EST Ignacio Saini MD LAB BLOOD ORDERABLES Final Result [facility] [address] [place] [address], [place] [phone] * (ABNORMAL) Complete blood count (05/14/2025 5:00 AM EST) WBC 5.1 4.8 - 10.8 K/mcL LAB HEMETOLOGY METHOD 05/14/2025 9:13 AM [facility] RBC 3.40(L) 4.50 - 5.50 M/[facility] LAB HEMETOLOGY METHOD 05/14/2025 9:13 AM [facility] Hemoglobin 10.4(L) 13.5 - 17.5 g/dL LAB HEMETOLOGY METHOD 05/14/2025 9:13 AM [facility] Hematocrit 31.1(L) 42.0 - 54.0 % LAB HEMETOLOGY METHOD 05/14/2025 9:13 AM [facility] MCV 90.4 79.0 - 98.0 FL LAB HEMETOLOGY METHOD 05/14/2025 9:13 AM EST [facility] MCH 30.2 27.0 - 32.0 pcg LAB HEMETOLOGY METHOD 05/14/2025 9:13 AM EST [facility] MCHC 33.4 32.0 - 37.0 g/dL LAB HEMETOLOGY METHOD 05/14/2025 9:13 AM EST [facility] RDW 15.4(H) 11.0 - 15.0 % LAB HEMETOLOGY METHOD 05/14/2025 9:13 AM EST [facility] Platelets 284 130 - 400 K/mcL LAB HEMETOLOGY METHOD 05/14/2025 9:13 AM [facility] MPV 9.9 7.0 - 11.0 FL LAB HEMETOLOGY METHOD 05/14/2025 9:13 AM EST [facility] NRBC 0.0 <1.0 % LAB HEMETOLOGY METHOD 05/14/2025 9:13 AM [facility] NRBC Absolute 0.00 <0.10 K/mcL LAB HEMETOLOGY METHOD 05/14/2025 9:13 AM [facility] Blood Venous blood specimen / Unknown Venipuncture / Unknown 05/14/2025 5:00 AM EST 05/14/2025 8:40 AM EST us Ignacio Saini MD LAB BLOOD ORDERABLES Final Result [facility] [address] [place] [address], * Basic metabolic panel (05/14/2025 5:00 AM EST) Sodium 138 133 - 145 mmol/L 05/14/2025 9:40 AM EST [facility] Potassium 4.5 3.5 - 5.5 mmol/L 05/14/2025 9:40 AM [facility] Chloride 104 96 - 110 mmol/L 05/14/2025 9:40 AM [facility] CO2 27 21 - 32 mmol/L 05/14/2025 9:40 AM [facility] Anion Gap 7 3 - 11 05/14/2025 9:40 AM [facility] Glucose 75 70 - 100 mg/dL 05/14/2025 9:40 AM [facility] BUN 14 5 - 25 mg/dL 05/14/2025 9:40 AM [facility] Creatinine 0.97 0.70 - 1.30 mg/dL 05/14/2025 9:40 AM [facility] eGFR 77 >=60 mL/min/1. 73m2 05/14/2025 9:40 AM [facility] Comment:Calculation based on the Chronic Kidney Disease Epidemiology Collaboration (CKD-EPI) equation refit without adjustment for race. BUN/Creatinine Ratio 14.4 05/14/2025 9:40 AM [facility] Calcium 8.6 8.5 - 10.5 mg/dL 05/14/2025 9:40 AM [facility] Blood Venous blood specimen / Unknown Venipuncture / Unknown 05/14/2025 5:00 AM EST 05/14/2025 8:40 AM EST us Ignacio Saini MD LAB BLOOD ORDERABLES Final Result [facility] [address] [place] [address], documented in this encounter Visit Diagnoses Diagnosis Essential (primary) hypertension Unspecified essential hypertension Cerebrovascular disease, unspecified documented in this encounter Care Teams Account Executive Key Accounts Relationship Specialty Start Date End Date Amanda Amado MD [address] [facility] (111) [place] PCP - General 10/16/13 documented as of this encounter
--- OUTSIDE RECORDS SUMMARY | 2025-06-04 13:38 | XMS_ITS | Encounter Summary ---
Author Organization [facility] Address [address] [place] [address] Care Team Providers Care [employer] Coach Name Role Phone Amanda Amado MD Primary Care Provider +- [phone] Encounter Details Date Type Department Care Team (Latest Contact Info) Description 05/08/[address] [facility] - Main Lab [address] [facility] [place] [place] [address] Ignacio Saini MD [address] [place] [address] Other cerebrovascular disease; Essential (primary) hypertension Social History Tobacco Use Types Packs/Day [...] Procedure Name Priority Date/Time Associated Diagnosis Comments COMPLETE BLOOD COUNT Routine 05/08/2025 5:32 AM EST Other cerebrovascular disease Essential (primary) hypertension COMPREHENSIVE METABOLIC PANEL Routine 05/08/2025 5:32 AM EST Other cerebrovascular disease Essential (primary) hypertension documented in this encounter Results * (ABNORMAL) Comprehensive metabolic panel (05/08/2025 5:32 AM EST) Sodium 136 133 - 145 mmol/L 05/08/2025 10:[address] [facility] Potassium 4.4 3.5 - 5.5 mmol/L 05/08/2025 10:[address] [facility] Chloride 100 96 - 110 mmol/L 05/08/2025 10:30 AM [facility] CO2 27 21 - 32 mmol/L 05/08/2025 10:30 AM [facility] Anion Gap 9 3 - 11 05/08/2025 10:30 AM [facility] Glucose 100 70 - 100 mg/dL 05/08/2025 10:30 AM [facility] BUN 19 5 - 25 mg/dL 05/08/2025 10:30 AM [facility] Creatinine 1.02 0.70 - 1.30 mg/dL 05/08/2025 10:30 AM [facility] eGFR 72 >=60 mL/min/1. 73m2 05/08/2025 10:30 AM [facility] Comment:Calculation based on the Chronic Kidney Disease Epidemiology Collaboration (CKD-EPI) equation refit without adjustment for race. BUN/Creatinine Ratio 18.6 05/08/2025 10:30 AM [facility] Calcium 9.0 8.5 - 10.5 mg/dL 05/08/2025 10:30 AM [facility] AST (SGOT) 19 10 - 42 unit/L 05/08/2025 10:30 AM [facility] ALT (SGPT) 8(L) 10 - 60 unit/L 05/08/2025 10:30 AM [facility] Alkaline Phosphatase 110 42 - 121 unit/L 05/08/2025 10:30 AM [facility] Total Protein 7.4 6.0 - 8.0 g/dL 05/08/2025 10:30 AM [facility] Albumin 3.6 3.2 - 5.0 g/dL 05/08/2025 10:30 AM [facility] Total Bilirubin 0.2 0.0 - 1.4 mg/dL 05/08/2025 10:30 AM [facility] Blood Venous blood specimen / Unknown Venipuncture / Unknown 05/08/2025 5:32 AM EST 05/08/2025 8:30 AM EST us Ignacio Saini MD LAB BLOOD ORDERABLES Final Result [facility] [address] [place] [address], [place] [phone] * (ABNORMAL) Complete blood count (05/08/2025 5:32 AM EST) WBC 5.5 4.8 - 10.8 K/mcL LAB HEMETOLOGY METHOD 05/08/2025 9:07 AM [facility] RBC 3.80(L) 4.50 - 5.50 M/mcL LAB HEMETOLOGY METHOD 05/08/2025 9:07 AM [facility] Hemoglobin 11.1(L) 13.5 - 17.5 g/dL LAB HEMETOLOGY METHOD 05/08/2025 9:07 AM [facility] Hematocrit 34.3(L) 42.0 - 54.0 % LAB HEMETOLOGY METHOD 05/08/2025 9:07 AM [facility] MCV 89.8 79.0 - 98.0 FL LAB HEMETOLOGY METHOD 05/08/2025 9:07 AM [facility] MCH 29.1 27.0 - 32.0 pcg LAB HEMETOLOGY METHOD 05/08/2025 9:07 AM [facility] MCHC 32.4 32.0 - 37.0 g/dL LAB HEMETOLOGY METHOD 05/08/2025 9:07 AM [facility] RDW 14.6 11.0 - 15.0 % LAB HEMETOLOGY METHOD 05/08/2025 9:07 AM [facility] Platelets 258 130 - 400 K/mcL LAB HEMETOLOGY METHOD 05/08/2025 9:[address] [facility] MPV 10.2 7.0 - 11.0 FL LAB HEMETOLOGY METHOD 05/08/2025 9:[address] [facility] NRBC 0.0 <1.0 % LAB HEMETOLOGY METHOD 05/08/2025 9:[address] [facility] NRBC Absolute 0.00 <0.10 K/mcL LAB HEMETOLOGY METHOD 05/08/2025 9:[address] [facility] Blood Venous blood specimen / Unknown Venipuncture / Unknown 05/08/2025 5:32 AM EST 05/08/2025 8:30 AM EST us Ignacio Saini MD LAB BLOOD ORDERABLES Final Result [facility] [address] [place] [address], documented in this encounter Visit Diagnoses Diagnosis Other cerebrovascular disease Essential (primary) hypertension Unspecified essential hypertension documented in this encounter Care Teams [employer] 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
--- OUTSIDE RECORDS SUMMARY | 2025-06-04 13:38 | XMS_ITS | Encounter Summary ---
Author Organization [facility] Address [address] [place] [address] Care Team Providers Care Therapy Director Name Role Phone Amanda Amado MD Primary Care Provider + [phone] Encounter Details Date Type Department Care Team (Late st Contact Info) Description 05/15/2025 Lab Requisition [facility] - Main Lab [address] [facility] [place] [address] Ignacio Saini MD [address] [place] [address] Pure hypercholesterolemia , unspecified; Hypothyroidism, unspecified Social History Tobacco Use Types Packs/Day [...] PANEL WITH REFLEX TO DIRECT LDL Routine 05/15/2025 5:30 AM EST Pure hypercholesterolemia , unspecified Hypothyroidism, unspecified THYROID STIMULATING HORMONE Routine 05/15/2025 5:30 AM EST Pure hypercholesterolemia , unspecified Hypothyroidism, unspecified THYROXINE TOTAL Routine 05/15/2025 5:30 AM EST Pure hypercholesterolemia , unspecified Hypothyroidism, unspecified documented in this encounter Results * Thyroxine total (05/15/2025 5:30 AM EST) T4, Total 6.6 4.5 - 10.9 mcg/dL 05/15/2025 1:18 PM EST [facility] Blood Venous blood specimen / Unknown Venipuncture / Unknown 05/15/2025 5:30 AM EST 05/15/2025 10:05 AM EST Ignacio Saini MD LAB BLOOD ORDERABLES Final Result [facility] [address] [place] [address], [place] [phone] * Thyroid stimulating hormone (05/15/2025 5:30 AM EST) TSH 1.35 0.40 - 4.00 mcIU/mL 05/15/2025 1:18 PM [facility] Blood Venous blood specimen / Unknown Venipuncture / Unknown 05/15/2025 5:30 AM EST 05/15/2025 10:05 AM EST Ignacio Saini MD LAB BLOOD ORDERABLES Final Result Performing Organization Address City/[facility]/ZIP Co de Phone Number [facility] [address] [place] [address], [place] [phone] * Lipid panel with reflex to direct LDL (05/15/2025 5:30 AM EST) Cholesterol 100 0 - 200 mg/dL 05/15/2025 1:23 PM [facility] Triglycerides 43 0 - 150 mg/dL 05/15/2025 1:23 PM [facility] HDL 40 >=40 mg/dL 05/15/2025 1:23 PM EST [facility] LDL Calculated 51 0 - 100 mg/dL 05/15/2025 1:23 PM EST [facility] Comment:Estimated LDL is diane culated using the Friedewald equation: Total cholesterol - HDL cholesterol - (Triglycerides/5) VLDL Cholesterol Diane 8.6 mg/dL 05/15/2025 1:23 PM EST [facility] Non HDL Chol. (LDL+VLDL) 60 <145 mg/dL 05/15/2025 1:23 PM EST [facility] Chol/HDL Ratio 2.5 0.0 - 4.4 05/15/2025 1:23 PM EST [facility] Blood Venous blood specimen / Unknown Venipuncture / Unknown 05/15/2025 5:30 AM EST 05/15/2025 10:05 AM EST us Ignacio Saini MD LAB BLOOD ORDERABLES Final Result [facility] [address] [place] [address], documented in this encounter Visit Diagnoses Diagnosis Pure hypercholesterolemia, unspecified Hypothyroidism, unspecified documented in this encounter Care Teams Therapy Director Relationship Specialty Start Date End Date Amanda Amado MD [address] [facility] Primary Care ([address]) [place] PCP - General 10/16/13 documented as of this encounter
[2025-06-04 14:15] LABS: Appearance Urine Turbid; Glucose Urine UA Negative (Negative); PH 5.5 (5.0-9.0); Specific Gravity - Urine 1.020 (1.005-1.025); UMIC TRIGGER UACC YES
[2025-06-04 14:38] LABS: UACC Culture Trigger YES
== END 2025-06-04 11:52 | disposition home or self-care (01) ==
LOC: HO.HHCL 11:51
PROVIDERS: PCP Internal Medicine; Visit Provider Nurse Practitioner Family
DX: R82.90 Unspecified abnormal findings in urine (principal)
CPT/HCPCS: 81001; 87086